=== PATIENT | male | born 1935 | race Caucasian/White ===

== ENCOUNTER 2016-07-23 11:20 | Outpatient (CLI) | payer OTHER ==
[2015-11-01 04:17] VITALS: BP 133/60
[2016-07-23] MEDS ORDERED: PROLIA SC ONE (11:27)
[2016-07-23 12:09] VITALS: BMI 32.5
== END 2016-07-23 12:11 | disposition home or self-care (01) ==
LOC: ER 11:20
PROVIDERS: ATTEND Internal Medicine
DX: Z79.899 Other long term (current) drug therapy (principal); M81.8 Other osteoporosis without current pathological fracture
CPT/HCPCS: 96372; 96375

== ENCOUNTER 2016-07-30 14:12 | Inpatient (IN) | payer OTHER ==
[2016-07-30] MEDS: ZOSYN VIAL 4.5 GM 4.5 GM in NS 100 ML IV + SPIKE MINIBAG* 100 ML IV SCH ×2 (16:33→22:47)
[2016-07-30] MEDS: LASIX IVP SCH ×2 (16:33→22:46)
[2016-07-30] MEDS: NS 1000 ML 1,000 ML IV SCH (16:36)
[2016-07-30 16:46] VITALS: BMI 33.4
[2016-07-30 16:54] LABS: ALANINE AMINOTRANSFERASE 39 Units/L (12-78); ALBUMIN 3.3 g/dL (3.4-5.0); ALKALINE PHOSPHATASE 83 Units/L (46-116); ASPARTATE AMINO TRANSFERASE 38 Units/L (15-37); BLOOD UREA NITROGEN 15 mg/dL (7-18); CHLORIDE 104 mmol/L (98-107); COR CA(FOR HYPOALB) 8.6 mg/dL (8.5-10.1); CREATININE 1.22 mg/dL (0.70-1.30); GLUCOSE 101 mg/dL (65-99); SODIUM 137 mmol/L (136-145); TOTAL PROTEIN 7.7 g/dL (6.4-8.2); eGFR BLACK RACES > 60 (>60); eGFR NON BLACK RACES > 60 (>60)
[2016-07-30 16:55] LABS: BASOPHILS # (AUTO) 0.1 X10^3/uL (0.0-0.1); BASOPHILS % (AUTO) 1.3 % (0.2-1.0); EOSINOPHILS # (AUTO) 0.4 x10^3/uL (0.0-0.2); EOSINOPHILS % (AUTO) 5.1 % (0.9-2.9); HEMATOCRIT 40.9 % (42.0-54.0); HEMOGLOBIN 13.2 g/dL (13.5-18.0); LYMPHOCYTES # (AUTO) 1.6 X10^3/uL (1.3-2.9); LYMPHOCYTES % (AUTO) 19.6 % (21.0-51.0); MEAN CORPUSCULAR HEMOGLOBIN 26.6 pg (27.0-34.0); MEAN CORPUSCULAR HGB CONC 32.2 g/dL (33.0-35.0); MEAN CORPUSCULAR VOLUME 82.6 fL (80.0-100.0); MEAN PLATELET VOLUME 7.4 fL (7.4-11.0); MONOCYTES # (AUTO) 0.7 x10^3/uL (0.3-0.8); MONOCYTES % (AUTO) 8.6 % (0.0-13.0); NEUTROPHILS # (AUTO) 5.4 x10^3/uL (2.2-4.8); NEUTROPHILS % (AUTO) 65.4 % (42.0-75.0); PLATELET COUNT 375 X10^3/uL (150.0-450.0); RED BLOOD COUNT 4.96 X10^6/uL (4.7-6.0); WHITE BLOOD COUNT 8.2 X10^3/uL (3.6-10.0)
[2016-07-30 17:43] LABS: BAND NEUTROPHILS % 2 % (0-10); PLATELET MORPHOLOGY COMMENT NORMAL (NORMAL)
[2016-07-30] MEDS: CIPRO IV 400 MG PREMIX* 400 MG/200 ML IV.SOLN. IV SCH (22:47)
[2016-07-30] MEDS ORDERED: RESTORIL CAP 15 MG PO ONE (23:35)
[2016-07-30] MEDS: RESTORIL CAP 15 MG PO PRN (23:46)
[2016-07-31] MEDS: CIPRO IV 400 MG PREMIX* 400 MG/200 ML IV.SOLN. IV SCH ×3 (02:19→21:39)
[2016-07-31 03:21] LABS: BILIRUBIN,URINE NEGATIVE (NEGATIVE); BLOOD/HEMOGLOBIN,URINE NEGATIVE (NEGATIVE); GLUCOSE, URINE NEGATIVE (NEGATIVE); KETONES,URINE NEGATIVE (NEGATIVE); LEUKOCYTE ESTERASE ,URINE NEGATIVE (NEGATIVE); NITRITES,URINE NEGATIVE (NEGATIVE); PH,URINE 6.5 (5.0 - 8.0); PROTEIN,URINE NEGATIVE (NEGATIVE); UROBILINOGEN,URINE NORMAL (NORMAL)
[2016-07-31 03:27] LABS: APPEARANCE,URINE CLEAR (CLEAR); COLOR,URINE YELLOW (YELLOW)
[2016-07-31 03:30] LABS: BACTERIA,URINE NEGATIVE /HPF (NEGATIVE); RBC,URINE NONE SEEN /HPF (NEGATIVE); SQUAMOUS EPITHELIAL CELL,UR RARE /HPF (NEGATIVE)
[2016-07-31] MEDS: ZOSYN VIAL 4.5 GM 4.5 GM in NS 100 ML IV + SPIKE MINIBAG* 100 ML IV SCH ×3 (05:27→21:39)
[2016-07-31] MEDS: NS 1000 ML 1,000 ML IV SCH ×2 (05:27→21:38)
[2016-07-31 05:28] LABS: BASOPHILS # (AUTO) 0.1 X10^3/uL (0.0-0.1); BASOPHILS % (AUTO) 1.2 % (0.2-1.0); EOSINOPHILS # (AUTO) 0.4 x10^3/uL (0.0-0.2); EOSINOPHILS % (AUTO) 5.5 % (0.9-2.9); HEMOGLOBIN 12.9 g/dL (13.5-18.0); LYMPHOCYTES # (AUTO) 1.4 X10^3/uL (1.3-2.9); MEAN CORPUSCULAR HEMOGLOBIN 26.6 pg (27.0-34.0); MEAN CORPUSCULAR HGB CONC 32.3 g/dL (33.0-35.0); MEAN CORPUSCULAR VOLUME 82.5 fL (80.0-100.0); MEAN PLATELET VOLUME 7.5 fL (7.4-11.0); MONOCYTES # (AUTO) 0.7 x10^3/uL (0.3-0.8); MONOCYTES % (AUTO) 9.3 % (0.0-13.0); NEUTROPHILS # (AUTO) 5.1 x10^3/uL (2.2-4.8); PLATELET COUNT 350 X10^3/uL (150.0-450.0); RED BLOOD COUNT 4.86 X10^6/uL (4.7-6.0); RED CELL DISTRIBUTION WIDTH 17.8 % (11.6-16.5); WHITE BLOOD COUNT 7.8 X10^3/uL (3.6-10.0)
[2016-07-31 05:31] LABS: ALANINE AMINOTRANSFERASE 35 Units/L (12-78); ALBUMIN 3.1 g/dL (3.4-5.0); ALKALINE PHOSPHATASE 78 Units/L (46-116); ASPARTATE AMINO TRANSFERASE 34 Units/L (15-37); BLOOD UREA NITROGEN 15 mg/dL (7-18); CALCIUM 7.9 mg/dL (8.5-10.1); CARBON DIOXIDE 26.3 mmol/L (21-32); CHLORIDE 105 mmol/L (98-107); COR CA(FOR HYPOALB) 8.6 mg/dL (8.5-10.1); COR NA(FOR HYPERGLY) 142 mmol/L (136-145); CREATININE 1.25 mg/dL (0.70-1.30); GLUCOSE 115 mg/dL (65-99); SODIUM 142 mmol/L (136-145); TOTAL PROTEIN 7.2 g/dL (6.4-8.2); eGFR BLACK RACES > 60 (>60); eGFR NON BLACK RACES 59 (>60)
[2016-07-31 06:22] LABS: BAND NEUTROPHILS % 10 % (0-10); PLATELET MORPHOLOGY COMMENT NORMAL (NORMAL)
[2016-07-31] MEDS ORDERED: LEVSIN/MAALOX/LIDOC VISC PO PRN (07:35)
[2016-07-31] MEDS ORDERED: PATIENT'S HOME MEDICATION RESPIRATORY (Potassium Chloride [Potassium Chloride Er] 20 MEQ) PO SCH (09:00)
--- NOTE | 2016-07-31 09:42 | RAD ---
HISTORY: Cellulitis bilateral lower extremities, shortness of breath Study: Portable chest obtained July 31, 2016 at 9:19 a.m. Comparison: June 03, 2015 Findings: The trachea is midline . There is no widening or shift of mediastinum. The cardiac silhouette appear s within normal limits. blunting of the right costophrenic angle is noted consistent with pleural th ickening or small pleural effusion. Atelectasis is noted in the right lower lung field.. Osseous str uctures are within normal limits for the patient's age . No significant interval change since the pr evious study. IMPRESSION: 1. Heart normal size atelectasis right lower lobe. Blunting of the right costophrenic angle consiste nt with pleural thickening or pleural effusion. No significant interval change since the previous st udy of June 03, 2015. Reported By:
[2016-07-31] MEDS: ALDACTONE TAB 25 MG PO SCH (09:52)
[2016-07-31] MEDS: K-DUR TAB 20 MEQ PO SCH (09:53)
[2016-07-31] MEDS: REQUIP PO SCH ×2 (09:53→21:38)
[2016-07-31] MEDS: PROTONIX TAB 40 MG PO SCH ×2 (09:53→21:38)
[2016-07-31] MEDS: SYNTHROID 75 mcg TAB PO SCH (09:53)
[2016-07-31] MEDS: ASPIRIN EC 81 MG PO SCH (09:53)
[2016-07-31] MEDS: PLAVIX PO SCH (09:53)
[2016-07-31] MEDS: GENTAMICIN TOPICAL CRM TOP SCH ×2 (11:00→21:39)
--- NOTE | 2016-07-31 15:22 | DR.UPDATE ---
H&P Update History and Physical Update: H&P UPDATE FOR ADMISSION 07/30/16 MR. FRANCOIS'S H&P WAS COMPLETED IN OUR OFFICE PRIOR TO ADMISSION. HE HAS BEEN SEEN AND EXAMINED WITH NO CHANGES NOTED.
--- NOTE | 2016-07-31 16:08 | PCM.PROG ---
Progress Note - Progress Note for Day of Date: 07/31/16 - Subjective Subjective: PATIENT RESTS IN BED. WOUND CULTURES FROM BILATERAL LOWER EXTREMITIES ARE OBTAINED AT THIS TIME AND SENT TO LAB. LOWER EXTREMITIES ARE NOTED WITH ERYTHEMA, WARMTH, AND 3+ PITTING EDEMA. PATIENT CONTINUES ON TREATMENT OF IV ZOSYN, IV CIPRO, FLUID RESTRICTION. BLOOD CULTURES PENDING. PATIENT REPORTS HE HAS BEEN PUTTING VASELINE ON LOWER EXTREMITIES FOR TREATMENT OF CELLULITIS AND WOUNDS. WE DISCUSS THIS WITH PATIENT AND DISCOURAGE USE OF VASELINE, PATIENT VOICES UNDERSTANDING. CBC WNL EXCEPT: H/H 12.9/40.0. CMP WNL EXCEPT: GLUCOSE 115, CALCIUM 7.9, ALBUMIN 3.1. WE WILL START GENTAMICIN CREAM TO LOWER EXTREMITIES BID. WE WILL CONTINUE IV ANTIBIOTICS, CONTINUE WOUND CARE, AND FOLLOW UP IN AM WITH LABS. - Past Medical Family Social History Past Med/Fam/Surg Hx: No changes since H&P Allergies: Allergies Promethazine [From Phenergan] Allergy (Intermediate, Verified 10/25/15 14:48) - Review of Systems ROS: No change since H&P - Vital Signs and I&O's Vital Signs: Temperature 98.9 F Pulse Rate [Right Brachial] 83 Respiratory Rate 20 Blood Pressure [Right Arm] 128/58 Blood Pressure [Left Arm] 119/54 Blood Pressure 133/60 O2 Sat by Pulse Oximetry 92 Intake and Output: Intake & Output 07/29/16 07/30/16 07/31/16 08/01/16 11:59 11:59 11:59 11:59 Intake Total 650 720 Output Total 2750 Balance -2100 720 - Physical Exam Oriented: Normal, Time, Person, Place Eyes: Normal. negative: Blurred Vision, Discharge, Pain, Redness, Photophobia Ear: Normal. negative: Swelling, Ecchymosis, Hemotypanum, Abrasion, Laceration Nose: Normal. negative: Injected, Discharge, Blood Throat: Normal. negative: Tonsillar Hypertrophy, Red, Exudate Respiratory: Normal Cardiovascular: Normal (Rate, rhythm), Edema (2+ pitting ble). negative: Murmur : Normal. negative: Dysuria, Hematuria, Frequency, Discharge, Testicular Pain Auscultation: Bowel Sounds: Normal. negative: Bruit Palpation: Normal. negative: Spleen Enlarged, Liver Enlarged, Mass Pulsatile Tenderness: Normal. negative: Rebound, Guarding, Rigidity Skin: Normal, Wound (BLE Cellulitis). negative: Diaphoresis Musculoskeletal: Instability Psychiatric: Normal Mood Description: Calm, Appropriate Affect: Normal Speech Pattern: Clear, Appropriate - Laboratory and Diagnostics Result Diagrams: 07/31/16 03:25 07/31/16 03:25 Labs: 07/31/16 08:38 Leg - Left Gram Stain - Final 07/31/16 08:38 Leg - Right Gram Stain - Final Laboratory WBC 7.8 X10^3/uL (3.6-10.0) 07/31/16 03:25 RBC 4.86 X10^6/uL (4.7-6.0) 07/31/16 03:25 Hgb 12.9 g/dL (13.5-18.0) L 07/31/16 03:25 Hct 40.0 % (42.0-54.0) L 07/31/16 03:25 MCV 82.5 fL (80.0-100.0) 07/31/16 03:25 MCH 26.6 pg (27.0-34.0) L 07/31/16 03:25 MCHC 32.3 g/dL (33.0-35.0) L 07/31/16 03:25 RDW 17.8 % (11.6-16.5) H 07/31/16 03:25 Plt Count 350 X10^3/uL (150.0-450.0) 07/31/16 03:25 Plt Count Comment Adequate (ADEQUATE) 07/31/16 03:25 MPV 7.5 fL (7.4-11.0) 07/31/16 03:25 Neut % 66.0 % (42.0-75.0) 07/31/16 03:25 Lymph % 18.0 % (21.0-51.0) L 07/31/16 03:25 Bowman % 9.3 % (0.0-13.0) 07/31/16 03:25 Eos % 5.5 % (0.9-2.9) H 07/31/16 03:25 Baso % 1.2 % (0.2-1.0) H 07/31/16 03:25 Neut # 5.1 x10^3/uL (2.2-4.8) H 07/31/16 03:25 Lymph # 1.4 X10^3/uL (1.3-2.9) 07/31/16 03:25 Bowman # 0.7 x10^3/uL (0.3-0.8) 07/31/16 03:25 Eos # 0.4 x10^3/uL (0.0-0.2) H 07/31/16 03:25 Baso # 0.1 X10^3/uL (0.0-0.1) 07/31/16 03:25 Absolute Nucleated RBC 0.1 /100WBC 07/31/16 03:25 Total Counted 100 07/31/16 03:25 Neutrophils % (Manual) 58 % (39-76) 07/31/16 03:25 Band Neutrophils % 10 % (0-10) 07/31/16 03:25 Lymphocytes % (Manual) 21 % (13-43) 07/31/16 03:25 Monocytes % (Manual) 9 % (4-9) 07/31/16 03:25 Eosinophils % (Manual) 2 % (0-6) 07/31/16 03:25 Plt Morphology Comment Normal (NORMAL) 07/31/16 03:25 RBC Morphology Normal (NORMAL) 07/31/16 03:25 Sodium 142 mmol/L (136-145) 07/31/16 03:25 Corrected Sodium 142 mmol/L (136-145) 07/31/16 03:25 Potassium 3.7 mmol/L (3.5-5.1) 07/31/16 03:25 Chloride 105 mmol/L (98-107) 07/31/16 03:25 Carbon Dioxide 26.3 mmol/L (21-32) 07/31/16 03:25 BUN 15 mg/dL (7-18) 07/31/16 03:25 Creatinine 1.25 mg/dL (0.70-1.30) 07/31/16 03:25 Est GFR (MDRD) Af Amer > 60 (>60) 07/31/16 03:25 Est GFR (MDRD) Non-Af 59 (>60) 07/31/16 03:25 Glucose 115 mg/dL (65-99) H 07/31/16 03:25 Calcium 7.9 mg/dL (8.5-10.1) L 07/31/16 03:25 Corrected Calcium 8.6 mg/dL (8.5-10.1) 07/31/16 03:25 Total Bilirubin 0.30 mg/dL (0.2-1.0) 07/31/16 03:25 AST 34 Units/L (15-37) 07/31/16 03:25 ALT 35 Units/L (12-78) 07/31/16 03:25 Alkaline Phosphatase 78 Units/L (46-116) 07/31/16 03:25 Total Protein 7.2 g/dL (6.4-8.2) 07/31/16 03:25 Albumin 3.1 g/dL (3.4-5.0) L 07/31/16 03:25 Globulin 4.1 g/dL (2.5-4.5) 07/31/16 03:25 Albumin/Globulin Ratio 0.8 Ratio (1.1-2.1) L 07/31/16 03:25 Specimen Type Clean catch urine 07/31/16 03:00 Urine Color Yellow (YELLOW) 07/31/16 03:00 Urine Appearance Clear (CLEAR) 07/31/16 03:00 Urine pH 6.5 (5.0 - 8.0) 07/31/16 03:00 Ur Specific [place] 1.015 (1.000-1.030) 07/31/16 03:00 Urine Protein Negative (NEGATIVE) 07/31/16 03:00 Urine Glucose (UA) Negative (NEGATIVE) 07/31/16 03:00 Urine Ketones Negative (NEGATIVE) 07/31/16 03:00 Urine Occult Blood Negative (NEGATIVE) 07/31/16 03:00 Urine Nitrite Negative (NEGATIVE) 07/31/16 03:00 Urine Bilirubin Negative (NEGATIVE) 07/31/16 03:00 Urine Urobilinogen Normal (NORMAL) 07/31/16 03:00 Ur Leukocyte Esterase Negative (NEGATIVE) 07/31/16 03:00 Urine RBC None seen /HPF (NEGATIVE) 07/31/16 03:00 Urine WBC None seen /HPF (NEGATIVE) 07/31/16 03:00 Ur Squamous Epith Cells Rare /HPF (NEGATIVE) 07/31/16 03:00 Urine Bacteria Negative /HPF (NEGATIVE) 07/31/16 03:00 Ur Culture Indicated? No/not indicated 07/31/16 03:00 - Plan (1) Cellulitis of both lower extremities Status: Acute Plan: CONTINUE IV ZOSYN, IV CIPRO, WOUND CARE, MONITOR LOWER EXTREMITIES. (2) CHF (congestive heart failure) Status: Chronic Qualifiers: Congestive heart failure type: unspecified congestive heart failure type Congestive heart failure chronicity: acute Qualified Code(s): I50.9 - Heart failure, unspecified Plan: FLUID RESTRICT, MONITOR CHEST XRAY. (3) Aortic aneurysm Status: Chronic Qualifiers: Aortic location: abdominal aorta Presence of rupture: without rupture Qualified Code(s): I71.4 - Abdominal aortic aneurysm, without rupture Plan: CONTINUE TO MONITOR. (4) BPH (benign prostatic hypertrophy) Status: Chronic Qualifiers: Prostatic enlargement morphology: unspecified morphology Lower urinary tract symptom presence: symptoms absent Qualified Code(s): N40.0 - Benign prostatic hyperplasia without lower urinary tract symptoms (5) Back pain Status: Chronic Qualifiers: Back pain location: low back pain Chronicity: acute Back pain laterality : unspecified Sciatica presence: without sciatica Sciatica laterality: S Qualified Code(s): M54.5 - Low back pain (6) COPD (chronic obstructive pulmonary disease) Status: Chronic Qualifiers: COPD type: C Chronic bronchitis type: C Emphysema type: E (7) Chronic kidney disease (CKD) Status: Chronic Qualifiers: Chronic kidney disease stage: stage 3 (moderate) Qualified Code(s): N18.3 - Chronic kidney disease, stage 3 (moderate) (8) GERD (gastroesophageal reflux disease) Status: Chronic Qualifiers: Esophagitis presence: E (9) History of AK (myocardial infarction) Status: Chronic (10) Hx of heart artery stent Status: Chronic (11) Hyperlipidemia Status: Chronic Qualifiers: Hyperlipidemia type: Mixed hyperlipidemia Qualified Code(s): E78.2 - Mixed hyperlipidemia (12) Hypertension Status: Chronic Qualifiers: Hypertension type: essential hypertension Qualified Code(s): I10 - Essential (primary) hypertension (13) Hypothyroidism Status: Chronic Qualifiers: Hypothyroidism type: H (14) Renal disease Status: Chronic (15) Skin cancer Status: Chronic
[2016-07-31] MEDS: RESTORIL CAP 15 MG PO PRN (21:38)
[2016-07-31] MEDS: FLOMAX PO SCH (21:38)
[2016-08-01] MEDS: NS 1000 ML 1,000 ML IV SCH (05:07)
[2016-08-01] MEDS: ZOSYN VIAL 4.5 GM 4.5 GM in NS 100 ML IV + SPIKE MINIBAG* 100 ML IV SCH ×3 (05:07→22:14)
[2016-08-01 05:47] LABS: ALANINE AMINOTRANSFERASE 31 Units/L (12-78); ALBUMIN 2.8 g/dL (3.4-5.0); ALKALINE PHOSPHATASE 69 Units/L (46-116); ASPARTATE AMINO TRANSFERASE 23 Units/L (15-37); BLOOD UREA NITROGEN 12 mg/dL (7-18); CALCIUM 8.3 mg/dL (8.5-10.1); CARBON DIOXIDE 24.2 mmol/L (21-32); CHLORIDE 110 mmol/L (98-107); COR CA(FOR HYPOALB) 9.3 mg/dL (8.5-10.1); COR NA(FOR HYPERGLY) 145 mmol/L (136-145); CREATININE 1.17 mg/dL (0.70-1.30); GLUCOSE 115 mg/dL (65-99); SODIUM 145 mmol/L (136-145); TOTAL PROTEIN 6.6 g/dL (6.4-8.2); eGFR BLACK RACES > 60 (>60); eGFR NON BLACK RACES > 60 (>60)
[2016-08-01 05:58] LABS: BASOPHILS # (AUTO) 0.1 X10^3/uL (0.0-0.1); BASOPHILS % (AUTO) 1.4 % (0.2-1.0); EOSINOPHILS # (AUTO) 0.5 x10^3/uL (0.0-0.2); EOSINOPHILS % (AUTO) 6.4 % (0.9-2.9); HEMATOCRIT 39.1 % (42.0-54.0); HEMOGLOBIN 12.3 g/dL (13.5-18.0); LYMPHOCYTES # (AUTO) 1.4 X10^3/uL (1.3-2.9); LYMPHOCYTES % (AUTO) 17.2 % (21.0-51.0); MEAN CORPUSCULAR HEMOGLOBIN 26.3 pg (27.0-34.0); MEAN CORPUSCULAR HGB CONC 31.5 g/dL (33.0-35.0); MEAN CORPUSCULAR VOLUME 83.5 fL (80.0-100.0); MEAN PLATELET VOLUME 7.6 fL (7.4-11.0); MONOCYTES # (AUTO) 0.8 x10^3/uL (0.3-0.8); NEUTROPHILS # (AUTO) 5.6 x10^3/uL (2.2-4.8); PLATELET COUNT 334 X10^3/uL (150.0-450.0); RED BLOOD COUNT 4.69 X10^6/uL (4.7-6.0); RED CELL DISTRIBUTION WIDTH 18.1 % (11.6-16.5); WHITE BLOOD COUNT 8.4 X10^3/uL (3.6-10.0)
[2016-08-01 07:08] LABS: BAND NEUTROPHILS % 2 % (0-10); PLATELET MORPHOLOGY COMMENT NORMAL (NORMAL)
[2016-08-01] MEDS: REQUIP PO SCH ×2 (09:56→22:14)
[2016-08-01] MEDS: CIPRO IV 400 MG PREMIX* 400 MG/200 ML IV.SOLN. IV SCH ×2 (09:56→22:14)
[2016-08-01] MEDS: K-DUR TAB 20 MEQ PO SCH (09:56)
[2016-08-01] MEDS: PROTONIX TAB 40 MG PO SCH ×2 (09:56→22:14)
[2016-08-01] MEDS: ASPIRIN EC 81 MG PO SCH (09:57)
[2016-08-01] MEDS: GENTAMICIN TOPICAL CRM TOP SCH ×2 (09:57→22:15)
[2016-08-01] MEDS: ALDACTONE TAB 25 MG PO SCH (09:57)
[2016-08-01] MEDS: PLAVIX PO SCH (09:57)
[2016-08-01] MEDS: SYNTHROID 75 mcg TAB PO SCH (09:58)
[2016-08-01] MEDS ORDERED: NS 100 ML IV 100 ML IV ONE (13:01)
--- NOTE | 2016-08-01 14:53 | CT ---
CT angiogram bilateral lower extremity runoff Indication: Your edema and swelling in the lower extremities Technique: Helical images through the bilateral lower extremities from above the iliac crest see bel ow the feet. This was performed both before and after IV contrast per protocol. Coronal sagittal ref ormats provided. MIP images provided. Findings: Abdomen and pelvis: Bilateral renal hypodensities are compatible with cysts. Fatty liver is partiall y visualized. Loops of bowel show no acute abnormality. Central prostate calcifications are noted. Review of bone windows shows multilevel spine disk degenerative change and facet arthropathy. Nonvascular lower extremity findings: There is no destructive osseous lesions seen. Knee joint degen erative changes noted, mild. This is bilateral and symmetric. Small right knee effusion noted. Mild midfoot and ankle degenerative changes noted. There is subcutaneous edema about the caps, fairly diffusely in seen bilaterally. Mild dependent tino ma in the thighs is noted. CT angiogram: Abdomen and pelvis: There is extensive plaque in the infrarenal abdominal aorta, which is minimally ectatic at 3.0 x 3.2 cm on axial image 2 of series 7. The ASAEL appears patent. Visualized SMA distal branches are patent. There is moderate plaque at the common iliac arteries with no move multifocal mid left common iliac artery noted, around 50% maximally on axial image 29 and coronal image 47. No high-grade stenosis of the right common iliac artery seen. There is plaque at both internal iliac artery origins, with a least 50-75% stenosis noted. Mild post stenotic dilatation is seen on the right see axial images 45-48. Distal branches are patent. There is scattered soft and calcified plaque in both external iliac arteries, with multifocal narrow ings less than 50%. Right lower extremity: The right common femoral artery shows scattered plaque, with occlusion or keke r occlusion at the proximal right superficial femoral artery see axial images 86-88. Profunda branch es provide collateral flow in the deep thigh soft tissues, with reconstitution of the distal SFA and popliteal artery through collateralization on axial image 187. Occasional flow seen in the small an d mostly calcified superficial femoral artery, with no flow seen for example on axial image 143 comp atible with complete occlusion. Scattered plaque is seen in the popliteal artery without high-grade stenosis. The anterior tibial artery , peroneal trunk and posterior tibial artery are patent with minimal plaq ue at the bifurcation of the popliteal artery proximally see axial image 62. Relatively normal opacification of the dorsalis pedis is noted. Peroneal trunk provides flow to the level of the ankle. Posterior tibial artery is occluded just above the ankle see axial image 131. Co llaterals provide flow to the plantar arch. Left lower extremity: There is narrowing at the proximal common femoral artery the. The profunda branches provide flow to the site, with complete occlusion of the superficial femoral artery see axial image 88 where there i s occlusion of the origin. No flow seen within the SFA, with scattered plaque noted. Occasional atte mpted reconstitution is seen, for example axial image 174, where thready flow and further more cauda l collaterals reconstitute the popliteal artery which shows multi focal narrowing in relatively smal l caliber. The anterior tibial artery is patent and provides flow to the level of the ankle. No flow seen in th e dorsalis pedis below the ankle on axial image 172 through 176. Minimal reconstitution distally via plantar arch collaterals is noted. The posterior tibial artery is occluded in the mid calf, with no flow in the distal calf axial image 134. Peroneal trunk reaches the ankle. It is uncertain what col lateral vessel is providing flow to the plantar arch and distal dorsalis pedis. Impression: Angiogram: Right le. Occlusion of the proximal right superficial femoral artery with a ventral reconstitution of the p opliteal artery via profunda collaterals. 2. 2 vessel runoff to the foot and ankle with occlusion of the posterior tibial artery above the ank le. Plantar arch is supplied via dorsalis pedis collaterals. Left le. Complete occlusion of the right superficial femoral artery throughout its length with thready rec onstitution distally supplying the patent but small popliteal artery. 2. Complete occlusion of the posterior tibial artery in the mid calf. 3. Anterior tibial artery and peroneal artery reach the ankle, with no flow seen in the proximal effie salis pedis. 4. Small/not identified collateral vessels provides flow to the plantar arch and distal dorsalis ped is. Angiography may be needed. Abdomen and pelvis: There is infrarenal abdominal aortic aneurysm, incompletely visualized. The visu alized portion measures maximally 3.0 x 3.2 cm, and is probably larger cranially, as seen on prior C T abdomen and pelvis from October 10, 2015. Non angiographic findings: Spine, ankle and knee degenerative change, fatty liver. Other findings as above. Reported By:
--- NOTE | 2016-08-01 21:56 | PCM.PROG ---
Progress Note - Progress Note for Day of Date: 08/01/16 - Subjective Subjective: PATIENT SITS ON SIDE OF BED. LOWER EXTREMITIES CONTINUE WITH ERYTHEMA, WARMTH, AND 3+ PITTING EDEMA. PATIENT CONTINUES ON TREATMENT OF IV ZOSYN, IV CIPRO, AND FLUID RESTRICTION. BLOOD AND WOUND CULTURES PENDING. GENTAMICIN CREAM HAS BEEN STARTED WITH WOUND CARE. CBC WNL EXCEPT: H/H 12.3/ 39.1. CMP WNL EXCEPT: CHL 110, GLUCOSE 115, CALCIUM 8.3, ALBUMIN 2.8. WE WILL OBTAIN CTA OF LOWER EXTREMITIES, CONTINUE IV ANTIBIOTICS, CONTINUE WOUND CARE, AND FOLLOW UP IN AM WITH LABS. - Past Medical Family Social History Past Med/Fam/Surg Hx: No changes since H&P Allergies: Allergies Promethazine [From Phenergan] Allergy (Intermediate, Verified 10/25/15 14:48) - Review of Systems ROS: No change since H&P - Vital Signs and I&O's Vital Signs: Temperature 97.3 F Pulse Rate [Right Brachial] 81 Respiratory Rate 24 Blood Pressure [Right Arm] 139/65 Blood Pressure [Left Arm] 119/54 Blood Pressure 133/60 O2 Sat by Pulse Oximetry 95 Intake and Output: Intake & Output 07/30/16 07/31/16 08/01/16 08/02/16 11:59 11:59 11:59 11:59 Intake Total 650 1185 1005 Output Total 2750 500 Balance -2100 685 1005 - Physical Exam Oriented: Normal, Time, Person, Place Eyes: Normal. negative: Blurred Vision, Discharge, Pain, Redness, Photophobia Ear: Normal. negative: Swelling, Ecchymosis, Hemotypanum, Abrasion, Laceration Nose: Normal. negative: Injected, Discharge, Blood Throat: Normal. negative: Tonsillar Hypertrophy, Red, Exudate Respiratory: Normal Cardiovascular: Normal (Rate, rhythm), Edema (2+ pitting ble). negative: Murmur : Normal. negative: Dysuria, Hematuria, Frequency, Discharge, Testicular Pain Auscultation: Bowel Sounds: Normal. negative: Bruit Palpation: Normal. negative: Spleen Enlarged, Liver Enlarged, Mass Pulsatile Tenderness: Normal. negative: Rebound, Guarding, Rigidity Skin: Normal, Wound (BLE Cellulitis). negative: Diaphoresis Musculoskeletal: Instability Psychiatric: Normal Mood Description: Calm, Appropriate Affect: Normal Speech Pattern: Clear, Appropriate - Laboratory and Diagnostics Result Diagrams: 08/01/16 03:14 08/01/16 03:14 Labs: 07/31/16 08:38 Leg - Right Gram Stain - Final 07/31/16 08:38 Leg - Right Wound Culture - Preliminary 07/30/16 16:25 Blood Blood Culture - Preliminary 07/30/16 16:10 Blood Blood Culture - Preliminary 07/31/16 08:38 Leg - Left Gram Stain - Final 07/31/16 08:38 Leg - Left Wound Culture - Preliminary Laboratory WBC 8.4 X10^3/uL (3.6-10.0) 08/01/16 03:14 RBC 4.69 X10^6/uL (4.7-6.0) L 08/01/16 03:14 Hgb 12.3 g/dL (13.5-18.0) L 08/01/16 03:14 Hct 39.1 % (42.0-54.0) L 08/01/16 03:14 MCV 83.5 fL (80.0-100.0) 08/01/16 03:14 MCH 26.3 pg (27.0-34.0) L 08/01/16 03:14 MCHC 31.5 g/dL (33.0-35.0) L 08/01/16 03:14 RDW 18.1 % (11.6-16.5) H 08/01/16 03:14 Plt Count 334 X10^3/uL (150.0-450.0) 08/01/16 03:14 Plt Count Comment Adequate (ADEQUATE) 08/01/16 03:14 MPV 7.6 fL (7.4-11.0) 08/01/16 03:14 Neut % 66.0 % (42.0-75.0) 08/01/16 03:14 Lymph % 17.2 % (21.0-51.0) L 08/01/16 03:14 [place] % 9.0 % (0.0-13.0) 08/01/16 03:14 Eos % 6.4 % (0.9-2.9) H 08/01/16 03:14 Baso % 1.4 % (0.2-1.0) H 08/01/16 03:14 Neut # 5.6 x10^3/uL (2.2-4.8) H 08/01/16 03:14 Lymph # 1.4 X10^3/uL (1.3-2.9) 08/01/16 03:14 [place] # 0.8 x10^3/uL (0.3-0.8) 08/01/16 03:14 Eos # 0.5 x10^3/uL (0.0-0.2) H 08/01/16 03:14 Baso # 0.1 X10^3/uL (0.0-0.1) 08/01/16 03:14 Absolute Nucleated RBC 0.1 /100WBC 08/01/16 03:14 Total Counted 100 08/01/16 03:14 Neutrophils % (Manual) 64 % (39-76) 08/01/16 03:14 Band Neutrophils % 2 % (0-10) 08/01/16 03:14 Lymphocytes % (Manual) 18 % (13-43) 08/01/16 03:14 Monocytes % (Manual) 10 % (4-9) H 08/01/16 03:14 Eosinophils % (Manual) 6 % (0-6) 08/01/16 03:14 Plt Morphology Comment Normal (NORMAL) 08/01/16 03:14 RBC Morphology Normal (NORMAL) 08/01/16 03:14 Sodium 145 mmol/L (136-145) 08/01/16 03:14 Corrected Sodium 145 mmol/L (136-145) 08/01/16 03:14 Potassium 4.0 mmol/L (3.5-5.1) 08/01/16 03:14 Chloride 110 mmol/L (98-107) H 08/01/16 03:14 Carbon Dioxide 24.2 mmol/L (21-32) 08/01/16 03:14 BUN 12 mg/dL (7-18) 08/01/16 03:14 Creatinine 1.17 mg/dL (0.70-1.30) 08/01/16 03:14 Est GFR (MDRD) Af Amer > 60 (>60) 08/01/16 03:14 Est GFR (MDRD) Non-Af > 60 (>60) 08/01/16 03:14 Glucose 115 mg/dL (65-99) H 08/01/16 03:14 Calcium 8.3 mg/dL (8.5-10.1) L 08/01/16 03:14 Corrected Calcium 9.3 mg/dL (8.5-10.1) 08/01/16 03:14 Total Bilirubin 0.30 mg/dL (0.2-1.0) 08/01/16 03:14 AST 23 Units/L (15-37) 08/01/16 03:14 ALT 31 Units/L (12-78) 08/01/16 03:14 Alkaline Phosphatase 69 Units/L (46-116) 08/01/16 03:14 Total Protein 6.6 g/dL (6.4-8.2) 08/01/16 03:14 Albumin 2.8 g/dL (3.4-5.0) L 08/01/16 03:14 Globulin 3.8 g/dL (2.5-4.5) 08/01/16 03:14 Albumin/Globulin Ratio 0.7 Ratio (1.1-2.1) L 08/01/16 03:14 Specimen Type Clean catch urine 07/31/16 03:00 Urine Color Yellow (YELLOW) 07/31/16 03:00 Urine Appearance Clear (CLEAR) 07/31/16 03:00 Urine pH 6.5 (5.0 - 8.0) 07/31/16 03:00 Ur Specific [place] 1.015 (1.000-1.030) 07/31/16 03:00 Urine Protein Negative (NEGATIVE) 07/31/16 03:00 Urine Glucose (UA) Negative (NEGATIVE) 07/31/16 03:00 Urine Ketones Negative (NEGATIVE) 07/31/16 03:00 Urine Occult Blood Negative (NEGATIVE) 07/31/16 03:00 Urine Nitrite Negative (NEGATIVE) 07/31/16 03:00 Urine Bilirubin Negative (NEGATIVE) 07/31/16 03:00 Urine Urobilinogen Normal (NORMAL) 07/31/16 03:00 Ur Leukocyte Esterase Negative (NEGATIVE) 07/31/16 03:00 Urine RBC None seen /HPF (NEGATIVE) 07/31/16 03:00 Urine WBC None seen /HPF (NEGATIVE) 07/31/16 03:00 Ur Squamous Epith Cells Rare /HPF (NEGATIVE) 07/31/16 03:00 Urine Bacteria Negative /HPF (NEGATIVE) 07/31/16 03:00 Ur Culture Indicated? No/not indicated 07/31/16 03:00 - Plan (1) Cellulitis of both lower extremities Status: Acute Plan: OBTAIN CTA OF LOWER EXTREMITIES, CONTINUE IV ZOSYN, IV CIPRO, WOUND CARE, MONITOR LOWER EXTREMITIES. (2) CHF (congestive heart failure) Status: Chronic Qualifiers: Congestive heart failure type: unspecified congestive heart failure type Congestive heart failure chronicity: acute Qualified Code(s): I50.9 - Heart failure, unspecified Plan: FLUID RESTRICT, MONITOR CHEST XRAY. (3) Aortic aneurysm Status: Chronic Qualifiers: Aortic location: abdominal aorta Presence of rupture: without rupture Qualified Code(s): I71.4 - Abdominal aortic aneurysm, without rupture Plan: CONTINUE TO MONITOR. (4) BPH (benign prostatic hypertrophy) Status: Chronic Qualifiers: Prostatic enlargement morphology: unspecified morphology Lower urinary tract symptom presence: symptoms absent Qualified Code(s): N40.0 - Benign prostatic hyperplasia without lower urinary tract symptoms (5) Back pain Status: Chronic Qualifiers: Back pain location: low back pain Chronicity: acute Back pain laterality : unspecified Sciatica presence: without sciatica Sciatica laterality: S Qualified Code(s): M54.5 - Low back pain (6) COPD (chronic obstructive pulmonary disease) Status: Chronic Qualifiers: COPD type: C Chronic bronchitis type: C Emphysema type: E (7) Chronic kidney disease (CKD) Status: Chronic Qualifiers: Chronic kidney disease stage: stage 3 (moderate) Qualified Code(s): N18.3 - Chronic kidney disease, stage 3 (moderate) (8) GERD (gastroesophageal reflux disease) Status: Chronic Qualifiers: Esophagitis presence: E (9) History of PR (myocardial infarction) Status: Chronic (10) Hx of heart artery stent Status: Chronic (11) Hyperlipidemia Status: Chronic Qualifiers: Hyperlipidemia type: Mixed hyperlipidemia Qualified Code(s): E78.2 - Mixed hyperlipidemia (12) Hypertension Status: Chronic Qualifiers: Hypertension type: essential hypertension Qualified Code(s): I10 - Essential (primary) hypertension (13) Hypothyroidism Status: Chronic Qualifiers: Hypothyroidism type: H (14) Renal disease Status: Chronic (15) Skin cancer Status: Chronic
[2016-08-01] MEDS: RESTORIL CAP 15 MG PO PRN (22:14)
[2016-08-01] MEDS: FLOMAX PO SCH (22:14)
[2016-08-02] MEDS: NS 1000 ML 1,000 ML IV SCH ×3 (04:53→21:23)
[2016-08-02] MEDS: ZOSYN VIAL 4.5 GM 4.5 GM in NS 100 ML IV + SPIKE MINIBAG* 100 ML IV SCH ×3 (05:12→21:22)
[2016-08-02 06:32] LABS: ALANINE AMINOTRANSFERASE 27 Units/L (12-78); ALBUMIN 2.7 g/dL (3.4-5.0); ALKALINE PHOSPHATASE 62 Units/L (46-116); ASPARTATE AMINO TRANSFERASE 25 Units/L (15-37); BLOOD UREA NITROGEN 9 mg/dL (7-18); CALCIUM 8.7 mg/dL (8.5-10.1); CARBON DIOXIDE 22.5 mmol/L (21-32); CHLORIDE 109 mmol/L (98-107); COR CA(FOR HYPOALB) 9.7 mg/dL (8.5-10.1); COR NA(FOR HYPERGLY) 143 mmol/L (136-145); CREATININE 1.18 mg/dL (0.70-1.30); GLUCOSE 126 mg/dL (65-99); SODIUM 142 mmol/L (136-145); TOTAL PROTEIN 6.5 g/dL (6.4-8.2); eGFR BLACK RACES > 60 (>60); eGFR NON BLACK RACES > 60 (>60)
[2016-08-02 06:35] LABS: BASOPHILS # (AUTO) 0.1 X10^3/uL (0.0-0.1); BASOPHILS % (AUTO) 0.8 % (0.2-1.0); EOSINOPHILS # (AUTO) 0.5 x10^3/uL (0.0-0.2); EOSINOPHILS % (AUTO) 5.9 % (0.9-2.9); HEMATOCRIT 37.3 % (42.0-54.0); HEMOGLOBIN 11.9 g/dL (13.5-18.0); LYMPHOCYTES # (AUTO) 1.1 X10^3/uL (1.3-2.9); LYMPHOCYTES % (AUTO) 12.1 % (21.0-51.0); MEAN CORPUSCULAR HEMOGLOBIN 26.7 pg (27.0-34.0); MEAN CORPUSCULAR VOLUME 83.4 fL (80.0-100.0); MEAN PLATELET VOLUME 7.4 fL (7.4-11.0); MONOCYTES # (AUTO) 0.7 x10^3/uL (0.3-0.8); MONOCYTES % (AUTO) 7.1 % (0.0-13.0); NEUTROPHILS # (AUTO) 6.8 x10^3/uL (2.2-4.8); NEUTROPHILS % (AUTO) 74.1 % (42.0-75.0); PLATELET COUNT 309 X10^3/uL (150.0-450.0); RED BLOOD COUNT 4.47 X10^6/uL (4.7-6.0); RED CELL DISTRIBUTION WIDTH 17.8 % (11.6-16.5); WHITE BLOOD COUNT 9.2 X10^3/uL (3.6-10.0)
--- NOTE | 2016-08-02 07:25 | RAD ---
HISTORY: CHF Study: Single-view chest, done portably Comparison: July 31, 2016 Findings: The trachea is midline. The heart size is the upper limits of normal with atherosclerotic calcificat ion of the aortic arch. There is pulmonary vascular congestion. Increased interstitial markings are present compared to the prior study which likely represent mild CHF. Increasing right lower lateral lung density is present which may represent focal edema or entrapped fluid. The left costophrenic angle is not included on the image. Osseous structures are intact. IMPRESSION: Findings having the appearance of developing CHF with increasing right basilar density laterally rep resenting either focal edema or entrapped fluid. Reported By:
[2016-08-02] MEDS: CIPRO IV 400 MG PREMIX* 400 MG/200 ML IV.SOLN. IV SCH ×2 (09:02→21:22)
[2016-08-02] MEDS: SYNTHROID 75 mcg TAB PO SCH (09:02)
[2016-08-02] MEDS: REQUIP PO SCH ×2 (09:02→21:22)
[2016-08-02] MEDS: ASPIRIN EC 81 MG PO SCH (09:03)
[2016-08-02] MEDS: K-DUR TAB 20 MEQ PO SCH (09:03)
[2016-08-02] MEDS: GENTAMICIN TOPICAL CRM TOP SCH ×2 (09:03→21:23)
[2016-08-02] MEDS: PROTONIX TAB 40 MG PO SCH ×2 (09:03→21:22)
[2016-08-02] MEDS: ALDACTONE TAB 25 MG PO SCH (09:03)
[2016-08-02] MEDS: PLAVIX PO SCH (09:03)
[2016-08-02] MEDS: RESTORIL CAP 15 MG PO PRN (21:22)
[2016-08-02] MEDS: FLOMAX PO SCH (21:22)
[2016-08-03 05:38] LABS: BASOPHILS # (AUTO) 0.1 X10^3/uL (0.0-0.1); BASOPHILS % (AUTO) 1.3 % (0.2-1.0); EOSINOPHILS # (AUTO) 0.6 x10^3/uL (0.0-0.2); EOSINOPHILS % (AUTO) 8.4 % (0.9-2.9); HEMATOCRIT 36.8 % (42.0-54.0); HEMOGLOBIN 11.7 g/dL (13.5-18.0); LYMPHOCYTES # (AUTO) 1.1 X10^3/uL (1.3-2.9); LYMPHOCYTES % (AUTO) 14.1 % (21.0-51.0); MEAN CORPUSCULAR HEMOGLOBIN 26.5 pg (27.0-34.0); MEAN CORPUSCULAR HGB CONC 31.9 g/dL (33.0-35.0); MEAN CORPUSCULAR VOLUME 83.2 fL (80.0-100.0); MEAN PLATELET VOLUME 7.4 fL (7.4-11.0); MONOCYTES # (AUTO) 0.5 x10^3/uL (0.3-0.8); MONOCYTES % (AUTO) 6.7 % (0.0-13.0); NEUTROPHILS # (AUTO) 5.3 x10^3/uL (2.2-4.8); NEUTROPHILS % (AUTO) 69.5 % (42.0-75.0); PLATELET COUNT 296 X10^3/uL (150.0-450.0); RED BLOOD COUNT 4.43 X10^6/uL (4.7-6.0); RED CELL DISTRIBUTION WIDTH 18.2 % (11.6-16.5); WHITE BLOOD COUNT 7.6 X10^3/uL (3.6-10.0)
[2016-08-03 05:44] LABS: ALANINE AMINOTRANSFERASE 26 Units/L (12-78); ALBUMIN 2.7 g/dL (3.4-5.0); ALKALINE PHOSPHATASE 58 Units/L (46-116); ASPARTATE AMINO TRANSFERASE 25 Units/L (15-37); BLOOD UREA NITROGEN 10 mg/dL (7-18); CALCIUM 8.4 mg/dL (8.5-10.1); CARBON DIOXIDE 24.4 mmol/L (21-32); CHLORIDE 108 mmol/L (98-107); COR CA(FOR HYPOALB) 9.4 mg/dL (8.5-10.1); COR NA(FOR HYPERGLY) 142 mmol/L (136-145); CREATININE 1.12 mg/dL (0.70-1.30); GLUCOSE 126 mg/dL (65-99); SODIUM 141 mmol/L (136-145); TOTAL PROTEIN 6.5 g/dL (6.4-8.2); eGFR BLACK RACES > 60 (>60); eGFR NON BLACK RACES > 60 (>60)
[2016-08-03] MEDS: ZOSYN VIAL 4.5 GM 4.5 GM in NS 100 ML IV + SPIKE MINIBAG* 100 ML IV SCH ×3 (06:07→21:10)
[2016-08-03] MEDS: SYNTHROID 75 mcg TAB PO SCH (09:00)
[2016-08-03] MEDS: ASPIRIN EC 81 MG PO SCH (09:00)
[2016-08-03] MEDS: PROTONIX TAB 40 MG PO SCH ×2 (09:00→21:10)
[2016-08-03] MEDS: PLAVIX PO SCH (09:00)
[2016-08-03] MEDS: K-DUR TAB 20 MEQ PO SCH (09:00)
[2016-08-03] MEDS: ALDACTONE TAB 25 MG PO SCH (09:00)
[2016-08-03] MEDS: REQUIP PO SCH ×2 (09:00→21:10)
[2016-08-03] MEDS: GENTAMICIN TOPICAL CRM TOP SCH ×2 (09:01→21:10)
[2016-08-03] MEDS: CIPRO IV 400 MG PREMIX* 400 MG/200 ML IV.SOLN. IV SCH ×2 (11:45→21:10)
[2016-08-03] MEDS: NS 1000 ML 1,000 ML IV SCH (14:23)
[2016-08-03] MEDS: RESTORIL CAP 15 MG PO PRN (21:10)
[2016-08-03] MEDS: FLOMAX PO SCH (21:10)
[2016-08-04] MEDS: NS 1000 ML 1,000 ML IV SCH (03:26)
[2016-08-04 05:09] LABS: BASOPHILS # (AUTO) 0.1 X10^3/uL (0.0-0.1); BASOPHILS % (AUTO) 1.1 % (0.2-1.0); EOSINOPHILS # (AUTO) 0.7 x10^3/uL (0.0-0.2); EOSINOPHILS % (AUTO) 9.1 % (0.9-2.9); HEMATOCRIT 36.5 % (42.0-54.0); HEMOGLOBIN 11.7 g/dL (13.5-18.0); LYMPHOCYTES # (AUTO) 1.2 X10^3/uL (1.3-2.9); LYMPHOCYTES % (AUTO) 15.8 % (21.0-51.0); MEAN CORPUSCULAR HEMOGLOBIN 26.8 pg (27.0-34.0); MEAN CORPUSCULAR HGB CONC 32.1 g/dL (33.0-35.0); MEAN CORPUSCULAR VOLUME 83.7 fL (80.0-100.0); MEAN PLATELET VOLUME 7.4 fL (7.4-11.0); MONOCYTES # (AUTO) 0.6 x10^3/uL (0.3-0.8); MONOCYTES % (AUTO) 7.3 % (0.0-13.0); NEUTROPHILS # (AUTO) 5.1 x10^3/uL (2.2-4.8); NEUTROPHILS % (AUTO) 66.7 % (42.0-75.0); PLATELET COUNT 291 X10^3/uL (150.0-450.0); RED BLOOD COUNT 4.36 X10^6/uL (4.7-6.0); RED CELL DISTRIBUTION WIDTH 18.3 % (11.6-16.5); WHITE BLOOD COUNT 7.7 X10^3/uL (3.6-10.0)
[2016-08-04 05:19] LABS: ALANINE AMINOTRANSFERASE 29 Units/L (12-78); ALBUMIN 2.7 g/dL (3.4-5.0); ALKALINE PHOSPHATASE 62 Units/L (46-116); ASPARTATE AMINO TRANSFERASE 28 Units/L (15-37); BLOOD UREA NITROGEN 11 mg/dL (7-18); CALCIUM 8.1 mg/dL (8.5-10.1); CARBON DIOXIDE 24.1 mmol/L (21-32); CHLORIDE 108 mmol/L (98-107); COR CA(FOR HYPOALB) 9.1 mg/dL (8.5-10.1); COR NA(FOR HYPERGLY) 143 mmol/L (136-145); CREATININE 1.11 mg/dL (0.70-1.30); GLUCOSE 121 mg/dL (65-99); SODIUM 142 mmol/L (136-145); TOTAL PROTEIN 6.6 g/dL (6.4-8.2); eGFR BLACK RACES > 60 (>60); eGFR NON BLACK RACES > 60 (>60)
[2016-08-04] MEDS: ZOSYN VIAL 4.5 GM 4.5 GM in NS 100 ML IV + SPIKE MINIBAG* 100 ML IV SCH (05:32)
[2016-08-04 05:47] LABS: BAND NEUTROPHILS % 2 % (0-10)
[2016-08-04 05:48] LABS: PLATELET MORPHOLOGY COMMENT NORMAL (NORMAL)
--- NOTE | 2016-08-04 08:26 | RAD ---
HISTORY: Follow up congestive heart failure Study: Chest one view Comparison: August 02, 2016 Findings: The heart is upper limits normal in size. The aorta is calcified. The samantha are normal. The previousl y noted pulmonary vascular congestion appears to have resolved. No acute alveolar infiltrates are id entified. The lungs are hyperinflated consistent with COPD. Diffuse chronic appearing interstitial l christy changes are present. There is pleural-parenchymal scarring in the right lung base. The bony thor ax is unremarkable. IMPRESSION: No definite congestive heart failure on today's examination COPD with interstitial lung disease Stable pleural-parenchymal scarring right lung base Reported By:
[2016-08-04] MEDS: K-DUR TAB 20 MEQ PO SCH (10:02)
[2016-08-04] MEDS: ALDACTONE TAB 25 MG PO SCH (10:02)
[2016-08-04] MEDS: PLAVIX PO SCH (10:03)
[2016-08-04] MEDS: GENTAMICIN TOPICAL CRM TOP SCH (10:03)
[2016-08-04] MEDS: ASPIRIN EC 81 MG PO SCH (10:03)
[2016-08-04] MEDS: REQUIP PO SCH (10:03)
[2016-08-04] MEDS: PROTONIX TAB 40 MG PO SCH (10:03)
[2016-08-04] MEDS: SYNTHROID 75 mcg TAB PO SCH (10:03)
[2016-08-04] MEDS: CIPRO IV 400 MG PREMIX* 400 MG/200 ML IV.SOLN. IV SCH (10:08)
[2016-08-04 11:11] VITALS: BP 163/65
== END 2016-08-04 10:50 | disposition home health service (06) | DRG 603 ==
LOC: MED/SURG 14:12 → OBSVTOIN 07-31 08:00
PROVIDERS: ADMIT Internal Medicine; ATTEND Internal Medicine
DX: L03.115 Cellulitis of right lower limb (principal); L03.116 Cellulitis of left lower limb; E03.8 Other specified hypothyroidism; E78.2 Mixed hyperlipidemia; I10 Essential (primary) hypertension; I50.9 Heart failure, unspecified; I65.29 Occlusion and stenosis of unspecified carotid artery; I73.89 Other specified peripheral vascular diseases; J44.9 Chronic obstructive pulmonary disease, unspecified; I71.4 Abdominal aortic aneurysm, without rupture; N40.0 Benign prostatic hyperplasia without lower urinary tract symptoms; M54.5 Low back pain; N18.3 Chronic kidney disease, stage 3 (moderate); K21.9 Gastro-esophageal reflux disease without esophagitis; R26.89 Other abnormalities of gait and mobility; I25.2 Old myocardial infarction
CPT/HCPCS: 36415; 71010; 73706; 80053; 81001; 85025; 87040; 87070; 87075; 87205; 94760; 97535; A4216; A4222; G8978; G8979; G8987; G8988; G0378; J0744; J1940; J2543

== ENCOUNTER 2016-10-04 23:23 | Emergency (ER) | payer OTHER ==
[2016-10-04 23:38] VITALS: BP 161/58; BMI 32.9
--- NOTE | 2016-10-05 00:07 | DR.RASH ---
HPI - Time Seen Time seen: 23:55 - PCP Primary Care Physician: michelle - Complaint Chief Complaint:: BILATERAL LOWER EXTREMITY EDEMA BUT JUST GOT WORSE THIS AM. Patient reports that he has lung cancer, scheduled for biopsy in one week. He has been taking plavix daily and his biopsy has been delayed for one week. Patient in for dressing change Chief Complaint Doctors Comments: Patient has been seen by home health nurse for several weeks, last visit today, going out of business. He has been getting lower extremities treated with dressing changes to help eliminate the swelling and blister formation. Onset of Chief Complaint: 10/04/16 - Source History Provided: Patient, EMS - Mode of Arrival Mode of Arrival: EMS PMH - PMH Past Medical History: Yes Past Medical History: CHF, COPD, [place] Past Medical History Comment: POOR CIRCULATION BILATERAL LOWER EXTREMITIES, OSTEOARTHRITS, OSTEOPOROSIS, LUNG CANCER Past Surgical History: Yes Surgical History: Angioplasty/Stents, Other - Family History History of Family Medical Conditions: Yes Family Medical History: Cancer, [place], Coronary Artery Disease, Sudden Cardiac , Hypertension - Social History Type of Tobacco Use: None Alcohol Use: None Do you use any recreational Drugs:: No Lives With: Family Lives Where: Home - infectious screening Have you traveled outside the country in the last 6 months?: No Isolation: Standard ROS - Review of Systems Eyes: No Symptoms Reported ENTM: No Symptoms Reported Respiratoy: No Symptoms Reported Cardiovascular: No Symptoms Reported Gastrointestinal/Abdominal: No Symptoms Reported Genitourinary: No Symptoms Reported Neurological: No Symptoms Reported Musculoskeletal: No Symptoms Reported Integumentary: No Symptoms Reported. negative: Change in Color Hematologic/Lymphatic: No Symptoms Reported Endocrine: No Symptoms Reported Psychiatric: No Symptoms Reported All Other Systems: Reviewed and Negative PE - Vital Signs Vitals: Temperature 98.0 F Pulse Rate 93 Respiratory Rate 24 Blood Pressure [Right Arm] 137/63 Blood Pressure [Left Arm] 163/65 Blood Pressure 161/58 O2 Sat by Pulse Oximetry 91 - General Limitations: No Limitations General Appearance: Alert, In No Apparent Distress - Head Head Exam: Normal Inspection, Atraumatic - Eyes Eye exam: Normal Appearance, PERRL, EOMI - ENT ENT Exam: Normal Exam External Ear Exam: Normal External Inspection TM/Canal Exam: Bilateral Normal Nose Exam: Normal Nose Exam Nasal Speculum Exam: Bilateral Normal Mouth Exam: Normal Inspection Teeth Exam: Normal Inspection Throat Exam: Normal Inspection - Neck Neck Exam: Normal Inspection - Chest Chest Inspection: Normal Inspection - Respiratory Respiratory Exam: Normal Lung Sounds Bilat Respiratory Exam: Bilateral Clear to Auscultation - Cardiovascular Cardiovascular Exam: Regular Rate - Abdominal Exam Abdominal Exam: Normal Inspection Abdominal Tenderness: negative: RUQ, RLQ, LUQ, LLQ, Epigastrium, Suprapubic, Diffuse, Mild, Moderate, Severe, Other - Extremities Extremities Exam: Tenderness (bilateral lower extremities), Edema - Back Back Exam: Normal Inspection - Neurologic Neurological Exam: Alert, Oriented X3, CN II-XII Intact - Psychiatric Psychiatric Exam: Normal Affect - Skin Skin Exam: Warm, Erythema (lower extremities bilaterally) Type of Lesion: Rash Distribution: Generalized Description: Vesicular (lower extremities), Bullous Course - Treatment Treatment: Drained and dressed lower extremities - Reevaluation 1st: Improved ROR - Labs Reviewed Result Diagrams: 10/05/16 00:25 Laboratory: WBC 20.3 X10^3/uL (3.6-10.0) H* 10/05/16 00:25 RBC 5.08 X10^6/uL (4.7-6.0) 10/05/16 00:25 Hgb 12.5 g/dL (13.5-18.0) L 10/05/16 00:25 Hct 39.4 % (42.0-54.0) L 10/05/16 00:25 MCV 77.6 fL (80.0-100.0) L 10/05/16 00:25 MCH 24.6 pg (27.0-34.0) L 10/05/16 00:25 MCHC 31.7 g/dL (33.0-35.0) L 10/05/16 00:25 RDW 18.7 % (11.6-16.5) H 10/05/16 00:25 Plt Count 448 X10^3/uL (150.0-450.0) 10/05/16 00:25 Plt Count Comment Adequate (ADEQUATE) 10/05/16 00:25 MPV 7.0 fL (7.4-11.0) L 10/05/16 00:25 Neut % 79.5 % (42.0-75.0) H 10/05/16 00:25 Lymph % 9.7 % (21.0-51.0) L 10/05/16 00:25 [place] % 5.8 % (0.0-13.0) 10/05/16 00:25 Eos % 4.8 % (0.9-2.9) H 10/05/16 00:25 Baso % 0.2 % (0.2-1.0) 10/05/16 00:25 Neut # 16.2 x10^3/uL (2.2-4.8) H 10/05/16 00:25 Lymph # 2.0 X10^3/uL (1.3-2.9) 10/05/16 00:25 [place] # 1.2 x10^3/uL (0.3-0.8) H 10/05/16 00:25 Eos # 1.0 x10^3/uL (0.0-0.2) H 10/05/16 00:25 Baso # 0.0 X10^3/uL (0.0-0.1) 10/05/16 00:25 Absolute Nucleated RBC 0.5 /100WBC 10/05/16 00:25 Total Counted 100 10/05/16 00:25 Neutrophils % (Manual) 70 % (39-76) 10/05/16 00:25 Band Neutrophils % 6 % (0-10) 10/05/16 00:25 Lymphocytes % (Manual) 12 % (13-43) L 10/05/16 00:25 Monocytes % (Manual) 7 % (4-9) 10/05/16 00:25 Eosinophils % (Manual) 5 % (0-6) 10/05/16 00:25 Plt Morphology Comment Normal (NORMAL) 10/05/16 00:25 RBC Morphology Normal (NORMAL) 10/05/16 00:25 C-Reactive Protein 12.20 mg/L (0-3.0) H 10/05/16 00:25 - Diagnosis Discharge Problem: Cellulitis of both lower extremities - Discharge Plan Condition: Stable - Follow ups/Referrals Follow ups/Referrals: Tacos Sutton [Primary Care Provider] - 3 days - Instructions
[2016-10-05 00:34] LABS: BASOPHILS % (AUTO) 0.2 % (0.2-1.0); EOSINOPHILS % (AUTO) 4.8 % (0.9-2.9); HEMATOCRIT 39.4 % (42.0-54.0); HEMOGLOBIN 12.5 g/dL (13.5-18.0); LYMPHOCYTES % (AUTO) 9.7 % (21.0-51.0); MEAN CORPUSCULAR HEMOGLOBIN 24.6 pg (27.0-34.0); MEAN CORPUSCULAR HGB CONC 31.7 g/dL (33.0-35.0); MEAN CORPUSCULAR VOLUME 77.6 fL (80.0-100.0); MONOCYTES # (AUTO) 1.2 x10^3/uL (0.3-0.8); MONOCYTES % (AUTO) 5.8 % (0.0-13.0); NEUTROPHILS # (AUTO) 16.2 x10^3/uL (2.2-4.8); NEUTROPHILS % (AUTO) 79.5 % (42.0-75.0); PLATELET COUNT 448 X10^3/uL (150.0-450.0); RED BLOOD COUNT 5.08 X10^6/uL (4.7-6.0); RED CELL DISTRIBUTION WIDTH 18.7 % (11.6-16.5)
[2016-10-05 00:37] LABS: WHITE BLOOD COUNT 20.3 X10^3/uL (3.6-10.0)
[2016-10-05 00:53] LABS: BAND NEUTROPHILS % 6 % (0-10); PLATELET MORPHOLOGY COMMENT NORMAL (NORMAL)
[2016-10-05] MEDS ORDERED: ROCEPHIN VIAL 1 GM IM ONE (01:25)
[2016-10-05] MEDS ORDERED: ROCEPHIN VIAL 1 GM ONE (01:26)
== END 2016-10-05 01:39 | disposition home or self-care (01) ==
LOC: ER 23:23
DX: L03.116 Cellulitis of left lower limb (principal)
CPT/HCPCS: 36415; 85025; 86140; 96372; 99282; 99283; J0696

== ENCOUNTER 2016-12-10 22:08 | Inpatient (IN) | payer OTHER ==
--- NOTE | 2016-12-10 22:11 | DR.GENAD ---
HPI - HPI Comment HPI Comment: PATIENT IS HAVING TIGHTNESS IN HIS CHEST WELL THE LOWER EXTREMITIES. BLISTERS PRESENT. HAVE CHRONIC STASIS DERMATITIS THAT GETS INFECTED. WEEPING. - Complaint/Symptoms Chief Complaint Doctors Comments: INCREASING SOB, INCREASING LOWER EXTREMITY EDEMA AND CHEST PAIN THAT IS WORSE TONIGHT. COUGHING, PRODUCTIVE YELLOW SPUTUM. - Nurses notes reviewed Nurses Notes Review: Yes - Source History Provided: Patient, Family Member - Mode of Arrival Mode of Arrival: Wheelchair - Timing Came on: Gradually - Duration Duration: Constant Duration: Days - Severity Severity: Moderate PMH - PMH Past Medical History: CHF, COPD, [place] Past Surgical History: Yes Surgical History: Angioplasty/Stents, Other - Family History Family Medical History: Cancer, [place], Coronary Artery Disease, Sudden Cardiac , Hypertension - Social History Do you use any recreational Drugs:: No ROS - Review of Systems Constitutional: Weakness, Fatigue, Loss of Appetite. negative: Chills, Diaphoresis, Fever Eyes: No Symptoms Reported. negative: Eye Pain, Discharge ENTM: No Symptoms Reported. negative: Ear Pain, Nose Discharge, Nose Congestion , Throat Pain Respiratoy: Productive Cough, Non-Productive Cough, Short of Breath, Wheezing. negative: Hemoptysis Cardiovascular: Chest Pain Gastrointestinal/Abdominal: Abdominal Pain Genitourinary: negative: Dysuria, Frequency, Hematuria Neurological: Headache, Weakness, Dizziness Musculoskeletal: Muscle Pain, Rib(s). negative: Chest wall Integumentary: Other ( WEEPING EDEMA LEG AND FEET WITH REDNESS AND TENDERNESS.) Hematologic/Lymphatic: No Symptoms Reported Endocrine: No Symptoms Reported All Other Systems: Reviewed and Negative PE - Vital Signs Vitals: Temperature 98.3 F Pulse Rate 99 Respiratory Rate 18 Blood Pressure [Right Arm] 137/63 Blood Pressure [Left Arm] 163/65 Blood Pressure 137/62 O2 Sat by Pulse Oximetry 92 - General Limitations: No Limitations General Appearance: Alert - Head Head Exam: Normal Inspection - Eyes Eye exam: Normal Appearance - ENT ENT Exam: Normal External Ear Exam External Ear Exam: Normal External Inspection TM/Canal Exam: Bilateral Normal Nose Exam: Normal Nose Exam Mouth Exam: Normal Inspection Throat Exam: Normal Inspection - Neck Neck Exam: Trachea Midline. negative: Tenderness, Meningismus, Lymphadenopathy - Chest Chest Inspection: Symmetric Chest Wall Rise - Respiratory Respiratory Exam: Accessory Muscle Use, Prolonged Expiratory Phase, Respiratory Distress Respiratory Exam: Bilateral Clear to Auscultation - Cardiovascular Cardiovascular Exam: Regular Rate, Normal Rhythm, Normal Heart Sounds - Abdominal Exam Abdominal Exam: Normal Bowel Sounds, Soft. negative: Tenderness - Extremities Extremities Exam: Tenderness (LEGS), Edema - Back Back Exam: Paraspinal Tenderness - Neurologic Neurological Exam: Alert, Oriented X3, Reflexes Normal. negative: Motor Sensory Deficit - Psychiatric Psychiatric Exam: Anxious - Skin Skin Exam: Rash (REDNESS LEGS WITH BLISTERS), Erythema MDM - Additional Information Additional Information Obtained From: Family - Differential Diagnosis Differential Diagnosis: COPD EXACERBATION, PNEUMONIA, BRONCHITIS, CHF, [place] Course - Treatment Treatment: SEE ORDERS. IV LASIX AND NEB TREATMENT IN ED. - Consultation Consultation Comments: PATIENT ADMITTED TO DR. BOSE SERVICE. - Education/Counseling Education/Counseling: Patient, Family, Education Educated On: Treatment, Diagnosis ROR - Labs Reviewed Laboratory Results Reviewed?: Yes Result Diagrams: 12/10/16 22:50 12/10/16 22:50 Laboratory: WBC 22.1 X10^3/uL (3.6-10.0) H* 12/10/16 22:50 RBC 5.67 X10^6/uL (4.7-6.0) 12/10/16 22:50 Hgb 13.8 g/dL (13.5-18.0) 12/10/16 22:50 Hct 42.8 % (42.0-54.0) 12/10/16 22:50 MCV 75.6 fL (80.0-100.0) L 12/10/16 22:50 MCH 24.3 pg (27.0-34.0) L 12/10/16 22:50 MCHC 32.2 g/dL (33.0-35.0) L 12/10/16 22:50 RDW 20.5 % (11.6-16.5) H 12/10/16 22:50 Plt Count 626 X10^3/uL (150.0-450.0) H 12/10/16 22:50 Plt Count Comment Increased (ADEQUATE) 12/10/16 22:50 MPV 7.3 fL (7.4-11.0) L 12/10/16 22:50 Neut % 86.7 % (42.0-75.0) H 12/10/16 22:50 Lymph % 4.7 % (21.0-51.0) L 12/10/16 22:50 [place] % 5.6 % (0.0-13.0) 12/10/16 22:50 Eos % 2.4 % (0.9-2.9) 12/10/16 22:50 Baso % 0.6 % (0.2-1.0) 12/10/16 22:50 Neut # 19.2 x10^3/uL (2.2-4.8) H 12/10/16 22:50 Lymph # 1.0 X10^3/uL (1.3-2.9) L 12/10/16 22:50 [place] # 1.2 x10^3/uL (0.3-0.8) H 12/10/16 22:50 Eos # 0.5 x10^3/uL (0.0-0.2) H 12/10/16 22:50 Baso # 0.1 X10^3/uL (0.0-0.1) 12/10/16 22:50 Absolute Nucleated RBC 0.2 /100WBC 12/10/16 22:50 Total Counted 100 12/10/16 22:50 Neutrophils % (Manual) 83 % (39-76) H 12/10/16 22:50 Band Neutrophils % 6 % (0-10) 12/10/16 22:50 Lymphocytes % (Manual) 7 % (13-43) L 12/10/16 22:50 Monocytes % (Manual) 4 % (4-9) 12/10/16 22:50 Plt Morphology Comment Normal (NORMAL) 12/10/16 22:50 RBC Morphology Abnormal (NORMAL) 12/10/16 22:50 Anisocytosis 1+ A 12/10/16 22:50 D-Dimer 829 ng/mL (0-400) H* 12/10/16 22:50 Sodium 136 mmol/L (136-145) 12/10/16 22:50 Corrected Sodium 137 mmol/L (136-145) 12/10/16 22:50 Potassium 3.7 mmol/L (3.5-5.1) 12/10/16 22:50 Chloride 99 mmol/L (98-107) 12/10/16 22:50 Carbon Dioxide 30.5 mmol/L (21-32) 12/10/16 22:50 BUN 14 mg/dL (7-18) 12/10/16 22:50 Creatinine 1.24 mg/dL (0.70-1.30) 12/10/16 22:50 Est GFR (MDRD) Af Amer > 60 (>60) 12/10/16 22:50 Est GFR (MDRD) Non-Af 60 (>60) 12/10/16 22:50 Glucose 125 mg/dL (65-99) H 12/10/16 22:50 Calcium 8.8 mg/dL (8.5-10.1) 12/10/16 22:50 Corrected Calcium 9.7 mg/dL (8.5-10.1) 12/10/16 22:50 Total Bilirubin 0.50 mg/dL (0.2-1.0) 12/10/16 22:50 AST 21 Units/L (15-37) 12/10/16 22:50 ALT 28 Units/L (12-78) 12/10/16 22:50 Alkaline Phosphatase 75 Units/L (46-116) 12/10/16 22:50 B-Natriuretic Peptide 68.3 pg/mL (0-79) 12/10/16 22:50 Total Protein 7.4 g/dL (6.4-8.2) 12/10/16 22:50 Albumin 2.9 g/dL (3.4-5.0) L 12/10/16 22:50 Globulin 4.5 g/dL (2.5-4.5) 12/10/16 22:50 Albumin/Globulin Ratio 0.6 Ratio (1.1-2.1) L 12/10/16 22:50 - XRAY XRAY Interpreted by: Radiologist XRAY Findings: REPORT DISCUSS WITH PATIENT AND HIS FAMILY. - EKG Rhythm: NSR (EKG NOTED) - Diagnosis Discharge Problem: COPD exacerbation, Respiratory distress Cellulitis of lower extremity Qualifiers: Laterality: right Qualified Code(s): L03.115 - Cellulitis of right lower limb - Discharge Plan Disposition: ADMITTED INPATIENT Condition: Stable - Follow ups/Referrals - Instructions
[2016-12-10] MEDS ORDERED: DUONEB 0.5 MG/3 MG ONE (22:45)
[2016-12-10] MEDS ORDERED: DUONEB 0.5 MG/3 MG NEB ONE (22:57)
[2016-12-10 23:07] LABS: EOSINOPHILS # (AUTO) 0.5 x10^3/uL (0.0-0.2); EOSINOPHILS % (AUTO) 2.4 % (0.9-2.9); HEMATOCRIT 42.8 % (42.0-54.0); HEMOGLOBIN 13.8 g/dL (13.5-18.0); MEAN CORPUSCULAR HGB CONC 32.2 g/dL (33.0-35.0); MONOCYTES # (AUTO) 1.2 x10^3/uL (0.3-0.8)
[2016-12-10] MEDS ORDERED: LASIX IVP ONE ×2 (23:11→23:12)
--- NOTE | 2016-12-10 23:13 | RAD ---
Chest AP portable Indication: Chest pain. Comparison: August 04, 2016. Findings: There is scarring in the right lung. There is no pneumothorax or large effusion. Pleural t hickening in the right lung base noted. Heart size upper limits normal. COPD change suggested. Impression: COPD and right lung scarring, similar to the prior. No severe edema seen. Underlying les ion in the right midlung cannot be excluded. Nonemergent chest CT followup should be considered. Reported By:
[2016-12-10 23:14] LABS: ALANINE AMINOTRANSFERASE 28 Units/L (12-78); ALBUMIN 2.9 g/dL (3.4-5.0); ALKALINE PHOSPHATASE 75 Units/L (46-116); ASPARTATE AMINO TRANSFERASE 21 Units/L (15-37); BLOOD UREA NITROGEN 14 mg/dL (7-18); CALCIUM 8.8 mg/dL (8.5-10.1); CARBON DIOXIDE 30.5 mmol/L (21-32); CHLORIDE 99 mmol/L (98-107); COR CA(FOR HYPOALB) 9.7 mg/dL (8.5-10.1); COR NA(FOR HYPERGLY) 137 mmol/L (136-145); CREATININE 1.24 mg/dL (0.70-1.30); GLUCOSE 125 mg/dL (65-99); SODIUM 136 mmol/L (136-145); TOTAL PROTEIN 7.4 g/dL (6.4-8.2); eGFR BLACK RACES > 60 (>60); eGFR NON BLACK RACES 60 (>60)
[2016-12-10 23:15] LABS: BASOPHILS # (AUTO) 0.1 X10^3/uL (0.0-0.1); BASOPHILS % (AUTO) 0.6 % (0.2-1.0); LYMPHOCYTES % (AUTO) 4.7 % (21.0-51.0); MEAN CORPUSCULAR HEMOGLOBIN 24.3 pg (27.0-34.0); MEAN CORPUSCULAR VOLUME 75.6 fL (80.0-100.0); MEAN PLATELET VOLUME 7.3 fL (7.4-11.0); MONOCYTES % (AUTO) 5.6 % (0.0-13.0); NEUTROPHILS # (AUTO) 19.2 x10^3/uL (2.2-4.8); NEUTROPHILS % (AUTO) 86.7 % (42.0-75.0); PLATELET COUNT 626 X10^3/uL (150.0-450.0); RED BLOOD COUNT 5.67 X10^6/uL (4.7-6.0); RED CELL DISTRIBUTION WIDTH 20.5 % (11.6-16.5)
[2016-12-10 23:20] LABS: WHITE BLOOD COUNT 22.1 X10^3/uL (3.6-10.0)
[2016-12-10 23:26] LABS: B-TYPE NATRIURETIC PEPTIDE 68.3 pg/mL (0-79)
[2016-12-10] MEDS ORDERED: FORTAZ or TAZICEF INJ ONE (23:41)
[2016-12-10] MEDS ORDERED: NS 50 ML IV 50 ML IV ONE ×2 (23:41→23:43)
[2016-12-10 23:44] LABS: BAND NEUTROPHILS % 6 % (0-10); D DIMER 829 ng/mL (0-400)
[2016-12-10 23:45] LABS: ANISOCYTOSIS 1+; PLATELET MORPHOLOGY COMMENT NORMAL (NORMAL)
[2016-12-10] MEDS: FORTAZ or TAZICEF INJ 1 GM in NS 50 ML IV + SPIKE MINIBAG* 50 ML IV SCH (23:52)
[2016-12-11] MEDS: RESTORIL CAP 15 MG PO PRN ×2 (01:02→20:53)
[2016-12-11] MEDS: FORTAZ or TAZICEF INJ 1 GM in NS 50 ML IV + SPIKE MINIBAG* 50 ML IV SCH ×3 (05:50→21:00)
[2016-12-11] MEDS ORDERED: NS 500 ML IV 500 ML IV ONE (05:54)
[2016-12-11] MEDS ORDERED: CLEOCIN 600 MG IV PREMIX 600 MG/50 ML BAG IV SCH (06:00)
[2016-12-11 06:19] LABS: BASOPHILS # (AUTO) 0.5 X10^3/uL (0.0-0.1); BASOPHILS % (AUTO) 2.6 % (0.2-1.0); EOSINOPHILS # (AUTO) 0.5 x10^3/uL (0.0-0.2); EOSINOPHILS % (AUTO) 2.6 % (0.9-2.9); HEMATOCRIT 38.8 % (42.0-54.0); HEMOGLOBIN 12.5 g/dL (13.5-18.0); LYMPHOCYTES % (AUTO) 5.1 % (21.0-51.0); MEAN CORPUSCULAR HEMOGLOBIN 24.3 pg (27.0-34.0); MEAN CORPUSCULAR HGB CONC 32.1 g/dL (33.0-35.0); MEAN CORPUSCULAR VOLUME 75.8 fL (80.0-100.0); MEAN PLATELET VOLUME 7.5 fL (7.4-11.0); MONOCYTES # (AUTO) 1.3 x10^3/uL (0.3-0.8); MONOCYTES % (AUTO) 6.8 % (0.0-13.0); NEUTROPHILS # (AUTO) 16.5 x10^3/uL (2.2-4.8); NEUTROPHILS % (AUTO) 82.9 % (42.0-75.0); PLATELET COUNT 582 X10^3/uL (150.0-450.0); RED BLOOD COUNT 5.12 X10^6/uL (4.7-6.0); RED CELL DISTRIBUTION WIDTH 20.2 % (11.6-16.5); WHITE BLOOD COUNT 19.9 X10^3/uL (3.6-10.0)
[2016-12-11 06:33] LABS: ALANINE AMINOTRANSFERASE 24 Units/L (12-78); ALBUMIN 2.5 g/dL (3.4-5.0); ALKALINE PHOSPHATASE 58 Units/L (46-116); ASPARTATE AMINO TRANSFERASE 21 Units/L (15-37); BLOOD UREA NITROGEN 14 mg/dL (7-18); CALCIUM 8.3 mg/dL (8.5-10.1); CARBON DIOXIDE 31.3 mmol/L (21-32); CHLORIDE 100 mmol/L (98-107); CHOLESTEROL 156 mg/dL (0-200); COR CA(FOR HYPOALB) 9.5 mg/dL (8.5-10.1); COR NA(FOR HYPERGLY) 137 mmol/L (136-145); CREATININE 1.17 mg/dL (0.70-1.30); GLUCOSE 128 mg/dL (65-99); HDL CHOLESTEROL 52 mg/dL (40-60); SODIUM 136 mmol/L (136-145); TOTAL PROTEIN 6.4 g/dL (6.4-8.2); TRIGLYCERIDES 61 mg/dL (0-150); eGFR BLACK RACES > 60 (>60); eGFR NON BLACK RACES > 60 (>60)
[2016-12-11 06:42] LABS: CKMB % 2.8 % (<4); CREATINE KINASE 36 Units/L (39-308); CREATINE KINASE MB < 1.0 ng/mL (0-4.0); TROPONIN I < 0.02 ng/mL (0-1.5)
[2016-12-11 07:14] LABS: BAND NEUTROPHILS % 10 % (0-10)
[2016-12-11 07:15] LABS: ANISOCYTOSIS 1+; PLATELET MORPHOLOGY COMMENT NORMAL (NORMAL)
--- NOTE | 2016-12-11 08:45 | RAD ---
Chest, one view Indication: Shortness of breath Comparison: December 10, 2016 Findings: Bilateral interstitial markings and moderate pleural parenchymal scarring within the right lung appear essentially unchanged over multiple prior examinations. The cardiac silhouette is vicente l in size. No significant pleural effusion or pneumothorax is identified. Regional skeleton is intac t. Impression: Stable COPD changes and right pleural parenchymal scarring. Again, an underlying right pulmonary les ion is difficult to exclude and nonemergent CT chest should be considered, as clinically indicated. Reported By:
[2016-12-11] MEDS: LEVAQUIN PREMIX IV 500 MG 500 MG/100 ML BAG IV SCH (10:39)
[2016-12-11 12:13] LABS: CKMB % 2.8 % (<4); CREATINE KINASE 36 Units/L (39-308); CREATINE KINASE MB < 1.0 ng/mL (0-4.0); TROPONIN I < 0.02 ng/mL (0-1.5)
--- NOTE | 2016-12-11 12:55 | DR.H&P ---
H&P - History & Physical for Day of: H&P Date: 12/11/16 - Allergies Allergies/Adverse Reactions: Allergies Allergy/AdvReac Type Severity Reaction Status Date / Time promethazine [From Phenergan] AdvReac Verified 12/11/16 00:54 - History of Present Illness History of Present Illness: IS A 81 YEAR OLD PATIENT OF OURS WHO PRESENTED TO THE EMERGENCY ROOM WITH COMPLAINTS OF SHORTNESS OF BREATH, COUGH, PRODUCTIVE COUGH, CHEST PAIN, AND BILATERAL LOWER EXTREMITY EDEMA. PATIENT REPORTED THAT SYMPTOMS STARTED 2 DAYS PRIOR TO COMING TO ER. ON EXAMINATION, WHEEZING NOTED BILATERALLY ON AUSCULTATION. BILATERAL LOWER EXTREMETIES WITH PITTING EDEMA, WEEPING, AND RENESS. ON ARRIVAL TO ER, VITALS WERE 98.3-99-18-92% -137/62. CBC REPORTS WBC 22.1, RBC 5.67, HGB 13.8, HCT 42.8. CMP WNL EXCEPT GLUCOSE 125, ALBUMIN 2.9. D-DIMER 829. CHEST XRAY REPORTS COPD AND RIGHT LUNG SCARRING. EKG REPORTS SINUS TACHYCARDIA. CARDIAC ENZYMES WNL. PATIENT WAS GIVEN DUONEB X 1, LASIX 40MG, AND CLEOCIN 600MG IN ER. SHORTNESS OF BREATH NOTED WITH MILD IMPROVEMENT. WE ADMITTED PATIENT FOR FURTHER TREATMENT AND EVALUATION. WE STARTED HIM ON FORTAZ 1 GM IV Q8H AND CLEOCIN 600MG IV Q8H. ON MORNING ROUNDS, PATIENT IS ALERT AND ORIENTED. WHEEZING NOTED BILATERALLY. BILATERAL LOWER EXTREMITIES NOTED WITH EDEMA, REDNESS, AND WEEPING. DRAINING BLISTERS NOTED TO BILATERAL LOWER LEGS. VITALS THIS AM ARE 98.4-100-20-95%-101/57. CBC WNL EXCEPT WBC 19.9, HGB 12.5, HCT 38.8. CMP WNL EXCEPT GLUCOSE 128, CALCIUM 8.3, ALBUMIN 2.5. WE DISCONTINUED CLEOCIN AND STARTED LEVAQUIN 500MG IV DAILY. WE WILL OBTAIN A VENOUS DOPPLER, CHECH AN ECHO, AND ORDER A WOUND CONSULT. WE WILL RECHECK LABS AND FOLLOW UP WITH PATIENT IN AM. - Past Medical History Past Medical History: Arthritis, CHF, COPD, Coronary Artery Disease, GERD, Hypothyroidism, [place] Additional Medical History: LUNG CANCER, MELANOMA - Past Surgical History Surgical History: Angioplasty/Stents, Other Additional Surgical History: BACK SURGERY - Family History Family Medical History: Cancer, [place], Coronary Artery Disease, Sudden Cardiac , Hypertension - Social History Does patient currently use any type of tobacco product: No Have you used tobacco products in the last 12 months: No Type of Tobacco Use: None Does any household member use tobacco: No Alcohol Use: None Drug Use: None - Medications Home Medications: Alprazolam [Alprazolam] 1 mg PO HS 12/11/16 [History Confirmed 12/11/16] Clopidogrel Bisulfate [Clopidogrel] 75 mg PO DAILY 12/11/16 [History Confirmed 12/11/16] Dexamethasone [Dexamethasone] 4 mg PO DAILY 12/11/16 [History Confirmed 12/11/16 ] Furosemide [Furosemide] 20 mg PO BID 12/11/16 [History Confirmed 12/11/16] Gentamicin Topical Oint [GENTAMICIN TOPICAL OINT 0.1% *] 1 applic EXT PRN PRN [History Confirmed 12/11/16] Gi Cocktail [LEVSIN/Maalox/Lidoc Visc (GI COCKTAIL) *] 5 ml PO QID PRN 12/11/16 [History Confirmed 12/11/16] Levothyroxine Sodium 75 mcg PO DAILYAC 12/11/16 [History Confirmed 12/11/16] Ropinirole HCl [REQUIP 1 MG *] 1 mg PO BID 12/11/16 [History Confirmed 12/11/16] Spironolactone [Spironolactone] 25 mg PO DAILY 12/11/16 [History Confirmed 12/11] Tramadol HCl [Tramadol HCl] 50 mg PO Q6H PRN 12/11/16 [History Confirmed ] - Review of Systems Constitutional: No Symptoms Reported. denies: See HPI, Fever, Chills, Sweats, Weakness, Malaise, Other Eyes: No Symptoms Reported. denies: See HPI, Pain, Vision Change, Conjunctivae Inflammation, Eyelid Inflammation, Redness, Other ENT: No Symptoms Reported. denies: See HPI, Ear Pain, Ear Discharge, Nose Pain , Nose Discharge, Nose Congestion, Mouth Pain, Mouth Swelling, Throat Pain, Throat Swelling, Other Respiratory: See HPI, Cough, Shortness of Breath, Wheezing. denies: No Symptoms Reported, Dry, Hemoptysis, SOB with Excertion, Pleuritic Pain, Sputum, Other Cardiovascular: Chest Pain, Edema. denies: No Symptoms Reported, See HPI, Palpitations, Orthopnea, Paroxysmal Noc. Dyspnea, Light Headedness, Other Gastrointestinal: No Symptoms Reported. denies: See HPI, Nausea, Vomiting, Abdominal Pain, Diarrhea, Constipation, Melena, Hematochezia, Other Genitourinary: No Symptoms Reported. denies: See HPI, Dysuria, Frequency, Incontinence, Hematuria, Retention, Other Musculoskeletal: No Symptoms Reported. denies: See HPI, Shoulder Pain, Arm Pain , Back Pain, Hand Pain, Leg Pain, Foot Pain, Neck Pain, Other Skin: See HPI, Wound. denies: No Symptoms Reported, Rash, Lesions, Jaundice, Bruising, Ecchymosis, Other Neurological: No Symptoms Reported. denies: See HPI, Weakness, Numbness, Incoordination, Change in Speech, Confusion, Seizures, Other - Physical Exam Vital Signs: Temperature 98.1 F Pulse Rate [Right Brachial] 76 Pulse Rate [Left Brachial] 100 Respiratory Rate 20 Blood Pressure [Right Arm] 116/58 Blood Pressure [Left Arm] 132/66 O2 Sat by Pulse Oximetry 93 Oriented: Normal. negative: Time, Person, Place, Not Oriented, Unable to test, Other Eyes: Normal. negative: Blurred Vision, Diplopia, Discharge, Pain, Redness, Photophobia, Other Ear: Normal. negative: Right, Left, Swelling, Ecchymosis, Hemotypanum, Abrasion , Laceration Nose: Normal. negative: Injected, Discharge, Blood, Other Throat: Normal. negative: Tonsillar Hypertrophy, Red, Exudate, Dry, Other Respiratory: Wheezes Throughout. negative: Clear Throughout, Diminished Throughout, Rhonchi Throughout, Rales Throughout, RUL Clear, RML Clear, RLL Clear, CAROLYN Clear, LML Clear, LLL Clear, RUL Diminished, RML Diminished, RLL Diminished, CAROLYN Diminished, LML Diminished, LLL Diminished, RUL Absent, RML Absent, RLL Absent, CAROLYN Absent, LML Absent, LLL Absent, RUL Rhonchi, RML Rhonchi , RLL Rhonchi, CAROLYN Rhonchi, LML Rhonchi, LLL Rhonchi, RUL Insp. Wheeze, RML Insp. Wheeze, RLL Insp. Wheeze, CAROLYN Insp.Wheeze, LML Insp.Wheeze, LLL Insp.Wheeze, RUL Exp. Wheeze, RML Exp. Wheeze, RLL Exp. Wheeze, CAROLYN Exp. Wheeze , LML Exp. Wheeze, LLL Exp. Wheeze, RUL Rales, RML Rales, RLL Rales, CAROLYN Rales, LML Rales, LLL Rales, RUL Rub, RML Rub, RLL Rub, CAROLYN Rub, LML Rub, LLL Rub, RUL Squeak, RML Squeak, RLL Squeak, CAROLYN Squeak, LML Squeak, LLL Squeak Cardiovascular: Tachycardia. negative: Normal, Bradycardia, Irregular, S3, S4, Systolic, Diastolic, Murmur, Edema, Other : Normal. negative: Dysuria, Hematuria, Frequency, Discharge, Testicular Pain , Bleeding, , Other Auscultation: Bowel Sounds: Normal. negative: Bruit, Absent, Increased, Decreased, High Pitched, Other Palpation: Normal. negative: Spleen Enlarged, Liver Enlarged, Mass Pulsatile, Other Tenderness: Normal. negative: Diffuse, RUQ, RLQ, LUQ, LLQ, Epigastric, Periumbilical, Suprapubic, Mild, Moderate, Severe, Rebound, Guarding, Rigidity, Other Skin: Normal, Red, Wound Musculoskeletal: Normal. negative: Right, Left, Shoulder, Clavicle, Arm, Elbow , Forearm, Wrist, Hand, Hip, Thigh, Knee, Leg, Ankle, Foot, Back:Thoracic, Back: Lumbar, Back:Midline, Back:Paraspinous, Pelvis, Swelling, Tender, Deformity, Pulse Deficit, Motor Deficit, Sensory Deficit, Instability, Crepitance Psychiatric: Normal. negative: Anxiety, Depression, Agitation, Other Mood Description: Calm. negative: Angry, Apathetic, Depressed, Fearful, Flat, Happy, Hostile, Sad, Suspicious, Withdrawn, Anxious, Appropriate, Labile Affect: Normal. negative: Angry, Anxious, Depressed, Flat, Hysterical, Quiet, Violent Speech Pattern: Clear. negative: Appropriate, Unclear, Inappropriate, Delayed, Slurred, Excessive, Aphasic, Artificially Ventilated - Assessment/Plan (1) COPD exacerbation Status: Acute Plan: DUONEBS, CONTINUE TO MONITOR CHEST XRAY AND PATIENT (2) Cellulitis of both lower extremities Status: Acute Plan: FORTAZ 1 GM Q8H IV, LEVAQUIN 500MG IV, CHECK VENOUS DOPPLER, CONTINUE TO MONITOR (3) CHF (congestive heart failure) Qualifiers: Congestive heart failure type: unspecified congestive heart failure type Congestive heart failure chronicity: acute Qualified Code(s): I50.9 - Heart failure, unspecified Status: Chronic Plan: CHECK ECHO, CONTINUE TO MONITOR
[2016-12-11] MEDS: ALDACTONE TAB 25 MG PO SCH (14:55)
[2016-12-11] MEDS: PLAVIX PO SCH (14:56)
[2016-12-11] MEDS: DECADRON TAB PO SCH (14:56)
[2016-12-11] MEDS: LASIX PO SCH ×2 (14:56→20:53)
[2016-12-11] MEDS: SYNTHROID 75 mcg TAB PO SCH (16:23)
[2016-12-11] MEDS: DUONEB 0.5 MG/3 MG NEB SCH ×2 (16:48→21:28)
[2016-12-11] MEDS: XANAX PO SCH (20:53)
[2016-12-11] MEDS: REQUIP PO SCH (20:53)
[2016-12-11] MEDS ORDERED: PATIENT'S HOME MEDICATION (Alprazolam [Alprazolam] 1 MG) PO SCH (21:00)
--- NOTE | 2016-12-11 21:20 | VAS ---
Ultrasound bilateral lower extremity veins Indication: Lower extremity edema and elevated D-dimer. Technique: Dynamic grayscale and Doppler imaging through the bilateral lower extremity veins with co mpression techniques spectral analysis. Findings: The bilateral common femoral veins, superficial femoral veins throughout their lengths and popliteal veins are patent compressible with normal respiratory phasicity. Impression: No right or left lower extremity deep vein thrombus Reported By:
[2016-12-11 21:32] VITALS: BMI 33.4
[2016-12-12 05:15] LABS: ALANINE AMINOTRANSFERASE 24 Units/L (12-78); ALBUMIN 2.6 g/dL (3.4-5.0); ALKALINE PHOSPHATASE 62 Units/L (46-116); ASPARTATE AMINO TRANSFERASE 17 Units/L (15-37); BLOOD UREA NITROGEN 14 mg/dL (7-18); CALCIUM 8.8 mg/dL (8.5-10.1); CARBON DIOXIDE 32.1 mmol/L (21-32); CHLORIDE 102 mmol/L (98-107); COR CA(FOR HYPOALB) 9.9 mg/dL (8.5-10.1); COR NA(FOR HYPERGLY) 143 mmol/L (136-145); CREATININE 1.26 mg/dL (0.70-1.30); GLUCOSE 164 mg/dL (65-99); SODIUM 141 mmol/L (136-145); TOTAL PROTEIN 7.2 g/dL (6.4-8.2); eGFR BLACK RACES > 60 (>60); eGFR NON BLACK RACES 59 (>60)
[2016-12-12] MEDS: FORTAZ or TAZICEF INJ 1 GM in NS 50 ML IV + SPIKE MINIBAG* 50 ML IV SCH ×3 (05:18→21:40)
[2016-12-12 06:01] LABS: BASOPHILS # (AUTO) 0.2 X10^3/uL (0.0-0.1); BASOPHILS % (AUTO) 1.1 % (0.2-1.0); HEMATOCRIT 40.5 % (42.0-54.0); HEMOGLOBIN 13.2 g/dL (13.5-18.0); LYMPHOCYTES # (AUTO) 0.4 X10^3/uL (1.3-2.9); LYMPHOCYTES % (AUTO) 2.3 % (21.0-51.0); MEAN CORPUSCULAR HEMOGLOBIN 24.8 pg (27.0-34.0); MEAN CORPUSCULAR HGB CONC 32.5 g/dL (33.0-35.0); MEAN CORPUSCULAR VOLUME 76.2 fL (80.0-100.0); MEAN PLATELET VOLUME 7.8 fL (7.4-11.0); MONOCYTES # (AUTO) 0.6 x10^3/uL (0.3-0.8); MONOCYTES % (AUTO) 3.4 % (0.0-13.0); NEUTROPHILS # (AUTO) 15.3 x10^3/uL (2.2-4.8); NEUTROPHILS % (AUTO) 93.2 % (42.0-75.0); PLATELET COUNT 658 X10^3/uL (150.0-450.0); RED BLOOD COUNT 5.32 X10^6/uL (4.7-6.0); RED CELL DISTRIBUTION WIDTH 21.1 % (11.6-16.5); WHITE BLOOD COUNT 16.4 X10^3/uL (3.6-10.0)
[2016-12-12 06:38] LABS: BAND NEUTROPHILS % 4 % (0-10); METAMYELOCYTES % 3
[2016-12-12 06:39] LABS: ANISOCYTOSIS 1+; PLATELET MORPHOLOGY COMMENT NORMAL (NORMAL)
--- NOTE | 2016-12-12 07:56 | RAD ---
HISTORY: Shortness of breath Study: Chest one view Comparison: December 11, 2016 Findings: The heart is within normal limits in size. No congestive heart failure is noted. The lungs are gener ally hyperinflated but free of acute alveolar infiltrates. Interstitial lung changes are present arnold aterally. Pleural-parenchymal scarring is again demonstrated on the right. Stable right apical pleur al thickening is present. There is minimal subsegmental atelectasis in the left costophrenic angle. The bony thorax is unremarkable. IMPRESSION: No significant change from the prior examination Reported By:
[2016-12-12] MEDS ORDERED: NS 500 ML IV 500 ML IV ONE (08:33)
[2016-12-12] MEDS: DUONEB 0.5 MG/3 MG NEB SCH ×4 (09:02→20:19)
[2016-12-12] MEDS: ALDACTONE TAB 25 MG PO SCH (09:13)
[2016-12-12] MEDS: REQUIP PO SCH ×2 (09:13→20:49)
[2016-12-12] MEDS: LEVAQUIN PREMIX IV 500 MG 500 MG/100 ML BAG IV SCH (09:13)
[2016-12-12] MEDS: DECADRON TAB PO SCH (09:13)
[2016-12-12] MEDS: LASIX PO SCH ×2 (09:13→20:49)
[2016-12-12] MEDS: PLAVIX PO SCH (09:14)
--- NOTE | 2016-12-12 10:13 | PCM.PROG ---
Progress Note - Progress Note for Day of Date: 12/12/16 - Subjective Subjective: IS ALERT AND ORIENTED, SITTING ON SIDE OF BED ON MORNING ROUNDS. HE IS NOTED WITH COMPLAINTS OF SHORTNESS OF BREATH AND LEGS WEEPING. ON EXAMINATION, EDEMA APPEARS TO HAVE DECREASED SINCE YESTERDAY, HOWEVER, ACTIVE WEEPING AND DRAINAGE IS NOTED FROM BILATERAL LEGS. LUNGS ARE NOTED WITH WEEZING BILATERALLY ON AUSCULTATION. VITALS THIS AM ARE 97.6-80-24-93 %-125/58. CBC REPORTS WBC 16.4, HGB 13.2, HCT 40.5. CMP WNL EXCEPT CARBON DIOXIDE 32.1, GLUCOSE 164, ALBUMIN 2.6. CHEST XRAY STABLE. VENOUS DOPPLER WAS OBTAINED AND REPORTS NEGATIVE FOR DVT. ECHO REPORTS EJECTION FRACTION OF 47%. WE WILL START ALBUMIN 25%DAILY. WE WILL PLAN TO RECHECK LABS AND TO CONTINUE FOLLOWING UP WITH PATIENT. - Past Medical Family Social History Allergies: Allergies promethazine [From Phenergan] Adverse Reaction (Verified 12/11/16 00:54) - Vital Signs and I&O's Vital Signs: Temperature 97.6 F Pulse Rate [Right Brachial] 95 Pulse Rate [Left Brachial] 100 Pulse Rate 93 Respiratory Rate 20 Blood Pressure [Right Arm] 126/59 Blood Pressure [Left Arm] 137/63 O2 Sat by Pulse Oximetry 95 Intake and Output: Intake & Output 12/09/16 12/10/16 12/11/16 12/12/16 11:59 11:59 11:59 11:59 Intake Total 650 2126 Output Total 800 3250 Balance -150 -1124 - Physical Exam Oriented: Normal. negative: Time, Person, Place, Not Oriented, Unable to test, Other Eyes: Normal. negative: Blurred Vision, Diplopia, Discharge, Pain, Redness, Photophobia, Other Ear: Normal. negative: Right, Left, Swelling, Ecchymosis, Hemotypanum, Abrasion , Laceration Nose: Normal. negative: Injected, Discharge, Blood, Other Throat: Normal. negative: Tonsillar Hypertrophy, Red, Exudate, Dry, Other Respiratory: Right, Left, Wheezes. negative: Normal, Generalized, Superior, Inferior, Diminished, Rales, Rhonchi, OTHER Cardiovascular: Tachycardia. negative: Normal, Bradycardia, Irregular, S3, S4, Systolic, Diastolic, Murmur, Edema, Other : Normal. negative: Dysuria, Hematuria, Frequency, Discharge, Testicular Pain , Bleeding, , Other Auscultation: Bowel Sounds: Normal. negative: Bruit, Absent, Increased, Decreased, High Pitched, Other Palpation: Normal Tenderness: Normal. negative: Diffuse, RUQ, RLQ, LUQ, LLQ, Epigastric, Periumbilical, Suprapubic, Mild, Moderate, Severe, Rebound, Guarding, Rigidity, Other Skin: Normal, Red, Wound. negative: Decreased Turgur, Rash, Papular, Macular, Maculopapular, Vesicular, Pustular, Petechial, Tender, Hot, Diaphoresis, Bruising, Ecchymosis, Other Musculoskeletal: Normal. negative: Right, Left, Shoulder, Clavicle, Arm, Elbow , Forearm, Wrist, Hand, Hip, Thigh, Knee, Leg, Ankle, Foot, Back:Thoracic, Back: Lumbar, Back:Midline, Back:Paraspinous, Pelvis, Swelling, Tender, Deformity, Pulse Deficit, Motor Deficit, Sensory Deficit, Instability, Crepitance Psychiatric: Normal. negative: Anxiety, Depression, Agitation, Other Mood Description: Calm. negative: Angry, Apathetic, Depressed, Fearful, Flat, Happy, Hostile, Sad, Suspicious, Withdrawn, Anxious, Appropriate, Labile Affect: Normal. negative: Angry, Anxious, Depressed, Flat, Hysterical, Quiet, Violent Speech Pattern: Clear, Appropriate - Laboratory and Diagnostics Result Diagrams: 12/12/16 03:31 12/12/16 03:31 Labs: Laboratory WBC 16.4 X10^3/uL (3.6-10.0) H 12/12/16 03:31 RBC 5.32 X10^6/uL (4.7-6.0) 12/12/16 03:31 Hgb 13.2 g/dL (13.5-18.0) L 12/12/16 03:31 Hct 40.5 % (42.0-54.0) L 12/12/16 03:31 MCV 76.2 fL (80.0-100.0) L 12/12/16 03:31 MCH 24.8 pg (27.0-34.0) L 12/12/16 03:31 MCHC 32.5 g/dL (33.0-35.0) L 12/12/16 03:31 RDW 21.1 % (11.6-16.5) H 12/12/16 03:31 Plt Count 658 X10^3/uL (150.0-450.0) H 12/12/16 03:31 Plt Count Comment Increased (ADEQUATE) 12/12/16 03:31 MPV 7.8 fL (7.4-11.0) 12/12/16 03:31 Neut % 93.2 % (42.0-75.0) H 12/12/16 03:31 Lymph % 2.3 % (21.0-51.0) L 12/12/16 03:31 Stone % 3.4 % (0.0-13.0) 12/12/16 03:31 Eos % 0.0 % (0.9-2.9) L 12/12/16 03:31 Baso % 1.1 % (0.2-1.0) H 12/12/16 03:31 Neut # 15.3 x10^3/uL (2.2-4.8) H 12/12/16 03:31 Lymph # 0.4 X10^3/uL (1.3-2.9) L 12/12/16 03:31 Stone # 0.6 x10^3/uL (0.3-0.8) 12/12/16 03:31 Eos # 0.0 x10^3/uL (0.0-0.2) 12/12/16 03:31 Baso # 0.2 X10^3/uL (0.0-0.1) H 12/12/16 03:31 Absolute Nucleated RBC 0.0 /100WBC 12/12/16 03:31 Total Counted 100 12/12/16 03:31 Neutrophils % (Manual) 83 % (39-76) H 12/12/16 03:31 Band Neutrophils % 4 % (0-10) 12/12/16 03:31 Lymphocytes % (Manual) 6 % (13-43) L 12/12/16 03:31 Monocytes % (Manual) 3 % (4-9) L 12/12/16 03:31 Eosinophils % (Manual) 1 % (0-6) 12/12/16 03:31 Metamyelocytes % 3 12/12/16 03:31 Plt Morphology Comment Normal (NORMAL) 12/12/16 03:31 RBC Morphology Abnormal (NORMAL) 12/12/16 03:31 Anisocytosis 1+ A 12/12/16 03:31 D-Dimer 829 ng/mL (0-400) H* 12/10/16 22:50 Sodium 141 mmol/L (136-145) 12/12/16 03:31 Corrected Sodium 143 mmol/L (136-145) 12/12/16 03:31 Potassium 3.9 mmol/L (3.5-5.1) 12/12/16 03:31 Chloride 102 mmol/L (98-107) 12/12/16 03:31 Carbon Dioxide 32.1 mmol/L (21-32) H 12/12/16 03:31 BUN 14 mg/dL (7-18) 12/12/16 03:31 Creatinine 1.26 mg/dL (0.70-1.30) 12/12/16 03:31 Est GFR (MDRD) Af Amer > 60 (>60) 12/12/16 03:31 Est GFR (MDRD) Non-Af 59 (>60) 12/12/16 03:31 Glucose 164 mg/dL (65-99) H 12/12/16 03:31 Calcium 8.8 mg/dL (8.5-10.1) 12/12/16 03:31 Corrected Calcium 9.9 mg/dL (8.5-10.1) 12/12/16 03:31 Total Bilirubin 0.50 mg/dL (0.2-1.0) 12/12/16 03:31 AST 17 Units/L (15-37) 12/12/16 03:31 ALT 24 Units/L (12-78) 12/12/16 03:31 Alkaline Phosphatase 62 Units/L (46-116) 12/12/16 03:31 Creatine Kinase 36 Units/L (39-308) L 12/11/16 11:15 CK-MB (CK-2) < 1.0 ng/mL (0-4.0) 12/11/16 11:15 CK/CKMB % Calc 2.8 % (<4) 12/11/16 11:15 Troponin I < 0.02 ng/mL (0-1.5) 12/11/16 11:15 B-Natriuretic Peptide 68.3 pg/mL (0-79) 12/10/16 22:50 Total Protein 7.2 g/dL (6.4-8.2) 12/12/16 03:31 Albumin 2.6 g/dL (3.4-5.0) L 12/12/16 03:31 Globulin 4.6 g/dL (2.5-4.5) H 12/12/16 03:31 Albumin/Globulin Ratio 0.6 Ratio (1.1-2.1) L 12/12/16 03:31 Triglycerides 61 mg/dL (0-150) 12/11/16 05:30 Cholesterol 156 mg/dL (0-200) 12/11/16 05:30 LDL Cholesterol, Calc 92 mg/dL (0-100) 12/11/16 05:30 HDL Cholesterol 52 mg/dL (40-60) 12/11/16 05:30 Cholesterol/HDL Ratio 3.0 (0.0-5.0) 12/11/16 05:30 - Plan (1) COPD exacerbation Status: Acute Plan: DUONEBS, CONTINUE TO MONITOR CHEST XRAY AND PATIENT (2) Cellulitis of both lower extremities Status: Acute Plan: FORTAZ 1 GM Q8H IV, LEVAQUIN 500MG IV, CHECK VENOUS DOPPLER, CONTINUE TO MONITOR (3) CHF (congestive heart failure) Status: Chronic Qualifiers: Congestive heart failure type: unspecified congestive heart failure type Congestive heart failure chronicity: acute Qualified Code(s): I50.9 - Heart failure, unspecified Plan: CHECK ECHO, CONTINUE TO MONITOR (4) Hypothyroidism Status: Chronic Qualifiers: Hypothyroidism type: acquired Qualified Code(s): E03.9 - Hypothyroidism, unspecified Plan: CONTINUE SYNTHROID 75MCG DAILY, CONTINUE TO MONITOR
[2016-12-12] MEDS: EUCERIN TOP SCH ×2 (10:47→21:45)
[2016-12-12] MEDS: ALBUMIN HUMAN 25%- 100ML 100 ML IV SCH (10:47)
[2016-12-12] MEDS: SYNTHROID 75 mcg TAB PO SCH (16:44)
[2016-12-12] MEDS: ZOFRAN INJ 4 MG VIAL IVP PRN (20:48)
[2016-12-12] MEDS: LEVSIN/MAALOX/LIDOC VISC PO PRN (20:48)
[2016-12-12] MEDS: XANAX PO SCH (20:49)
[2016-12-12] MEDS: RESTORIL CAP 15 MG PO PRN (20:49)
[2016-12-13] MEDS: LEVSIN/MAALOX/LIDOC VISC PO PRN ×4 (01:36→20:51)
[2016-12-13] MEDS: ZOFRAN INJ 4 MG VIAL IVP PRN (03:00)
[2016-12-13] MEDS: FORTAZ or TAZICEF INJ 1 GM in NS 50 ML IV + SPIKE MINIBAG* 50 ML IV SCH (05:24)
[2016-12-13 06:17] LABS: BASOPHILS # (AUTO) 0.1 X10^3/uL (0.0-0.1); BASOPHILS % (AUTO) 0.5 % (0.2-1.0); EOSINOPHILS % (AUTO) 0.1 % (0.9-2.9); HEMATOCRIT 39.1 % (42.0-54.0); HEMOGLOBIN 12.6 g/dL (13.5-18.0); LYMPHOCYTES # (AUTO) 0.4 X10^3/uL (1.3-2.9); LYMPHOCYTES % (AUTO) 2.7 % (21.0-51.0); MEAN CORPUSCULAR HEMOGLOBIN 24.6 pg (27.0-34.0); MEAN CORPUSCULAR HGB CONC 32.1 g/dL (33.0-35.0); MEAN CORPUSCULAR VOLUME 76.5 fL (80.0-100.0); MEAN PLATELET VOLUME 7.7 fL (7.4-11.0); MONOCYTES # (AUTO) 0.8 x10^3/uL (0.3-0.8); MONOCYTES % (AUTO) 5.1 % (0.0-13.0); NEUTROPHILS # (AUTO) 14.9 x10^3/uL (2.2-4.8); NEUTROPHILS % (AUTO) 91.6 % (42.0-75.0); PLATELET COUNT 647 X10^3/uL (150.0-450.0); RED BLOOD COUNT 5.11 X10^6/uL (4.7-6.0); RED CELL DISTRIBUTION WIDTH 20.7 % (11.6-16.5); WHITE BLOOD COUNT 16.3 X10^3/uL (3.6-10.0)
[2016-12-13 06:27] LABS: ALANINE AMINOTRANSFERASE 20 Units/L (12-78); ALBUMIN 2.8 g/dL (3.4-5.0); ALKALINE PHOSPHATASE 51 Units/L (46-116); ASPARTATE AMINO TRANSFERASE 16 Units/L (15-37); BLOOD UREA NITROGEN 18 mg/dL (7-18); CALCIUM 8.9 mg/dL (8.5-10.1); CARBON DIOXIDE 31.9 mmol/L (21-32); CHLORIDE 102 mmol/L (98-107); COR CA(FOR HYPOALB) 9.9 mg/dL (8.5-10.1); COR NA(FOR HYPERGLY) 143 mmol/L (136-145); CREATININE 1.09 mg/dL (0.70-1.30); GLUCOSE 133 mg/dL (65-99); SODIUM 142 mmol/L (136-145); eGFR BLACK RACES > 60 (>60); eGFR NON BLACK RACES > 60 (>60)
[2016-12-13 07:09] LABS: ANISOCYTOSIS 1+; BAND NEUTROPHILS % 1 % (0-10); PLATELET MORPHOLOGY COMMENT NORMAL (NORMAL)
[2016-12-13] MEDS: ALBUMIN HUMAN 25%- 100ML 100 ML IV SCH (08:14)
[2016-12-13] MEDS: ALDACTONE TAB 25 MG PO SCH (08:15)
[2016-12-13] MEDS: LEVAQUIN PREMIX IV 500 MG 500 MG/100 ML BAG IV SCH (08:15)
[2016-12-13] MEDS: PLAVIX PO SCH (08:15)
[2016-12-13] MEDS: EUCERIN TOP SCH ×2 (08:15→20:58)
[2016-12-13] MEDS: LASIX PO SCH ×2 (08:15→20:50)
[2016-12-13] MEDS: REQUIP PO SCH ×2 (08:15→20:50)
[2016-12-13] MEDS: DUONEB 0.5 MG/3 MG NEB SCH ×4 (08:38→20:21)
[2016-12-13] MEDS: ZANTAC PO SCH ×2 (10:15→20:50)
[2016-12-13] MEDS: VANCOMYCIN 1 GM PREMIX (ADDVANTAGE) 250 ML IV SCH ×2 (10:15→20:50)
[2016-12-13] MEDS: SYNTHROID 75 mcg TAB PO SCH (15:45)
[2016-12-13] MEDS: XANAX PO SCH (20:50)
[2016-12-14] MEDS: LEVSIN/MAALOX/LIDOC VISC PO PRN ×2 (04:45→19:34)
[2016-12-14 05:52] LABS: ALANINE AMINOTRANSFERASE 21 Units/L (12-78); ALBUMIN 3.1 g/dL (3.4-5.0); ALKALINE PHOSPHATASE 52 Units/L (46-116); ASPARTATE AMINO TRANSFERASE 20 Units/L (15-37); BLOOD UREA NITROGEN 17 mg/dL (7-18); CALCIUM 8.7 mg/dL (8.5-10.1); CARBON DIOXIDE 31.5 mmol/L (21-32); CHLORIDE 102 mmol/L (98-107); COR CA(FOR HYPOALB) 9.4 mg/dL (8.5-10.1); CREATININE 1.12 mg/dL (0.70-1.30); GLUCOSE 105 mg/dL (65-99); SODIUM 141 mmol/L (136-145); TOTAL PROTEIN 7.3 g/dL (6.4-8.2); eGFR BLACK RACES > 60 (>60); eGFR NON BLACK RACES > 60 (>60)
[2016-12-14 06:43] LABS: BASOPHILS # (AUTO) 0.1 X10^3/uL (0.0-0.1); BASOPHILS % (AUTO) 0.4 % (0.2-1.0); EOSINOPHILS # (AUTO) 0.2 x10^3/uL (0.0-0.2); HEMATOCRIT 42.7 % (42.0-54.0); HEMOGLOBIN 13.6 g/dL (13.5-18.0); LYMPHOCYTES # (AUTO) 0.6 X10^3/uL (1.3-2.9); LYMPHOCYTES % (AUTO) 3.8 % (21.0-51.0); MEAN CORPUSCULAR HEMOGLOBIN 24.3 pg (27.0-34.0); MEAN CORPUSCULAR HGB CONC 31.9 g/dL (33.0-35.0); MEAN CORPUSCULAR VOLUME 76.3 fL (80.0-100.0); MEAN PLATELET VOLUME 7.3 fL (7.4-11.0); MONOCYTES # (AUTO) 0.8 x10^3/uL (0.3-0.8); MONOCYTES % (AUTO) 4.8 % (0.0-13.0); NEUTROPHILS # (AUTO) 15.2 x10^3/uL (2.2-4.8); PLATELET COUNT 709 X10^3/uL (150.0-450.0); RED BLOOD COUNT 5.59 X10^6/uL (4.7-6.0); RED CELL DISTRIBUTION WIDTH 20.5 % (11.6-16.5); WHITE BLOOD COUNT 16.8 X10^3/uL (3.6-10.0)
[2016-12-14 07:10] LABS: ANISOCYTOSIS 1+; BAND NEUTROPHILS % 0 % (0-10); PLATELET MORPHOLOGY COMMENT NORMAL (NORMAL)
[2016-12-14 07:11] LABS: STOMATOCYTES PRESENT
[2016-12-14] MEDS: LEVAQUIN PREMIX IV 500 MG 500 MG/100 ML BAG IV SCH (08:00)
[2016-12-14] MEDS: ALBUMIN HUMAN 25%- 100ML 100 ML IV SCH (08:35)
[2016-12-14] MEDS: EUCERIN TOP SCH ×2 (08:35→21:30)
[2016-12-14] MEDS: ALDACTONE TAB 25 MG PO SCH (08:35)
[2016-12-14] MEDS: LASIX PO SCH ×2 (08:35→21:28)
[2016-12-14] MEDS: ZANTAC PO SCH ×2 (08:36→21:30)
[2016-12-14] MEDS: REQUIP PO SCH ×2 (08:36→21:28)
[2016-12-14] MEDS: PLAVIX PO SCH (08:36)
[2016-12-14] MEDS: VANCOMYCIN 1 GM PREMIX (ADDVANTAGE) 250 ML IV SCH ×2 (08:36→22:58)
[2016-12-14] MEDS: DUONEB 0.5 MG/3 MG NEB SCH ×4 (09:07→21:14)
[2016-12-14] MEDS: SYNTHROID 75 mcg TAB PO SCH (15:30)
--- NOTE | 2016-12-14 15:36 | RAD ---
HISTORY: COPD exacerbation Study: portable AP chest Comparison:12/12/2016 Findings: The heart is normal. The pulmonary vessels are less prominent. There is right hilar fullness which i s unchanged. There is moderate pleural-based irregular parenchymal opacity along the right mid lung extending inferiorly with associated pleural thickening which is less prominent . There are chronic interstitial changes on the left which are unchanged. There is linear atelectasis along the left delia g base which is decreased. IMPRESSION: Slowly resolving pleural based parenchymal infiltrate and /or atelectasis along the right lung base and a small right pleural effusion which has decreased in size. Resolving central pulmonary congestion with persistent prominence of the right hilar region. Recomme nd followup. Reported By:
[2016-12-14 16:22] LABS: BILIRUBIN,URINE NEGATIVE (NEGATIVE); BLOOD/HEMOGLOBIN,URINE NEGATIVE (NEGATIVE); GLUCOSE, URINE NEGATIVE (NEGATIVE); KETONES,URINE NEGATIVE (NEGATIVE); LEUKOCYTE ESTERASE ,URINE NEGATIVE (NEGATIVE); NITRITES,URINE NEGATIVE (NEGATIVE); PROTEIN,URINE NEGATIVE (NEGATIVE); UROBILINOGEN,URINE NORMAL (NORMAL)
[2016-12-14 16:31] LABS: APPEARANCE,URINE CLEAR (CLEAR); BACTERIA,URINE NEGATIVE /HPF (NEGATIVE); COLOR,URINE YELLOW (YELLOW); RBC,URINE NEGATIVE /HPF (NEGATIVE); SQUAMOUS EPITHELIAL CELL,UR NEGATIVE /HPF (NEGATIVE)
[2016-12-14] MEDS: XANAX PO SCH (21:28)
[2016-12-14 22:39] LABS: CREATININE 1.06 mg/dL (0.70-1.30); VANCOMYCIN,TROUGH 11.7 ug/mL (15-20)
[2016-12-15 00:27] LABS: ABG BASE EXCESS 9.1 mmol/L (-2.0-2.0)
[2016-12-15 00:29] LABS: ABG HCO3 35.5 mmol/L (22-26)
[2016-12-15 05:03] LABS: ALANINE AMINOTRANSFERASE 21 Units/L (12-78); ALBUMIN 3.1 g/dL (3.4-5.0); ALKALINE PHOSPHATASE 46 Units/L (46-116); ASPARTATE AMINO TRANSFERASE 20 Units/L (15-37); BLOOD UREA NITROGEN 15 mg/dL (7-18); CALCIUM 8.6 mg/dL (8.5-10.1); CARBON DIOXIDE 33.4 mmol/L (21-32); CHLORIDE 101 mmol/L (98-107); COR CA(FOR HYPOALB) 9.3 mg/dL (8.5-10.1); COR NA(FOR HYPERGLY) 140 mmol/L (136-145); CREATININE 0.99 mg/dL (0.70-1.30); GLUCOSE 125 mg/dL (65-99); SODIUM 139 mmol/L (136-145); TOTAL PROTEIN 7.1 g/dL (6.4-8.2); eGFR BLACK RACES > 60 (>60); eGFR NON BLACK RACES > 60 (>60)
[2016-12-15 05:43] LABS: BASOPHILS # (AUTO) 0.2 X10^3/uL (0.0-0.1); BASOPHILS % (AUTO) 1.6 % (0.2-1.0); EOSINOPHILS # (AUTO) 0.4 x10^3/uL (0.0-0.2); EOSINOPHILS % (AUTO) 2.5 % (0.9-2.9); HEMATOCRIT 39.4 % (42.0-54.0); HEMOGLOBIN 12.6 g/dL (13.5-18.0); LYMPHOCYTES # (AUTO) 0.5 X10^3/uL (1.3-2.9); LYMPHOCYTES % (AUTO) 3.3 % (21.0-51.0); MEAN CORPUSCULAR HEMOGLOBIN 24.4 pg (27.0-34.0); MEAN CORPUSCULAR VOLUME 76.4 fL (80.0-100.0); MEAN PLATELET VOLUME 7.7 fL (7.4-11.0); MONOCYTES # (AUTO) 0.7 x10^3/uL (0.3-0.8); MONOCYTES % (AUTO) 4.8 % (0.0-13.0); NEUTROPHILS # (AUTO) 13.5 x10^3/uL (2.2-4.8); NEUTROPHILS % (AUTO) 87.8 % (42.0-75.0); PLATELET COUNT 673 X10^3/uL (150.0-450.0); RED BLOOD COUNT 5.15 X10^6/uL (4.7-6.0); RED CELL DISTRIBUTION WIDTH 20.6 % (11.6-16.5); WHITE BLOOD COUNT 15.4 X10^3/uL (3.6-10.0)
[2016-12-15 05:49] LABS: ANISOCYTOSIS 1+; PLATELET MORPHOLOGY COMMENT NORMAL (NORMAL)
--- NOTE | 2016-12-15 06:26 | RAD ---
History: Cough and shortness of breath Study: Portable chest Comparison: Yesterday Findings: The heart size is normal. There is unchanged vascular congestion. There is a chronic infil trate in the right mid lung peripherally present since at least October of 2015. There is chronic blunt ing of the right lateral costophrenic angle. Impression: 1. Unchanged vascular congestion 2. Chronic fibrosis blunting the right lateral costophrenic angle and scar or fibrosis chronically i n the right lower lobe peripherally Reported By:
[2016-12-15] MEDS ORDERED: PHARMACY CONSULT - VANCOMYCIN XX SCH (07:00)
[2016-12-15] MEDS: MILK OF MAGNESIA PO SCH (08:53)
[2016-12-15] MEDS: REQUIP PO SCH ×2 (08:54→21:35)
[2016-12-15] MEDS: PLAVIX PO SCH (08:54)
[2016-12-15] MEDS: LASIX PO SCH ×2 (08:54→21:34)
[2016-12-15] MEDS: EUCERIN TOP SCH ×2 (08:54→21:35)
[2016-12-15] MEDS: ALDACTONE TAB 25 MG PO SCH (08:54)
[2016-12-15] MEDS: ZANTAC PO SCH ×2 (08:54→21:34)
[2016-12-15] MEDS: LEVAQUIN PREMIX IV 500 MG 500 MG/100 ML BAG IV SCH (08:55)
[2016-12-15] MEDS: VANCOMYCIN 1 GM PREMIX (ADDVANTAGE) 250 ML IV SCH ×2 (08:55→21:35)
[2016-12-15] MEDS: ALBUMIN HUMAN 25%- 100ML 100 ML IV SCH (08:55)
[2016-12-15] MEDS ORDERED: NS 500 ML IV 500 ML IV ONE (09:02)
[2016-12-15] MEDS: LEVSIN/MAALOX/LIDOC VISC PO PRN ×2 (09:04→17:45)
[2016-12-15] MEDS: DUONEB 0.5 MG/3 MG NEB SCH ×4 (09:42→21:07)
--- NOTE | 2016-12-15 10:24 | PCM.PROG ---
Progress Note - Progress Note for Day of Date: 12/15/16 - Subjective Subjective: IS ALERT AND ORIENTED, SITTING UP IN BED EATING BREAKFAST ON MORNING ROUNDS. HE IS NOTED WITH COMPLAINTS OF SHORTNESS OF BREATH AND ABDOMINAL PAIN. HE REPORTS NOT HAVING A BOWEL MOVEMENT X 5 DAYS. ON EXAMINATION, EDEMA APPEARS TO HAVE DECREASED SINCE THURSDAY. LUNGS ARE NOTED WITH WEEZING BILATERALLY ON AUSCULTATION. BOWEL SOUNDS HYPOACTIVE. VITALS THIS AM ARE 98.4-98-26-91%-147/70. CBC REPORTS WBC 15.4, HGB 12.6, HCT 39.4. CMP WNL EXCEPT CARBON DIOXIDE 33.4, GLUCOSE 125, ALBUMIN 3.1. BNP 317 CHEST XRAY REPORTED VASCULAR CONGESTION, CHRONIC FIBROSIS BLUNTING THE RIGHT LATERAL COSTOPHRENIC ANGLE AND SCAR OF FIBROSIS CHRONICALLY IN THE RIGHT LOWER LOBE PERIPHERALLY. WE WILL OBTAIN AN ABDOMINAL SERIES. WE WILL START MILK OF MAGNESIA AND COLACE AND PLAN TO RECHECK LABS AND FOLLOW UP WITH PATIENT. - Past Medical Family Social History Past Med/Fam/Surg Hx: No changes since H&P Allergies: Allergies promethazine [From Phenergan] Adverse Reaction (Verified 12/11/16 00:54) - Review of Systems ROS: No change since H&P - Vital Signs and I&O's Vital Signs: Temperature 98.4 F Pulse Rate [Right Brachial] 101 Pulse Rate [Left Brachial] 91 Pulse Rate 96 Respiratory Rate 26 Blood Pressure [Right Arm] 138/72 Blood Pressure [Left Arm] 163/72 O2 Sat by Pulse Oximetry 94 Intake and Output: Intake & Output 12/12/16 12/13/16 12/14/16 12/15/16 11:59 11:59 11:59 11:59 Intake Total 2126 2310 1690 1400 Output Total 3250 1974 1974 330 Balance -1124 588 -446 -5111 - Physical Exam Oriented: Normal. negative: Time, Person, Place, Not Oriented, Unable to test, Other Eyes: Normal. negative: Blurred Vision, Diplopia, Discharge, Pain, Redness, Photophobia, Other Ear: Normal. negative: Right, Left, Swelling, Ecchymosis, Hemotypanum, Abrasion , Laceration Nose: Normal. negative: Injected, Discharge, Blood, Other Throat: Normal. negative: Tonsillar Hypertrophy, Red, Exudate, Dry, Other Respiratory: Right, Left, Wheezes. negative: Normal, Generalized, Superior, Inferior, Diminished, Rales, Rhonchi, OTHER Cardiovascular: Tachycardia. negative: Normal, Bradycardia, Irregular, S3, S4, Systolic, Diastolic, Murmur, Edema, Other : Normal. negative: Dysuria, Hematuria, Frequency, Discharge, Testicular Pain , Bleeding, , Other Auscultation: Bowel Sounds: Decreased. negative: Normal, Bruit, Absent, Increased, High Pitched, Other Palpation: Normal Tenderness: Normal. negative: Diffuse, RUQ, RLQ, LUQ, LLQ, Epigastric, Periumbilical, Suprapubic, Mild, Moderate, Severe, Rebound, Guarding, Rigidity, Other Skin: Normal, Red, Wound. negative: Decreased Turgur, Rash, Papular, Macular, Maculopapular, Vesicular, Pustular, Petechial, Tender, Hot, Diaphoresis, Bruising, Ecchymosis, Other Musculoskeletal: Normal. negative: Right, Left, Shoulder, Clavicle, Arm, Elbow , Forearm, Wrist, Hand, Hip, Thigh, Knee, Leg, Ankle, Foot, Back:Thoracic, Back: Lumbar, Back:Midline, Back:Paraspinous, Pelvis, Swelling, Tender, Deformity, Pulse Deficit, Motor Deficit, Sensory Deficit, Instability, Crepitance Psychiatric: Normal. negative: Anxiety, Depression, Agitation, Other Mood Description: Calm. negative: Angry, Apathetic, Depressed, Fearful, Flat, Happy, Hostile, Sad, Suspicious, Withdrawn, Anxious, Appropriate, Labile Affect: Normal. negative: Angry, Anxious, Depressed, Flat, Hysterical, Quiet, Violent Speech Pattern: Clear, Appropriate - Laboratory and Diagnostics Result Diagrams: 12/15/16 03:20 12/15/16 03:20 Labs: 12/13/16 10:14 Leg - Left Wound Culture - Preliminary 12/14/16 08:39 Sputum - Expectorated Sputum - Final 12/13/16 10:14 Leg - Left Gram Stain - Final Laboratory WBC 15.4 X10^3/uL (3.6-10.0) H 12/15/16 03:20 RBC 5.15 X10^6/uL (4.7-6.0) 12/15/16 03:20 Hgb 12.6 g/dL (13.5-18.0) L 12/15/16 03:20 Hct 39.4 % (42.0-54.0) L 12/15/16 03:20 MCV 76.4 fL (80.0-100.0) L 12/15/16 03:20 MCH 24.4 pg (27.0-34.0) L 12/15/16 03:20 MCHC 32.0 g/dL (33.0-35.0) L 12/15/16 03:20 RDW 20.6 % (11.6-16.5) H 12/15/16 03:20 Plt Count 673 X10^3/uL (150.0-450.0) H 12/15/16 03:20 Plt Count Comment Increased (ADEQUATE) 12/15/16 03:20 MPV 7.7 fL (7.4-11.0) 12/15/16 03:20 Neut % 87.8 % (42.0-75.0) H 12/15/16 03:20 Lymph % 3.3 % (21.0-51.0) L 12/15/16 03:20 Perkins % 4.8 % (0.0-13.0) 12/15/16 03:20 Eos % 2.5 % (0.9-2.9) 12/15/16 03:20 Baso % 1.6 % (0.2-1.0) H 12/15/16 03:20 Neut # 13.5 x10^3/uL (2.2-4.8) H 12/15/16 03:20 Lymph # 0.5 X10^3/uL (1.3-2.9) L 12/15/16 03:20 Perkins # 0.7 x10^3/uL (0.3-0.8) 12/15/16 03:20 Eos # 0.4 x10^3/uL (0.0-0.2) H 12/15/16 03:20 Baso # 0.2 X10^3/uL (0.0-0.1) H 12/15/16 03:20 Absolute Nucleated RBC 0.2 /100WBC 12/15/16 03:20 Total Counted 100 12/15/16 03:20 Neutrophils % (Manual) 89 % (39-76) H 12/15/16 03:20 Band Neutrophils % 0 % (0-10) 12/14/16 06:30 Lymphocytes % (Manual) 5 % (13-43) L 12/15/16 03:20 Monocytes % (Manual) 5 % (4-9) 12/15/16 03:20 Eosinophils % (Manual) 1 % (0-6) 12/15/16 03:20 Metamyelocytes % 3 12/12/16 03:31 Plt Morphology Comment Normal (NORMAL) 12/15/16 03:20 RBC Morphology Abnormal (NORMAL) 12/15/16 03:20 Anisocytosis 1+ A 12/15/16 03:20 Stomatocytes Present 12/14/16 06:30 D-Dimer 829 ng/mL (0-400) H* 12/10/16 22:50 Sample Site Rbra 12/15/16 00:18 ABG pH 7.410 (7.35-7.45) 12/15/16 00:18 ABG pCO2 56.0 mmHg (35.0-45.0) H* 12/15/16 00:18 ABG pO2 175.0 mmHg (80.0-100.0) H 12/15/16 00:18 ABG HCO3 35.5 mmol/L (22-26) H* 12/15/16 00:18 ABG O2 Saturation 100.0 % (90-100) 12/15/16 00:18 ABG Base Excess 9.1 mmol/L (-2.0-2.0) H 12/15/16 00:18 Edgardo Test Na 12/15/16 00:18 A-a Gradient 468.0 mmHg 12/15/16 00:18 FiO2 100.000 12/15/16 00:18 Blood Gas Comments Norberto abg well-mtf 12/15/16 00:18 Sodium 139 mmol/L (136-145) 12/15/16 03:20 Corrected Sodium 140 mmol/L (136-145) 12/15/16 03:20 Potassium 4.1 mmol/L (3.5-5.1) 12/15/16 03:20 Chloride 101 mmol/L (98-107) 12/15/16 03:20 Carbon Dioxide 33.4 mmol/L (21-32) H 12/15/16 03:20 BUN 15 mg/dL (7-18) 12/15/16 03:20 Creatinine 0.99 mg/dL (0.70-1.30) 12/15/16 03:20 Est GFR (MDRD) Af Amer > 60 (>60) 12/15/16 03:20 Est GFR (MDRD) Non-Af > 60 (>60) 12/15/16 03:20 Glucose 125 mg/dL (65-99) H 12/15/16 03:20 Calcium 8.6 mg/dL (8.5-10.1) 12/15/16 03:20 Corrected Calcium 9.3 mg/dL (8.5-10.1) 12/15/16 03:20 Total Bilirubin 0.50 mg/dL (0.2-1.0) 12/15/16 03:20 AST 20 Units/L (15-37) 12/15/16 03:20 ALT 21 Units/L (12-78) 12/15/16 03:20 Alkaline Phosphatase 46 Units/L (46-116) 12/15/16 03:20 Creatine Kinase 36 Units/L (39-308) L 12/11/16 11:15 CK-MB (CK-2) < 1.0 ng/mL (0-4.0) 12/11/16 11:15 CK/CKMB % Calc 2.8 % (<4) 12/11/16 11:15 Troponin I < 0.02 ng/mL (0-1.5) 12/11/16 11:15 B-Natriuretic Peptide 317 pg/mL (0-79) H 12/15/16 03:20 Total Protein 7.1 g/dL (6.4-8.2) 12/15/16 03:20 Albumin 3.1 g/dL (3.4-5.0) L 12/15/16 03:20 Globulin 4.0 g/dL (2.5-4.5) 12/15/16 03:20 Albumin/Globulin Ratio 0.8 Ratio (1.1-2.1) L 12/15/16 03:20 Triglycerides 61 mg/dL (0-150) 12/11/16 05:30 Cholesterol 156 mg/dL (0-200) 12/11/16 05:30 LDL Cholesterol, Calc 92 mg/dL (0-100) 12/11/16 05:30 HDL Cholesterol 52 mg/dL (40-60) 12/11/16 05:30 Cholesterol/HDL Ratio 3.0 (0.0-5.0) 12/11/16 05:30 Specimen Type Catherized urine 12/14/16 16:08 Urine Color Yellow (YELLOW) 12/14/16 16:08 Urine Appearance Clear (CLEAR) 12/14/16 16:08 Urine pH 7.0 (5.0 - 8.0) 12/14/16 16:08 Ur Specific Theresa 1.010 (1.000-1.030) 12/14/16 16:08 Urine Protein Negative (NEGATIVE) 12/14/16 16:08 Urine Glucose (UA) Negative (NEGATIVE) 12/14/16 16:08 Urine Ketones Negative (NEGATIVE) 12/14/16 16:08 Urine Occult Blood Negative (NEGATIVE) 12/14/16 16:08 Urine Nitrite Negative (NEGATIVE) 12/14/16 16:08 Urine Bilirubin Negative (NEGATIVE) 12/14/16 16:08 Urine Urobilinogen Normal (NORMAL) 12/14/16 16:08 Ur Leukocyte Esterase Negative (NEGATIVE) 12/14/16 16:08 Urine RBC Negative /HPF (NEGATIVE) 12/14/16 16:08 Urine WBC Rare /HPF (NEGATIVE) 12/14/16 16:08 Ur Squamous Epith Cells Negative /HPF (NEGATIVE) 12/14/16 16:08 Urine Bacteria Negative /HPF (NEGATIVE) 12/14/16 16:08 Ur Culture Indicated? No/not indicated 12/14/16 16:08 Vancomycin Trough 11.7 ug/mL (15-20) L 12/14/16 22:05 - Plan (1) COPD exacerbation Status: Acute Plan: DUONEBS, CONTINUE TO MONITOR CHEST XRAY AND PATIENT (2) Cellulitis of both lower extremities Status: Acute Plan: FORTAZ 1 GM Q8H IV, LEVAQUIN 500MG IV, CHECK VENOUS DOPPLER, CONTINUE TO MONITOR (3) CHF (congestive heart failure) Status: Chronic Qualifiers: Congestive heart failure type: unspecified congestive heart failure type Congestive heart failure chronicity: acute Qualified Code(s): I50.9 - Heart failure, unspecified Plan: CHECK ECHO, CONTINUE TO MONITOR (4) Hypothyroidism Status: Chronic Qualifiers: Hypothyroidism type: acquired Qualified Code(s): E03.9 - Hypothyroidism, unspecified Plan: CONTINUE SYNTHROID 75MCG DAILY, CONTINUE TO MONITOR
--- NOTE | 2016-12-15 10:35 | RAD ---
HISTORY: Abdominal pain Study: Acute abdominal series Comparison: Chest radiograph December 15, 2016 Findings: The patient is rotated towards the right. Accounting for rotation, the cardiac silhouette is normal in size with unchanged vascular congestion. There are stable chronic opacities within the right mid and bilateral lower lungs with associated volume loss, suggesting pleural parenchymal scarring. No n ew infiltrate, significant effusion or pneumothorax is identified. The osseous thorax is unremarkabl e. The bowel gas pattern is nonobstructive. There is no convincing pneumatosis or free intraperitoneal air. No pathologic calcifications are seen. Prior T12 and L2 vertebroplasty changes are noted. The bony structures are otherwise grossly intact. IMPRESSION: 1. Stable vascular congestion and bilateral pleural parenchymal scarring. 2. No acute abdominal abnormality identified. Reported By:
[2016-12-15] MEDS: SYNTHROID 75 mcg TAB PO SCH (17:41)
[2016-12-15] MEDS: COLACE CAP 100 MG PO SCH (21:34)
[2016-12-15] MEDS: XANAX PO SCH (21:34)
[2016-12-15] MEDS: RESTORIL CAP 15 MG PO PRN (21:34)
[2016-12-16] MEDS: LEVSIN/MAALOX/LIDOC VISC PO PRN ×3 (00:17→18:00)
[2016-12-16 05:35] LABS: ALANINE AMINOTRANSFERASE 23 Units/L (12-78); ALBUMIN 3.2 g/dL (3.4-5.0); ALKALINE PHOSPHATASE 47 Units/L (46-116); ASPARTATE AMINO TRANSFERASE 19 Units/L (15-37); BLOOD UREA NITROGEN 13 mg/dL (7-18); CALCIUM 8.4 mg/dL (8.5-10.1); CARBON DIOXIDE 33.5 mmol/L (21-32); CHLORIDE 101 mmol/L (98-107); COR NA(FOR HYPERGLY) 139 mmol/L (136-145); CREATININE 0.96 mg/dL (0.70-1.30); GLUCOSE 112 mg/dL (65-99); SODIUM 139 mmol/L (136-145); TOTAL PROTEIN 6.9 g/dL (6.4-8.2); eGFR BLACK RACES > 60 (>60); eGFR NON BLACK RACES > 60 (>60)
[2016-12-16 06:06] LABS: BASOPHILS # (AUTO) 0.2 X10^3/uL (0.0-0.1); BASOPHILS % (AUTO) 1.5 % (0.2-1.0); EOSINOPHILS # (AUTO) 0.7 x10^3/uL (0.0-0.2); HEMATOCRIT 38.4 % (42.0-54.0); HEMOGLOBIN 12.2 g/dL (13.5-18.0); LYMPHOCYTES # (AUTO) 0.6 X10^3/uL (1.3-2.9); LYMPHOCYTES % (AUTO) 4.1 % (21.0-51.0); MEAN CORPUSCULAR HEMOGLOBIN 24.2 pg (27.0-34.0); MEAN CORPUSCULAR HGB CONC 31.7 g/dL (33.0-35.0); MEAN CORPUSCULAR VOLUME 76.5 fL (80.0-100.0); MEAN PLATELET VOLUME 7.5 fL (7.4-11.0); MONOCYTES # (AUTO) 0.5 x10^3/uL (0.3-0.8); MONOCYTES % (AUTO) 3.6 % (0.0-13.0); NEUTROPHILS # (AUTO) 11.9 x10^3/uL (2.2-4.8); NEUTROPHILS % (AUTO) 85.8 % (42.0-75.0); PLATELET COUNT 604 X10^3/uL (150.0-450.0); RED BLOOD COUNT 5.03 X10^6/uL (4.7-6.0); RED CELL DISTRIBUTION WIDTH 20.4 % (11.6-16.5); WHITE BLOOD COUNT 13.8 X10^3/uL (3.6-10.0)
[2016-12-16 06:48] LABS: BAND NEUTROPHILS % 5 % (0-10); PLATELET MORPHOLOGY COMMENT NORMAL (NORMAL)
[2016-12-16 06:49] LABS: ANISOCYTOSIS 1+
[2016-12-16] MEDS: DUONEB 0.5 MG/3 MG NEB SCH ×4 (08:55→20:09)
--- NOTE | 2016-12-16 09:05 | RAD ---
Chest, two views Indication: Shortness of breath Comparison: December 15, 2016 Findings: The cardiac silhouette is normal in size with stable vascular congestion. There are unchan ged chronic peripheral opacities within the mid and lower right lung with associated volume loss, co mpatible with fibrosis/scarring. The remainder of the lungs are otherwise clear without new focal in filtrate. No significant effusion or pneumothorax is identified. Impression: Unchanged vascular congestion. Stable chronic pleural parenchymal scarring within the right lateral and inferior lung. Reported By:
[2016-12-16] MEDS: MILK OF MAGNESIA PO SCH (10:10)
[2016-12-16] MEDS: LASIX PO SCH ×2 (10:10→21:59)
[2016-12-16] MEDS: PLAVIX PO SCH (10:11)
[2016-12-16] MEDS: ALDACTONE TAB 25 MG PO SCH (10:11)
[2016-12-16] MEDS: ZANTAC PO SCH ×2 (10:11→21:58)
[2016-12-16] MEDS: REQUIP PO SCH ×2 (10:11→21:59)
[2016-12-16] MEDS: LEVAQUIN PREMIX IV 500 MG 500 MG/100 ML BAG IV SCH (10:12)
[2016-12-16] MEDS: EUCERIN TOP SCH ×2 (10:12→22:05)
[2016-12-16] MEDS: VANCOMYCIN 1 GM PREMIX (ADDVANTAGE) 250 ML IV SCH ×2 (10:12→21:58)
[2016-12-16] MEDS: ALBUMIN HUMAN 25%- 100ML 100 ML IV SCH (10:13)
--- NOTE | 2016-12-16 10:59 | PCM.PROG ---
Progress Note - Progress Note for Day of Date: 12/16/16 - Subjective Subjective: IS ALERT AND ORIENTED, SITTING UP IN BED EATING BREAKFAST ON MORNING ROUNDS. HE IS NOTED WITH COMPLAINTS OF SHORTNESS OF BREATH AND WEAKNESS. STAFF REPORTS THAT PATIENT HAS NOT HAD A BOWEL MOVEMENT IN 6 DAYS. LOWER EXTREMITY EDEMA APPEARS TO BE BACK TO PATIENT'S BASELINE. LUNGS ARE NOTED WITH WEEZING BILATERALLY ON AUSCULTATION. BOWEL SOUNDS HYPOACTIVE. VITALS THIS AM ARE 98.2-87-24-95%-140/69. CBC REPORTS WBC 13.8, HGB 12.2, HCT 38.4. CMP WNL EXCEPT CARBON DIOXIDE 33.5, GLUCOSE 112, CALCIUM 8.4, ALBUMIN 3.2. BNP CHEST XRAY REPORTED UNCHANGED VASCULAR CONGESTION, UNCHANGED VASCULAR CONGESTION , STABLE CHRONIC PLEURAL PARENCHYMAL SCARRING WITHIN THE RIGHT LATERAL AND INFERIOR LUNG. 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 HE IS IN AGREEMENT WITH PLAN. CASE MANAGEMENT WILL ARRANGE FOR PLACEMENT. WE WILL START MIRALAX DAILY AND PLAN TO RECHECK LABS AND FOLLOW UP WITH PATIENT. - Past Medical Family Social History Past Med/Fam/Surg Hx: No changes since H&P Allergies: Allergies promethazine [From Phenergan] Adverse Reaction (Verified 12/11/16 00:54) - Review of Systems ROS: No change since H&P - Vital Signs and I&O's Vital Signs: Temperature 98.0 F Pulse Rate [Right Brachial] 91 Pulse Rate [Left Brachial] 91 Pulse Rate 101 Respiratory Rate 28 Blood Pressure [Right Arm] 131/62 Blood Pressure [Left Arm] 163/72 O2 Sat by Pulse Oximetry 98 Intake and Output: Intake & Output 12/13/16 12/14/16 12/15/16 12/16/16 11:59 11:59 11:59 11:59 Intake Total 2310 1690 1400 2021 Output Total 1974 1974 3300 1750 Balance 335 -285 -1900 272 - Physical Exam Oriented: Normal. negative: Time, Person, Place, Not Oriented, Unable to test, Other Eyes: Normal. negative: Blurred Vision, Diplopia, Discharge, Pain, Redness, Photophobia, Other Ear: Normal. negative: Right, Left, Swelling, Ecchymosis, Hemotypanum, Abrasion , Laceration Nose: Normal. negative: Injected, Discharge, Blood, Other Throat: Normal. negative: Tonsillar Hypertrophy, Red, Exudate, Dry, Other Respiratory: Right, Left, Wheezes. negative: Normal, Generalized, Superior, Inferior, Diminished, Rales, Rhonchi, OTHER Cardiovascular: Tachycardia. negative: Normal, Bradycardia, Irregular, S3, S4, Systolic, Diastolic, Murmur, Edema, Other : Normal. negative: Dysuria, Hematuria, Frequency, Discharge, Testicular Pain , Bleeding, , Other Auscultation: Bowel Sounds: Decreased. negative: Normal, Bruit, Absent, Increased, High Pitched, Other Tenderness: Normal. negative: Diffuse, RUQ, RLQ, LUQ, LLQ, Epigastric, Periumbilical, Suprapubic, Mild, Moderate, Severe, Rebound, Guarding, Rigidity, Other Skin: Normal, Red, Wound. negative: Decreased Turgur, Rash, Papular, Macular, Maculopapular, Vesicular, Pustular, Petechial, Tender, Hot, Diaphoresis, Bruising, Ecchymosis, Other Musculoskeletal: Normal. negative: Right, Left, Shoulder, Clavicle, Arm, Elbow , Forearm, Wrist, Hand, Hip, Thigh, Knee, Leg, Ankle, Foot, Back:Thoracic, Back: Lumbar, Back:Midline, Back:Paraspinous, Pelvis, Swelling, Tender, Deformity, Pulse Deficit, Motor Deficit, Sensory Deficit, Instability, Crepitance Psychiatric: Normal. negative: Anxiety, Depression, Agitation, Other Mood Description: Calm. negative: Angry, Apathetic, Depressed, Fearful, Flat, Happy, Hostile, Sad, Suspicious, Withdrawn, Anxious, Appropriate, Labile Affect: Normal. negative: Angry, Anxious, Depressed, Flat, Hysterical, Quiet, Violent Speech Pattern: Clear, Appropriate - Laboratory and Diagnostics Result Diagrams: 12/16/16 03:35 12/16/16 03:35 Labs: 12/14/16 08:39 Sputum - Expectorated Sputum Sputum Culture - Final 12/14/16 08:39 Sputum - Expectorated Sputum - Final 12/13/16 10:14 Leg - Left Wound Culture - Final 12/13/16 10:14 Leg - Left Gram Stain - Final Laboratory WBC 13.8 X10^3/uL (3.6-10.0) H 12/16/16 03:35 RBC 5.03 X10^6/uL (4.7-6.0) 12/16/16 03:35 Hgb 12.2 g/dL (13.5-18.0) L 12/16/16 03:35 Hct 38.4 % (42.0-54.0) L 12/16/16 03:35 MCV 76.5 fL (80.0-100.0) L 12/16/16 03:35 MCH 24.2 pg (27.0-34.0) L 12/16/16 03:35 MCHC 31.7 g/dL (33.0-35.0) L 12/16/16 03:35 RDW 20.4 % (11.6-16.5) H 12/16/16 03:35 Plt Count 604 X10^3/uL (150.0-450.0) H 12/16/16 03:35 Plt Count Comment Increased (ADEQUATE) 12/16/16 03:35 MPV 7.5 fL (7.4-11.0) 12/16/16 03:35 Neut % 85.8 % (42.0-75.0) H 12/16/16 03:35 Lymph % 4.1 % (21.0-51.0) L 12/16/16 03:35 [place] % 3.6 % (0.0-13.0) 12/16/16 03:35 Eos % 5.0 % (0.9-2.9) H 12/16/16 03:35 Baso % 1.5 % (0.2-1.0) H 12/16/16 03:35 Neut # 11.9 x10^3/uL (2.2-4.8) H 12/16/16 03:35 Lymph # 0.6 X10^3/uL (1.3-2.9) L 12/16/16 03:35 [place] # 0.5 x10^3/uL (0.3-0.8) 12/16/16 03:35 Eos # 0.7 x10^3/uL (0.0-0.2) H 12/16/16 03:35 Baso # 0.2 X10^3/uL (0.0-0.1) H 12/16/16 03:35 Absolute Nucleated RBC 0.1 /100WBC 12/16/16 03:35 Total Counted 100 12/16/16 03:35 Neutrophils % (Manual) 69 % (39-76) 12/16/16 03:35 Band Neutrophils % 5 % (0-10) 12/16/16 03:35 Lymphocytes % (Manual) 13 % (13-43) 12/16/16 03:35 Monocytes % (Manual) 3 % (4-9) L 12/16/16 03:35 Eosinophils % (Manual) 10 % (0-6) H 12/16/16 03:35 Metamyelocytes % 3 12/12/16 03:31 Plt Morphology Comment Normal (NORMAL) 12/16/16 03:35 RBC Morphology Abnormal (NORMAL) 12/16/16 03:35 Anisocytosis 1+ A 12/16/16 03:35 Stomatocytes Present 12/14/16 06:30 D-Dimer 829 ng/mL (0-400) H* 12/10/16 22:50 Sample Site Rbra 12/15/16 00:18 ABG pH 7.410 (7.35-7.45) 12/15/16 00:18 ABG pCO2 56.0 mmHg (35.0-45.0) H* 12/15/16 00:18 ABG pO2 175.0 mmHg (80.0-100.0) H 12/15/16 00:18 ABG HCO3 35.5 mmol/L (22-26) H* 12/15/16 00:18 ABG O2 Saturation 100.0 % (90-100) 12/15/16 00:18 ABG Base Excess 9.1 mmol/L (-2.0-2.0) H 12/15/16 00:18 Edgardo Test Na 12/15/16 00:18 A-a Gradient 468.0 mmHg 12/15/16 00:18 FiO2 100.000 12/15/16 00:18 Blood Gas Comments Norberto abg well-mtf 12/15/16 00:18 Sodium 139 mmol/L (136-145) 12/16/16 03:35 Corrected Sodium 139 mmol/L (136-145) 12/16/16 03:35 Potassium 3.6 mmol/L (3.5-5.1) 12/16/16 03:35 Chloride 101 mmol/L (98-107) 12/16/16 03:35 Carbon Dioxide 33.5 mmol/L (21-32) H 12/16/16 03:35 BUN 13 mg/dL (7-18) 12/16/16 03:35 Creatinine 0.96 mg/dL (0.70-1.30) 12/16/16 03:35 Est GFR (MDRD) Af Amer > 60 (>60) 12/16/16 03:35 Est GFR (MDRD) Non-Af > 60 (>60) 12/16/16 03:35 Glucose 112 mg/dL (65-99) H 12/16/16 03:35 Calcium 8.4 mg/dL (8.5-10.1) L 12/16/16 03:35 Corrected Calcium 9.0 mg/dL (8.5-10.1) 12/16/16 03:35 Total Bilirubin 0.50 mg/dL (0.2-1.0) 12/16/16 03:35 AST 19 Units/L (15-37) 12/16/16 03:35 ALT 23 Units/L (12-78) 12/16/16 03:35 Alkaline Phosphatase 47 Units/L (46-116) 12/16/16 03:35 Creatine Kinase 36 Units/L (39-308) L 12/11/16 11:15 CK-MB (CK-2) < 1.0 ng/mL (0-4.0) 12/11/16 11:15 CK/CKMB % Calc 2.8 % (<4) 12/11/16 11:15 Troponin I < 0.02 ng/mL (0-1.5) 12/11/16 11:15 B-Natriuretic Peptide 317 pg/mL (0-79) H 12/15/16 03:20 Total Protein 6.9 g/dL (6.4-8.2) 12/16/16 03:35 Albumin 3.2 g/dL (3.4-5.0) L 12/16/16 03:35 Globulin 3.7 g/dL (2.5-4.5) 12/16/16 03:35 Albumin/Globulin Ratio 0.9 Ratio (1.1-2.1) L 12/16/16 03:35 Triglycerides 61 mg/dL (0-150) 12/11/16 05:30 Cholesterol 156 mg/dL (0-200) 12/11/16 05:30 LDL Cholesterol, Calc 92 mg/dL (0-100) 12/11/16 05:30 HDL Cholesterol 52 mg/dL (40-60) 12/11/16 05:30 Cholesterol/HDL Ratio 3.0 (0.0-5.0) 12/11/16 05:30 Specimen Type Catherized urine 12/14/16 16:08 Urine Color Yellow (YELLOW) 12/14/16 16:08 Urine Appearance Clear (CLEAR) 12/14/16 16:08 Urine pH 7.0 (5.0 - 8.0) 12/14/16 16:08 Ur Specific [place] 1.010 (1.000-1.030) 12/14/16 16:08 Urine Protein Negative (NEGATIVE) 12/14/16 16:08 Urine Glucose (UA) Negative (NEGATIVE) 12/14/16 16:08 Urine Ketones Negative (NEGATIVE) 12/14/16 16:08 Urine Occult Blood Negative (NEGATIVE) 12/14/16 16:08 Urine Nitrite Negative (NEGATIVE) 12/14/16 16:08 Urine Bilirubin Negative (NEGATIVE) 12/14/16 16:08 Urine Urobilinogen Normal (NORMAL) 12/14/16 16:08 Ur Leukocyte Esterase Negative (NEGATIVE) 12/14/16 16:08 Urine RBC Negative /HPF (NEGATIVE) 12/14/16 16:08 Urine WBC Rare /HPF (NEGATIVE) 12/14/16 16:08 Ur Squamous Epith Cells Negative /HPF (NEGATIVE) 12/14/16 16:08 Urine Bacteria Negative /HPF (NEGATIVE) 12/14/16 16:08 Ur Culture Indicated? No/not indicated 12/14/16 16:08 Vancomycin Trough 11.7 ug/mL (15-20) L 12/14/16 22:05 - Plan (1) COPD exacerbation Status: Acute Plan: DUONEBS, CONTINUE TO MONITOR CHEST XRAY AND PATIENT (2) Cellulitis of both lower extremities Status: Acute Plan: FORTAZ 1 GM Q8H IV, LEVAQUIN 500MG IV, CHECK VENOUS DOPPLER, CONTINUE TO MONITOR (3) CHF (congestive heart failure) Status: Chronic Qualifiers: Congestive heart failure type: unspecified congestive heart failure type Congestive heart failure chronicity: acute Qualified Code(s): I50.9 - Heart failure, unspecified Plan: CHECK ECHO, CONTINUE TO MONITOR (4) Hypothyroidism Status: Chronic Qualifiers: Hypothyroidism type: acquired Qualified Code(s): E03.9 - Hypothyroidism, unspecified Plan: CONTINUE SYNTHROID 75MCG DAILY, CONTINUE TO MONITOR (5) Constipation Status: Acute Qualifiers: Constipation type: unspecified constipation type Qualified Code(s): K59.00 - Constipation, unspecified Plan: MIRALAX DAILY, CONTINUE COLACE, CONTINUE MILK OF MAGNESIA, CONTINUE TO MONITOR
--- NOTE | 2016-12-16 16:55 | CT ---
HISTORY: Altered mental status. Study: CT brain without contrast Comparison: None. Technique: Multiple axial images of the brain were obtained from the skull base to the vertex without administr ation of IV contrast. Dose reduction techniques including Automated Exposure Control (AEC) and adju stment of mA and kV were utilized. Findings: Age related cortical atrophy and chronic small vessel ischemic changes. No acute intraparenchymal he morrhage or mass can be identified. No extra-axial fluid collections are seen. No alteration in th e attenuation of the brain parenchyma can be identified to suggest acute or subacute ischemic change . The ventricular system is symmetric and nondilated. The extracranial structures are grossly unre markable. IMPRESSION: No obvious acute intracranial pathology. However, if clinically concerned for acute isch emia/infarction MRI brain is more sensitive. Reported By:
[2016-12-16] MEDS: SYNTHROID 75 mcg TAB PO SCH (17:51)
[2016-12-16 20:51] LABS: CREATININE 1.06 mg/dL (0.70-1.30); VANCOMYCIN,TROUGH 17.8 ug/mL (15-20)
[2016-12-16] MEDS: MIRALAX POWDER (1 DOSE 17GM) PO SCH (21:57)
[2016-12-16] MEDS: COLACE CAP 100 MG PO SCH (21:58)
[2016-12-16] MEDS: RESTORIL CAP 15 MG PO PRN (21:58)
[2016-12-16] MEDS: XANAX PO SCH (21:58)
[2016-12-17] MEDS: LEVSIN/MAALOX/LIDOC VISC PO PRN ×3 (02:52→23:25)
[2016-12-17 05:14] LABS: ALANINE AMINOTRANSFERASE 23 Units/L (12-78); ALBUMIN 3.1 g/dL (3.4-5.0); ALKALINE PHOSPHATASE 48 Units/L (46-116); ASPARTATE AMINO TRANSFERASE 20 Units/L (15-37); BLOOD UREA NITROGEN 13 mg/dL (7-18); CALCIUM 8.5 mg/dL (8.5-10.1); CARBON DIOXIDE 34.7 mmol/L (21-32); CHLORIDE 100 mmol/L (98-107); COR CA(FOR HYPOALB) 9.2 mg/dL (8.5-10.1); COR NA(FOR HYPERGLY) 140 mmol/L (136-145); CREATININE 1.03 mg/dL (0.70-1.30); GLUCOSE 139 mg/dL (65-99); SODIUM 139 mmol/L (136-145); TOTAL PROTEIN 6.8 g/dL (6.4-8.2); eGFR BLACK RACES > 60 (>60); eGFR NON BLACK RACES > 60 (>60)
[2016-12-17 06:15] LABS: BASOPHILS # (AUTO) 0.2 X10^3/uL (0.0-0.1); BASOPHILS % (AUTO) 1.4 % (0.2-1.0); EOSINOPHILS # (AUTO) 0.7 x10^3/uL (0.0-0.2); HEMATOCRIT 37.8 % (42.0-54.0); LYMPHOCYTES # (AUTO) 0.5 X10^3/uL (1.3-2.9); LYMPHOCYTES % (AUTO) 3.9 % (21.0-51.0); MEAN CORPUSCULAR HEMOGLOBIN 24.1 pg (27.0-34.0); MEAN CORPUSCULAR HGB CONC 31.7 g/dL (33.0-35.0); MEAN CORPUSCULAR VOLUME 75.9 fL (80.0-100.0); MEAN PLATELET VOLUME 7.5 fL (7.4-11.0); MONOCYTES # (AUTO) 0.5 x10^3/uL (0.3-0.8); MONOCYTES % (AUTO) 3.3 % (0.0-13.0); NEUTROPHILS # (AUTO) 11.8 x10^3/uL (2.2-4.8); NEUTROPHILS % (AUTO) 86.4 % (42.0-75.0); PLATELET COUNT 617 X10^3/uL (150.0-450.0); RED BLOOD COUNT 4.98 X10^6/uL (4.7-6.0); RED CELL DISTRIBUTION WIDTH 20.2 % (11.6-16.5); WHITE BLOOD COUNT 13.6 X10^3/uL (3.6-10.0)
[2016-12-17 06:52] LABS: ANISOCYTOSIS 1+; BAND NEUTROPHILS % 5 % (0-10); PLATELET MORPHOLOGY COMMENT NORMAL (NORMAL)
[2016-12-17] MEDS: LEVAQUIN PREMIX IV 500 MG 500 MG/100 ML BAG IV SCH (08:00)
[2016-12-17] MEDS: ZANTAC PO SCH ×2 (08:00→20:55)
[2016-12-17] MEDS: REQUIP PO SCH ×2 (08:00→20:55)
[2016-12-17] MEDS: VANCOMYCIN 1 GM PREMIX (ADDVANTAGE) 250 ML IV SCH ×2 (08:00→20:55)
[2016-12-17] MEDS: EUCERIN TOP SCH ×2 (08:00→20:55)
[2016-12-17] MEDS: ALDACTONE TAB 25 MG PO SCH (08:00)
[2016-12-17] MEDS: PLAVIX PO SCH (08:00)
[2016-12-17] MEDS: MILK OF MAGNESIA PO SCH (08:00)
[2016-12-17] MEDS: LASIX PO SCH ×2 (08:00→20:55)
[2016-12-17] MEDS: ALBUMIN HUMAN 25%- 100ML 100 ML IV SCH (08:00)
--- NOTE | 2016-12-17 08:47 | RAD ---
HISTORY: 81-year-old male with shortness of breath. Study: Frontal view of the chest. Comparison: Chest radiograph December 16, 2016 Findings: The trachea is midline. The cardiac silhouette is stable. No change in prominence of the interstit ium with bibasilar atelectasis/scarring and scarring of the right mid lung with suspected trace effu sions. No pneumothorax. Osseous structures and soft tissues are stable. IMPRESSION: 1. No significant interval change. Reported By:
[2016-12-17] MEDS: DUONEB 0.5 MG/3 MG NEB SCH ×4 (09:23→20:35)
[2016-12-17] MEDS: GENTAMICIN TOPICAL CRM TOP SCH ×2 (10:47→20:55)
[2016-12-17] MEDS ORDERED: NS 100 ML IV 100 ML IV ONE (12:27)
--- NOTE | 2016-12-17 12:45 | PCM.PROG ---
Progress Note - Progress Note for Day of Date: 12/17/16 - Subjective Subjective: IS ALERT AND ORIENTED, SITTING UP IN BED ON MORNING ROUNDS. HE IS NOTED WITH COMPLAINTS OF SHORTNESS OF BREATH, COUGH, AND WEAKNESS. STAFF REPORTS THAT PATIENT HAS BEEN CONFUSED THROUGHOUT YESTERDAY AND LAST NIGHT. LUNGS ARE NOTED WITH WEEZING BILATERALLY ON AUSCULTATION. BOWEL SOUNDS HYPOACTIVE. VITALS THIS AM ARE 98.4-80-26-93%-120/55. CBC REPORTS WBC 13.6, HGB 12.0, HCT 37.8. CMP WNL EXCEPT CARBON DIOXIDE 34.7, GLUCOSE 139, ALBUMIN 3.1.CHEST XRAY REPORTED UNCHANGED VASCULAR CONGESTION, UNCHANGED VASCULAR CONGESTION, STABLE CHRONIC PLEURAL PARENCHYMAL SCARRING WITHIN THE RIGHT LATERAL AND INFERIOR LUNG. [facility] [place] HAS ACCEPTED PATIENT FOR SENIOR CARE PLACEMENT. WE WILL START PATIENT ON DULCOLOX SUPPOSITORY X 1 DOSE , MUCOMYST 600MG BID IN NEB TX, GENTAMICIN CREAM TO BILATERAL LOWER EXTREMITIES BID, AND OBTAIN A CT CHEST WITH CONTRAST. WE WILL RECHECK LABS AND FOLLOW UP WITH PATIENT IN AM. - Past Medical Family Social History Past Med/Fam/Surg Hx: No changes since H&P Allergies: Allergies promethazine [From Phenergan] Adverse Reaction (Verified 12/11/16 00:54) - Review of Systems ROS: No change since H&P - Vital Signs and I&O's Vital Signs: Temperature 98.5 F Pulse Rate [Right Brachial] 90 Pulse Rate [Left Brachial] 93 Pulse Rate 93 Respiratory Rate 18 Blood Pressure [Right Arm] 120/55 Blood Pressure [Left Arm] 112/55 O2 Sat by Pulse Oximetry 93 Intake and Output: Intake & Output 12/15/16 12/16/16 12/17/16 12/18/16 11:59 11:59 11:59 11:59 Intake Total 1400 2022 1347 Output Total 3300 1750 1625 Balance -1900 272 -278 - Physical Exam Oriented: Normal. negative: Time, Person, Place, Not Oriented, Unable to test, Other Eyes: Normal. negative: Blurred Vision, Diplopia, Discharge, Pain, Redness, Photophobia, Other Ear: Normal. negative: Right, Left, Swelling, Ecchymosis, Hemotypanum, Abrasion , Laceration Nose: Normal. negative: Injected, Discharge, Blood, Other Throat: Normal. negative: Tonsillar Hypertrophy, Red, Exudate, Dry, Other Respiratory: Right, Left, Wheezes. negative: Normal, Generalized, Superior, Inferior, Diminished, Rales, Rhonchi, OTHER Cardiovascular: Tachycardia. negative: Normal, Bradycardia, Irregular, S3, S4, Systolic, Diastolic, Murmur, Edema, Other : Normal. negative: Dysuria, Hematuria, Frequency, Discharge, Testicular Pain , Bleeding, , Other Auscultation: Bowel Sounds: Decreased. negative: Normal, Bruit, Absent, Increased, High Pitched, Other Tenderness: Normal. negative: Diffuse, RUQ, RLQ, LUQ, LLQ, Epigastric, Periumbilical, Suprapubic, Mild, Moderate, Severe, Rebound, Guarding, Rigidity, Other Skin: Normal, Red, Wound. negative: Decreased Turgur, Rash, Papular, Macular, Maculopapular, Vesicular, Pustular, Petechial, Tender, Hot, Diaphoresis, Bruising, Ecchymosis, Other Musculoskeletal: Normal. negative: Right, Left, Shoulder, Clavicle, Arm, Elbow , Forearm, Wrist, Hand, Hip, Thigh, Knee, Leg, Ankle, Foot, Back:Thoracic, Back: Lumbar, Back:Midline, Back:Paraspinous, Pelvis, Swelling, Tender, Deformity, Pulse Deficit, Motor Deficit, Sensory Deficit, Instability, Crepitance Psychiatric: Normal. negative: Anxiety, Depression, Agitation, Other Mood Description: Calm. negative: Angry, Apathetic, Depressed, Fearful, Flat, Happy, Hostile, Sad, Suspicious, Withdrawn, Anxious, Appropriate, Labile Affect: Normal. negative: Angry, Anxious, Depressed, Flat, Hysterical, Quiet, Violent Speech Pattern: Clear, Appropriate - Laboratory and Diagnostics Result Diagrams: 12/17/16 03:40 12/17/16 03:40 Labs: 12/14/16 08:39 Sputum - Expectorated Sputum Sputum Culture - Final 12/14/16 08:39 Sputum - Expectorated Sputum - Final 12/13/16 10:14 Leg - Left Wound Culture - Final 12/13/16 10:14 Leg - Left Gram Stain - Final Laboratory WBC 13.6 X10^3/uL (3.6-10.0) H 12/17/16 03:40 RBC 4.98 X10^6/uL (4.7-6.0) 12/17/16 03:40 Hgb 12.0 g/dL (13.5-18.0) L 12/17/16 03:40 Hct 37.8 % (42.0-54.0) L 12/17/16 03:40 MCV 75.9 fL (80.0-100.0) L 12/17/16 03:40 MCH 24.1 pg (27.0-34.0) L 12/17/16 03:40 MCHC 31.7 g/dL (33.0-35.0) L 12/17/16 03:40 RDW 20.2 % (11.6-16.5) H 12/17/16 03:40 Plt Count 617 X10^3/uL (150.0-450.0) H 12/17/16 03:40 Plt Count Comment Increased (ADEQUATE) 12/17/16 03:40 MPV 7.5 fL (7.4-11.0) 12/17/16 03:40 Neut % 86.4 % (42.0-75.0) H 12/17/16 03:40 Lymph % 3.9 % (21.0-51.0) L 12/17/16 03:40 [place] % 3.3 % (0.0-13.0) 12/17/16 03:40 Eos % 5.0 % (0.9-2.9) H 12/17/16 03:40 Baso % 1.4 % (0.2-1.0) H 12/17/16 03:40 Neut # 11.8 x10^3/uL (2.2-4.8) H 12/17/16 03:40 Lymph # 0.5 X10^3/uL (1.3-2.9) L 12/17/16 03:40 [place] # 0.5 x10^3/uL (0.3-0.8) 12/17/16 03:40 Eos # 0.7 x10^3/uL (0.0-0.2) H 12/17/16 03:40 Baso # 0.2 X10^3/uL (0.0-0.1) H 12/17/16 03:40 Absolute Nucleated RBC 0.0 /100WBC 12/17/16 03:40 Total Counted 100 12/17/16 03:40 Neutrophils % (Manual) 70 % (39-76) 12/17/16 03:40 Band Neutrophils % 5 % (0-10) 12/17/16 03:40 Lymphocytes % (Manual) 12 % (13-43) L 12/17/16 03:40 Monocytes % (Manual) 4 % (4-9) 12/17/16 03:40 Eosinophils % (Manual) 8 % (0-6) H 12/17/16 03:40 Metamyelocytes % 3 12/12/16 03:31 Plt Morphology Comment Normal (NORMAL) 12/17/16 03:40 RBC Morphology Abnormal (NORMAL) 12/17/16 03:40 Anisocytosis 1+ A 12/17/16 03:40 Stomatocytes Present 12/14/16 06:30 D-Dimer 829 ng/mL (0-400) H* 12/10/16 22:50 Sample Site Rbra 12/15/16 00:18 ABG pH 7.410 (7.35-7.45) 12/15/16 00:18 ABG pCO2 56.0 mmHg (35.0-45.0) H* 12/15/16 00:18 ABG pO2 175.0 mmHg (80.0-100.0) H 12/15/16 00:18 ABG HCO3 35.5 mmol/L (22-26) H* 12/15/16 00:18 ABG O2 Saturation 100.0 % (90-100) 12/15/16 00:18 ABG Base Excess 9.1 mmol/L (-2.0-2.0) H 12/15/16 00:18 Edgardo Test Na 12/15/16 00:18 A-a Gradient 468.0 mmHg 12/15/16 00:18 FiO2 100.000 12/15/16 00:18 Blood Gas Comments Norberto abg well-mtf 12/15/16 00:18 Sodium 139 mmol/L (136-145) 12/17/16 03:40 Corrected Sodium 140 mmol/L (136-145) 12/17/16 03:40 Potassium 4.0 mmol/L (3.5-5.1) 12/17/16 03:40 Chloride 100 mmol/L (98-107) 12/17/16 03:40 Carbon Dioxide 34.7 mmol/L (21-32) H 12/17/16 03:40 BUN 13 mg/dL (7-18) 12/17/16 03:40 Creatinine 1.03 mg/dL (0.70-1.30) 12/17/16 03:40 Est GFR (MDRD) Af Amer > 60 (>60) 12/17/16 03:40 Est GFR (MDRD) Non-Af > 60 (>60) 12/17/16 03:40 Glucose 139 mg/dL (65-99) H 12/17/16 03:40 Calcium 8.5 mg/dL (8.5-10.1) 12/17/16 03:40 Corrected Calcium 9.2 mg/dL (8.5-10.1) 12/17/16 03:40 Total Bilirubin 0.50 mg/dL (0.2-1.0) 12/17/16 03:40 AST 20 Units/L (15-37) 12/17/16 03:40 ALT 23 Units/L (12-78) 12/17/16 03:40 Alkaline Phosphatase 48 Units/L (46-116) 12/17/16 03:40 Creatine Kinase 36 Units/L (39-308) L 12/11/16 11:15 CK-MB (CK-2) < 1.0 ng/mL (0-4.0) 12/11/16 11:15 CK/CKMB % Calc 2.8 % (<4) 12/11/16 11:15 Troponin I < 0.02 ng/mL (0-1.5) 12/11/16 11:15 B-Natriuretic Peptide 317 pg/mL (0-79) H 12/15/16 03:20 Total Protein 6.8 g/dL (6.4-8.2) 12/17/16 03:40 Albumin 3.1 g/dL (3.4-5.0) L 12/17/16 03:40 Globulin 3.7 g/dL (2.5-4.5) 12/17/16 03:40 Albumin/Globulin Ratio 0.8 Ratio (1.1-2.1) L 12/17/16 03:40 Triglycerides 61 mg/dL (0-150) 12/11/16 05:30 Cholesterol 156 mg/dL (0-200) 12/11/16 05:30 LDL Cholesterol, Calc 92 mg/dL (0-100) 12/11/16 05:30 HDL Cholesterol 52 mg/dL (40-60) 12/11/16 05:30 Cholesterol/HDL Ratio 3.0 (0.0-5.0) 12/11/16 05:30 Specimen Type Catherized urine 12/14/16 16:08 Urine Color Yellow (YELLOW) 12/14/16 16:08 Urine Appearance Clear (CLEAR) 12/14/16 16:08 Urine pH 7.0 (5.0 - 8.0) 12/14/16 16:08 Ur Specific [place] 1.010 (1.000-1.030) 12/14/16 16:08 Urine Protein Negative (NEGATIVE) 12/14/16 16:08 Urine Glucose (UA) Negative (NEGATIVE) 12/14/16 16:08 Urine Ketones Negative (NEGATIVE) 12/14/16 16:08 Urine Occult Blood Negative (NEGATIVE) 12/14/16 16:08 Urine Nitrite Negative (NEGATIVE) 12/14/16 16:08 Urine Bilirubin Negative (NEGATIVE) 12/14/16 16:08 Urine Urobilinogen Normal (NORMAL) 12/14/16 16:08 Ur Leukocyte Esterase Negative (NEGATIVE) 12/14/16 16:08 Urine RBC Negative /HPF (NEGATIVE) 12/14/16 16:08 Urine WBC Rare /HPF (NEGATIVE) 12/14/16 16:08 Ur Squamous Epith Cells Negative /HPF (NEGATIVE) 12/14/16 16:08 Urine Bacteria Negative /HPF (NEGATIVE) 12/14/16 16:08 Ur Culture Indicated? No/not indicated 12/14/16 16:08 Vancomycin Trough 17.8 ug/mL (15-20) 12/16/16 20:30 - Plan (1) COPD exacerbation Status: Acute Plan: DUONEBS, CONTINUE TO MONITOR CHEST XRAY AND PATIENT (2) Cellulitis of both lower extremities Status: Acute Plan: GENTAMICIN CREAM BID, FORTAZ 1 GM Q8H IV, LEVAQUIN 500MG IV, CONTINUE TO MONITOR (3) CHF (congestive heart failure) Status: Chronic Qualifiers: Congestive heart failure type: unspecified congestive heart failure type Congestive heart failure chronicity: acute Qualified Code(s): I50.9 - Heart failure, unspecified Plan: CHECK ECHO, CONTINUE TO MONITOR (4) Respiratory distress Status: Acute Plan: SUPPLEMENTAL OXYGEN, OBTAIN CHEST CT WITH CONTRAST, MUCOMYST 600MG BID TO NEB TX, CONTINUE TO MONITOR (5) Hypothyroidism Status: Chronic Qualifiers: Hypothyroidism type: acquired Qualified Code(s): E03.9 - Hypothyroidism, unspecified Plan: CONTINUE SYNTHROID 75MCG DAILY, CONTINUE TO MONITOR (6) Constipation Status: Acute Qualifiers: Constipation type: unspecified constipation type Qualified Code(s): K59.00 - Constipation, unspecified Plan: DULCOLOX SUPPOSITORY X 1, MIRALAX DAILY, CONTINUE COLACE, CONTINUE MILK OF MAGNESIA, CONTINUE TO MONITOR
[2016-12-17] MEDS ORDERED: DULCOLAX SUPPOSITORY 10 MG RECTAL ONE (12:46)
[2016-12-17] MEDS ORDERED: MILK OF MAGNESIA PO SCH (13:00)
--- NOTE | 2016-12-17 16:12 | CT ---
CT chest with contrast Indication: Shortness of breath, COPD Technique: Helical CT images of the Show were obtained with IV contrast. Reformatted images in the c oronal and sagittal planes were also generated for review. Comparison: Radiograph from same day Findings: There are shotty lower mediastinal and prevascular lymph nodes, none pathologically enlarg ed. The heart is mildly enlarged without pericardial effusion. Moderate three-vessel coronary athero sclerotic disease and calcification of the aorta and proximal great vessels is present. The central airways are patent. There is moderate upper lobe predominant centrilobular emphysema. There is linear parenchymal scarri ng throughout both lungs, most predominant within the bilateral lower lobes. More rounded areas of c onsolidation within the lateral right major and minor fissure with surrounding parenchymal scarring and volume loss likely represent rounded atelectasis. There is mild, partially calcified pleural thi ckening on the right. A small left pleural effusion is present with mild compressive atelectasis of the left lower lobe. No acute appearing infiltrate or pneumothorax is identified. Limited images of the abdomen demonstrate small probable bilateral renal cysts. There is extensive s oft and calcified atheromatous plaque throughout the abdominal aorta, which demonstrates mild aneury smal dilatation, measuring up to 3.3 cm AP. Prior vertebroplasty changes at T12 and L2 are noted. No aggressive osseous lesions are identified. Impression: 1. Moderately advanced emphysema with moderate lower lobe predominant pleural parenchymal scarring, as detailed above. 2. More rounded areas of consolidation within the right lateral lung with adjacent parenchymal scarr ing and associated volume loss favor rounded atelectasis. Follow up CT in 6 months is recommended to ensure stability and exclude underlying mass. 3. Partially calcified right pleural thickening is suggestive for prior asbestos exposure. Correlati on with patient history recommended. 4. Small left pleural effusion, infrarenal abdominal aortic aneurysm, bilateral renal cysts and lazaro tional incidental findings, as above. Reported By:
[2016-12-17] MEDS: SYNTHROID 75 mcg TAB PO SCH (16:39)
[2016-12-17] MEDS: MUCOMYST 20% 200 MG/ML NEB SCH (20:35)
[2016-12-17] MEDS: XANAX PO SCH (20:55)
[2016-12-17] MEDS: COLACE CAP 100 MG PO SCH (23:26)
[2016-12-17] MEDS: MIRALAX POWDER (1 DOSE 17GM) PO SCH (23:27)
[2016-12-18] MEDS: ULTRAM PO PRN ×2 (06:06→19:10)
[2016-12-18 06:19] LABS: ALANINE AMINOTRANSFERASE 23 Units/L (12-78); ALBUMIN 3.4 g/dL (3.4-5.0); ALKALINE PHOSPHATASE 47 Units/L (46-116); ASPARTATE AMINO TRANSFERASE 19 Units/L (15-37); BASOPHILS # (AUTO) 0.2 X10^3/uL (0.0-0.1); BASOPHILS % (AUTO) 1.1 % (0.2-1.0); BLOOD UREA NITROGEN 13 mg/dL (7-18); CALCIUM 8.7 mg/dL (8.5-10.1); CARBON DIOXIDE 34.2 mmol/L (21-32); CHLORIDE 100 mmol/L (98-107); CREATININE 1.15 mg/dL (0.70-1.30); EOSINOPHILS # (AUTO) 0.6 x10^3/uL (0.0-0.2); EOSINOPHILS % (AUTO) 4.2 % (0.9-2.9); GLUCOSE 102 mg/dL (65-99); HEMATOCRIT 38.6 % (42.0-54.0); HEMOGLOBIN 12.5 g/dL (13.5-18.0); LYMPHOCYTES # (AUTO) 0.6 X10^3/uL (1.3-2.9); LYMPHOCYTES % (AUTO) 4.4 % (21.0-51.0); MEAN CORPUSCULAR HEMOGLOBIN 24.6 pg (27.0-34.0); MEAN CORPUSCULAR HGB CONC 32.4 g/dL (33.0-35.0); MEAN CORPUSCULAR VOLUME 75.9 fL (80.0-100.0); MEAN PLATELET VOLUME 7.4 fL (7.4-11.0); MONOCYTES # (AUTO) 0.5 x10^3/uL (0.3-0.8); MONOCYTES % (AUTO) 3.6 % (0.0-13.0); NEUTROPHILS # (AUTO) 11.4 x10^3/uL (2.2-4.8); NEUTROPHILS % (AUTO) 86.7 % (42.0-75.0); PLATELET COUNT 628 X10^3/uL (150.0-450.0); RED BLOOD COUNT 5.08 X10^6/uL (4.7-6.0); RED CELL DISTRIBUTION WIDTH 19.9 % (11.6-16.5); SODIUM 140 mmol/L (136-145); TOTAL PROTEIN 7.2 g/dL (6.4-8.2); WHITE BLOOD COUNT 13.2 X10^3/uL (3.6-10.0); eGFR BLACK RACES > 60 (>60); eGFR NON BLACK RACES > 60 (>60)
--- NOTE | 2016-12-18 06:31 | RAD ---
HISTORY: Shortness of breath Study: Chest one view Comparison: December 17, [address], December 16, 2016 Findings: The heart is within normal limits in size. The aorta is calcified. The samantha are normal. No congestiv e heart failure is noted. The lungs are hyperinflated but free of acute alveolar infiltrates. Extens maria de jesus pleural-parenchymal scarring is present in the right lower lung field. The bony thorax is unrema rkable. IMPRESSION: No significant change from the prior examination Reported By:
[2016-12-18 06:59] LABS: BAND NEUTROPHILS % 5 % (0-10)
[2016-12-18 07:00] LABS: PLATELET MORPHOLOGY COMMENT NORMAL (NORMAL)
[2016-12-18] MEDS: LASIX PO SCH ×2 (08:46→20:55)
[2016-12-18] MEDS: REQUIP PO SCH ×2 (08:46→20:54)
[2016-12-18] MEDS: PLAVIX PO SCH (08:47)
[2016-12-18] MEDS: ALDACTONE TAB 25 MG PO SCH (08:47)
[2016-12-18] MEDS: ZANTAC PO SCH ×2 (08:47→20:54)
[2016-12-18] MEDS: ALBUMIN HUMAN 25%- 100ML 100 ML IV SCH (08:47)
[2016-12-18] MEDS: LEVAQUIN PREMIX IV 500 MG 500 MG/100 ML BAG IV SCH (08:48)
[2016-12-18] MEDS: GENTAMICIN TOPICAL CRM TOP SCH ×2 (08:49→20:54)
[2016-12-18] MEDS: EUCERIN TOP SCH ×2 (08:49→20:54)
[2016-12-18 08:58] LABS: ABG BASE EXCESS 7.3 mmol/L (-2.0-2.0)
[2016-12-18 09:01] LABS: ABG ALLEN TEST POS; ABG HCO3 33.1 mmol/L (22-26)
[2016-12-18 09:07] LABS: CREATININE 1.09 mg/dL (0.70-1.30); VANCOMYCIN,TROUGH 18.9 ug/mL (15-20)
[2016-12-18] MEDS: DUONEB 0.5 MG/3 MG NEB SCH (09:55)
[2016-12-18] MEDS: MUCOMYST 20% 200 MG/ML NEB SCH ×2 (09:55→20:26)
[2016-12-18] MEDS ORDERED: REFLEX: PROVENTIL NEB & PulmiCORT NEB~ NEB SCH (10:45)
[2016-12-18] MEDS: VANCOMYCIN 1 GM PREMIX (ADDVANTAGE) 250 ML IV SCH ×2 (10:53→20:55)
[2016-12-18] MEDS: Atrovent NEB TX 0.02% NEB SCH ×2 (13:54→20:25)
[2016-12-18] MEDS: PROVENTIL NEB TX 0.083% 2.5MG/ 3ML NEB SCH ×2 (13:56→20:25)
[2016-12-18] MEDS: SYNTHROID 75 mcg TAB PO SCH (16:55)
--- NOTE | 2016-12-18 17:46 | PCM.PROG ---
Progress Note - Progress Note for Day of Date: 12/18/16 - Subjective Subjective: IS ALERT AND ORIENTED, SITTING UP IN BED ON MORNING ROUNDS. HE CONTINUES WITH COMPLAINTS OF SHORTNESS OF BREATH, COUGH, AND WEAKNESS. BILATERAL EXTREMITIES CONTINUE WITH CELLULITIS AND WEEPING. LUNGS ARE NOTED WITH WEEZING BILATERALLY ON AUSCULTATION. STAFF REPORTS THAT PATIENT HAS HAD LARGE BOWEL MOVEMENT. VITALS THIS AM ARE 98.0-92-28-94%-132/63. HE IS NOTED WEARING HUMIDIFIED HIGH FLOW O2. CBC REPORTS WBC 13.2, HGB 12.0, HCT 37.8. CMP WNL EXCEPT CARBON DIOXIDE 34.2, GLUCOSE 102, ALBUMIN 3.4, BNP 153.CHEST CT REPORTS EMPHYSEMA WITH MODERATE LOWER LOB PREDOMINANT PLEURAL PARENCHYMAL SCARRING, ROUNDED AREAS OF CONSOLIDATION WITHIN THE RIGHT LATERAL LUNG WITH ADJACENT PARENCHYMAL SCARRING AND ATELECTASIS, PARTIALLY CALCIFIED RIGHT PLEURAL THICKENING SUGGESTIVE FOR PRIOR ASBESTOS EXPOSURE, AND SMALL LEFT PLEURAL EFFUSION, INFRARENAL ABDOMINAL AORTIC ANEURYSM, BILATERAL RENAL CYST. WE WILL START PATIENT ON PROVENTIL NEB TX TID AND ATROVENT NEB TX BID. WE SPOKE WITH [facility] FROM [facility]. SHE IS CHECKING TO SEE IF PATIENT WILL QUALIFY FOR [facility] STAY FOR SHORT TERM TREATMENT AND REHAB. WE WILL RECHECK LABS AND FOLLOW UP WITH PATIENT IN AM. - Past Medical Family Social History Past Med/Fam/Surg Hx: No changes since H&P Allergies: Allergies promethazine [From Phenergan] Adverse Reaction (Verified 12/11/16 00:54) - Review of Systems ROS: No change since H&P - Vital Signs and I&O's Vital Signs: Temperature 98.7 F Pulse Rate [Right Brachial] 97 Pulse Rate [Left Brachial] 93 Pulse Rate 70 Respiratory Rate 30 Blood Pressure [Right Arm] 135/65 Blood Pressure [Left Arm] 112/55 O2 Sat by Pulse Oximetry 95 Intake and Output: Intake & Output 12/16/16 12/17/16 12/18/16 12/19/16 11:59 11:59 11:59 11:59 Intake Total 2021 1347 1490 903 Output Total 1749 1625 2100 750 Balance 557 -157 -692 153 - Physical Exam Oriented: Normal. negative: Time, Person, Place, Not Oriented, Unable to test, Other Eyes: Normal. negative: Blurred Vision, Diplopia, Discharge, Pain, Redness, Photophobia, Other Ear: Normal. negative: Right, Left, Swelling, Ecchymosis, Hemotypanum, Abrasion , Laceration Nose: Normal. negative: Injected, Discharge, Blood, Other Throat: Normal. negative: Tonsillar Hypertrophy, Red, Exudate, Dry, Other Respiratory: Right, Left, Wheezes. negative: Normal, Generalized, Superior, Inferior, Diminished, Rales, Rhonchi, OTHER Cardiovascular: Tachycardia. negative: Normal, Bradycardia, Irregular, S3, S4, Systolic, Diastolic, Murmur, Edema, Other : Normal. negative: Dysuria, Hematuria, Frequency, Discharge, Testicular Pain , Bleeding, , Other Auscultation: Bowel Sounds: Decreased. negative: Normal, Bruit, Absent, Increased, High Pitched, Other Palpation: Normal Tenderness: Normal. negative: Diffuse, RUQ, RLQ, LUQ, LLQ, Epigastric, Periumbilical, Suprapubic, Mild, Moderate, Severe, Rebound, Guarding, Rigidity, Other Skin: Normal, Red, Wound. negative: Decreased Turgur, Rash, Papular, Macular, Maculopapular, Vesicular, Pustular, Petechial, Tender, Hot, Diaphoresis, Bruising, Ecchymosis, Other Musculoskeletal: Normal. negative: Right, Left, Shoulder, Clavicle, Arm, Elbow , Forearm, Wrist, Hand, Hip, Thigh, Knee, Leg, Ankle, Foot, Back:Thoracic, Back: Lumbar, Back:Midline, Back:Paraspinous, Pelvis, Swelling, Tender, Deformity, Pulse Deficit, Motor Deficit, Sensory Deficit, Instability, Crepitance Psychiatric: Normal. negative: Anxiety, Depression, Agitation, Other Mood Description: Calm. negative: Angry, Apathetic, Depressed, Fearful, Flat, Happy, Hostile, Sad, Suspicious, Withdrawn, Anxious, Appropriate, Labile Affect: Normal. negative: Angry, Anxious, Depressed, Flat, Hysterical, Quiet, Violent Speech Pattern: Clear, Appropriate - Laboratory and Diagnostics Result Diagrams: 12/18/16 03:45 12/18/16 08:23 Labs: 12/14/16 08:39 Sputum - Expectorated Sputum Sputum Culture - Final 12/14/16 08:39 Sputum - Expectorated Sputum - Final 12/13/16 10:14 Leg - Left Wound Culture - Final 12/13/16 10:14 Leg - Left Gram Stain - Final Laboratory WBC 13.2 X10^3/uL (3.6-10.0) H 12/18/16 03:45 RBC 5.08 X10^6/uL (4.7-6.0) 12/18/16 03:45 Hgb 12.5 g/dL (13.5-18.0) L 12/18/16 03:45 Hct 38.6 % (42.0-54.0) L 12/18/16 03:45 MCV 75.9 fL (80.0-100.0) L 12/18/16 03:45 MCH 24.6 pg (27.0-34.0) L 12/18/16 03:45 MCHC 32.4 g/dL (33.0-35.0) L 12/18/16 03:45 RDW 19.9 % (11.6-16.5) H 12/18/16 03:45 Plt Count 628 X10^3/uL (150.0-450.0) H 12/18/16 03:45 Plt Count Comment Increased (ADEQUATE) 12/18/16 03:45 MPV 7.4 fL (7.4-11.0) 12/18/16 03:45 Neut % 86.7 % (42.0-75.0) H 12/18/16 03:45 Lymph % 4.4 % (21.0-51.0) L 12/18/16 03:45 [place] % 3.6 % (0.0-13.0) 12/18/16 03:45 Eos % 4.2 % (0.9-2.9) H 12/18/16 03:45 Baso % 1.1 % (0.2-1.0) H 12/18/16 03:45 Neut # 11.4 x10^3/uL (2.2-4.8) H 12/18/16 03:45 Lymph # 0.6 X10^3/uL (1.3-2.9) L 12/18/16 03:45 [place] # 0.5 x10^3/uL (0.3-0.8) 12/18/16 03:45 Eos # 0.6 x10^3/uL (0.0-0.2) H 12/18/16 03:45 Baso # 0.2 X10^3/uL (0.0-0.1) H 12/18/16 03:45 Absolute Nucleated RBC 0.1 /100WBC 12/18/16 03:45 Total Counted 100 12/18/16 03:45 Neutrophils % (Manual) 74 % (39-76) 12/18/16 03:45 Band Neutrophils % 5 % (0-10) 12/18/16 03:45 Lymphocytes % (Manual) 12 % (13-43) L 12/18/16 03:45 Monocytes % (Manual) 4 % (4-9) 12/18/16 03:45 Eosinophils % (Manual) 5 % (0-6) 12/18/16 03:45 Metamyelocytes % 3 12/12/16 03:31 Plt Morphology Comment Normal (NORMAL) 12/18/16 03:45 RBC Morphology Normal (NORMAL) 12/18/16 03:45 Anisocytosis 1+ A 12/17/16 03:40 Stomatocytes Present 12/14/16 06:30 D-Dimer 829 ng/mL (0-400) H* 12/10/16 22:50 Sample Site R rad 12/18/16 08:45 ABG pH 7.420 (7.35-7.45) 12/18/16 08:45 ABG pCO2 51.0 mmHg (35.0-45.0) H* 12/18/16 08:45 ABG pO2 76.0 mmHg (80.0-100.0) L 12/18/16 08:45 ABG HCO3 33.1 mmol/L (22-26) H* 12/18/16 08:45 ABG O2 Saturation 95.0 % (90-100) 12/18/16 08:45 ABG Base Excess 7.3 mmol/L (-2.0-2.0) H 12/18/16 08:45 Edgardo Test Pos 12/18/16 08:45 A-a Gradient 110.0 mmHg 12/18/16 08:45 FiO2 35.000 12/18/16 08:45 Blood Gas Comments Norberto well, afh 12/18/16 08:45 Sodium 140 mmol/L (136-145) 12/18/16 03:45 Corrected Sodium TNP 12/18/16 03:45 Potassium 3.9 mmol/L (3.5-5.1) 12/18/16 03:45 Chloride 100 mmol/L (98-107) 12/18/16 03:45 Carbon Dioxide 34.2 mmol/L (21-32) H 12/18/16 03:45 BUN 13 mg/dL (7-18) 12/18/16 03:45 Creatinine 1.09 mg/dL (0.70-1.30) 12/18/16 08:23 Est GFR (MDRD) Af Amer > 60 (>60) 12/18/16 03:45 Est GFR (MDRD) Non-Af > 60 (>60) 12/18/16 03:45 Glucose 102 mg/dL (65-99) H 12/18/16 03:45 Calcium 8.7 mg/dL (8.5-10.1) 12/18/16 03:45 Corrected Calcium TNP 12/18/16 03:45 Total Bilirubin 0.70 mg/dL (0.2-1.0) 12/18/16 03:45 AST 19 Units/L (15-37) 12/18/16 03:45 ALT 23 Units/L (12-78) 12/18/16 03:45 Alkaline Phosphatase 47 Units/L (46-116) 12/18/16 03:45 Creatine Kinase 36 Units/L (39-308) L 12/11/16 11:15 CK-MB (CK-2) < 1.0 ng/mL (0-4.0) 12/11/16 11:15 CK/CKMB % Calc 2.8 % (<4) 12/11/16 11:15 Troponin I < 0.02 ng/mL (0-1.5) 12/11/16 11:15 B-Natriuretic Peptide 153 pg/mL (0-79) H 12/18/16 08:23 Total Protein 7.2 g/dL (6.4-8.2) 12/18/16 03:45 Albumin 3.4 g/dL (3.4-5.0) 12/18/16 03:45 Globulin 3.8 g/dL (2.5-4.5) 12/18/16 03:45 Albumin/Globulin Ratio 0.9 Ratio (1.1-2.1) L 12/18/16 03:45 Triglycerides 61 mg/dL (0-150) 12/11/16 05:30 Cholesterol 156 mg/dL (0-200) 12/11/16 05:30 LDL Cholesterol, Calc 92 mg/dL (0-100) 12/11/16 05:30 HDL Cholesterol 52 mg/dL (40-60) 12/11/16 05:30 Cholesterol/HDL Ratio 3.0 (0.0-5.0) 12/11/16 05:30 Specimen Type Catherized urine 12/14/16 16:08 Urine Color Yellow (YELLOW) 12/14/16 16:08 Urine Appearance Clear (CLEAR) 12/14/16 16:08 Urine pH 7.0 (5.0 - 8.0) 12/14/16 16:08 Ur Specific [place] 1.010 (1.000-1.030) 12/14/16 16:08 Urine Protein Negative (NEGATIVE) 12/14/16 16:08 Urine Glucose (UA) Negative (NEGATIVE) 12/14/16 16:08 Urine Ketones Negative (NEGATIVE) 12/14/16 16:08 Urine Occult Blood Negative (NEGATIVE) 12/14/16 16:08 Urine Nitrite Negative (NEGATIVE) 12/14/16 16:08 Urine Bilirubin Negative (NEGATIVE) 12/14/16 16:08 Urine Urobilinogen Normal (NORMAL) 12/14/16 16:08 Ur Leukocyte Esterase Negative (NEGATIVE) 12/14/16 16:08 Urine RBC Negative /HPF (NEGATIVE) 12/14/16 16:08 Urine WBC Rare /HPF (NEGATIVE) 12/14/16 16:08 Ur Squamous Epith Cells Negative /HPF (NEGATIVE) 12/14/16 16:08 Urine Bacteria Negative /HPF (NEGATIVE) 12/14/16 16:08 Ur Culture Indicated? No/not indicated 12/14/16 16:08 Vancomycin Trough 18.9 ug/mL (15-20) 12/18/16 08:23 - Plan (1) COPD exacerbation Status: Acute Plan: DUONEBS, CONTINUE TO MONITOR CHEST XRAY AND PATIENT (2) Cellulitis of both lower extremities Status: Acute Plan: GENTAMICIN CREAM BID, FORTAZ 1 GM Q8H IV, LEVAQUIN 500MG IV, CONTINUE TO MONITOR (3) CHF (congestive heart failure) Status: Chronic Qualifiers: Congestive heart failure type: unspecified congestive heart failure type Congestive heart failure chronicity: acute Qualified Code(s): I50.9 - Heart failure, unspecified Plan: LASIX 20MG PO BID, CHECK CHEST XRAY, CONTINUE TO MONITOR (4) Respiratory distress Status: Acute Plan: SUPPLEMENTAL OXYGEN, OBTAIN CHEST CT WITH CONTRAST, MUCOMYST 600MG BID TO NEB TX, CONTINUE TO MONITOR (5) Emphysema of lung Status: Acute Qualifiers: Emphysema type: unspecified Qualified Code(s): J43.9 - Emphysema, unspecified Plan: ATROVENT AND PROVENTIL NEB TX, SUPPLEMENTAL OXYGEN, CONTINUE TO MONITOR (6) Hypothyroidism Status: Chronic Qualifiers: Hypothyroidism type: acquired Qualified Code(s): E03.9 - Hypothyroidism, unspecified Plan: CONTINUE SYNTHROID 75MCG DAILY, CONTINUE TO MONITOR (7) Constipation Status: Acute Qualifiers: Constipation type: unspecified constipation type Qualified Code(s): K59.00 - Constipation, unspecified Plan: MIRALAX DAILY, CONTINUE COLACE, CONTINUE MILK OF MAGNESIA, CONTINUE TO MONITOR
[2016-12-18] MEDS: COLACE CAP 100 MG PO SCH (20:54)
[2016-12-18] MEDS: XANAX PO SCH (20:55)
[2016-12-18] MEDS: LEVSIN/MAALOX/LIDOC VISC PO PRN (20:55)
[2016-12-18] MEDS: MIRALAX POWDER (1 DOSE 17GM) PO SCH (20:56)
[2016-12-18] MEDS ORDERED: PROVENTIL NEB TX 0.083% 2.5MG/ 3ML NEB SCH (21:00)
[2016-12-19 06:01] LABS: ALANINE AMINOTRANSFERASE 23 Units/L (12-78); ALBUMIN 3.4 g/dL (3.4-5.0); ALKALINE PHOSPHATASE 46 Units/L (46-116); ASPARTATE AMINO TRANSFERASE 20 Units/L (15-37); BLOOD UREA NITROGEN 14 mg/dL (7-18); CALCIUM 8.5 mg/dL (8.5-10.1); CARBON DIOXIDE 33.8 mmol/L (21-32); CHLORIDE 99 mmol/L (98-107); CREATININE 1.06 mg/dL (0.70-1.30); SODIUM 138 mmol/L (136-145); TOTAL PROTEIN 7.3 g/dL (6.4-8.2); eGFR BLACK RACES > 60 (>60); eGFR NON BLACK RACES > 60 (>60)
--- NOTE | 2016-12-19 06:09 | RAD ---
HISTORY: Shortness of breath Study: Chest one view Comparison: December 18, 2016 Findings: The heart is within normal limits in size. The aorta is calcified. The samantha are normal. The lungs ar e generally hyperinflated but free of acute alveolar infiltrates. Fairly extensive pleural-parenchym al scarring is identified in the right lower lung field. This is stable. The bony thorax is unremark able. IMPRESSION: Extensive pleural-parenchymal scarring right lower javier thorax, stable Hyperinflation Reported By:
[2016-12-19 06:11] LABS: COR NA(FOR HYPERGLY) 138 mmol/L (136-145); GLUCOSE 111 mg/dL (65-99)
[2016-12-19 06:13] LABS: BASOPHILS # (AUTO) 0.2 X10^3/uL (0.0-0.1); BASOPHILS % (AUTO) 1.4 % (0.2-1.0); EOSINOPHILS # (AUTO) 0.9 x10^3/uL (0.0-0.2); HEMATOCRIT 37.9 % (42.0-54.0); HEMOGLOBIN 12.2 g/dL (13.5-18.0); LYMPHOCYTES # (AUTO) 0.7 X10^3/uL (1.3-2.9); LYMPHOCYTES % (AUTO) 5.1 % (21.0-51.0); MEAN CORPUSCULAR HEMOGLOBIN 24.4 pg (27.0-34.0); MEAN CORPUSCULAR HGB CONC 32.3 g/dL (33.0-35.0); MEAN CORPUSCULAR VOLUME 75.6 fL (80.0-100.0); MEAN PLATELET VOLUME 7.5 fL (7.4-11.0); MONOCYTES # (AUTO) 0.6 x10^3/uL (0.3-0.8); MONOCYTES % (AUTO) 4.6 % (0.0-13.0); NEUTROPHILS % (AUTO) 81.9 % (42.0-75.0); PLATELET COUNT 595 X10^3/uL (150.0-450.0); RED BLOOD COUNT 5.01 X10^6/uL (4.7-6.0); RED CELL DISTRIBUTION WIDTH 19.9 % (11.6-16.5); WHITE BLOOD COUNT 13.4 X10^3/uL (3.6-10.0)
[2016-12-19] MEDS ORDERED: POTASSIUM CHLORIDE LIQ 20 MEQ UDC PO PRN (06:30)
[2016-12-19] MEDS ORDERED: K-LYTE EFFERVESCENT PO PRN (06:30)
[2016-12-19] MEDS ORDERED: K-RIDER 10 MEQ/NS 100 ML 10 MEQ/100 ML BAG IV PRN (06:30)
[2016-12-19] MEDS: PROVENTIL NEB TX 0.083% 2.5MG/ 3ML NEB SCH ×3 (06:32→20:18)
[2016-12-19 06:55] LABS: BAND NEUTROPHILS % 9 % (0-10)
[2016-12-19 06:56] LABS: METAMYELOCYTES % 2; PLATELET MORPHOLOGY COMMENT NORMAL (NORMAL)
[2016-12-19] MEDS: VANCOMYCIN 1 GM PREMIX (ADDVANTAGE) 250 ML IV SCH ×2 (08:07→22:30)
[2016-12-19] MEDS: ALBUMIN HUMAN 25%- 100ML 100 ML IV SCH (08:08)
[2016-12-19] MEDS: REQUIP PO SCH ×2 (08:09→20:42)
[2016-12-19] MEDS: LASIX PO SCH ×2 (08:09→20:41)
[2016-12-19] MEDS: ALDACTONE TAB 25 MG PO SCH (08:09)
[2016-12-19] MEDS: ZANTAC PO SCH ×2 (08:09→20:41)
[2016-12-19] MEDS: PLAVIX PO SCH (08:11)
[2016-12-19] MEDS: K-DUR TAB 20 MEQ PO PRN (08:11)
[2016-12-19] MEDS: LEVAQUIN PREMIX IV 500 MG 500 MG/100 ML BAG IV SCH (08:11)
[2016-12-19] MEDS: MUCOMYST 20% 200 MG/ML NEB SCH ×2 (09:08→20:19)
[2016-12-19] MEDS: Atrovent NEB TX 0.02% NEB SCH ×2 (09:08→20:18)
[2016-12-19] MEDS: GENTAMICIN TOPICAL CRM TOP SCH ×2 (09:51→20:42)
[2016-12-19] MEDS: EUCERIN TOP SCH ×2 (09:52→20:42)
--- NOTE | 2016-12-19 15:00 | PCM.PROG ---
Progress Note - Progress Note for Day of Date: 12/19/16 - Subjective Subjective: IS ALERT AND ORIENTED, SITTING UP IN BED ON MORNING ROUNDS. HE CONTINUES WITH COMPLAINTS OF SHORTNESS OF BREATH, COUGH, AND WEAKNESS. BILATERAL EXTREMITIES CONTINUE WITH CELLULITIS AND WEEPING. LUNGS ARE NOTED WITH WEEZING BILATERALLY ON AUSCULTATION. VITALS THIS AM ARE 97.8-92-28-95 %-169/74. HE IS NOTED WEARING HUMIDIFIED HIGH FLOW O2. CBC REPORTS WBC 13.4, HGB 12.2, HCT 37.9. CMP WNL EXCEPT CARBON DIOXIDE 33.8, POTASSIUM 3.4, AND GLUCOSE 111. CHEST XRAY REPORTS EXTENSIVE PLEURAL-PARENCHYMAL SCARRING RIGHT LOWER [place] THORAX, STABLE, AND HYPERINFLATION. PATIENT [facility] BE[facility], HOWEVER, WE ARE WAITING FOR A BED TO BECOME AVAILABLE. WE WILL RECHECK LABS AND FOLLOW UP WITH PATIENT IN AM WITH INTENTIONS OF DISCHARGING TO [facility] WHEN BED IS AVAILABLE. - Past Medical Family Social History Past Med/Fam/Surg Hx: No changes since H&P Allergies: Allergies promethazine [From Phenergan] Adverse Reaction (Verified 12/11/16 00:54) - Review of Systems ROS: No change since H&P - Vital Signs and I&O's Vital Signs: Temperature 98.6 F Pulse Rate [Right Brachial] 86 Pulse Rate [Left Brachial] 93 Pulse Rate 85 Respiratory Rate 24 Blood Pressure [Right Arm] 132/60 Blood Pressure [Left Arm] 112/55 O2 Sat by Pulse Oximetry 98 Intake and Output: Intake & Output 12/17/16 12/18/16 12/19/16 12/20/16 11:59 11:59 11:59 11:59 Intake Total 1347 1490 1403 Output Total 1625 2100 1475 Balance -278 -610 -72 - Physical Exam Oriented: Normal. negative: Time, Person, Place, Not Oriented, Unable to test, Other Eyes: Normal. negative: Blurred Vision, Diplopia, Discharge, Pain, Redness, Photophobia, Other Ear: Normal. negative: Right, Left, Swelling, Ecchymosis, Hemotypanum, Abrasion , Laceration Nose: Normal. negative: Injected, Discharge, Blood, Other Throat: Normal. negative: Tonsillar Hypertrophy, Red, Exudate, Dry, Other Respiratory: Right, Left, Wheezes. negative: Normal, Generalized, Superior, Inferior, Diminished, Rales, Rhonchi, OTHER Cardiovascular: Tachycardia. negative: Normal, Bradycardia, Irregular, S3, S4, Systolic, Diastolic, Murmur, Edema, Other : Normal. negative: Dysuria, Hematuria, Frequency, Discharge, Testicular Pain , Bleeding, , Other Auscultation: Bowel Sounds: Decreased. negative: Normal, Bruit, Absent, Increased, High Pitched, Other Palpation: Normal Tenderness: Normal. negative: Diffuse, RUQ, RLQ, LUQ, LLQ, Epigastric, Periumbilical, Suprapubic, Mild, Moderate, Severe, Rebound, Guarding, Rigidity, Other Skin: Normal, Red, Wound. negative: Decreased Turgur, Rash, Papular, Macular, Maculopapular, Vesicular, Pustular, Petechial, Tender, Hot, Diaphoresis, Bruising, Ecchymosis, Other Musculoskeletal: Normal. negative: Right, Left, Shoulder, Clavicle, Arm, Elbow , Forearm, Wrist, Hand, Hip, Thigh, Knee, Leg, Ankle, Foot, Back:Thoracic, Back: Lumbar, Back:Midline, Back:Paraspinous, Pelvis, Swelling, Tender, Deformity, Pulse Deficit, Motor Deficit, Sensory Deficit, Instability, Crepitance Psychiatric: Normal. negative: Anxiety, Depression, Agitation, Other Mood Description: Calm. negative: Angry, Apathetic, Depressed, Fearful, Flat, Happy, Hostile, Sad, Suspicious, Withdrawn, Anxious, Appropriate, Labile Affect: Normal. negative: Angry, Anxious, Depressed, Flat, Hysterical, Quiet, Violent Speech Pattern: Clear, Appropriate - Laboratory and Diagnostics Result Diagrams: 12/19/16 03:45 12/19/16 03:45 Labs: 12/14/16 08:39 Sputum - Expectorated Sputum Sputum Culture - Final 12/14/16 08:39 Sputum - Expectorated Sputum - Final 12/13/16 10:14 Leg - Left Wound Culture - Final 12/13/16 10:14 Leg - Left Gram Stain - Final Laboratory WBC 13.4 X10^3/uL (3.6-10.0) H 12/19/16 03:45 RBC 5.01 X10^6/uL (4.7-6.0) 12/19/16 03:45 Hgb 12.2 g/dL (13.5-18.0) L 12/19/16 03:45 Hct 37.9 % (42.0-54.0) L 12/19/16 03:45 MCV 75.6 fL (80.0-100.0) L 12/19/16 03:45 MCH 24.4 pg (27.0-34.0) L 12/19/16 03:45 MCHC 32.3 g/dL (33.0-35.0) L 12/19/16 03:45 RDW 19.9 % (11.6-16.5) H 12/19/16 03:45 Plt Count 595 X10^3/uL (150.0-450.0) H 12/19/16 03:45 Plt Count Comment Increased (ADEQUATE) 12/19/16 03:45 MPV 7.5 fL (7.4-11.0) 12/19/16 03:45 Neut % 81.9 % (42.0-75.0) H 12/19/16 03:45 Lymph % 5.1 % (21.0-51.0) L 12/19/16 03:45 [place] % 4.6 % (0.0-13.0) 12/19/16 03:45 Eos % 7.0 % (0.9-2.9) H 12/19/16 03:45 Baso % 1.4 % (0.2-1.0) H 12/19/16 03:45 Neut # 11.0 x10^3/uL (2.2-4.8) H 12/19/16 03:45 Lymph # 0.7 X10^3/uL (1.3-2.9) L 12/19/16 03:45 [place] # 0.6 x10^3/uL (0.3-0.8) 12/19/16 03:45 Eos # 0.9 x10^3/uL (0.0-0.2) H 12/19/16 03:45 Baso # 0.2 X10^3/uL (0.0-0.1) H 12/19/16 03:45 Absolute Nucleated RBC 0.0 /100WBC 12/19/16 03:45 Total Counted 100 12/19/16 03:45 Neutrophils % (Manual) 63 % (39-76) 12/19/16 03:45 Band Neutrophils % 9 % (0-10) 12/19/16 03:45 Lymphocytes % (Manual) 15 % (13-43) 12/19/16 03:45 Monocytes % (Manual) 5 % (4-9) 12/19/16 03:45 Eosinophils % (Manual) 6 % (0-6) 12/19/16 03:45 Metamyelocytes % 2 12/19/16 03:45 Plt Morphology Comment Normal (NORMAL) 12/19/16 03:45 RBC Morphology Normal (NORMAL) 12/19/16 03:45 Anisocytosis 1+ A 12/17/16 03:40 Stomatocytes Present 12/14/16 06:30 D-Dimer 829 ng/mL (0-400) H* 12/10/16 22:50 Sample Site R rad 12/18/16 08:45 ABG pH 7.420 (7.35-7.45) 12/18/16 08:45 ABG pCO2 51.0 mmHg (35.0-45.0) H* 12/18/16 08:45 ABG pO2 76.0 mmHg (80.0-100.0) L 12/18/16 08:45 ABG HCO3 33.1 mmol/L (22-26) H* 12/18/16 08:45 ABG O2 Saturation 95.0 % (90-100) 12/18/16 08:45 ABG Base Excess 7.3 mmol/L (-2.0-2.0) H 12/18/16 08:45 Edgardo Test Pos 12/18/16 08:45 A-a Gradient 110.0 mmHg 12/18/16 08:45 FiO2 35.000 12/18/16 08:45 Blood Gas Comments Norberto well, afh 12/18/16 08:45 Sodium 138 mmol/L (136-145) 12/19/16 03:45 Corrected Sodium 138 mmol/L (136-145) 12/19/16 03:45 Potassium 3.4 mmol/L (3.5-5.1) L 12/19/16 03:45 Chloride 99 mmol/L (98-107) 12/19/16 03:45 Carbon Dioxide 33.8 mmol/L (21-32) H 12/19/16 03:45 BUN 14 mg/dL (7-18) 12/19/16 03:45 Creatinine 1.06 mg/dL (0.70-1.30) 12/19/16 03:45 Est GFR (MDRD) Af Amer > 60 (>60) 12/19/16 03:45 Est GFR (MDRD) Non-Af > 60 (>60) 12/19/16 03:45 Glucose 111 mg/dL (65-99) H 12/19/16 03:45 Calcium 8.5 mg/dL (8.5-10.1) 12/19/16 03:45 Corrected Calcium TNP 12/19/16 03:45 Total Bilirubin 0.70 mg/dL (0.2-1.0) 12/19/16 03:45 AST 20 Units/L (15-37) 12/19/16 03:45 ALT 23 Units/L (12-78) 12/19/16 03:45 Alkaline Phosphatase 46 Units/L (46-116) 12/19/16 03:45 Creatine Kinase 36 Units/L (39-308) L 12/11/16 11:15 CK-MB (CK-2) < 1.0 ng/mL (0-4.0) 12/11/16 11:15 CK/CKMB % Calc 2.8 % (<4) 12/11/16 11:15 Troponin I < 0.02 ng/mL (0-1.5) 12/11/16 11:15 B-Natriuretic Peptide 153 pg/mL (0-79) H 12/18/16 08:23 Total Protein 7.3 g/dL (6.4-8.2) 12/19/16 03:45 Albumin 3.4 g/dL (3.4-5.0) 12/19/16 03:45 Globulin 3.9 g/dL (2.5-4.5) 12/19/16 03:45 Albumin/Globulin Ratio 0.9 Ratio (1.1-2.1) L 12/19/16 03:45 Triglycerides 61 mg/dL (0-150) 12/11/16 05:30 Cholesterol 156 mg/dL (0-200) 12/11/16 05:30 LDL Cholesterol, Calc 92 mg/dL (0-100) 12/11/16 05:30 HDL Cholesterol 52 mg/dL (40-60) 12/11/16 05:30 Cholesterol/HDL Ratio 3.0 (0.0-5.0) 12/11/16 05:30 Specimen Type Catherized urine 12/14/16 16:08 Urine Color Yellow (YELLOW) 12/14/16 16:08 Urine Appearance Clear (CLEAR) 12/14/16 16:08 Urine pH 7.0 (5.0 - 8.0) 12/14/16 16:08 Ur Specific [place] 1.010 (1.000-1.030) 12/14/16 16:08 Urine Protein Negative (NEGATIVE) 12/14/16 16:08 Urine Glucose (UA) Negative (NEGATIVE) 12/14/16 16:08 Urine Ketones Negative (NEGATIVE) 12/14/16 16:08 Urine Occult Blood Negative (NEGATIVE) 12/14/16 16:08 Urine Nitrite Negative (NEGATIVE) 12/14/16 16:08 Urine Bilirubin Negative (NEGATIVE) 12/14/16 16:08 Urine Urobilinogen Normal (NORMAL) 12/14/16 16:08 Ur Leukocyte Esterase Negative (NEGATIVE) 12/14/16 16:08 Urine RBC Negative /HPF (NEGATIVE) 12/14/16 16:08 Urine WBC Rare /HPF (NEGATIVE) 12/14/16 16:08 Ur Squamous Epith Cells Negative /HPF (NEGATIVE) 12/14/16 16:08 Urine Bacteria Negative /HPF (NEGATIVE) 12/14/16 16:08 Ur Culture Indicated? No/not indicated 12/14/16 16:08 Vancomycin Trough 18.9 ug/mL (15-20) 12/18/16 08:23 - Plan (1) COPD exacerbation Status: Acute Plan: DUONEBS, CONTINUE TO MONITOR CHEST XRAY AND PATIENT (2) Cellulitis of both lower extremities Status: Acute Plan: GENTAMICIN CREAM BID, FORTAZ 1 GM Q8H IV, LEVAQUIN 500MG IV, CONTINUE TO MONITOR (3) CHF (congestive heart failure) Status: Chronic Qualifiers: Congestive heart failure type: unspecified congestive heart failure type Congestive heart failure chronicity: acute Qualified Code(s): I50.9 - Heart failure, unspecified Plan: LASIX 20MG PO BID, CHECK CHEST XRAY, CONTINUE TO MONITOR (4) Respiratory distress Status: Acute Plan: SUPPLEMENTAL OXYGEN, OBTAIN CHEST CT WITH CONTRAST, MUCOMYST 600MG BID TO NEB TX, CONTINUE TO MONITOR (5) Emphysema of lung Status: Acute Qualifiers: Emphysema type: unspecified Qualified Code(s): J43.9 - Emphysema, unspecified Plan: ATROVENT AND PROVENTIL NEB TX, SUPPLEMENTAL OXYGEN, CONTINUE TO MONITOR (6) Hypothyroidism Status: Chronic Qualifiers: Hypothyroidism type: acquired Qualified Code(s): E03.9 - Hypothyroidism, unspecified Plan: CONTINUE SYNTHROID 75MCG DAILY, CONTINUE TO MONITOR (7) Constipation Status: Acute Qualifiers: Constipation type: unspecified constipation type Qualified Code(s): K59.00 - Constipation, unspecified Plan: MIRALAX DAILY, CONTINUE COLACE, CONTINUE MILK OF MAGNESIA, CONTINUE TO MONITOR
[2016-12-19] MEDS: SYNTHROID 75 mcg TAB PO SCH (16:59)
[2016-12-19] MEDS: ULTRAM PO PRN (20:40)
[2016-12-19] MEDS: COLACE CAP 100 MG PO SCH (20:41)
[2016-12-19] MEDS: XANAX PO SCH (20:41)
[2016-12-19] MEDS: MIRALAX POWDER (1 DOSE 17GM) PO SCH (20:43)
[2016-12-19 22:41] LABS: CREATININE 1.07 mg/dL (0.70-1.30); VANCOMYCIN,TROUGH 18.7 ug/mL (15-20)
[2016-12-19] MEDS: DIFLUCAN 100 MG IV (MIX by PHARMACY)* 100 MG/50 ML BAG IV SCH (23:57)
[2016-12-20] MEDS ORDERED: NS 500 ML IV 500 ML IV ONE (00:23)
[2016-12-20] MEDS ORDERED: DIFLUCAN 200 MG IV PREMIX* 200 MG/100 ML BAG IV ONE (00:54)
[2016-12-20] MEDS: PROVENTIL NEB TX 0.083% 2.5MG/ 3ML NEB SCH ×4 (04:48→21:02)
[2016-12-20 06:28] LABS: BASOPHILS # (AUTO) 0.1 X10^3/uL (0.0-0.1); BASOPHILS % (AUTO) 0.4 % (0.2-1.0); EOSINOPHILS % (AUTO) 6.7 % (0.9-2.9); HEMATOCRIT 37.5 % (42.0-54.0); HEMOGLOBIN 12.1 g/dL (13.5-18.0); LYMPHOCYTES # (AUTO) 0.7 X10^3/uL (1.3-2.9); LYMPHOCYTES % (AUTO) 4.7 % (21.0-51.0); MEAN CORPUSCULAR HEMOGLOBIN 24.5 pg (27.0-34.0); MEAN CORPUSCULAR HGB CONC 32.4 g/dL (33.0-35.0); MEAN CORPUSCULAR VOLUME 75.7 fL (80.0-100.0); MEAN PLATELET VOLUME 7.5 fL (7.4-11.0); MONOCYTES # (AUTO) 0.6 x10^3/uL (0.3-0.8); MONOCYTES % (AUTO) 4.1 % (0.0-13.0); NEUTROPHILS # (AUTO) 12.5 x10^3/uL (2.2-4.8); NEUTROPHILS % (AUTO) 84.1 % (42.0-75.0); PLATELET COUNT 539 X10^3/uL (150.0-450.0); RED BLOOD COUNT 4.95 X10^6/uL (4.7-6.0); RED CELL DISTRIBUTION WIDTH 19.5 % (11.6-16.5); WHITE BLOOD COUNT 14.9 X10^3/uL (3.6-10.0)
[2016-12-20 06:48] LABS: ALANINE AMINOTRANSFERASE 22 Units/L (12-78); ALBUMIN 3.4 g/dL (3.4-5.0); ALKALINE PHOSPHATASE 44 Units/L (46-116); ASPARTATE AMINO TRANSFERASE 22 Units/L (15-37); BLOOD UREA NITROGEN 14 mg/dL (7-18); CALCIUM 8.6 mg/dL (8.5-10.1); CARBON DIOXIDE 30.5 mmol/L (21-32); CHLORIDE 99 mmol/L (98-107); CREATININE 0.91 mg/dL (0.70-1.30); GLUCOSE 95 mg/dL (65-99); SODIUM 138 mmol/L (136-145); TOTAL PROTEIN 7.3 g/dL (6.4-8.2); eGFR BLACK RACES > 60 (>60); eGFR NON BLACK RACES > 60 (>60)
--- NOTE | 2016-12-20 07:15 | RAD ---
HISTORY: Shortness of breath. Study: Portable chest. Comparison: Chest x-ray dated December 19, 2016. Findings: The cardiac silhouette is unchanged. No significant change in lung aeration. Persistent and extensi ve pleural parenchymal scarring of the right lower lobe. No obvious pneumothorax or pleural effusion . The bony thorax is unremarkable. IMPRESSION: No significant change. Reported By:
[2016-12-20 07:18] LABS: BAND NEUTROPHILS % 1 % (0-10); METAMYELOCYTES % 3
[2016-12-20 07:19] LABS: PLATELET MORPHOLOGY COMMENT NORMAL (NORMAL)
[2016-12-20] MEDS: ALDACTONE TAB 25 MG PO SCH (09:01)
[2016-12-20] MEDS: VANCOMYCIN 1 GM PREMIX (ADDVANTAGE) 250 ML IV SCH ×2 (09:03→21:30)
[2016-12-20] MEDS: LASIX PO SCH ×2 (09:04→21:29)
[2016-12-20] MEDS: K-DUR TAB 20 MEQ PO PRN (09:04)
[2016-12-20] MEDS: ZANTAC PO SCH ×2 (09:04→21:29)
[2016-12-20] MEDS: LEVAQUIN PREMIX IV 500 MG 500 MG/100 ML BAG IV SCH (09:04)
[2016-12-20] MEDS: PLAVIX PO SCH (09:05)
[2016-12-20] MEDS: ALBUMIN HUMAN 25%- 100ML 100 ML IV SCH (09:06)
[2016-12-20] MEDS: REQUIP PO SCH ×2 (09:07→21:29)
[2016-12-20] MEDS: EUCERIN TOP SCH ×2 (09:07→21:30)
[2016-12-20] MEDS: GENTAMICIN TOPICAL CRM TOP SCH ×2 (09:07→21:30)
[2016-12-20] MEDS: DIFLUCAN 100 MG IV (MIX by PHARMACY)* 100 MG/50 ML BAG IV SCH (09:07)
[2016-12-20] MEDS: Atrovent NEB TX 0.02% NEB SCH ×2 (09:33→21:02)
[2016-12-20] MEDS: MUCOMYST 20% 200 MG/ML NEB SCH (09:34)
[2016-12-20] MEDS: K-DUR TAB 20 MEQ PO SCH (09:56)
[2016-12-20] MEDS: LEVSIN/MAALOX/LIDOC VISC PO PRN (14:24)
[2016-12-20] MEDS: SYNTHROID 75 mcg TAB PO SCH (16:41)
[2016-12-20] MEDS: COLACE CAP 100 MG PO SCH (21:29)
[2016-12-20] MEDS: XANAX PO SCH (21:29)
[2016-12-20] MEDS: MIRALAX POWDER (1 DOSE 17GM) PO SCH (21:30)
[2016-12-20] MEDS: RESTORIL CAP 15 MG PO PRN (23:00)
[2016-12-21] MEDS: RESTORIL CAP 15 MG PO PRN ×2 (01:19→21:47)
[2016-12-21] MEDS: PROVENTIL NEB TX 0.083% 2.5MG/ 3ML NEB SCH ×3 (05:02→20:51)
--- NOTE | 2016-12-21 05:33 | RAD ---
Chest, one view Indication: COPD, shortness of breath. Comparison: 12/20/2016 Findings: Cardiac silhouette size is unchanged. There are chronic parenchymal changes of the right m id to lower lung, similar to prior. No focal left lung infiltrates. There is no overt edema. No larg e effusion or pneumothorax identified. Impression: No significant change from prior. Reported By:
[2016-12-21 06:23] LABS: BASOPHILS # (AUTO) 0.4 X10^3/uL (0.0-0.1); BASOPHILS % (AUTO) 2.3 % (0.2-1.0); EOSINOPHILS # (AUTO) 0.9 x10^3/uL (0.0-0.2); EOSINOPHILS % (AUTO) 5.8 % (0.9-2.9); HEMOGLOBIN 12.3 g/dL (13.5-18.0); LYMPHOCYTES # (AUTO) 0.6 X10^3/uL (1.3-2.9); LYMPHOCYTES % (AUTO) 3.8 % (21.0-51.0); MEAN CORPUSCULAR HEMOGLOBIN 24.4 pg (27.0-34.0); MEAN CORPUSCULAR HGB CONC 32.4 g/dL (33.0-35.0); MEAN CORPUSCULAR VOLUME 75.3 fL (80.0-100.0); MEAN PLATELET VOLUME 7.4 fL (7.4-11.0); MONOCYTES # (AUTO) 0.6 x10^3/uL (0.3-0.8); NEUTROPHILS # (AUTO) 13.2 x10^3/uL (2.2-4.8); NEUTROPHILS % (AUTO) 84.1 % (42.0-75.0); PLATELET COUNT 577 X10^3/uL (150.0-450.0); RED BLOOD COUNT 5.05 X10^6/uL (4.7-6.0); RED CELL DISTRIBUTION WIDTH 19.9 % (11.6-16.5); WHITE BLOOD COUNT 15.7 X10^3/uL (3.6-10.0)
[2016-12-21 06:28] LABS: ALANINE AMINOTRANSFERASE 27 Units/L (12-78); ALBUMIN 3.7 g/dL (3.4-5.0); ALKALINE PHOSPHATASE 44 Units/L (46-116); ASPARTATE AMINO TRANSFERASE 29 Units/L (15-37); BLOOD UREA NITROGEN 13 mg/dL (7-18); CARBON DIOXIDE 30.4 mmol/L (21-32); CHLORIDE 99 mmol/L (98-107); CREATININE 1.01 mg/dL (0.70-1.30); GLUCOSE 97 mg/dL (65-99); SODIUM 137 mmol/L (136-145); TOTAL PROTEIN 7.7 g/dL (6.4-8.2); eGFR BLACK RACES > 60 (>60); eGFR NON BLACK RACES > 60 (>60)
[2016-12-21 07:07] LABS: BAND NEUTROPHILS % 1 % (0-10); METAMYELOCYTES % 10; PLATELET MORPHOLOGY COMMENT NORMAL (NORMAL)
[2016-12-21] MEDS: ALBUMIN HUMAN 25%- 100ML 100 ML IV SCH (09:00)
[2016-12-21] MEDS: K-DUR TAB 20 MEQ PO SCH (09:06)
[2016-12-21] MEDS: REQUIP PO SCH ×2 (09:07→21:46)
[2016-12-21] MEDS: LASIX PO SCH ×2 (09:07→21:46)
[2016-12-21] MEDS: ZANTAC PO SCH ×2 (09:07→21:46)
[2016-12-21] MEDS: ALDACTONE TAB 25 MG PO SCH (09:07)
[2016-12-21] MEDS: PLAVIX PO SCH (09:09)
[2016-12-21] MEDS: Atrovent NEB TX 0.02% NEB SCH ×2 (09:37→20:51)
[2016-12-21] MEDS: DIFLUCAN 100 MG IV (MIX by PHARMACY)* 100 MG/50 ML BAG IV SCH (10:25)
[2016-12-21] MEDS: VANCOMYCIN 1 GM PREMIX (ADDVANTAGE) 250 ML IV SCH (10:30)
[2016-12-21] MEDS: EUCERIN TOP SCH ×2 (13:26→21:47)
[2016-12-21] MEDS: GENTAMICIN TOPICAL CRM TOP SCH ×2 (13:26→21:47)
[2016-12-21] MEDS: LEVSIN/MAALOX/LIDOC VISC PO PRN (16:48)
[2016-12-21] MEDS: SYNTHROID 75 mcg TAB PO SCH (16:48)
[2016-12-21] MEDS: ULTRAM PO PRN (18:38)
[2016-12-21] MEDS: MIRALAX POWDER (1 DOSE 17GM) PO SCH (21:46)
[2016-12-21] MEDS: XANAX PO SCH (21:46)
[2016-12-21] MEDS: COLACE CAP 100 MG PO SCH (21:46)
[2016-12-21 21:53] LABS: CREATININE 1.17 mg/dL (0.70-1.30)
[2016-12-21] MEDS ORDERED: HEPARIN SODIUM INJ 5000 UNITS ONE (22:20)
[2016-12-22 05:16] LABS: BASOPHILS # (AUTO) 0.5 X10^3/uL (0.0-0.1); BASOPHILS % (AUTO) 3.3 % (0.2-1.0); EOSINOPHILS # (AUTO) 0.9 x10^3/uL (0.0-0.2); EOSINOPHILS % (AUTO) 5.8 % (0.9-2.9); HEMATOCRIT 38.9 % (42.0-54.0); HEMOGLOBIN 12.5 g/dL (13.5-18.0); LYMPHOCYTES # (AUTO) 0.8 X10^3/uL (1.3-2.9); LYMPHOCYTES % (AUTO) 4.8 % (21.0-51.0); MEAN CORPUSCULAR HEMOGLOBIN 24.3 pg (27.0-34.0); MEAN CORPUSCULAR HGB CONC 32.1 g/dL (33.0-35.0); MEAN CORPUSCULAR VOLUME 75.7 fL (80.0-100.0); MEAN PLATELET VOLUME 7.4 fL (7.4-11.0); MONOCYTES # (AUTO) 0.8 x10^3/uL (0.3-0.8); MONOCYTES % (AUTO) 4.8 % (0.0-13.0); NEUTROPHILS # (AUTO) 13.1 x10^3/uL (2.2-4.8); NEUTROPHILS % (AUTO) 81.3 % (42.0-75.0); PLATELET COUNT 614 X10^3/uL (150.0-450.0); RED BLOOD COUNT 5.14 X10^6/uL (4.7-6.0); WHITE BLOOD COUNT 16.1 X10^3/uL (3.6-10.0)
[2016-12-22 05:17] LABS: ALANINE AMINOTRANSFERASE 31 Units/L (12-78); ALBUMIN 3.8 g/dL (3.4-5.0); ALKALINE PHOSPHATASE 49 Units/L (46-116); ASPARTATE AMINO TRANSFERASE 30 Units/L (15-37); BLOOD UREA NITROGEN 12 mg/dL (7-18); CALCIUM 9.4 mg/dL (8.5-10.1); CARBON DIOXIDE 32.2 mmol/L (21-32); CHLORIDE 99 mmol/L (98-107); CREATININE 1.09 mg/dL (0.70-1.30); GLUCOSE 101 mg/dL (65-99); SODIUM 138 mmol/L (136-145); TOTAL PROTEIN 7.9 g/dL (6.4-8.2); eGFR BLACK RACES > 60 (>60); eGFR NON BLACK RACES > 60 (>60)
[2016-12-22] MEDS: PROVENTIL NEB TX 0.083% 2.5MG/ 3ML NEB SCH ×2 (05:31→14:29)
[2016-12-22 06:08] LABS: BAND NEUTROPHILS % 2 % (0-10)
[2016-12-22 06:09] LABS: PLATELET MORPHOLOGY COMMENT NORMAL (NORMAL)
--- NOTE | 2016-12-22 06:44 | RAD ---
HISTORY: Shortness of breath Study: Chest one view Comparison: December 21, 2016, December 20, 2016 Findings: The patient is rotated the right. The heart is within normal limits in size. The aorta is calcified. The lungs are mildly hyperinflated. Interstitial lung changes are present bilaterally. Pleural-pare nchymal scarring is present in the right lung base, stable. No definite acute alveolar infiltrates o r pleural effusions are identified. The bony thorax is unremarkable. IMPRESSION: Mild cardiomegaly without congestive heart failure Lungs hyperinflated but free of acute infiltrates Pleural-parenchymal scarring right lower javier thorax, stable Reported By:
[2016-12-22] MEDS: Atrovent NEB TX 0.02% NEB SCH (09:47)
[2016-12-22] MEDS: ALBUMIN HUMAN 25%- 100ML 100 ML IV SCH (09:54)
[2016-12-22] MEDS: LASIX PO SCH (09:56)
[2016-12-22] MEDS: ZANTAC PO SCH (09:56)
[2016-12-22] MEDS: ALDACTONE TAB 25 MG PO SCH (09:56)
[2016-12-22] MEDS: PLAVIX PO SCH (09:57)
[2016-12-22] MEDS: GENTAMICIN TOPICAL CRM TOP SCH (09:58)
[2016-12-22] MEDS: K-DUR TAB 20 MEQ PO SCH (09:58)
[2016-12-22] MEDS: EUCERIN TOP SCH (09:59)
[2016-12-22] MEDS ORDERED: MYCOLOG-II CREAM TOP SCH (10:00)
[2016-12-22] MEDS: REQUIP PO SCH (10:03)
[2016-12-22] MEDS ORDERED: VANCOMYCIN 1 GM PREMIX (ADDVANTAGE) 250 ML IV SCH (12:00)
[2016-12-22] MEDS ORDERED: LEVAQUIN PREMIX IV 500 MG 500 MG/100 ML BAG IV SCH (12:00)
[2016-12-22] MEDS: DIFLUCAN 100 MG IV (MIX by PHARMACY)* 100 MG/50 ML BAG IV SCH (12:05)
[2016-12-22] MEDS: LEVSIN/MAALOX/LIDOC VISC PO PRN (14:50)
[2016-12-22 18:52] VITALS: BP 122/57
== END 2016-12-22 14:45 | DRG 191 ==
LOC: ER 22:15 → MED/SURG 12-11 00:08
PROVIDERS: ADMIT Internal Medicine; ATTEND Internal Medicine
DX: J44.1 Chronic obstructive pulmonary disease with (acute) exacerbation (principal); L03.115 Cellulitis of right lower limb; L03.116 Cellulitis of left lower limb; R06.02 Shortness of breath; R60.0 Localized edema; I87.2 Venous insufficiency (chronic) (peripheral); I25.10 Atherosclerotic heart disease of native coronary artery without angina pectoris; K21.9 Gastro-esophageal reflux disease without esophagitis; E03.8 Other specified hypothyroidism; I50.9 Heart failure, unspecified; R10.13 Epigastric pain; R53.1 Weakness; K59.09 Other constipation; R06.00 Dyspnea, unspecified; J43.8 Other emphysema; R26.89 Other abnormalities of gait and mobility; Z85.118 Personal history of other malignant neoplasm of bronchus and lung; Z85.820 Personal history of malignant melanoma of skin
CPT/HCPCS: 36415; 36600; 70450; 71010; 71260; 74022; 80053; 80061; 80202; 81001; 82550; 82553; 82565; 82803; 83880; 84132; 84484; 85025; 85378; 87040; 87070; 87075; 87205; 93005; 93306; 93970; 94640; 94760; 96365; 96374; 96375; 99284; A4216; A4222; P9047; J0077; J0713; J1450; J1644; J1940; J1956; J2405; J3370; J7608; J7613; J7620; J7644; J8540

== ENCOUNTER 2017-03-21 08:53 | Emergency (ER) | payer OTHER ==
[2017-03-21 09:07] VITALS: BP 138/63; BMI 29.0
--- NOTE | 2017-03-21 09:42 | DR.GENAD ---
HPI - PCP Primary Care Physician: michelle - Complaint/Symptoms Chief Complaint Doctors Comments: Patient states he had a sick spell today about two hours ago he was watching tv and begin to feel like he could not help himself because he was weak and he called his sister and told them to come and check on him. Family states that they had just talked to him and he was talking strong and was having a good day and they were surprised when he called. States he was just in the hospital with leukemia and was transfused two units of blood while he was in the hospital and he has been doing better. States he has COPD and is on two liters oxygen at home at all times and he has cellulitis of his legs that Dr. Sutton has been treating. States he has nocturia, decreased appetite and denies chest pain but always has SOB. 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 States he was just given an iron treatment in [place] the other day and he seem to have been doing better. Family states that his platelets were over a million recently and he had cancer in his right lungs and just took radiation recently for that. He has not signs of active bleeding. Chief Complaint:: "Had a dose of IRon yesterday, pt called sister and said he felt weak this morning pt has leukemia" - Nurses notes reviewed Nurses Notes Review: Yes - Source History Provided: Patient, Family Member - Mode of Arrival Mode of Arrival: EMS - Timing Onset of Chief Complaint: 03/21/17 Came on: Suddenly - Duration Duration: Intermittent How lon Duration: Hours - Location Location: generalized weakness - Severity Severity: Moderate - Modifying Factors Worsens:: movement Improves:: nothing PMH - PMH Past Medical History: Yes Past Medical History: Arthritis, CHF, COPD, Coronary Artery Disease, GERD, Hypothyroidism, [place] Past Medical History Comment: leukemia Past Surgical History: Yes Surgical History: Angioplasty/Stents, Other - Family History History of Family Medical Conditions: Yes Family Medical History: Cancer, [place], Coronary Artery Disease, Sudden Cardiac , Hypertension - Social History Does patient currently use any type of tobacco product: No Have you used tobacco products in the last 12 months: No Type of Tobacco Use: None Does any household member use tobacco: No Alcohol Use: None Do you use any recreational Drugs:: No Lives With: Family Lives Where: Home - infectious screening In the last 2 months have you had wt loss of >10#?: NO Have you had fever, night sweats or hemotysis?: No Have you traveled outside the country in the last 6 months?: No Isolation: Standard ROS - Review of Systems Constitutional: No Symptoms Reported, Malaise, Weakness, Loss of Appetite. negative: See HPI, Chills, Diaphoresis, Fever, Irritable, Fatigue, Other Eyes: No Symptoms Reported ENTM: No Symptoms Reported. negative: See HPI, Ear Pain, Ear Discharge, Pulling on Ears, Hearing Loss, Nose Pain, Nose Discharge, Epistaxis, Nose Congestion, Mouth Pain, Mouth Swelling, Loose Teeth, Drooling, Throat Pain, Throat Swelling, Ear Foreign Body Respiratoy: No Symptoms Reported, Short of Breath Cardiovascular: No Symptoms Reported. negative: See HPI, Chest Pain, Edema, Palpitations, Syncope, Cyanosis, Skin Mottling, Other Gastrointestinal/Abdominal: No Symptoms Reported. negative: See HPI, Abdominal Pain, Constipation, Diarrhea, Nausea, Vomiting, Food Intolerance, Other Genitourinary: No Symptoms Reported, Frequency Neurological: No Symptoms Reported, Weakness. negative: See HPI, Anxiety, Depressed, Emotional Problems, Headache, Numbness, Paresthesia, Pre-existing Deficit, Seizure, Tingling, Tremors, Dizziness, Problems Walking, Speech Problem , Other Musculoskeletal: No Symptoms Reported Integumentary: No Symptoms Reported, Dryness, Rash (lower legs with dry skin) Hematologic/Lymphatic: No Symptoms Reported, Anemia. negative: See HPI, Blood Clots, Easy Bleeding, Easy Bruising, Swollen Glands, Lymphadenopathy, Other Endocrine: No Symptoms Reported, Decreased Appetite Psychiatric: No Symptoms Reported PE - Vital Signs Vitals: Temperature 97.8 F Pulse Rate 76 Respiratory Rate 18 Blood Pressure [Right Arm] 106/51 Blood Pressure [Left Arm] 122/57 Blood Pressure 138/63 O2 Sat by Pulse Oximetry 98 - General Limitations: No Limitations General Appearance: Alert, In No Apparent Distress - Head Head Exam: Normal Inspection, Atraumatic, Normocephalic - Eyes Eye exam: Normal Appearance, PERRL, EOMI. negative: Scleral Icterus, Conjunctival Injection, Nystagmus, Miosis, Mydrasis, Periorbital Swelling, Periorbital Tenderness, Other - ENT ENT Exam: Normal Exam, Normal Oropharynx, Normal External Ear Exam, Mucous Membranes Moist, TM's Normal Bilaterally External Ear Exam: Normal External Inspection TM/Canal Exam: Bilateral Normal Nose Exam: Normal Nose Exam Mouth Exam: Normal Inspection. negative: Drooling, Trismus, Lip Swelling, Tongue Elevation, Tongue Swelling, Laceration, Other Throat Exam: Normal Inspection. negative: Tonsillar Erythema, Tonsillomegaly, Tonsillar Exudate, R Peritonsillar Mass, L Peritonsillar Mass, Muffled Voice, Other - Neck Neck Exam: Normal Inspection, Full ROM, Trachea Midline. negative: Tenderness, Meningismus, Lymphadenopathy, Thyromegaly, Other - Chest Chest Inspection: Normal Inspection, Symmetric Chest Wall Rise, Tenderness ( right lateral ribs tender on palpation; no swelling or ecchymosis) - Respiratory Respiratory Exam: Normal Lung Sounds Bilat Respiratory Exam: Bilateral Clear to Auscultation - Cardiovascular Cardiovascular Exam: Regular Rate, Normal Rhythm, Normal Heart Sounds - Abdominal Exam Abdominal Exam: Normal Inspection, Normal Bowel Sounds, Soft Abdominal Tenderness: negative: RUQ, RLQ, LUQ, LLQ, Epigastrium, Suprapubic, Diffuse, Mild, Moderate, Severe, Other - Extremities Extremities Exam: Normal Inspection, Full ROM, Normal Capillary Refill. negative: Tenderness, Edema, Joint Swelling, Calf Tenderness, Other - Back Back Exam: Normal Inspection, Full ROM. negative: Tenderness, (R) CVA Tenderness, (L) CVA Tenderness, Muscle Spasm, Paraspinal Tenderness, Vertebral Tenderness, Rashes, (R) Sciatic Notch Tenderness, (L) Sciatic Notch Tendern, (R ) Straight Leg Raise, (L) Straight Leg Raise, Other - Neurologic Neurological Exam: Alert, Oriented X3, CN II-XII Intact, Normal Gait, Reflexes Normal. negative: Motor Sensory Deficit, Other - Psychiatric Psychiatric Exam: Normal Affect, Normal Mood - Skin Skin Exam: Warm, Dry, Intact, Normal Color, Rash (dry scaly skin) ROR - Labs Reviewed Laboratory Results Reviewed?: Yes (all labs and x-ray results reviewed and discussed with patient and family) Result Diagrams: 03/21/17 10:06 03/21/17 09:51 Laboratory: WBC 3.4 X10^3/uL (3.6-10.0) L 03/21/17 10:06 RBC 3.31 X10^6/uL (4.7-6.0) L 03/21/17 10:06 Hgb 8.5 g/dL (13.5-18.0) L 03/21/17 10:06 Hct 25.8 % (42.0-54.0) L 03/21/17 10:06 MCV 77.9 fL (80.0-100.0) L 03/21/17 10:06 MCH 25.7 pg (27.0-34.0) L 03/21/17 10:06 MCHC 33.0 g/dL (33.0-35.0) 03/21/17 10:06 RDW 21.2 % (11.6-16.5) H 03/21/17 10:06 Plt Count 1255 X10^3/uL (150.0-450.0) H* 03/21/17 10:06 Plt Count Comment Increased (ADEQUATE) 03/21/17 10:06 MPV 6.5 fL (7.4-11.0) L 03/21/17 10:06 Neut % 66.0 % (42.0-75.0) 03/21/17 10:06 Lymph % 16.0 % (21.0-51.0) L 03/21/17 10:06 [place] % 6.8 % (0.0-13.0) 03/21/17 10:06 Eos % 4.6 % (0.9-2.9) H 03/21/17 10:06 Baso % 6.6 % (0.2-1.0) H 03/21/17 10:06 Neut # 2.3 x10^3/uL (2.2-4.8) 03/21/17 10:06 Lymph # 0.6 X10^3/uL (1.3-2.9) L 03/21/17 10:06 [place] # 0.2 x10^3/uL (0.3-0.8) L 03/21/17 10:06 Eos # 0.2 x10^3/uL (0.0-0.2) 03/21/17 10:06 Baso # 0.2 X10^3/uL (0.0-0.1) H 03/21/17 10:06 Absolute Nucleated RBC 0.1 /100WBC 03/21/17 10:06 Total Counted 100 03/21/17 10:06 Neutrophils % (Manual) 57 % (39-76) 03/21/17 10:06 Band Neutrophils % 2 % (0-10) 03/21/17 10:06 Lymphocytes % (Manual) 20 % (13-43) 03/21/17 10:06 Monocytes % (Manual) 12 % (4-9) H 03/21/17 10:06 Eosinophils % (Manual) 5 % (0-6) 03/21/17 10:06 Basophils % (Manual) 3 % (0-1) H 03/21/17 10:06 Atypical Lymphocytes 1 03/21/17 10:06 Plt Morphology Comment Abnormal (NORMAL) 03/21/17 10:06 RBC Morphology Abnormal (NORMAL) 03/21/17 10:06 Hypochromasia Slight A 03/21/17 10:06 Poikilocytosis Slight A 03/21/17 10:06 Anisocytosis 2+ A 03/21/17 10:06 Microcytosis Slight A 03/21/17 10:06 INR Target Range - 03/21/17 09:51 INR 1.11 (0.8-1.3) 03/21/17 09:51 PTT 27.7 SECONDS (22.9-36.5) 03/21/17 09:51 PTT Comment - 03/21/17 09:51 Sodium 137 mmol/L (136-145) 03/21/17 09:51 Corrected Sodium 138 mmol/L (136-145) 03/21/17 09:51 Potassium 3.6 mmol/L (3.5-5.1) 03/21/17 09:51 Chloride 100 mmol/L (98-107) 03/21/17 09:51 Carbon Dioxide 25.8 mmol/L (21-32) 03/21/17 09:51 BUN 14 mg/dL (7-18) 03/21/17 09:51 Creatinine 1.03 mg/dL (0.70-1.30) 03/21/17 09:51 Est GFR (MDRD) Af Amer > 60 (>60) 03/21/17 09:51 Est GFR (MDRD) Non-Af > 60 (>60) 03/21/17 09:51 Glucose 127 mg/dL (65-99) H 03/21/17 09:51 Calcium 8.8 mg/dL (8.5-10.1) 03/21/17 09:51 Corrected Calcium 9.6 mg/dL (8.5-10.1) 03/21/17 09:51 Magnesium 1.9 mg/dL (1.7-2.9) 03/21/17 09:51 Total Bilirubin 0.40 mg/dL (0.2-1.0) 03/21/17 09:51 AST 32 Units/L (15-37) 03/21/17 09:51 ALT 28 Units/L (12-78) 03/21/17 09:51 Alkaline Phosphatase 89 Units/L (46-116) 03/21/17 09:51 Creatine Kinase 39 Units/L (39-308) 03/21/17 09:51 CK-MB (CK-2) < 1.0 ng/mL (0-4.0) 03/21/17 09:51 CK/CKMB % Calc 2.6 % (<4) 03/21/17 09:51 Troponin I < 0.02 ng/mL (0-1.5) 03/21/17 09:51 Total Protein 6.9 g/dL (6.4-8.2) 03/21/17 09:51 Albumin 3.0 g/dL (3.4-5.0) L 03/21/17 09:51 Globulin 3.9 g/dL (2.5-4.5) 03/21/17 09:51 Albumin/Globulin Ratio 0.8 Ratio (1.1-2.1) L 03/21/17 09:51 - XRAY XRAY Interpreted by: Radiologist (CXR: little change from previous 3 months ago. Pleural-parenchymal findings inflammatory disease) - EKG Rate: 107 [place]: Normal Rhythm: NSR, Paced - Diagnosis Discharge Problem: Leukemia, acute, History of myeloid leukemia, Thrombocytosis, cellulitis of leg , chronic, Microcytic anemia, History of lung cancer - Discharge Plan Disposition: 01 HOME, SELF-CARE Condition: Stable - Follow ups/Referrals Follow ups/Referrals: Tacos Sutton [Primary Care Provider] - 3 days - Instructions Instructions: Anemia, Nonspecific, Chronic Myelogenous Leukemia, Hyperglycemia , Cellulitis, Adult, [id number]
[2017-03-21 10:15] LABS: BLOOD UREA NITROGEN 14 mg/dL (7-18); TROPONIN I < 0.02 ng/mL (0-1.5); eGFR BLACK RACES > 60 (>60); eGFR NON BLACK RACES > 60 (>60)
[2017-03-21 10:19] LABS: ALANINE AMINOTRANSFERASE 28 Units/L (12-78); ALKALINE PHOSPHATASE 89 Units/L (46-116); ASPARTATE AMINO TRANSFERASE 32 Units/L (15-37); CKMB % 2.6 % (<4); CREATINE KINASE 39 Units/L (39-308); CREATINE KINASE MB < 1.0 ng/mL (0-4.0); MAGNESIUM 1.9 mg/dL (1.7-2.9); TOTAL PROTEIN 6.9 g/dL (6.4-8.2)
--- NOTE | 2017-03-21 10:34 | RAD ---
Examination: Portable AP chest History: Weakness, leukemia Comparison reference: 12/22/2016 Findings: Continued normal heart size. Patchy areas of airspace disease primarily in the right lung. Mild interstitial thickening in the left base. Possible small right pleural effusion. Impression: Little interval change, or slight progression, demonstrated since 3 months ago. Pleural-p arenchymal findings in the right chest compatible with inflammatory disease. Reported By:
[2017-03-21 10:41] LABS: CALCIUM 8.8 mg/dL (8.5-10.1); CARBON DIOXIDE 25.8 mmol/L (21-32); CHLORIDE 100 mmol/L (98-107); COR CA(FOR HYPOALB) 9.6 mg/dL (8.5-10.1); COR NA(FOR HYPERGLY) 138 mmol/L (136-145); CREATININE 1.03 mg/dL (0.70-1.30); SODIUM 137 mmol/L (136-145)
[2017-03-21 10:42] LABS: BASOPHILS # (AUTO) 0.2 X10^3/uL (0.0-0.1); BASOPHILS % (AUTO) 6.6 % (0.2-1.0); EOSINOPHILS # (AUTO) 0.2 x10^3/uL (0.0-0.2); EOSINOPHILS % (AUTO) 4.6 % (0.9-2.9); HEMATOCRIT 25.8 % (42.0-54.0); HEMOGLOBIN 8.5 g/dL (13.5-18.0); LYMPHOCYTES # (AUTO) 0.6 X10^3/uL (1.3-2.9); MEAN CORPUSCULAR HEMOGLOBIN 25.7 pg (27.0-34.0); MEAN CORPUSCULAR VOLUME 77.9 fL (80.0-100.0); MEAN PLATELET VOLUME 6.5 fL (7.4-11.0); MONOCYTES # (AUTO) 0.2 x10^3/uL (0.3-0.8); MONOCYTES % (AUTO) 6.8 % (0.0-13.0); NEUTROPHILS # (AUTO) 2.3 x10^3/uL (2.2-4.8); RED BLOOD COUNT 3.31 X10^6/uL (4.7-6.0); RED CELL DISTRIBUTION WIDTH 21.2 % (11.6-16.5); WHITE BLOOD COUNT 3.4 X10^3/uL (3.6-10.0)
[2017-03-21 11:04] LABS: BAND NEUTROPHILS % 2 % (0-10)
[2017-03-21 11:08] LABS: BASOPHILS % (MANUAL) 3 % (0-1)
[2017-03-21 11:10] LABS: PLATELET MORPHOLOGY COMMENT ABNORMAL (NORMAL)
[2017-03-21 11:11] LABS: ANISOCYTOSIS 2+; HYPOCHROMASIA SLIGHT; MICROCYTOSIS SLIGHT; POIKILOCYTOSIS SLIGHT
[2017-03-21 12:00] LABS: PLATELET COUNT 1255 X10^3/uL (150.0-450.0)
== END 2017-03-21 11:40 | disposition home or self-care (01) ==
LOC: ER 09:09
DX: C95.90 Leukemia, unspecified not having achieved remission (principal); D47.3 Essential (hemorrhagic) thrombocythemia; L03.119 Cellulitis of unspecified part of limb; D50.9 Iron deficiency anemia, unspecified; Z85.118 Personal history of other malignant neoplasm of bronchus and lung; Z79.01 Long term (current) use of anticoagulants
CPT/HCPCS: 36415; 71010; 80053; 82550; 82553; 83735; 84484; 85025; 85610; 85730; 93005; 99283

== ENCOUNTER 2017-03-26 19:26 | Emergency (ER) | payer OTHER ==
[2017-03-26 19:37] VITALS: BMI 29.3
[2017-03-26] MEDS ORDERED: ZOFRAN SYRUP 4 MG UDC PO ONE (21:38)
[2017-03-26] MEDS ORDERED: ULTRAM PO ONE (21:39)
--- NOTE | 2017-03-26 21:41 | DR.GENAD ---
HPI - PCP Primary Care Physician: ALEIDA - Complaint/Symptoms Chief Complaint Doctors Comments: Abdominal pain for past 1 week. Thiss is diffuse in nature and it is getting worse. He can't characterize the pain but rated it a 9/10 on scale of 0 to 10. He states that when he gets this way it is dx. as geastroenteritis. Chief Complaint:: ABD PAIN - Nurses notes reviewed Nurses Notes Review: Yes - Source History Provided: Patient, Family Member - Mode of Arrival Mode of Arrival: Wheelchair - Timing Onset of Chief Complaint: 03/27/17 Came on: Suddenly - Modifying Factors Worsens:: nothing Improves:: nothing PMH - PMH Past Medical History: Yes Past Medical History: Arthritis, CHF, COPD, Coronary Artery Disease, GERD, Hypothyroidism, [place] Past Medical History Comment: Leukemia, Lung cancer Past Surgical History: Yes Surgical History: Angioplasty/Stents, Ortho Surgery, Other Past Surgical History Comment: back surgery, - Family History History of Family Medical Conditions: Yes Family Medical History: Cancer, [place], Coronary Artery Disease, Sudden Cardiac , Hypertension - Social History Does patient currently use any type of tobacco product: No Have you used tobacco products in the last 12 months: No Type of Tobacco Use: None Does any household member use tobacco: No Alcohol Use: None Do you use any recreational Drugs:: No Lives With: Family Lives Where: Home - infectious screening In the last 2 months have you had wt loss of >10#?: NO Have you had fever, night sweats or hemotysis?: No Have you traveled outside the country in the last 6 months?: No Isolation: Standard ROS - Review of Systems Constitutional: No Symptoms Reported Eyes: No Symptoms Reported ENTM: No Symptoms Reported Respiratoy: No Symptoms Reported Cardiovascular: No Symptoms Reported Gastrointestinal/Abdominal: See HPI, Abdominal Pain, Nausea, Vomiting Genitourinary: No Symptoms Reported Neurological: No Symptoms Reported Musculoskeletal: No Symptoms Reported Integumentary: No Symptoms Reported Hematologic/Lymphatic: No Symptoms Reported Endocrine: No Symptoms Reported Psychiatric: No Symptoms Reported All Other Systems: Reviewed and Negative PE - Vital Signs Vitals: Temperature 97.6 F Pulse Rate 69 Respiratory Rate 16 Blood Pressure [Right Arm] 106/51 Blood Pressure [Left Arm] 122/57 Blood Pressure 185/77 O2 Sat by Pulse Oximetry 97 - General Limitations: No Limitations General Appearance: Alert, In No Apparent Distress - Head Head Exam: Normal Inspection - Eyes Eye exam: Normal Appearance, PERRL, EOMI - ENT ENT Exam: Normal Exam, Normal Oropharynx - Neck Neck Exam: Normal Inspection, Full ROM - Chest Chest Inspection: Normal Inspection, Symmetric Chest Wall Rise - Respiratory Respiratory Exam: Normal Lung Sounds Bilat - Cardiovascular Cardiovascular Exam: Regular Rate, Normal Rhythm - Abdominal Exam Abdominal Exam: Normal Inspection, Normal Bowel Sounds, Soft, Distention, Other (visible abdominal veins) - Extremities Extremities Exam: Normal Inspection - Back Back Exam: Normal Inspection - Skin Skin Exam: Warm, Dry, Intact, Normal Color ROR - Labs Reviewed Result Diagrams: 03/26/17 21:49 03/26/17 21:49 Laboratory: WBC 2.0 X10^3/uL (3.6-10.0) L 03/26/17 21:49 RBC 3.66 X10^6/uL (4.7-6.0) L 03/26/17 21:49 Hgb 9.8 g/dL (13.5-18.0) L 03/26/17 21:49 Hct 29.9 % (42.0-54.0) L 03/26/17 21:49 MCV 81.8 fL (80.0-100.0) 03/26/17 21:49 MCH 26.9 pg (27.0-34.0) L 03/26/17 21:49 MCHC 32.9 g/dL (33.0-35.0) L 03/26/17 21:49 RDW 20.9 % (11.6-16.5) H 03/26/17 21:49 Plt Count 412 X10^3/uL (150.0-450.0) 03/26/17 21:49 Plt Count Comment Adequate (ADEQUATE) 03/26/17 21:49 MPV 5.9 fL (7.4-11.0) L 03/26/17 21:49 Neut % 53.4 % (42.0-75.0) 03/26/17 21:49 Lymph % 24.7 % (21.0-51.0) 03/26/17 21:49 [place] % 13.9 % (0.0-13.0) H 03/26/17 21:49 Eos % 1.8 % (0.9-2.9) 03/26/17 21:49 Baso % 6.2 % (0.2-1.0) H 03/26/17 21:49 Neut # 1.0 x10^3/uL (2.2-4.8) L 03/26/17 21:49 Lymph # 0.5 X10^3/uL (1.3-2.9) L 03/26/17 21:49 [place] # 0.3 x10^3/uL (0.3-0.8) 03/26/17 21:49 Eos # 0.0 x10^3/uL (0.0-0.2) 03/26/17 21:49 Baso # 0.1 X10^3/uL (0.0-0.1) 03/26/17 21:49 Absolute Nucleated RBC 0.4 /100WBC 03/26/17 21:49 Total Counted 50 03/26/17 21:49 Neutrophils % (Manual) 50 % (39-76) 03/26/17 21:49 Lymphocytes % (Manual) 30 % (13-43) 03/26/17 21:49 Monocytes % (Manual) 12 % (4-9) H 03/26/17 21:49 Eosinophils % (Manual) 4 % (0-6) 03/26/17 21:49 Basophils % (Manual) 4 % (0-1) H 03/26/17 21:49 Plt Morphology Comment Normal (NORMAL) 03/26/17 21:49 RBC Morphology Abnormal (NORMAL) 03/26/17 21:49 Anisocytosis 1+ A 03/26/17 21:49 Sodium 135 mmol/L (136-145) L 03/26/17 21:49 Corrected Sodium 136 mmol/L (136-145) 03/26/17 21:49 Potassium 3.5 mmol/L (3.5-5.1) 03/26/17 21:49 Chloride 94 mmol/L (98-107) L 03/26/17 21:49 Carbon Dioxide 31.0 mmol/L (21-32) 03/26/17 21:49 BUN 14 mg/dL (7-18) 03/26/17 21:49 Creatinine 1.08 mg/dL (0.70-1.30) 03/26/17 21:49 Est GFR (MDRD) Af Amer > 60 (>60) 03/26/17 21:49 Est GFR (MDRD) Non-Af > 60 (>60) 03/26/17 21:49 Glucose 147 mg/dL (65-99) H 03/26/17 21:49 Calcium 9.4 mg/dL (8.5-10.1) 03/26/17 21:49 Corrected Calcium 10.1 mg/dL (8.5-10.1) 03/26/17 21:49 Total Bilirubin 0.40 mg/dL (0.2-1.0) 03/26/17 21:49 AST 20 Units/L (15-37) 03/26/17 21:49 ALT 18 Units/L (12-78) 03/26/17 21:49 Alkaline Phosphatase 108 Units/L (46-116) 03/26/17 21:49 Total Protein 7.3 g/dL (6.4-8.2) 03/26/17 21:49 Albumin 3.1 g/dL (3.4-5.0) L 03/26/17 21:49 Globulin 4.2 g/dL (2.5-4.5) 03/26/17 21:49 Albumin/Globulin Ratio 0.7 Ratio (1.1-2.1) L 03/26/17 21:49 - XRAY XRAY Interpreted by: Radiologist (AAS: . nid delia consolidation is unchanged from previous study. There is no acute abdominal pathology.) - Diagnosis Discharge Problem: Nausea, Abdominal pain - Discharge Plan Disposition: 01 HOME, SELF-CARE Condition: Stable - Follow ups/Referrals Follow ups/Referrals: [facility],None [Primary Care Provider] - 3 days - Instructions
[2017-03-26] MEDS ORDERED: ZOFRAN INJ 4 MG VIAL ONE (21:44)
[2017-03-26] MEDS ORDERED: ZOFRAN INJ 4 MG VIAL IVP ONE (21:46)
[2017-03-26] MEDS ORDERED: DILAUDID INJ IVP ONE (21:57)
[2017-03-26] MEDS ORDERED: DILAUDID INJ ONE (21:59)
[2017-03-26 22:09] LABS: ALANINE AMINOTRANSFERASE 18 Units/L (12-78); ALBUMIN 3.1 g/dL (3.4-5.0); ALKALINE PHOSPHATASE 108 Units/L (46-116); ASPARTATE AMINO TRANSFERASE 20 Units/L (15-37); BLOOD UREA NITROGEN 14 mg/dL (7-18); CALCIUM 9.4 mg/dL (8.5-10.1); CHLORIDE 94 mmol/L (98-107); COR CA(FOR HYPOALB) 10.1 mg/dL (8.5-10.1); COR NA(FOR HYPERGLY) 136 mmol/L (136-145); CREATININE 1.08 mg/dL (0.70-1.30); SODIUM 135 mmol/L (136-145); TOTAL PROTEIN 7.3 g/dL (6.4-8.2); eGFR BLACK RACES > 60 (>60); eGFR NON BLACK RACES > 60 (>60)
[2017-03-26 22:10] LABS: BASOPHILS # (AUTO) 0.1 X10^3/uL (0.0-0.1); BASOPHILS % (AUTO) 6.2 % (0.2-1.0); EOSINOPHILS % (AUTO) 1.8 % (0.9-2.9); HEMATOCRIT 29.9 % (42.0-54.0); HEMOGLOBIN 9.8 g/dL (13.5-18.0); LYMPHOCYTES # (AUTO) 0.5 X10^3/uL (1.3-2.9); LYMPHOCYTES % (AUTO) 24.7 % (21.0-51.0); MEAN CORPUSCULAR HEMOGLOBIN 26.9 pg (27.0-34.0); MEAN CORPUSCULAR HGB CONC 32.9 g/dL (33.0-35.0); MEAN CORPUSCULAR VOLUME 81.8 fL (80.0-100.0); MEAN PLATELET VOLUME 5.9 fL (7.4-11.0); MONOCYTES # (AUTO) 0.3 x10^3/uL (0.3-0.8); MONOCYTES % (AUTO) 13.9 % (0.0-13.0); NEUTROPHILS % (AUTO) 53.4 % (42.0-75.0); PLATELET COUNT 412 X10^3/uL (150.0-450.0); RED BLOOD COUNT 3.66 X10^6/uL (4.7-6.0); RED CELL DISTRIBUTION WIDTH 20.9 % (11.6-16.5)
--- NOTE | 2017-03-26 22:26 | RAD ---
Acute abdominal series Indication:Abdominal pain history of lung cancer Comparison: 12/15/2016 Findings: The trachea is midline. Right suprahilar rounded opacity appears similar prior examination suspicious for right sided central bronchogenic mass with associated right volume loss. Chronic interstitial miko ng changes appear similar to prior examination however there is questionable increased opacity within the periphery of the right upper lobe which may represent a developing infiltrate for which clinical correlation is needed. There is chronic appearing small right-sided pleural effusion/scarring. Flat and upright evaluation of the abdomen demonstrates a normal bowel gas pattern. No pathological soft tissue mass or calcification can be observed. The bony structures are grossly intact. IMPRESSION: 1. Consolidation within the peripheral right mid lung has not changed from prior examination. Stable pleural parenchymal scarring and small right-sided pleural effusion. 2. Increased prominence of the right hilum and consolidation is likely in the setting of central obst ructing mass. 3. No evidence for acute abdominal pathology identified. Reported By:
[2017-03-26 22:27] LABS: BASOPHILS % (MANUAL) 4 % (0-1)
[2017-03-26 22:28] LABS: ANISOCYTOSIS 1+; PLATELET MORPHOLOGY COMMENT NORMAL (NORMAL)
[2017-03-27] VITALS: BP 156/70
== END 2017-03-26 23:55 | disposition home or self-care (01) ==
LOC: ER 19:41
DX: R10.84 Generalized abdominal pain (principal); R11.0 Nausea
CPT/HCPCS: 36415; 74022; 80053; 85025; 96365; 96374; 96375; 99283; A4222; J2405

== ENCOUNTER → 2017-03-30 | Outpatient (CLI) | payer OTHER ==
[2017-03-27] VITALS: BP 156/70
[2017-03-30 12:41] LABS: BASOPHILS # (AUTO) 0.2 X10^3/uL (0.0-0.1); BASOPHILS % (AUTO) 11.4 % (0.2-1.0); EOSINOPHILS % (AUTO) 0.7 % (0.9-2.9); HEMATOCRIT 35.3 % (42.0-54.0); HEMOGLOBIN 11.5 g/dL (13.5-18.0); LYMPHOCYTES # (AUTO) 0.6 X10^3/uL (1.3-2.9); LYMPHOCYTES % (AUTO) 30.8 % (21.0-51.0); MEAN CORPUSCULAR HEMOGLOBIN 27.9 pg (27.0-34.0); MEAN CORPUSCULAR HGB CONC 32.6 g/dL (33.0-35.0); MEAN CORPUSCULAR VOLUME 85.7 fL (80.0-100.0); MEAN PLATELET VOLUME 6.5 fL (7.4-11.0); MONOCYTES # (AUTO) 0.2 x10^3/uL (0.3-0.8); NEUTROPHILS # (AUTO) 0.9 x10^3/uL (2.2-4.8); NEUTROPHILS % (AUTO) 48.1 % (42.0-75.0); PLATELET COUNT 273 X10^3/uL (150.0-450.0); RED BLOOD COUNT 4.12 X10^6/uL (4.7-6.0); RED CELL DISTRIBUTION WIDTH 21.2 % (11.6-16.5)
[2017-03-30 12:49] LABS: ALANINE AMINOTRANSFERASE 16 Units/L (12-78); ALBUMIN 3.1 g/dL (3.4-5.0); ALKALINE PHOSPHATASE 119 Units/L (46-116); ASPARTATE AMINO TRANSFERASE 21 Units/L (15-37); BLOOD UREA NITROGEN 10 mg/dL (7-18); CALCIUM 9.4 mg/dL (8.5-10.1); CARBON DIOXIDE 34.9 mmol/L (21-32); CHLORIDE 95 mmol/L (98-107); COR CA(FOR HYPOALB) 10.1 mg/dL (8.5-10.1); COR NA(FOR HYPERGLY) 138 mmol/L (136-145); CREATININE 1.24 mg/dL (0.70-1.30); SODIUM 137 mmol/L (136-145); TOTAL PROTEIN 7.3 g/dL (6.4-8.2); eGFR BLACK RACES > 60 (>60); eGFR NON BLACK RACES 60 (>60)
[2017-03-30 13:18] LABS: ANISOCYTOSIS 2+; HYPOCHROMASIA SLIGHT; PLATELET MORPHOLOGY COMMENT NORMAL (NORMAL)
== END ==
LOC: LAB 12:18
PROVIDERS: ATTEND Internal Medicine Medical Oncology
DX: C92.10 Chronic myeloid leukemia, BCR/ABL-positive, not having achieved remission (principal)
CPT/HCPCS: 36415; 80053; 85025

== ENCOUNTER 2017-04-03 12:06 | Emergency (ER) | payer OTHER ==
[2017-04-03 12:11] VITALS: BP 131/59; BMI 28.2
[2017-04-03] MEDS ORDERED: NS 1000 ML 1,000 ML IV ONE (12:34)
[2017-04-03] MEDS ORDERED: ZOFRAN INJ 4 MG VIAL IVP ONE (12:35)
--- NOTE | 2017-04-03 12:36 | DR.GENAD ---
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 WORSE TODAY. NO FEVER. - Complaint/Symptoms Chief Complaint Doctors Comments: GENERALIZE WEAKNESS, POOR APPETITE AND ABDOMINAL PAIN TIMES 3 DAYS. 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 It seems like I can't eat anything or drink anything. I feel very weak and dehydrated. We wanted to go to the docotor's office but they are all closed." - Nurses notes reviewed Nurses Notes Review: Yes - Source History Provided: Patient - Mode of Arrival Mode of Arrival: Wheelchair - Timing Onset of Chief Complaint: 03/27/17 Came on: Suddenly - Duration Duration: Constant Duration: Days - Severity Severity: Moderate PMH - PMH Past Medical History: Yes Past Medical History: Arthritis, CHF, COPD, Coronary Artery Disease, GERD, Hypothyroidism, ND Past Surgical History: Yes Surgical History: Angioplasty/Stents, Ortho Surgery, Other - Family History History of Family Medical Conditions: Yes Family Medical History: Cancer, ND, Coronary Artery Disease, Sudden Cardiac , Hypertension - Social History Does patient currently use any type of tobacco product: No Have you used tobacco products in the last 12 months: No Type of Tobacco Use: None Does any household member use tobacco: No Do you use any recreational Drugs:: No Lives With: Family Lives Where: Home - infectious screening In the last 2 months have you had wt loss of >10#?: YES Have you had fever, night sweats or hemotysis?: No Have you traveled outside the country in the last 6 months?: No Isolation: Standard ROS - Review of Systems Constitutional: No Symptoms Reported Eyes: No Symptoms Reported ENTM: No Symptoms Reported Respiratoy: No Symptoms Reported Cardiovascular: No Symptoms Reported Gastrointestinal/Abdominal: Abdominal Pain, Nausea Genitourinary: No Symptoms Reported Neurological: No Symptoms Reported Musculoskeletal: No Symptoms Reported Integumentary: No Symptoms Reported Hematologic/Lymphatic: No Symptoms Reported Endocrine: No Symptoms Reported All Other Systems: Reviewed and Negative PE - Vital Signs Vitals: Temperature 98.2 F Pulse Rate 78 Respiratory Rate 18 Blood Pressure [Right Arm] 156/70 Blood Pressure [Left Arm] 122/57 Blood Pressure 131/59 O2 Sat by Pulse Oximetry 97 - General Limitations: No Limitations General Appearance: Alert - Head Head Exam: Normal Inspection - Eyes Eye exam: Normal Appearance - ENT ENT Exam: Normal External Ear Exam External Ear Exam: Normal External Inspection TM/Canal Exam: Bilateral Normal Nose Exam: Normal Nose Exam Mouth Exam: Normal Inspection Throat Exam: Normal Inspection - Neck Neck Exam: Normal Inspection - Chest Chest Inspection: Symmetric Chest Wall Rise - Respiratory Respiratory Exam: Normal Lung Sounds Bilat Respiratory Exam: Bilateral Clear to Auscultation - Cardiovascular Cardiovascular Exam: Regular Rate, Normal Rhythm, Normal Heart Sounds - Abdominal Exam Abdominal Exam: Normal Bowel Sounds, Soft, Tenderness Abdominal Tenderness: Diffuse, Moderate - Extremities Extremities Exam: Normal Inspection - Back Back Exam: Normal Inspection - Neurologic Neurological Exam: Alert, Oriented X3 - Psychiatric Psychiatric Exam: Normal Affect, Normal Mood - Skin Skin Exam: Normal Color MDM - Differential Diagnosis Differential Diagnosis: ABDOMINAL PAIN, UTI, BOWEL OBSTRUCTION, DEHYDRATION Course - Treatment Treatment: SEE ORDERS. - Education/Counseling Education/Counseling: Patient, Education Educated On: Treatment, Diagnosis, Needs for Follow Up ROR - Labs Reviewed Laboratory Results Reviewed?: Yes Result Diagrams: 04/03/17 12:45 04/03/17 12:45 Laboratory: 04/03/17 14:03 Urine,Clean Catch Urine Culture - Final WBC 4.4 X10^3/uL (3.6-10.0) 04/03/17 12:45 RBC 4.20 X10^6/uL (4.7-6.0) L 04/03/17 12:45 Hgb 12.4 g/dL (13.5-18.0) L 04/03/17 12:45 Hct 37.1 % (42.0-54.0) L 04/03/17 12:45 MCV 88.3 fL (80.0-100.0) 04/03/17 12:45 MCH 29.5 pg (27.0-34.0) 04/03/17 12:45 MCHC 33.4 g/dL (33.0-35.0) 04/03/17 12:45 RDW 28.4 % (11.6-16.5) H 04/03/17 12:45 Plt Count 687 X10^3/uL (150.0-450.0) H 04/03/17 12:45 Plt Count Comment Increased (ADEQUATE) 04/03/17 12:45 MPV 6.1 fL (7.4-11.0) L 04/03/17 12:45 Neut % 73.0 % (42.0-75.0) 04/03/17 12:45 Lymph % 15.1 % (21.0-51.0) L 04/03/17 12:45 [place] % 10.2 % (0.0-13.0) 04/03/17 12:45 Eos % 1.0 % (0.9-2.9) 04/03/17 12:45 Baso % 0.7 % (0.2-1.0) 04/03/17 12:45 Neut # 3.3 x10^3/uL (2.2-4.8) 04/03/17 12:45 Lymph # 0.7 X10^3/uL (1.3-2.9) L 04/03/17 12:45 [place] # 0.5 x10^3/uL (0.3-0.8) 04/03/17 12:45 Eos # 0.0 x10^3/uL (0.0-0.2) 04/03/17 12:45 Baso # 0.0 X10^3/uL (0.0-0.1) 04/03/17 12:45 Absolute Nucleated RBC 0.3 /100WBC 04/03/17 12:45 Total Counted Cancelled 04/03/17 12:45 Neutrophils % (Manual) Cancelled 04/03/17 12:45 Band Neutrophils % Cancelled 04/03/17 12:45 Lymphocytes % (Manual) Cancelled 04/03/17 12:45 Monocytes % (Manual) Cancelled 04/03/17 12:45 Eosinophils % (Manual) Cancelled 04/03/17 12:45 Basophils % (Manual) Cancelled 04/03/17 12:45 Metamyelocytes % Cancelled 04/03/17 12:45 Myelocytes % Cancelled 04/03/17 12:45 Promyelocytes % Cancelled 04/03/17 12:45 Nucleated RBCs Cancelled 04/03/17 12:45 Atypical Lymphocytes Cancelled 04/03/17 12:45 Blast Cells Cancelled 04/03/17 12:45 Smudge Cells Cancelled 04/03/17 12:45 Toxic Granulation Cancelled 04/03/17 12:45 Dohle Bodies Cancelled 04/03/17 12:45 Nichelle Rods Cancelled 04/03/17 12:45 Plt Clumps, EDTA Cancelled 04/03/17 12:45 Giant Platelets Cancelled 04/03/17 12:45 Plt Morphology Comment Normal (NORMAL) 04/03/17 12:45 RBC Morphology Abnormal (NORMAL) 04/03/17 12:45 Dimorphic RBCs Cancelled 04/03/17 12:45 Polychromasia Cancelled 04/03/17 12:45 Hypochromasia Cancelled 04/03/17 12:45 Poikilocytosis Cancelled 04/03/17 12:45 Basophilic Stippling Cancelled 04/03/17 12:45 Anisocytosis 3+ A 04/03/17 12:45 Microcytosis Cancelled 04/03/17 12:45 Macrocytosis Cancelled 04/03/17 12:45 Spherocytes Cancelled 04/03/17 12:45 Pappenheimer Bodies Cancelled 04/03/17 12:45 Sickle Cells Cancelled 04/03/17 12:45 Target Cells Cancelled 04/03/17 12:45 Tear Drop Cells Cancelled 04/03/17 12:45 Ovalocytes Cancelled 04/03/17 12:45 Stomatocytes Cancelled 04/03/17 12:45 Helmet Cells Cancelled 04/03/17 12:45 [place] Bodies Cancelled 04/03/17 12:45 [place] Rings Cancelled 04/03/17 12:45 Junior Cells Cancelled 04/03/17 12:45 Crenated Cell Cancelled 04/03/17 12:45 Acanthocytes (Spur) Cancelled 04/03/17 12:45 Rouleaux Cancelled 04/03/17 12:45 Schistocytes Cancelled 04/03/17 12:45 Sodium 136 mmol/L (136-145) 04/03/17 12:45 Corrected Sodium 137 mmol/L (136-145) 04/03/17 12:45 Potassium 3.8 mmol/L (3.5-5.1) 04/03/17 12:45 Chloride 97 mmol/L (98-107) L 04/03/17 12:45 Carbon Dioxide 30.4 mmol/L (21-32) 04/03/17 12:45 BUN 13 mg/dL (7-18) 04/03/17 12:45 Creatinine 1.50 mg/dL (0.70-1.30) H 04/03/17 12:45 Est GFR (MDRD) Af Amer 58 (>60) L 04/03/17 12:45 Est GFR (MDRD) Non-Af 48 (>60) L 04/03/17 12:45 Glucose 121 mg/dL (65-99) H 04/03/17 12:45 Calcium 9.0 mg/dL (8.5-10.1) 04/03/17 12:45 Corrected Calcium 9.6 mg/dL (8.5-10.1) 04/03/17 12:45 Total Bilirubin 0.40 mg/dL (0.2-1.0) 04/03/17 12:45 AST 32 Units/L (15-37) 04/03/17 12:45 ALT 24 Units/L (12-78) 04/03/17 12:45 Alkaline Phosphatase 110 Units/L (46-116) 04/03/17 12:45 Creatine Kinase 17 Units/L (39-308) L 04/03/17 12:45 CK-MB (CK-2) < 1.0 ng/mL (0-4.0) 04/03/17 12:45 CK/CKMB % Calc 5.9 % (<4) 04/03/17 12:45 Troponin I < 0.02 ng/mL (0-1.5) 04/03/17 12:45 B-Natriuretic Peptide 118 pg/mL (0-79) H 04/03/17 12:45 Total Protein 7.1 g/dL (6.4-8.2) 04/03/17 12:45 Albumin 3.2 g/dL (3.4-5.0) L 04/03/17 12:45 Globulin 3.9 g/dL (2.5-4.5) 04/03/17 12:45 Albumin/Globulin Ratio 0.8 Ratio (1.1-2.1) L 04/03/17 12:45 Specimen Type Random urine 04/03/17 13:23 Urine Color Yellow (YELLOW) 04/03/17 13:23 Urine Appearance Clear (CLEAR) 04/03/17 13:23 Urine pH 7.0 (5.0 - 8.0) 04/03/17 13:23 Ur Specific [place] 1.010 (1.000-1.030) 04/03/17 13:23 Urine Protein Negative (NEGATIVE) 04/03/17 13:23 Urine Glucose (UA) Negative (NEGATIVE) 04/03/17 13:23 Urine Ketones Negative (NEGATIVE) 04/03/17 13:23 Urine Occult Blood 5+ (NEGATIVE) 04/03/17 13:23 Urine Nitrite Negative (NEGATIVE) 04/03/17 13:23 Urine Bilirubin Negative (NEGATIVE) 04/03/17 13:23 Urine Urobilinogen Normal (NORMAL) 04/03/17 13:23 Ur Leukocyte Esterase 1+ (NEGATIVE) 04/03/17 13:23 Urine RBC 15-20 /HPF (NEGATIVE) 04/03/17 13:23 Urine WBC 10-15 /HPF (NEGATIVE) 04/03/17 13:23 Ur Squamous Epith Cells Rare /HPF (NEGATIVE) 04/03/17 13:23 Urine Bacteria Trace /HPF (NEGATIVE) 04/03/17 13:23 Ur Culture Indicated? No/not indicated 04/03/17 13:23 - XRAY XRAY Interpreted by: Radiologist XRAY Findings: REPORT DISCUSSWITH PATIENT. - EKG Rhythm: NSR (EKG NOTED.) - Diagnosis Discharge Problem: Dehydration, Abdominal pain UTI (urinary tract infection) Qualifiers: Urinary tract infection type: urethritis Qualified Code(s): N34.2 - Other urethritis - Discharge Plan Disposition: 01 HOME, SELF-CARE Condition: Stable Prescriptions: Cefdinir [Omnicef Cap 300 mg] 300 mg PO BID #20 cap Ondansetron [Zofran ODT 8 mg] 8 mg PO Q8H PRN #12 tab PRN Reason: Nausea/Vomiting - Follow ups/Referrals Follow ups/Referrals: Tacos Sutton [Primary Care Provider] - 3 days - Instructions Instructions: Urinary Tract Infection, Adult, [id number], Dehydration, Elderly Additional Instructions: RETURN TO ED IF WORSE.
[2017-04-03] MEDS ORDERED: NS 1000 ML 1,000 ML ONE (12:44)
[2017-04-03] MEDS ORDERED: ZOFRAN INJ 4 MG VIAL ONE (12:44)
[2017-04-03 12:50] LABS: BASOPHILS % (AUTO) 0.7 % (0.2-1.0); HEMATOCRIT 37.1 % (42.0-54.0); HEMOGLOBIN 12.4 g/dL (13.5-18.0); LYMPHOCYTES # (AUTO) 0.7 X10^3/uL (1.3-2.9); LYMPHOCYTES % (AUTO) 15.1 % (21.0-51.0); MEAN CORPUSCULAR HEMOGLOBIN 29.5 pg (27.0-34.0); MEAN CORPUSCULAR HGB CONC 33.4 g/dL (33.0-35.0); MEAN CORPUSCULAR VOLUME 88.3 fL (80.0-100.0); MEAN PLATELET VOLUME 6.1 fL (7.4-11.0); MONOCYTES # (AUTO) 0.5 x10^3/uL (0.3-0.8); MONOCYTES % (AUTO) 10.2 % (0.0-13.0); NEUTROPHILS # (AUTO) 3.3 x10^3/uL (2.2-4.8); PLATELET COUNT 687 X10^3/uL (150.0-450.0); RED CELL DISTRIBUTION WIDTH 28.4 % (11.6-16.5); WHITE BLOOD COUNT 4.4 X10^3/uL (3.6-10.0)
[2017-04-03 13:05] LABS: ALBUMIN 3.2 g/dL (3.4-5.0); CARBON DIOXIDE 30.4 mmol/L (21-32); COR CA(FOR HYPOALB) 9.6 mg/dL (8.5-10.1); CREATININE 1.5 mg/dL (0.70-1.30); TOTAL PROTEIN 7.1 g/dL (6.4-8.2)
[2017-04-03 13:15] LABS: ANISOCYTOSIS 3+; PLATELET MORPHOLOGY COMMENT NORMAL (NORMAL)
[2017-04-03 13:24] LABS: CKMB % 5.9 % (<4); CREATINE KINASE 17 Units/L (39-308); CREATINE KINASE MB < 1.0 ng/mL (0-4.0); TROPONIN I < 0.02 ng/mL (0-1.5)
--- NOTE | 2017-04-03 13:25 | RAD ---
Examination: Chest with abdomen series History: Abdominal pain and dehydration Comparison reference 03/26/2017 Findings: PA chest again demonstrates diminished volume of the right lung with chronic pleural thicke bobby. The right hilum remains prominent and indistinct. There is no change. No evidence for large ple ural effusion or pneumoperitoneum. In the abdomen, gas pattern is nonobstructive. There is no evidenc e for mass formation, free air or urinary calcification. The urinary bladder is mildly dilated. There is evidence for previous vertebroplasty procedures. Impression: 1. No acute abdominal process identified. Mild nonspecific distention of the urinary bladder. Postsur gical findings in the spine. 2. Stable appearance of chest as described, no change since 03/26/2017. The findings may represent st able pleural-parenchymal fibrosis and scarring. A chest CT of 12/17/2016 did not demonstrate central neoplasm. Continued follow-up suggested to confirm longer term stability of these findings. Reported By:
[2017-04-03 13:30] LABS: BILIRUBIN,URINE NEGATIVE (NEGATIVE); BLOOD/HEMOGLOBIN,URINE 5+ (NEGATIVE); GLUCOSE, URINE NEGATIVE (NEGATIVE); KETONES,URINE NEGATIVE (NEGATIVE); LEUKOCYTE ESTERASE ,URINE 1+ (NEGATIVE); NITRITES,URINE NEGATIVE (NEGATIVE); PROTEIN,URINE NEGATIVE (NEGATIVE); UROBILINOGEN,URINE NORMAL (NORMAL)
[2017-04-03 13:40] LABS: APPEARANCE,URINE CLEAR (CLEAR); BACTERIA,URINE TRACE /HPF (NEGATIVE); COLOR,URINE YELLOW (YELLOW); RBC,URINE 15-20 /HPF (NEGATIVE); SQUAMOUS EPITHELIAL CELL,UR RARE /HPF (NEGATIVE)
[2017-04-03] MEDS ORDERED: ROCEPHIN VIAL 1 GM 1 GM in NS 50 ML IV + SPIKE MINIBAG* 50 ML IV ONE (14:59)
[2017-04-03] MEDS ORDERED: ROCEPHIN 1 GM IV PREMIX 1 GM/50 ML IV.SOLN. IV ONE (15:24)
== END 2017-04-03 15:48 | disposition home or self-care (01) ==
LOC: ER 12:13
DX: N34.2 Other urethritis (principal); E86.0 Dehydration; R10.84 Generalized abdominal pain
CPT/HCPCS: 36415; 74022; 80053; 81001; 82550; 82553; 83880; 84484; 85025; 87086; 93005; 93010; 96365; 96374; 96375; 99283; A4222; J0696; J2405

== ENCOUNTER → 2017-05-29 | Outpatient (CLI) | payer OTHER ==
[2017-05-29 14:55] LABS: TOTAL IRON BINDING CAPACITY 263 ug/dL (250-450)
== END ==
LOC: LAB 14:05
PROVIDERS: ATTEND Internal Medicine Medical Oncology
DX: C92.10 Chronic myeloid leukemia, BCR/ABL-positive, not having achieved remission (principal)
CPT/HCPCS: 36415; 82728; 83540; 83550

== ENCOUNTER → 2017-07-13 | Outpatient (CLI) | payer OTHER ==
[2017-07-13 16:21] LABS: BASOPHILS # (AUTO) 0.1 X10^3/uL (0.0-0.1); BASOPHILS % (AUTO) 0.8 % (0.2-1.0); EOSINOPHILS # (AUTO) 0.3 x10^3/uL (0.0-0.2); EOSINOPHILS % (AUTO) 4.7 % (0.9-2.9); HEMATOCRIT 32.4 % (42.0-54.0); HEMOGLOBIN 11.2 g/dL (13.5-18.0); LYMPHOCYTES # (AUTO) 1.2 X10^3/uL (1.3-2.9); LYMPHOCYTES % (AUTO) 18.9 % (21.0-51.0); MEAN CORPUSCULAR HEMOGLOBIN 32.9 pg (27.0-34.0); MEAN CORPUSCULAR HGB CONC 34.5 g/dL (33.0-35.0); MEAN CORPUSCULAR VOLUME 95.2 fL (80.0-100.0); MEAN PLATELET VOLUME 6.4 fL (7.4-11.0); MONOCYTES # (AUTO) 0.4 x10^3/uL (0.3-0.8); MONOCYTES % (AUTO) 6.4 % (0.0-13.0); NEUTROPHILS # (AUTO) 4.5 x10^3/uL (2.2-4.8); NEUTROPHILS % (AUTO) 69.2 % (42.0-75.0); PLATELET COUNT 329 X10^3/uL (150.0-450.0); RED BLOOD COUNT 3.41 X10^6/uL (4.7-6.0); RED CELL DISTRIBUTION WIDTH 18.7 % (11.6-16.5); WHITE BLOOD COUNT 6.5 X10^3/uL (3.6-10.0)
[2017-07-13 16:33] LABS: ALANINE AMINOTRANSFERASE 29 Units/L (12-78); ALBUMIN 3.7 g/dL (3.4-5.0); ALKALINE PHOSPHATASE 93 Units/L (46-116); ASPARTATE AMINO TRANSFERASE 25 Units/L (15-37); BLOOD UREA NITROGEN 18 mg/dL (7-18); CALCIUM 8.9 mg/dL (8.5-10.1); CARBON DIOXIDE 30.6 mmol/L (21-32); CHLORIDE 97 mmol/L (98-107); COR NA(FOR HYPERGLY) 136 mmol/L (136-145); CREATININE 1.41 mg/dL (0.70-1.30); SODIUM 136 mmol/L (136-145); TOTAL PROTEIN 7.8 g/dL (6.4-8.2); eGFR BLACK RACES > 60 (>60); eGFR NON BLACK RACES 51 (>60)
[2017-07-13 16:38] LABS: PLATELET MORPHOLOGY COMMENT NORMAL (NORMAL)
[2017-07-13 16:39] LABS: ANISOCYTOSIS 1+; HYPOCHROMASIA SLIGHT
== END ==
LOC: LAB 16:00
PROVIDERS: ATTEND Nurse Practitioner Family
DX: C92.10 Chronic myeloid leukemia, BCR/ABL-positive, not having achieved remission (principal)
CPT/HCPCS: 36415; 80053; 85025

== ENCOUNTER 2017-10-26 15:16 | Inpatient (IN) ==
[2017-10-26 16:26] VITALS: BMI 29.8
[2017-10-26 17:00] LABS: BASOPHILS % (AUTO) 0.6 % (0.2-1.0); EOSINOPHILS # (AUTO) 0.3 x10^3/uL (0.0-0.2); EOSINOPHILS % (AUTO) 5.8 % (0.9-2.9); HEMATOCRIT 26.7 % (42.0-54.0); LYMPHOCYTES # (AUTO) 0.9 X10^3/uL (1.3-2.9); LYMPHOCYTES % (AUTO) 17.3 % (21.0-51.0); MEAN CORPUSCULAR HEMOGLOBIN 32.2 pg (27.0-34.0); MEAN CORPUSCULAR HGB CONC 33.6 g/dL (33.0-35.0); MEAN CORPUSCULAR VOLUME 96.1 fL (80.0-100.0); MEAN PLATELET VOLUME 6.3 fL (7.4-11.0); MONOCYTES # (AUTO) 0.5 x10^3/uL (0.3-0.8); NEUTROPHILS # (AUTO) 3.4 x10^3/uL (2.2-4.8); NEUTROPHILS % (AUTO) 66.3 % (42.0-75.0); PLATELET COUNT 324 X10^3/uL (150.0-450.0); RED BLOOD COUNT 2.78 X10^6/uL (4.7-6.0); RED CELL DISTRIBUTION WIDTH 18.8 % (11.6-16.5); WHITE BLOOD COUNT 5.2 X10^3/uL (3.6-10.0)
[2017-10-26 17:10] LABS: ALANINE AMINOTRANSFERASE 26 Units/L (12-78); ALBUMIN 3.6 g/dL (3.4-5.0); ALKALINE PHOSPHATASE 71 Units/L (46-116); ASPARTATE AMINO TRANSFERASE 26 Units/L (15-37); BLOOD UREA NITROGEN 20 mg/dL (7-18); CALCIUM 9.4 mg/dL (8.5-10.1); CARBON DIOXIDE 25.7 mmol/L (21-32); CHLORIDE 96 mmol/L (98-107); CREATININE 1.61 mg/dL (0.70-1.30); SODIUM 132 mmol/L (136-145); TOTAL PROTEIN 7.4 g/dL (6.4-8.2); eGFR NON BLACK RACES 44 (>60)
--- NOTE | 2017-10-26 17:13 | RAD ---
HISTORY: Chest pain Study: Single-view chest Comparison: April 03, 2017 and December 17, 2016 Findings: Aortic atherosclerosis is noted. The trachea is midline. The cardiac silhouette is mildly enlarged. There is chronic loss of volume with right-sided pleural thickening and fibrosis. No new consolidat ion is identified. There is no pneumothorax. The left lung remains clear. The bony thorax is grossly unremarkable. IMPRESSION: Chronic changes as above without definite acute cardiopulmonary disease. Reported By:
[2017-10-26] MEDS ORDERED: ZOFRAN INJ 4 MG VIAL IVP PRN (19:16)
[2017-10-26] MEDS: MORPHINE SULFATE INJ 2 MG INJ IVP PRN ×2 (19:25→23:40)
[2017-10-27] MEDS: MORPHINE SULFATE INJ 2 MG INJ IVP PRN (05:15)
[2017-10-27 05:49] LABS: ALBUMIN 2.8 g/dL (3.4-5.0); CALCIUM 8.8 mg/dL (8.5-10.1); CARBON DIOXIDE 26.9 mmol/L (21-32); COR CA(FOR HYPOALB) 9.8 mg/dL (8.5-10.1); CREATININE 1.48 mg/dL (0.70-1.30); TOTAL PROTEIN 6.1 g/dL (6.4-8.2)
[2017-10-27 06:15] LABS: BASOPHILS % (AUTO) 0.6 % (0.2-1.0); EOSINOPHILS # (AUTO) 0.3 x10^3/uL (0.0-0.2); EOSINOPHILS % (AUTO) 6.3 % (0.9-2.9); HEMATOCRIT 24.5 % (42.0-54.0); HEMOGLOBIN 8.4 g/dL (13.5-18.0); LYMPHOCYTES # (AUTO) 0.8 X10^3/uL (1.3-2.9); MEAN CORPUSCULAR HEMOGLOBIN 32.8 pg (27.0-34.0); MEAN CORPUSCULAR HGB CONC 34.2 g/dL (33.0-35.0); MEAN CORPUSCULAR VOLUME 95.9 fL (80.0-100.0); MEAN PLATELET VOLUME 6.4 fL (7.4-11.0); MONOCYTES # (AUTO) 0.5 x10^3/uL (0.3-0.8); MONOCYTES % (AUTO) 8.9 % (0.0-13.0); NEUTROPHILS # (AUTO) 3.5 x10^3/uL (2.2-4.8); NEUTROPHILS % (AUTO) 69.2 % (42.0-75.0); PLATELET COUNT 292 X10^3/uL (150.0-450.0); RED BLOOD COUNT 2.55 X10^6/uL (4.7-6.0); RED CELL DISTRIBUTION WIDTH 18.8 % (11.6-16.5); WHITE BLOOD COUNT 5.1 X10^3/uL (3.6-10.0)
[2017-10-27] MEDS ORDERED: LEVSIN SYRUP PO PRN (10:19)
[2017-10-27] MEDS ORDERED: IMATINIB 400 MG PO SCH (10:30)
[2017-10-27] MEDS: ZOSYN VIAL 3.375 GRAMS 3.375 G in NS 100 ML IV + SPIKE MINIBAG* 100 ML IV SCH ×3 (10:59→21:05)
[2017-10-27] MEDS: NS 500 ML IV 500 ML IV SCH (11:00)
[2017-10-27] MEDS: LASIX PO SCH ×2 (11:00→20:47)
[2017-10-27] MEDS: ALDACTONE TAB 25 MG PO SCH (11:00)
[2017-10-27] MEDS: REQUIP PO SCH ×2 (11:00→20:46)
[2017-10-27] MEDS: DECADRON TAB PO SCH (11:00)
[2017-10-27] MEDS: PLAVIX PO SCH (11:01)
[2017-10-27] MEDS: GENTAMICIN TOPICAL OINT EXT SCH (11:01)
--- NOTE | 2017-10-27 11:21 | DR.UPDATE ---
H&P Update History and Physical Update: WAS SEEN IN THE OFFICE TODAY. A H&P WAS COMPLETED PRIOR TO ADMISSION. PATIENT HAS BEEN SEEN AND EXAMINED WITH NO CHANGES NOTED TO H&P. Changes noted: NO Yes with the following:
--- NOTE | 2017-10-27 11:34 | PCM.PROG ---
Progress Note - Progress Note for Day of Date: 10/27/17 - Subjective Subjective: WAS ADMITTED FOR BILATERAL LOWER EXTREMITY CELLULITIS AND EDEMA. TODAY, HE IS ALERT AND ORIENTED, LYING IN BED ON MORNING ROUNDS. HE CONTINUES WITH PAIN TO BILATERAL LOWER EXTREMITIES. ON EXAMINATION, HEART IS REGULAR IN RATE AND RHYTHM. BILATERAL LUNGS ARE NOTED WITH DIMINISHED LUNG SOUNDS THROUGHOUT. ABDOMEN IS ROUND, SOFT, AND NON-TENDER WITH NORMAL BOWEL SOUNDS NOTED IN ALL QUADRANTS. BILATERAL LOWER EXTREMITIES CONTINUE WITH ERYTHEMA, EDEMA, AND SCATTERED BLISTERS TO LOWER LEGS. SLIGHT DRAINAGE NOTED. HIS VITALS THIS MORNING ARE 97.5-75-22-94%-122/56. LABS WERE OBTAINED. ABNORMAL LAB VALUES INCLUDE THE FOLLOWING: RBC 2.55, HGB 8.4, HCT 24.5, SODIUM 135, CREATININE 1.48, GLUCOSE 135, TOTAL PROTEIN 6.1, ALBUMIN 2.8. WOUND CULTURES ARE PENDING. TODAY, WE WILL CULTURE THE DRAINAGE, OBTAIN VENOUS DOPPLERS OF BILATERAL LOWER EXTREMITIES, OBTAIN AN ECHO, AND START ZOSYN 3.375GM IV TID. OTHERWISE, WE WILL FOLLOW UP WITH AM LABS AND CONTINUE TO MONITOR PATIENT. - Past Medical Family Social History Past Med/Fam/Surg Hx: No changes since H&P Allergies: Allergies promethazine [From Phenergan] Adverse Reaction (Verified 12/11/16 00:54) - Review of Systems ROS: No change since H&P - Vital Signs and I&O's Vital Signs: Temperature 97.6 F Pulse Rate [Left Brachial] 76 Respiratory Rate 18 Blood Pressure [Right Arm] 156/70 Blood Pressure [Left Arm] 131/56 Blood Pressure 138/69 O2 Sat by Pulse Oximetry 94 Intake and Output: Intake & Output 10/24/17 10/25/17 10/26/17 10/27/17 11:59 11:59 11:59 11:59 Intake Total 640 / 640 Output Total 250 / 250 Balance 390 / 390 - Physical Exam Oriented: Normal Eyes: Normal Ear: Normal Nose: Normal Throat: Normal Respiratory: Generalized, Diminished Cardiovascular: Edema (LOWER EXTREMITIES ) : Normal Auscultation: Bowel Sounds: Normal Palpation: Normal Tenderness: Normal Skin: Vesicular, Red, Tender, Hot, Wound Musculoskeletal: Right, Left, Leg, Swelling, Tender Psychiatric: Normal Mood Description: Calm Affect: Normal Speech Pattern: Clear, Appropriate - Laboratory and Diagnostics Result Diagrams: 10/27/17 05:05 10/27/17 05:05 Labs: 10/26/17 16:21 Leg - Right Gram Stain - Final 10/26/17 16:21 Leg - Left Gram Stain - Final Laboratory WBC 5.1 X10^3/uL (3.6-10.0) 10/27/17 05:05 RBC 2.55 X10^6/uL (4.7-6.0) L 10/27/17 05:05 Hgb 8.4 g/dL (13.5-18.0) L 10/27/17 05:05 Hct 24.5 % (42.0-54.0) L 10/27/17 05:05 MCV 95.9 fL (80.0-100.0) 10/27/17 05:05 MCH 32.8 pg (27.0-34.0) 10/27/17 05:05 MCHC 34.2 g/dL (33.0-35.0) 10/27/17 05:05 RDW 18.8 % (11.6-16.5) H 10/27/17 05:05 Plt Count 292 X10^3/uL (150.0-450.0) 10/27/17 05:05 MPV 6.4 fL (7.4-11.0) L 10/27/17 05:05 Neut % (Auto) 69.2 % (42.0-75.0) 10/27/17 05:05 Lymph % (Auto) 15.0 % (21.0-51.0) L 10/27/17 05:05 [place] % (Auto) 8.9 % (0.0-13.0) 10/27/17 05:05 Eos % (Auto) 6.3 % (0.9-2.9) H 10/27/17 05:05 Baso % (Auto) 0.6 % (0.2-1.0) 10/27/17 05:05 Neut # (Auto) 3.5 x10^3/uL (2.2-4.8) 10/27/17 05:05 Lymph # (Auto) 0.8 X10^3/uL (1.3-2.9) L 10/27/17 05:05 [place] # (Auto) 0.5 x10^3/uL (0.3-0.8) 10/27/17 05:05 Eos # (Auto) 0.3 x10^3/uL (0.0-0.2) H 10/27/17 05:05 Baso # (Auto) 0.0 X10^3/uL (0.0-0.1) 10/27/17 05:05 Absolute Nucleated RBC 0.0 /100WBC 10/27/17 05:05 Sodium 135 mmol/L (136-145) L 10/27/17 05:05 Corrected Sodium 136 mmol/L (136-145) 10/27/17 05:05 Potassium 3.9 mmol/L (3.5-5.1) 10/27/17 05:05 Chloride 100 mmol/L (98-107) 10/27/17 05:05 Carbon Dioxide 26.9 mmol/L (21-32) 10/27/17 05:05 BUN 18 mg/dL (7-18) 10/27/17 05:05 Creatinine 1.48 mg/dL (0.70-1.30) H 10/27/17 05:05 Est GFR (MDRD) Af Amer 59 (>60) 10/27/17 05:05 Est GFR (MDRD) Non-Af 49 (>60) L 10/27/17 05:05 Glucose 135 mg/dL (65-99) H 10/27/17 05:05 Calcium 8.8 mg/dL (8.5-10.1) 10/27/17 05:05 Corrected Calcium 9.8 mg/dL (8.5-10.1) 10/27/17 05:05 Total Bilirubin 0.30 mg/dL (0.2-1.0) 10/27/17 05:05 AST 19 Units/L (15-37) 10/27/17 05:05 ALT 22 Units/L (12-78) 10/27/17 05:05 Alkaline Phosphatase 60 Units/L (46-116) 10/27/17 05:05 Total Protein 6.1 g/dL (6.4-8.2) L 10/27/17 05:05 Albumin 2.8 g/dL (3.4-5.0) L 10/27/17 05:05 Globulin 3.3 g/dL (2.5-4.5) 10/27/17 05:05 Albumin/Globulin Ratio 0.8 Ratio (1.1-2.1) L 10/27/17 05:05 - Plan (1) Bilateral lower extremity edema Status: Acute Plan: CONTINUE HOME MEDICATIONS, OBTAIN ECHO, CONTINUE TO MONITOR (2) Cellulitis of both lower extremities Status: Acute Plan: ZOSYN 3.375GM IV TID, WOUND CARE, WOUND CULTURES, CONTINUE TO MONITOR
[2017-10-27] MEDS: ULTRAM PO PRN ×2 (12:44→20:46)
[2017-10-27] MEDS: IMATINIB 400 MG PO SCH (15:30)
[2017-10-27] MEDS: SYNTHROID 75 mcg TAB PO SCH (15:31)
[2017-10-27 15:44] LABS: BILIRUBIN,URINE NEGATIVE (NEGATIVE); BLOOD/HEMOGLOBIN,URINE NEGATIVE (NEGATIVE); GLUCOSE, URINE NEGATIVE (NEGATIVE); KETONES,URINE NEGATIVE (NEGATIVE); LEUKOCYTE ESTERASE ,URINE NEGATIVE (NEGATIVE); NITRITES,URINE NEGATIVE (NEGATIVE); PH,URINE 6.5 (5.0 - 8.0); PROTEIN,URINE NEGATIVE (NEGATIVE); UROBILINOGEN,URINE NORMAL (NORMAL)
[2017-10-27 15:46] LABS: APPEARANCE,URINE CLEAR (CLEAR); COLOR,URINE YELLOW (YELLOW)
--- NOTE | 2017-10-27 16:54 | VAS ---
HISTORY: Extremity pain, swelling, and edema Study: Bilateral lower extremity Doppler venous ultrasound. TECHNIQUE: Multiple colon scale and color flow Doppler images of the deep venous system were obtained of the right and left lower extremity. FINDINGS: The deep venous system of the right and left lower extremities were evaluated from the lev el of the common femoral veins through the popliteal veins, bilaterally. Normal color flow and augme ntation can be observed. In addition, normal compression is seen throughout the deep venous system. No Easton's cyst is seen. IMPRESSION: 1. Negative examination for DVT. Reported By:
[2017-10-27] MEDS ORDERED: PATIENT'S HOME MEDICATION (Alprazolam [Alprazolam] 1 MG) PO SCH (21:00)
[2017-10-28 05:46] LABS: BASOPHILS % (AUTO) 0.2 % (0.2-1.0); HEMATOCRIT 25.9 % (42.0-54.0); HEMOGLOBIN 8.8 g/dL (13.5-18.0); LYMPHOCYTES # (AUTO) 0.5 X10^3/uL (1.3-2.9); MEAN CORPUSCULAR HEMOGLOBIN 32.4 pg (27.0-34.0); MEAN CORPUSCULAR HGB CONC 33.9 g/dL (33.0-35.0); MEAN CORPUSCULAR VOLUME 95.6 fL (80.0-100.0); MEAN PLATELET VOLUME 6.5 fL (7.4-11.0); MONOCYTES # (AUTO) 0.2 x10^3/uL (0.3-0.8); MONOCYTES % (AUTO) 3.7 % (0.0-13.0); NEUTROPHILS # (AUTO) 5.9 x10^3/uL (2.2-4.8); NEUTROPHILS % (AUTO) 89.1 % (42.0-75.0); PLATELET COUNT 334 X10^3/uL (150.0-450.0); RED BLOOD COUNT 2.71 X10^6/uL (4.7-6.0); RED CELL DISTRIBUTION WIDTH 19.1 % (11.6-16.5); WHITE BLOOD COUNT 6.7 X10^3/uL (3.6-10.0)
[2017-10-28 05:51] LABS: ALANINE AMINOTRANSFERASE 23 Units/L (12-78); ALBUMIN 2.8 g/dL (3.4-5.0); ALKALINE PHOSPHATASE 60 Units/L (46-116); ASPARTATE AMINO TRANSFERASE 18 Units/L (15-37); BLOOD UREA NITROGEN 19 mg/dL (7-18); CALCIUM 8.7 mg/dL (8.5-10.1); CARBON DIOXIDE 27.2 mmol/L (21-32); CHLORIDE 99 mmol/L (98-107); COR CA(FOR HYPOALB) 9.7 mg/dL (8.5-10.1); COR NA(FOR HYPERGLY) 136 mmol/L (136-145); CREATININE 1.41 mg/dL (0.70-1.30); SODIUM 135 mmol/L (136-145); TOTAL PROTEIN 6.8 g/dL (6.4-8.2); eGFR NON BLACK RACES 51 (>60)
[2017-10-28] MEDS: ZOSYN VIAL 3.375 GRAMS 3.375 G in NS 100 ML IV + SPIKE MINIBAG* 100 ML IV SCH ×3 (05:57→22:35)
[2017-10-28] MEDS: LASIX PO SCH ×2 (09:07→20:53)
[2017-10-28] MEDS: ALDACTONE TAB 25 MG PO SCH (09:07)
[2017-10-28] MEDS: REQUIP PO SCH ×2 (09:07→20:52)
[2017-10-28] MEDS: DECADRON TAB PO SCH (09:07)
[2017-10-28] MEDS: PLAVIX PO SCH (09:08)
[2017-10-28] MEDS: GENTAMICIN TOPICAL CRM TOP SCH ×2 (10:28→22:34)
[2017-10-28] MEDS: VANCOMYCIN HCL 1 GM VIAL 1 G in D5W 250 ML IV 250 ML IV SCH ×2 (10:38→20:53)
[2017-10-28] MEDS ORDERED: PHARMACY CONSULT - VANCOMYCIN XX SCH (11:00)
[2017-10-28] MEDS: NS 500 ML IV 500 ML IV SCH (12:13)
[2017-10-28] MEDS: ULTRAM PO PRN (12:23)
[2017-10-28] MEDS: IMATINIB 400 MG PO SCH (16:44)
[2017-10-28] MEDS: SYNTHROID 75 mcg TAB PO SCH (16:44)
--- NOTE | 2017-10-28 18:11 | PCM.PROG ---
Progress Note - Progress Note for Day of Date: 10/28/17 - Subjective Subjective: WAS ADMITTED FOR BILATERAL LOWER EXTREMITY CELLULITIS AND EDEMA. TODAY, HE IS ALERT AND ORIENTED, LYING IN BED ON MORNING ROUNDS. HE CONTINUES WITH PAIN TO BILATERAL LOWER EXTREMITIES. ON EXAMINATION, HEART IS REGULAR IN RATE AND RHYTHM. BILATERAL LUNGS ARE NOTED WITH DIMINISHED LUNG SOUNDS THROUGHOUT. ABDOMEN IS ROUND, SOFT, AND NON-TENDER WITH NORMAL BOWEL SOUNDS NOTED IN ALL QUADRANTS. BILATERAL LOWER EXTREMITIES CONTINUE WITH ERYTHEMA, EDEMA, AND SCATTERED BLISTERS TO LOWER LEGS. HIS VITALS THIS MORNING ARE 97.8-73-18-95%-128/63. LABS WERE OBTAINED. ABNORMAL LAB VALUES INCLUDE THE FOLLOWING: RBC 2.71, HGB 8.8, HCT 25.9, SODIUM 135, BUN 19, CREATININE 1.41, GLUCOSE 139, ALBUMIN 2.8. WOUND CULTURES ARE PENDING. PRELIMINARY CULTURES REPORT GROWTH OF GRAM POSITIVE COCCI AND COAGULASE NEGATIVE STAPH WITH GRAM NEGATIVE RODS AND BACILLUS SPECIES. TODAY, WE WILL ORDER FOR WET TO DRY DRESSINGS TO BE APPLIED TWICE A DAY, GENTAMYCIN OINTMENT TWICE A DAY, AND VANCOMYCIN 1GM IV Q12H. OTHERWISE, WE WILL FOLLOW UP WITH AM LABS AND CONTINUE TO MONITOR PATIENT. - Past Medical Family Social History Past Med/Fam/Surg Hx: No changes since H&P Allergies: Allergies promethazine [From Phenergan] Adverse Reaction (Verified 12/11/16 00:54) - Review of Systems ROS: No change since H&P - Vital Signs and I&O's Vital Signs: Temperature 97.6 F Pulse Rate [Left Brachial] 78 Respiratory Rate 20 Blood Pressure [Right Arm] 156/70 Blood Pressure [Left Arm] 119/53 Blood Pressure 138/69 O2 Sat by Pulse Oximetry 94 Intake and Output: Intake & Output 10/26/17 10/27/17 10/28/17 10/29/17 11:59 11:59 11:59 11:59 Intake Total 640 / 640 2150 / 2150 1225 / 1225 Output Total 250 / 250 3800 / 3800 1000 / 1000 Balance 390 / 390 -1650 / -1650 225 / 225 - Physical Exam Oriented: Normal Eyes: Normal Ear: Normal Nose: Normal Throat: Normal Respiratory: Generalized, Diminished Cardiovascular: Edema (LOWER EXTREMITIES ) : Normal Auscultation: Bowel Sounds: Normal Palpation: Normal Tenderness: Normal Skin: Vesicular, Red, Tender, Hot, Wound Musculoskeletal: Right, Left, Leg, Swelling, Tender Psychiatric: Normal Mood Description: Calm, Happy Affect: Normal Speech Pattern: Clear, Appropriate - Laboratory and Diagnostics Result Diagrams: 10/28/17 05:02 10/28/17 05:02 Labs: 10/26/17 16:35 Blood Blood Culture - Preliminary 10/26/17 16:21 Blood Blood Culture - Preliminary 10/27/17 11:57 Leg - Right Wound Culture - Preliminary 10/27/17 11:57 Leg - Left Wound Culture - Preliminary 10/26/17 16:21 Leg - Left Gram Stain - Final 10/26/17 16:21 Leg - Left Wound Culture - Preliminary 10/26/17 16:21 Leg - Right Gram Stain - Final 10/26/17 16:21 Leg - Right Wound Culture - Preliminary Laboratory WBC 6.7 X10^3/uL (3.6-10.0) 10/28/17 05:02 RBC 2.71 X10^6/uL (4.7-6.0) L 10/28/17 05:02 Hgb 8.8 g/dL (13.5-18.0) L 10/28/17 05:02 Hct 25.9 % (42.0-54.0) L 10/28/17 05:02 MCV 95.6 fL (80.0-100.0) 10/28/17 05:02 MCH 32.4 pg (27.0-34.0) 10/28/17 05:02 MCHC 33.9 g/dL (33.0-35.0) 10/28/17 05:02 RDW 19.1 % (11.6-16.5) H 10/28/17 05:02 Plt Count 334 X10^3/uL (150.0-450.0) 10/28/17 05:02 MPV 6.5 fL (7.4-11.0) L 10/28/17 05:02 Neut % (Auto) 89.1 % (42.0-75.0) H 10/28/17 05:02 Lymph % (Auto) 7.0 % (21.0-51.0) L 10/28/17 05:02 [place] % (Auto) 3.7 % (0.0-13.0) 10/28/17 05:02 Eos % (Auto) 0.0 % (0.9-2.9) L 10/28/17 05:02 Baso % (Auto) 0.2 % (0.2-1.0) 10/28/17 05:02 Neut # (Auto) 5.9 x10^3/uL (2.2-4.8) H 10/28/17 05:02 Lymph # (Auto) 0.5 X10^3/uL (1.3-2.9) L 10/28/17 05:02 [place] # (Auto) 0.2 x10^3/uL (0.3-0.8) L 10/28/17 05:02 Eos # (Auto) 0.0 x10^3/uL (0.0-0.2) 10/28/17 05:02 Baso # (Auto) 0.0 X10^3/uL (0.0-0.1) 10/28/17 05:02 Absolute Nucleated RBC 0.0 /100WBC 10/28/17 05:02 Sodium 135 mmol/L (136-145) L 10/28/17 05:02 Corrected Sodium 136 mmol/L (136-145) 10/28/17 05:02 Potassium 4.3 mmol/L (3.5-5.1) 10/28/17 05:02 Chloride 99 mmol/L (98-107) 10/28/17 05:02 Carbon Dioxide 27.2 mmol/L (21-32) 10/28/17 05:02 BUN 19 mg/dL (7-18) H 10/28/17 05:02 Creatinine 1.41 mg/dL (0.70-1.30) H 10/28/17 05:02 Est GFR (MDRD) Af Amer > 60 (>60) 10/28/17 05:02 Est GFR (MDRD) Non-Af 51 (>60) L 10/28/17 05:02 Glucose 139 mg/dL (65-99) H 10/28/17 05:02 POC Glucose (mg/dL) 147 mg/dL (65-99) H 10/28/17 05:38 Calcium 8.7 mg/dL (8.5-10.1) 10/28/17 05:02 Corrected Calcium 9.7 mg/dL (8.5-10.1) 10/28/17 05:02 Total Bilirubin 0.30 mg/dL (0.2-1.0) 10/28/17 05:02 AST 18 Units/L (15-37) 10/28/17 05:02 ALT 23 Units/L (12-78) 10/28/17 05:02 Alkaline Phosphatase 60 Units/L (46-116) 10/28/17 05:02 Total Protein 6.8 g/dL (6.4-8.2) 10/28/17 05:02 Albumin 2.8 g/dL (3.4-5.0) L 10/28/17 05:02 Globulin 4.0 g/dL (2.5-4.5) 10/28/17 05:02 Albumin/Globulin Ratio 0.7 Ratio (1.1-2.1) L 10/28/17 05:02 Specimen Type Catherized urine 10/27/17 15:27 Urine Color Yellow (YELLOW) 10/27/17 15:27 Urine Appearance Clear (CLEAR) 10/27/17 15:27 Urine pH 6.5 (5.0 - 8.0) 10/27/17 15:27 Ur Specific [place] 1.010 (1.000-1.030) 10/27/17 15:27 Urine Protein Negative (NEGATIVE) 10/27/17 15:27 Urine Glucose (UA) Negative (NEGATIVE) 10/27/17 15:27 Urine Ketones Negative (NEGATIVE) 10/27/17 15:27 Urine Occult Blood Negative (NEGATIVE) 10/27/17 15:27 Urine Nitrite Negative (NEGATIVE) 10/27/17 15:27 Urine Bilirubin Negative (NEGATIVE) 10/27/17 15:27 Urine Urobilinogen Normal (NORMAL) 10/27/17 15:27 Ur Leukocyte Esterase Negative (NEGATIVE) 10/27/17 15:27 - Plan (1) Bilateral lower extremity edema Status: Acute Plan: CONTINUE HOME MEDICATIONS, OBTAIN ECHO, CONTINUE TO MONITOR (2) Cellulitis of both lower extremities Status: Acute Plan: ZOSYN 3.375GM IV TID, VANCOMYCIN 1GM IV Q12H, WET TO DRY DRESSINGS WITH GENTAMYCIN BID, CONTINUE TO MONITOR (3) CHF (congestive heart failure) Status: Chronic Qualifiers: Qualified Code(s): I50.9 - Heart failure, unspecified Plan: CONTINUE LASIX, CONTINUE ALDACTONE, CONTINUE TO MONITOR (4) Hypothyroidism Status: Chronic Qualifiers: Hypothyroidism type: acquired Qualified Code(s): E03.9 - Hypothyroidism, unspecified Plan: CONTINUE SYNTHROID, CONTINUE TO MONITOR (5) History of MD (myocardial infarction) Status: Chronic Plan: CONTINUE PLAVIX, CONTINUE TO MONTIOR (6) COPD (chronic obstructive pulmonary disease) Status: Chronic Qualifiers: COPD type: emphysema Emphysema type: unspecified Qualified Code(s): J43.9 - Emphysema, unspecified Plan: CONTINUE HOME MEDICATIONS, CONTINUE TO MONITOR
[2017-10-28] MEDS: GENTAMICIN TOPICAL OINT EXT SCH (20:54)
[2017-10-29] MEDS: ULTRAM PO PRN ×2 (01:24→18:57)
[2017-10-29] MEDS: XANAX PO PRN ×2 (01:24→23:35)
[2017-10-29] MEDS: ZOSYN VIAL 3.375 GRAMS 3.375 G in NS 100 ML IV + SPIKE MINIBAG* 100 ML IV SCH ×3 (05:30→22:29)
[2017-10-29 06:18] LABS: BASOPHILS % (AUTO) 0.1 % (0.2-1.0); HEMATOCRIT 23.8 % (42.0-54.0); HEMOGLOBIN 8.1 g/dL (13.5-18.0); LYMPHOCYTES # (AUTO) 0.5 X10^3/uL (1.3-2.9); LYMPHOCYTES % (AUTO) 8.3 % (21.0-51.0); MEAN CORPUSCULAR HEMOGLOBIN 32.2 pg (27.0-34.0); MEAN CORPUSCULAR VOLUME 94.7 fL (80.0-100.0); MEAN PLATELET VOLUME 6.5 fL (7.4-11.0); MONOCYTES # (AUTO) 0.4 x10^3/uL (0.3-0.8); MONOCYTES % (AUTO) 6.2 % (0.0-13.0); NEUTROPHILS # (AUTO) 5.6 x10^3/uL (2.2-4.8); NEUTROPHILS % (AUTO) 85.4 % (42.0-75.0); PLATELET COUNT 322 X10^3/uL (150.0-450.0); RED BLOOD COUNT 2.51 X10^6/uL (4.7-6.0); RED CELL DISTRIBUTION WIDTH 18.4 % (11.6-16.5); WHITE BLOOD COUNT 6.5 X10^3/uL (3.6-10.0)
[2017-10-29 06:33] LABS: ALANINE AMINOTRANSFERASE 27 Units/L (12-78); ALBUMIN 2.6 g/dL (3.4-5.0); ALKALINE PHOSPHATASE 58 Units/L (46-116); ASPARTATE AMINO TRANSFERASE 22 Units/L (15-37); BLOOD UREA NITROGEN 23 mg/dL (7-18); CALCIUM 8.6 mg/dL (8.5-10.1); CARBON DIOXIDE 24.9 mmol/L (21-32); CHLORIDE 99 mmol/L (98-107); COR CA(FOR HYPOALB) 9.7 mg/dL (8.5-10.1); COR NA(FOR HYPERGLY) 134 mmol/L (136-145); SODIUM 133 mmol/L (136-145); eGFR NON BLACK RACES > 60 (>60)
[2017-10-29] MEDS: REQUIP PO SCH ×2 (09:18→20:56)
[2017-10-29] MEDS: DECADRON TAB PO SCH (09:18)
[2017-10-29] MEDS: LASIX PO SCH ×2 (09:18→20:56)
[2017-10-29] MEDS: ALDACTONE TAB 25 MG PO SCH (09:18)
[2017-10-29] MEDS: GENTAMICIN TOPICAL OINT EXT SCH (09:19)
[2017-10-29] MEDS: GENTAMICIN TOPICAL CRM TOP SCH ×2 (09:19→20:56)
[2017-10-29] MEDS: VANCOMYCIN HCL 1 GM VIAL 1 G in D5W 250 ML IV 250 ML IV SCH ×2 (09:20→21:06)
[2017-10-29] MEDS: PLAVIX PO SCH (09:21)
[2017-10-29] MEDS: SYNTHROID 75 mcg TAB PO SCH (15:34)
[2017-10-29] MEDS: IMATINIB 400 MG PO SCH (15:34)
--- NOTE | 2017-10-29 19:49 | PCM.PROG ---
Progress Note - Progress Note for Day of Date: 10/29/17 - Subjective Subjective: WAS ADMITTED FOR BILATERAL LOWER EXTREMITY CELLULITIS AND EDEMA. TODAY, HE IS ALERT AND ORIENTED, LYING IN BED ON MORNING ROUNDS. HE CONTINUES WITH PAIN TO BILATERAL LOWER EXTREMITIES. ON EXAMINATION, HEART IS REGULAR IN RATE AND RHYTHM. BILATERAL LUNGS ARE NOTED WITH DIMINISHED LUNG SOUNDS THROUGHOUT. ABDOMEN IS ROUND, SOFT, AND NON-TENDER WITH NORMAL BOWEL SOUNDS NOTED IN ALL QUADRANTS. BILATERAL LOWER EXTREMITIES CONTINUE WITH ERYTHEMA, EDEMA, AND SCATTERED BLISTERS TO LOWER LEGS. HIS VITALS THIS MORNING ARE 97.8-73-18-95%-128/63. LABS WERE OBTAINED. ABNORMAL LAB VALUES INCLUDE THE FOLLOWING: RBC 2.71, HGB 8.8, HCT 25.9, SODIUM 135, BUN 19, CREATININE 1.41, GLUCOSE 139, ALBUMIN 2.8. WOUND CULTURES ARE PENDING. PRELIMINARY CULTURES REPORT GROWTH OF GRAM POSITIVE COCCI AND COAGULASE NEGATIVE STAPH WITH GRAM NEGATIVE RODS AND BACILLUS SPECIES. TODAY, WE WILL ORDER FOR WET TO DRY DRESSINGS TO BE APPLIED TWICE A DAY, GENTAMYCIN OINTMENT TWICE A DAY, AND VANCOMYCIN 1GM IV Q12H. OTHERWISE, WE WILL FOLLOW UP WITH AM LABS AND CONTINUE TO MONITOR PATIENT. - Past Medical Family Social History Past Med/Fam/Surg Hx: No changes since H&P Allergies: Allergies promethazine [From Phenergan] Adverse Reaction (Verified 12/11/16 00:54) - Review of Systems ROS: No change since H&P - Vital Signs and I&O's Vital Signs: Temperature 97.3 F Pulse Rate [Left Brachial] 73 Respiratory Rate 20 Blood Pressure [Right Arm] 156/70 Blood Pressure [Left Arm] 120/58 Blood Pressure 138/69 O2 Sat by Pulse Oximetry 96 Intake and Output: Intake & Output 10/27/17 10/28/17 10/29/17 10/30/17 11:59 11:59 11:59 11:59 Intake Total 640 / 640 2150 / 2150 2745 / 2745 1311 / 1311 Output Total 250 / 250 3800 / 3800 2750 / 2750 1300 / 1300 Balance 390 / 390 -1650 / -1650 -5 / -5 - Physical Exam Oriented: Normal Eyes: Normal Ear: Normal Nose: Normal Throat: Normal Respiratory: Generalized, Diminished Cardiovascular: Edema (LOWER EXTREMITIES ) : Normal Auscultation: Bowel Sounds: Normal Tenderness: Normal Skin: Vesicular, Red, Tender, Hot, Wound Musculoskeletal: Right, Left, Leg, Swelling, Tender Psychiatric: Normal Mood Description: Calm, Happy Affect: Normal Speech Pattern: Clear, Appropriate - Laboratory and Diagnostics Result Diagrams: 10/29/17 05:19 10/29/17 05:19 Labs: 10/26/17 16:35 Blood Blood Culture - Preliminary 10/26/17 16:21 Blood Blood Culture - Preliminary 10/27/17 11:57 Leg - Right Wound Culture - Preliminary 10/27/17 11:57 Leg - Left Wound Culture - Preliminary 10/26/17 16:21 Leg - Left Gram Stain - Final 10/26/17 16:21 Leg - Left Wound Culture - Preliminary 10/26/17 16:21 Leg - Right Gram Stain - Final 10/26/17 16:21 Leg - Right Wound Culture - Preliminary Laboratory WBC 6.5 X10^3/uL (3.6-10.0) 10/29/17 05:19 RBC 2.51 X10^6/uL (4.7-6.0) L 10/29/17 05:19 Hgb 8.1 g/dL (13.5-18.0) L 10/29/17 05:19 Hct 23.8 % (42.0-54.0) L 10/29/17 05:19 MCV 94.7 fL (80.0-100.0) 10/29/17 05:19 MCH 32.2 pg (27.0-34.0) 10/29/17 05:19 MCHC 34.0 g/dL (33.0-35.0) 10/29/17 05:19 RDW 18.4 % (11.6-16.5) H 10/29/17 05:19 Plt Count 322 X10^3/uL (150.0-450.0) 10/29/17 05:19 Plt Count Comment Cancelled 10/29/17 05:19 MPV 6.5 fL (7.4-11.0) L 10/29/17 05:19 Neut % (Auto) 85.4 % (42.0-75.0) H 10/29/17 05:19 Lymph % (Auto) 8.3 % (21.0-51.0) L 10/29/17 05:19 [place] % (Auto) 6.2 % (0.0-13.0) 10/29/17 05:19 Eos % (Auto) 0.0 % (0.9-2.9) L 10/29/17 05:19 Baso % (Auto) 0.1 % (0.2-1.0) L 10/29/17 05:19 Neut # (Auto) 5.6 x10^3/uL (2.2-4.8) H 10/29/17 05:19 Lymph # (Auto) 0.5 X10^3/uL (1.3-2.9) L 10/29/17 05:19 [place] # (Auto) 0.4 x10^3/uL (0.3-0.8) 10/29/17 05:19 Eos # (Auto) 0.0 x10^3/uL (0.0-0.2) 10/29/17 05:19 Baso # (Auto) 0.0 X10^3/uL (0.0-0.1) 10/29/17 05:19 Absolute Nucleated RBC 0.0 /100WBC 10/29/17 05:19 Nucleated RBCs Cancelled 10/29/17 05:19 Atypical Lymphocytes Cancelled 10/29/17 05:19 Blast Cells Cancelled 10/29/17 05:19 Smudge Cells Cancelled 10/29/17 05:19 Toxic Granulation Cancelled 10/29/17 05:19 Dohle Bodies Cancelled 10/29/17 05:19 Nichelle Rods Cancelled 10/29/17 05:19 Plt Clumps, EDTA Cancelled 10/29/17 05:19 Giant Platelets Cancelled 10/29/17 05:19 Plt Morphology Comment Cancelled 10/29/17 05:19 RBC Morphology Cancelled 10/29/17 05:19 Dimorphic RBCs Cancelled 10/29/17 05:19 Polychromasia Cancelled 10/29/17 05:19 Hypochromasia Cancelled 10/29/17 05:19 Poikilocytosis Cancelled 10/29/17 05:19 Basophilic Stippling Cancelled 10/29/17 05:19 Anisocytosis Cancelled 10/29/17 05:19 Microcytosis Cancelled 10/29/17 05:19 Macrocytosis Cancelled 10/29/17 05:19 Spherocytes Cancelled 10/29/17 05:19 Pappenheimer Bodies Cancelled 10/29/17 05:19 Sickle Cells Cancelled 10/29/17 05:19 Target Cells Cancelled 10/29/17 05:19 Tear Drop Cells Cancelled 10/29/17 05:19 Ovalocytes Cancelled 10/29/17 05:19 Stomatocytes Cancelled 10/29/17 05:19 Helmet Cells Cancelled 10/29/17 05:19 [place] Bodies Cancelled 10/29/17 05:19 [place] Rings Cancelled 10/29/17 05:19 [place] Cells Cancelled 10/29/17 05:19 Crenated Cell Cancelled 10/29/17 05:19 Acanthocytes (Spur) Cancelled 10/29/17 05:19 Rouleaux Cancelled 10/29/17 05:19 Schistocytes Cancelled 10/29/17 05:19 Sodium 133 mmol/L (136-145) L 10/29/17 05:19 Corrected Sodium 134 mmol/L (136-145) L 10/29/17 05:19 Potassium 3.9 mmol/L (3.5-5.1) 10/29/17 05:19 Chloride 99 mmol/L (98-107) 10/29/17 05:19 Carbon Dioxide 24.9 mmol/L (21-32) 10/29/17 05:19 BUN 23 mg/dL (7-18) H 10/29/17 05:19 Creatinine 1.20 mg/dL (0.70-1.30) 10/29/17 05:19 Est GFR (MDRD) Af Amer > 60 (>60) 10/29/17 05:19 Est GFR (MDRD) Non-Af > 60 (>60) 10/29/17 05:19 Glucose 135 mg/dL (65-99) H 10/29/17 05:19 POC Glucose (mg/dL) 147 mg/dL (65-99) H 10/28/17 05:38 Calcium 8.6 mg/dL (8.5-10.1) 10/29/17 05:19 Corrected Calcium 9.7 mg/dL (8.5-10.1) 10/29/17 05:19 Total Bilirubin 0.20 mg/dL (0.2-1.0) 10/29/17 05:19 AST 22 Units/L (15-37) 10/29/17 05:19 ALT 27 Units/L (12-78) 10/29/17 05:19 Alkaline Phosphatase 58 Units/L (46-116) 10/29/17 05:19 Total Protein 6.0 g/dL (6.4-8.2) L 10/29/17 05:19 Albumin 2.6 g/dL (3.4-5.0) L 10/29/17 05:19 Globulin 3.4 g/dL (2.5-4.5) 10/29/17 05:19 Albumin/Globulin Ratio 0.8 Ratio (1.1-2.1) L 10/29/17 05:19 Specimen Type Catherized urine 10/27/17 15:27 Urine Color Yellow (YELLOW) 10/27/17 15:27 Urine Appearance Clear (CLEAR) 10/27/17 15:27 Urine pH 6.5 (5.0 - 8.0) 10/27/17 15:27 Ur Specific [place] 1.010 (1.000-1.030) 10/27/17 15:27 Urine Protein Negative (NEGATIVE) 10/27/17 15:27 Urine Glucose (UA) Negative (NEGATIVE) 10/27/17 15:27 Urine Ketones Negative (NEGATIVE) 10/27/17 15:27 Urine Occult Blood Negative (NEGATIVE) 10/27/17 15:27 Urine Nitrite Negative (NEGATIVE) 10/27/17 15:27 Urine Bilirubin Negative (NEGATIVE) 10/27/17 15:27 Urine Urobilinogen Normal (NORMAL) 10/27/17 15:27 Ur Leukocyte Esterase Negative (NEGATIVE) 10/27/17 15:27 - Plan (1) Bilateral lower extremity edema Status: Acute Plan: CONTINUE HOME MEDICATIONS, OBTAIN ECHO, CONTINUE TO MONITOR (2) Cellulitis of both lower extremities Status: Acute Plan: ZOSYN 3.375GM IV TID, VANCOMYCIN 1GM IV Q12H, WET TO DRY DRESSINGS WITH GENTAMYCIN BID, CONTINUE TO MONITOR (3) CHF (congestive heart failure) Status: Chronic Qualifiers: Qualified Code(s): I50.9 - Heart failure, unspecified Plan: CONTINUE LASIX, CONTINUE ALDACTONE, CONTINUE TO MONITOR (4) Hypothyroidism Status: Chronic Qualifiers: Hypothyroidism type: acquired Qualified Code(s): E03.9 - Hypothyroidism, unspecified Plan: CONTINUE SYNTHROID, CONTINUE TO MONITOR (5) History of CO (myocardial infarction) Status: Chronic Plan: CONTINUE PLAVIX, CONTINUE TO MONTIOR (6) COPD (chronic obstructive pulmonary disease) Status: Chronic Qualifiers: COPD type: emphysema Emphysema type: unspecified Qualified Code(s): J43.9 - Emphysema, unspecified Plan: CONTINUE HOME MEDICATIONS, CONTINUE TO MONITOR
[2017-10-29 20:28] LABS: CREATININE 1.37 mg/dL (0.70-1.30); VANCOMYCIN,TROUGH 15.8 ug/mL (15-20)
[2017-10-29] MEDS ORDERED: PHARMACY COMMENT IV NR (20:30)
[2017-10-29] MEDS: MORPHINE SULFATE INJ 2 MG INJ IVP PRN (23:35)
[2017-10-30] MEDS: NS 500 ML IV 500 ML IV SCH ×2 (05:23→16:09)
[2017-10-30] MEDS: ZOSYN VIAL 3.375 GRAMS 3.375 G in NS 100 ML IV + SPIKE MINIBAG* 100 ML IV SCH ×3 (05:24→21:09)
[2017-10-30 05:26] LABS: BASOPHILS % (AUTO) 0.1 % (0.2-1.0); HEMOGLOBIN 8.4 g/dL (13.5-18.0); LYMPHOCYTES # (AUTO) 0.5 X10^3/uL (1.3-2.9); LYMPHOCYTES % (AUTO) 7.2 % (21.0-51.0); MEAN CORPUSCULAR HEMOGLOBIN 32.1 pg (27.0-34.0); MEAN CORPUSCULAR HGB CONC 33.7 g/dL (33.0-35.0); MEAN CORPUSCULAR VOLUME 95.4 fL (80.0-100.0); MEAN PLATELET VOLUME 6.6 fL (7.4-11.0); MONOCYTES # (AUTO) 0.5 x10^3/uL (0.3-0.8); MONOCYTES % (AUTO) 7.2 % (0.0-13.0); NEUTROPHILS # (AUTO) 5.8 x10^3/uL (2.2-4.8); NEUTROPHILS % (AUTO) 85.5 % (42.0-75.0); PLATELET COUNT 351 X10^3/uL (150.0-450.0); RED BLOOD COUNT 2.62 X10^6/uL (4.7-6.0); RED CELL DISTRIBUTION WIDTH 18.8 % (11.6-16.5); WHITE BLOOD COUNT 6.8 X10^3/uL (3.6-10.0)
[2017-10-30 06:02] LABS: ALANINE AMINOTRANSFERASE 37 Units/L (12-78); ALBUMIN 2.6 g/dL (3.4-5.0); ALKALINE PHOSPHATASE 65 Units/L (46-116); ASPARTATE AMINO TRANSFERASE 25 Units/L (15-37); BLOOD UREA NITROGEN 28 mg/dL (7-18); CALCIUM 8.5 mg/dL (8.5-10.1); CARBON DIOXIDE 25.2 mmol/L (21-32); CHLORIDE 101 mmol/L (98-107); COR CA(FOR HYPOALB) 9.6 mg/dL (8.5-10.1); COR NA(FOR HYPERGLY) 136 mmol/L (136-145); CREATININE 1.19 mg/dL (0.70-1.30); SODIUM 135 mmol/L (136-145); eGFR NON BLACK RACES > 60 (>60)
[2017-10-30] MEDS: VANCOMYCIN HCL 1 GM VIAL 1 G in D5W 250 ML IV 250 ML IV SCH ×2 (09:49→21:06)
[2017-10-30] MEDS: DECADRON TAB PO SCH (09:50)
[2017-10-30] MEDS: REQUIP PO SCH ×2 (09:50→21:06)
[2017-10-30] MEDS: ALDACTONE TAB 25 MG PO SCH (09:50)
[2017-10-30] MEDS: PLAVIX PO SCH (09:51)
[2017-10-30] MEDS: LASIX PO SCH ×2 (09:52→21:07)
[2017-10-30] MEDS: GENTAMICIN TOPICAL CRM TOP SCH ×2 (09:52→21:07)
[2017-10-30] MEDS: MORPHINE SULFATE INJ 2 MG INJ IVP PRN ×2 (15:40→23:01)
[2017-10-30] MEDS ORDERED: NS IRRIGATION 500 ML IR ONE (15:44)
[2017-10-30] MEDS: SYNTHROID 75 mcg TAB PO SCH (16:09)
[2017-10-30] MEDS: IMATINIB 400 MG PO SCH (16:32)
[2017-10-30] MEDS: ULTRAM PO PRN (19:22)
[2017-10-30] MEDS: COLACE CAP 100 MG PO SCH (21:06)
[2017-10-30] MEDS: NORCO 10/325 TAB PO PRN (21:08)
[2017-10-30] MEDS: MILK OF MAGNESIA PO SCH (21:08)
[2017-10-30] MEDS: XANAX PO PRN (23:01)
[2017-10-30] MEDS ORDERED: STERILE WATER IRRIGATION IR ONE (23:17)
[2017-10-31] MEDS: NORCO 10/325 TAB PO PRN ×3 (02:10→19:17)
[2017-10-31] MEDS: ZOSYN VIAL 3.375 GRAMS 3.375 G in NS 100 ML IV + SPIKE MINIBAG* 100 ML IV SCH (05:18)
[2017-10-31] MEDS: MORPHINE SULFATE INJ 2 MG INJ IVP PRN ×2 (05:20→22:10)
[2017-10-31 06:57] LABS: BASOPHILS % (AUTO) 0.3 % (0.2-1.0); EOSINOPHILS % (AUTO) 0.1 % (0.9-2.9); HEMATOCRIT 28.6 % (42.0-54.0); HEMOGLOBIN 9.6 g/dL (13.5-18.0); LYMPHOCYTES # (AUTO) 0.7 X10^3/uL (1.3-2.9); LYMPHOCYTES % (AUTO) 10.5 % (21.0-51.0); MEAN CORPUSCULAR HEMOGLOBIN 32.1 pg (27.0-34.0); MEAN CORPUSCULAR HGB CONC 33.8 g/dL (33.0-35.0); MEAN CORPUSCULAR VOLUME 94.9 fL (80.0-100.0); MEAN PLATELET VOLUME 6.6 fL (7.4-11.0); MONOCYTES # (AUTO) 0.6 x10^3/uL (0.3-0.8); MONOCYTES % (AUTO) 8.3 % (0.0-13.0); NEUTROPHILS # (AUTO) 5.4 x10^3/uL (2.2-4.8); NEUTROPHILS % (AUTO) 80.8 % (42.0-75.0); PLATELET COUNT 418 X10^3/uL (150.0-450.0); RED BLOOD COUNT 3.01 X10^6/uL (4.7-6.0); RED CELL DISTRIBUTION WIDTH 18.8 % (11.6-16.5); WHITE BLOOD COUNT 6.7 X10^3/uL (3.6-10.0)
[2017-10-31 07:18] LABS: ALANINE AMINOTRANSFERASE 50 Units/L (12-78); ALBUMIN 2.8 g/dL (3.4-5.0); ALKALINE PHOSPHATASE 66 Units/L (46-116); ASPARTATE AMINO TRANSFERASE 29 Units/L (15-37); BLOOD UREA NITROGEN 27 mg/dL (7-18); CARBON DIOXIDE 30.1 mmol/L (21-32); CHLORIDE 101 mmol/L (98-107); COR NA(FOR HYPERGLY) 136 mmol/L (136-145); CREATININE 1.13 mg/dL (0.70-1.30); SODIUM 135 mmol/L (136-145); TOTAL PROTEIN 6.5 g/dL (6.4-8.2); eGFR NON BLACK RACES > 60 (>60)
--- NOTE | 2017-10-31 07:28 | RAD ---
Examination: AP chest History: SOB Comparison reference 10/26/2017 Findings: Continued normal heart size. No acute consolidation, pulmonary edema or pleural fluid. Admissions Coordinator maria g pleural-parenchymal scarring right chest, as before. Impression: No change; no acute findings. Reported By:
[2017-10-31 07:34] LABS: B-TYPE NATRIURETIC PEPTIDE 490 pg/mL (0-79)
[2017-10-31] MEDS ORDERED: PHARMACY CONSULT - DOSE _____ XX SCH (08:00)
[2017-10-31] MEDS ORDERED: MERREM VIAL ONE (09:43)
[2017-10-31] MEDS: LASIX PO SCH ×2 (09:50→22:09)
[2017-10-31] MEDS: DECADRON TAB PO SCH (09:50)
[2017-10-31] MEDS: ALDACTONE TAB 25 MG PO SCH (09:50)
[2017-10-31] MEDS: PLAVIX PO SCH (09:51)
[2017-10-31] MEDS: REQUIP PO SCH ×2 (09:51→22:10)
[2017-10-31] MEDS: MILK OF MAGNESIA PO SCH ×2 (09:52→22:09)
[2017-10-31] MEDS: BACTRIM DS TAB PO SCH ×2 (09:52→22:09)
[2017-10-31] MEDS: GENTAMICIN TOPICAL CRM TOP SCH ×2 (09:52→22:09)
[2017-10-31] MEDS: MERREM VIAL 1 G in NS 100 ML IV + SPIKE MINIBAG* 100 ML IV SCH ×2 (10:53→22:10)
--- NOTE | 2017-10-31 14:50 | PCM.PROG ---
Progress Note - Progress Note for Day of Date: 10/30/17 - Subjective Subjective: WAS ADMITTED FOR BILATERAL LOWER EXTREMITY CELLULITIS AND EDEMA. TODAY, HE IS ALERT AND ORIENTED, LYING IN BED ON MORNING ROUNDS. HE CONTINUES WITH PAIN TO BILATERAL LOWER EXTREMITIES. HE ALSO REPORTS SHORTNESS OF BREATH. ON EXAMINATION, HEART IS REGULAR IN RATE AND RHYTHM. BILATERAL LUNGS ARE NOTED WITH DIMINISHED LUNG SOUNDS THROUGHOUT. ABDOMEN IS ROUND, SOFT, AND NON-TENDER WITH NORMAL BOWEL SOUNDS NOTED IN ALL QUADRANTS. BILATERAL LOWER EXTREMITIES CONTINUE WITH ERYTHEMA, EDEMA. DRESSINGS TO WOUNDS ARE NOTED TO BE DRY AND INTACT. HIS VITALS THIS MORNING ARE 96.9-80-20-98%-118/56. LABS WERE OBTAINED. ABNORMAL LAB VALUES INCLUDE THE FOLLOWING: RBC 2.62, HGB 8.4, HCT 25.0 , SODIUM 135, BUN 28, GLUCOSE 143, TOTAL PROTEIN 6.0, ALBUMIN 2.6. WOUND CULTURES ARE PENDING. PRELIMINARY CULTURES REPORT GROWTH OF GRAM POSITIVE COCCI AND COAGULASE NEGATIVE STAPH WITH GRAM NEGATIVE RODS AND BACILLUS SPECIES. TODAY , WE WILL CONTINUE WITH CURRENT PLAN OF CARE. OTHERWISE, WE WILL FOLLOW UP WITH AM LABS AND CHEST XRAY AND CONTINUE TO MONITOR PATIENT. - Past Medical Family Social History Past Med/Fam/Surg Hx: No changes since H&P Allergies: Allergies promethazine [From Phenergan] Adverse Reaction (Verified 12/11/16 00:54) - Review of Systems ROS: No change since H&P - Vital Signs and I&O's Vital Signs: Temperature 97.6 F Pulse Rate [Right Brachial] 69 Pulse Rate [Left Brachial] 75 Respiratory Rate 20 Blood Pressure [Right Arm] 128/59 Blood Pressure [Left Arm] 123/57 Blood Pressure 138/69 O2 Sat by Pulse Oximetry 92 Intake and Output: Intake & Output 10/29/17 10/30/17 10/31/17 11/01/17 11:59 11:59 11:59 11:59 Intake Total 2745 / 2745 2671 / 2671 1979 / 1979 Output Total 2750 / 2750 3300 / 3300 4500 / 4500 Balance -5 / -5 -629 / -629 -2520 / -2520 - Physical Exam Oriented: Normal Eyes: Normal Ear: Normal Nose: Normal Throat: Normal Respiratory: Generalized, Diminished Cardiovascular: Edema (LOWER EXTREMITIES ) : Normal Auscultation: Bowel Sounds: Normal Palpation: Normal Tenderness: Normal Skin: Vesicular, Red, Tender, Hot, Wound Musculoskeletal: Right, Left, Leg, Swelling, Tender Psychiatric: Normal Mood Description: Calm Affect: Normal Speech Pattern: Clear, Appropriate - Laboratory and Diagnostics Result Diagrams: 10/31/17 05:30 10/31/17 05:30 Labs: 10/27/17 11:57 Leg - Right Wound Culture - Final Empedobacter(F) Brevis 10/27/17 11:57 Leg - Left Wound Culture - Final Acinetobacter Lwoffii 10/26/17 16:21 Leg - Left Gram Stain - Final 10/26/17 16:21 Leg - Left Wound Culture - Final Pseudomonas Fluorescens/[place] 10/26/17 16:21 Leg - Right Gram Stain - Final 10/26/17 16:21 Leg - Right Wound Culture - Final Acinetobacter Lwoffii 10/26/17 16:35 Blood Blood Culture - Preliminary 10/26/17 16:21 Blood Blood Culture - Preliminary Laboratory WBC 6.7 X10^3/uL (3.6-10.0) 10/31/17 05:30 RBC 3.01 X10^6/uL (4.7-6.0) L 10/31/17 05:30 Hgb 9.6 g/dL (13.5-18.0) L 10/31/17 05:30 Hct 28.6 % (42.0-54.0) L 10/31/17 05:30 MCV 94.9 fL (80.0-100.0) 10/31/17 05:30 MCH 32.1 pg (27.0-34.0) 10/31/17 05:30 MCHC 33.8 g/dL (33.0-35.0) 10/31/17 05:30 RDW 18.8 % (11.6-16.5) H 10/31/17 05:30 Plt Count 418 X10^3/uL (150.0-450.0) 10/31/17 05:30 Plt Count Comment Cancelled 10/29/17 05:19 MPV 6.6 fL (7.4-11.0) L 10/31/17 05:30 Neut % (Auto) 80.8 % (42.0-75.0) H 10/31/17 05:30 Lymph % (Auto) 10.5 % (21.0-51.0) L 10/31/17 05:30 [place] % (Auto) 8.3 % (0.0-13.0) 10/31/17 05:30 Eos % (Auto) 0.1 % (0.9-2.9) L 10/31/17 05:30 Baso % (Auto) 0.3 % (0.2-1.0) 10/31/17 05:30 Neut # (Auto) 5.4 x10^3/uL (2.2-4.8) H 10/31/17 05:30 Lymph # (Auto) 0.7 X10^3/uL (1.3-2.9) L 10/31/17 05:30 [place] # (Auto) 0.6 x10^3/uL (0.3-0.8) 10/31/17 05:30 Eos # (Auto) 0.0 x10^3/uL (0.0-0.2) 10/31/17 05:30 Baso # (Auto) 0.0 X10^3/uL (0.0-0.1) 10/31/17 05:30 Absolute Nucleated RBC 0.2 /100WBC 10/31/17 05:30 Nucleated RBCs Cancelled 10/29/17 05:19 Atypical Lymphocytes Cancelled 10/29/17 05:19 Blast Cells Cancelled 10/29/17 05:19 Smudge Cells Cancelled 10/29/17 05:19 Toxic Granulation Cancelled 10/29/17 05:19 Dohle Bodies Cancelled 10/29/17 05:19 Nichelle Rods Cancelled 10/29/17 05:19 Plt Clumps, EDTA Cancelled 10/29/17 05:19 Giant Platelets Cancelled 10/29/17 05:19 Plt Morphology Comment Cancelled 10/29/17 05:19 RBC Morphology Cancelled 10/29/17 05:19 Dimorphic RBCs Cancelled 10/29/17 05:19 Polychromasia Cancelled 10/29/17 05:19 Hypochromasia Cancelled 10/29/17 05:19 Poikilocytosis Cancelled 10/29/17 05:19 Basophilic Stippling Cancelled 10/29/17 05:19 Anisocytosis Cancelled 10/29/17 05:19 Microcytosis Cancelled 10/29/17 05:19 Macrocytosis Cancelled 10/29/17 05:19 Spherocytes Cancelled 10/29/17 05:19 Pappenheimer Bodies Cancelled 10/29/17 05:19 Sickle Cells Cancelled 10/29/17 05:19 Target Cells Cancelled 10/29/17 05:19 Tear Drop Cells Cancelled 10/29/17 05:19 Ovalocytes Cancelled 10/29/17 05:19 Stomatocytes Cancelled 10/29/17 05:19 Helmet Cells Cancelled 10/29/17 05:19 [place] Bodies Cancelled 10/29/17 05:19 [place] Rings Cancelled 10/29/17 05:19 [place] Cells Cancelled 10/29/17 05:19 Crenated Cell Cancelled 10/29/17 05:19 Acanthocytes (Spur) Cancelled 10/29/17 05:19 Rouleaux Cancelled 10/29/17 05:19 Schistocytes Cancelled 10/29/17 05:19 Sodium 135 mmol/L (136-145) L 10/31/17 05:30 Corrected Sodium 136 mmol/L (136-145) 10/31/17 05:30 Potassium 4.6 mmol/L (3.5-5.1) 10/31/17 05:30 Chloride 101 mmol/L (98-107) 10/31/17 05:30 Carbon Dioxide 30.1 mmol/L (21-32) 10/31/17 05:30 BUN 27 mg/dL (7-18) H 10/31/17 05:30 Creatinine 1.13 mg/dL (0.70-1.30) 10/31/17 05:30 Est GFR (MDRD) Af Amer > 60 (>60) 10/31/17 05:30 Est GFR (MDRD) Non-Af > 60 (>60) 10/31/17 05:30 Glucose 148 mg/dL (65-99) H 10/31/17 05:30 POC Glucose (mg/dL) 147 mg/dL (65-99) H 10/28/17 05:38 Calcium 9.0 mg/dL (8.5-10.1) 10/31/17 05:30 Corrected Calcium 10.0 mg/dL (8.5-10.1) 10/31/17 05:30 Total Bilirubin 0.20 mg/dL (0.2-1.0) 10/31/17 05:30 AST 29 Units/L (15-37) 10/31/17 05:30 ALT 50 Units/L (12-78) 10/31/17 05:30 Alkaline Phosphatase 66 Units/L (46-116) 10/31/17 05:30 B-Natriuretic Peptide 490 pg/mL (0-79) H 10/31/17 05:30 Total Protein 6.5 g/dL (6.4-8.2) 10/31/17 05:30 Albumin 2.8 g/dL (3.4-5.0) L 10/31/17 05:30 Globulin 3.7 g/dL (2.5-4.5) 10/31/17 05:30 Albumin/Globulin Ratio 0.8 Ratio (1.1-2.1) L 10/31/17 05:30 Specimen Type Catherized urine 10/27/17 15:27 Urine Color Yellow (YELLOW) 10/27/17 15:27 Urine Appearance Clear (CLEAR) 10/27/17 15:27 Urine pH 6.5 (5.0 - 8.0) 10/27/17 15:27 Ur Specific [place] 1.010 (1.000-1.030) 10/27/17 15:27 Urine Protein Negative (NEGATIVE) 10/27/17 15:27 Urine Glucose (UA) Negative (NEGATIVE) 10/27/17 15:27 Urine Ketones Negative (NEGATIVE) 10/27/17 15:27 Urine Occult Blood Negative (NEGATIVE) 10/27/17 15:27 Urine Nitrite Negative (NEGATIVE) 10/27/17 15:27 Urine Bilirubin Negative (NEGATIVE) 10/27/17 15:27 Urine Urobilinogen Normal (NORMAL) 10/27/17 15:27 Ur Leukocyte Esterase Negative (NEGATIVE) 10/27/17 15:27 Vancomycin Trough 15.8 ug/mL (15-20) 10/29/17 19:59 - Plan (1) Bilateral lower extremity edema Status: Acute Plan: CONTINUE HOME MEDICATIONS, OBTAIN ECHO, CONTINUE TO MONITOR (2) Cellulitis of both lower extremities Status: Acute Plan: ZOSYN 3.375GM IV TID, VANCOMYCIN 1GM IV Q12H, WET TO DRY DRESSINGS WITH GENTAMYCIN BID, CONTINUE TO MONITOR (3) CHF (congestive heart failure) Status: Chronic Qualifiers: Qualified Code(s): I50.9 - Heart failure, unspecified Plan: CONTINUE LASIX, CONTINUE ALDACTONE, CONTINUE TO MONITOR (4) Hypothyroidism Status: Chronic Qualifiers: Hypothyroidism type: acquired Qualified Code(s): E03.9 - Hypothyroidism, unspecified Plan: CONTINUE SYNTHROID, CONTINUE TO MONITOR (5) History of [place] (myocardial infarction) Status: Chronic Plan: CONTINUE PLAVIX, CONTINUE TO MONTIOR (6) COPD (chronic obstructive pulmonary disease) Status: Chronic Qualifiers: COPD type: emphysema Emphysema type: unspecified Qualified Code(s): J43.9 - Emphysema, unspecified Plan: CONTINUE HOME MEDICATIONS, CONTINUE TO MONITOR
[2017-10-31] MEDS: SYNTHROID 75 mcg TAB PO SCH (16:22)
[2017-10-31] MEDS: IMATINIB 400 MG PO SCH (16:22)
[2017-10-31] MEDS: COLACE CAP 100 MG PO SCH (22:09)
[2017-11-01] MEDS: MORPHINE SULFATE INJ 2 MG INJ IVP PRN ×3 (03:12→20:40)
[2017-11-01 06:12] LABS: BASOPHILS % (AUTO) 0.3 % (0.2-1.0); HEMATOCRIT 30.1 % (42.0-54.0); LYMPHOCYTES # (AUTO) 0.8 X10^3/uL (1.3-2.9); LYMPHOCYTES % (AUTO) 12.4 % (21.0-51.0); MEAN CORPUSCULAR HEMOGLOBIN 31.8 pg (27.0-34.0); MEAN CORPUSCULAR HGB CONC 33.2 g/dL (33.0-35.0); MEAN PLATELET VOLUME 6.5 fL (7.4-11.0); MONOCYTES # (AUTO) 0.5 x10^3/uL (0.3-0.8); MONOCYTES % (AUTO) 7.5 % (0.0-13.0); NEUTROPHILS % (AUTO) 79.8 % (42.0-75.0); PLATELET COUNT 401 X10^3/uL (150.0-450.0); RED BLOOD COUNT 3.13 X10^6/uL (4.7-6.0); RED CELL DISTRIBUTION WIDTH 18.7 % (11.6-16.5); WHITE BLOOD COUNT 6.3 X10^3/uL (3.6-10.0)
[2017-11-01 06:29] LABS: ALANINE AMINOTRANSFERASE 50 Units/L (12-78); ALBUMIN 2.8 g/dL (3.4-5.0); ALKALINE PHOSPHATASE 62 Units/L (46-116); BLOOD UREA NITROGEN 28 mg/dL (7-18); CALCIUM 8.6 mg/dL (8.5-10.1); CARBON DIOXIDE 30.4 mmol/L (21-32); CHLORIDE 99 mmol/L (98-107); COR CA(FOR HYPOALB) 9.6 mg/dL (8.5-10.1); COR NA(FOR HYPERGLY) 137 mmol/L (136-145); CREATININE 1.34 mg/dL (0.70-1.30); SODIUM 136 mmol/L (136-145); TOTAL PROTEIN 6.5 g/dL (6.4-8.2); eGFR NON BLACK RACES 55 (>60)
[2017-11-01 06:38] LABS: ASPARTATE AMINO TRANSFERASE 33 Units/L (15-37)
[2017-11-01] MEDS: LASIX PO SCH ×2 (09:40→20:41)
[2017-11-01] MEDS: REQUIP PO SCH ×2 (09:40→20:41)
[2017-11-01] MEDS: BACTRIM DS TAB PO SCH ×2 (09:41→20:41)
[2017-11-01] MEDS: PLAVIX PO SCH (09:41)
[2017-11-01] MEDS: ALDACTONE TAB 25 MG PO SCH (09:42)
[2017-11-01] MEDS: MILK OF MAGNESIA PO SCH ×2 (09:42→20:42)
[2017-11-01] MEDS: GENTAMICIN TOPICAL CRM TOP SCH ×2 (09:42→20:42)
[2017-11-01] MEDS: MERREM VIAL 1 G in NS 100 ML IV + SPIKE MINIBAG* 100 ML IV SCH ×2 (09:43→20:46)
[2017-11-01] MEDS: DECADRON TAB PO SCH (09:49)
[2017-11-01] MEDS: SYNTHROID 75 mcg TAB PO SCH (15:32)
[2017-11-01] MEDS: IMATINIB 400 MG PO SCH (15:33)
[2017-11-01] MEDS: NORCO 10/325 TAB PO PRN ×2 (15:33→23:56)
--- NOTE | 2017-11-01 16:36 | PCM.PROG ---
Progress Note - Progress Note for Day of Date: 10/31/17 - Subjective Subjective: WAS ADMITTED FOR BILATERAL LOWER EXTREMITY CELLULITIS AND EDEMA. TODAY, HIS ALERT AND ORIENTED, LYING IN BED ON MORNING ROUNDS. HE CONTINUES WITH PAIN TO BILATERAL LOWER EXTREMITIES, BUT REPORTS SLIGHT IMPROVEMENT SINCE YESTERDAY. HE STATES THAT SHORTNESS OF BREATH HAS ALSO IMPROVED SINCE YESTERDAY. ON EXAMINATION, HEART IS REGULAR IN RATE AND RHYTHM. BILATERAL LUNGS ARE NOTED WITH DIMINISHED LUNG SOUNDS THROUGHOUT. ABDOMEN IS ROUND, SOFT, AND NON-TENDER WITH NORMAL BOWEL SOUNDS NOTED IN ALL QUADRANTS. BILATERAL LOWER EXTREMITIES CONTINUE WITH ERYTHEMA, EDEMA. BILATERAL LEGS ARE OPEN TO AIR AT THIS TIME. HIS VITALS THIS MORNING ARE 97.9-69-2-97%-136/60. LABS WERE OBTAINED. ABNORMAL LAB VALUES INCLUDE THE FOLLOWING: RBC 3.01, HGB 9.6 , HCT 28.6, SODIUM 135, BUN 27, GLUCOSE 148, BNP 490, ALBUMIN 2.8.WOUND CULTURES REPORT GROWTH OF EMPEDOBACTER BREVIS, ACINETOBACTER LWOFFII, AND PSEUDOMONAS FLUORESCENS/PUTIDA. ALL ARE SENSITIVE TO MEROPENEM AND BACTRIM. WE WILL START THESE TODAY AND DISCONTINUE THE ZOSYN AND VANCOMYCIN. WE WILL ALSO DISCONTINUE WET TO DRY DRESSINGS TODAY. OTHERWISE, WE WILL FOLLOW UP WITH AM LABS AND CHEST XRAY AND CONTINUE TO MONITOR PATIENT. - Past Medical Family Social History Past Med/Fam/Surg Hx: No changes since H&P Allergies: Allergies promethazine [From Phenergan] Adverse Reaction (Verified 12/11/16 00:54) - Review of Systems ROS: No change since H&P - Vital Signs and I&O's Vital Signs: Temperature 97.5 F Pulse Rate [Right Brachial] 86 Pulse Rate [Left Brachial] 70 Respiratory Rate 20 Blood Pressure [Right Arm] 121/56 Blood Pressure [Left Arm] 138/66 Blood Pressure 138/69 O2 Sat by Pulse Oximetry 91 Intake and Output: Intake & Output 10/30/17 10/31/17 11/01/17 11/02/17 11:59 11:59 11:59 11:59 Intake Total 2671 / 2671 1979 / 1979 1760 / 1760 1829 / 1829 Output Total 3300 / 3300 4500 / 4500 3225 / 3225 1300 / 1300 Balance -629 / -629 -2520 / -2520 -1465 / -1465 529 / 529 - Physical Exam Oriented: Normal Eyes: Normal Ear: Normal Nose: Normal Throat: Normal Respiratory: Generalized, Diminished Cardiovascular: Edema (LOWER EXTREMITIES ) : Normal Auscultation: Bowel Sounds: Normal Palpation: Normal Tenderness: Normal Skin: Vesicular, Red, Tender, Hot, Wound Musculoskeletal: Right, Left, Leg, Swelling, Tender Psychiatric: Normal Mood Description: Calm Affect: Normal Speech Pattern: Clear, Appropriate - Laboratory and Diagnostics Result Diagrams: 11/01/17 05:27 11/01/17 05:27 Labs: 10/26/17 16:35 Blood Blood Culture - Final 10/26/17 16:21 Blood Blood Culture - Final 10/27/17 11:57 Leg - Right Wound Culture - Final Empedobacter(F) Brevis 10/27/17 11:57 Leg - Left Wound Culture - Final Acinetobacter Lwoffii 10/26/17 16:21 Leg - Left Gram Stain - Final 10/26/17 16:21 Leg - Left Wound Culture - Final Pseudomonas Fluorescens/[place] 10/26/17 16:21 Leg - Right Gram Stain - Final 10/26/17 16:21 Leg - Right Wound Culture - Final Acinetobacter Lwoffii Laboratory WBC 6.3 X10^3/uL (3.6-10.0) 11/01/17 05:27 RBC 3.13 X10^6/uL (4.7-6.0) L 11/01/17 05:27 Hgb 10.0 g/dL (13.5-18.0) L 11/01/17 05:27 Hct 30.1 % (42.0-54.0) L 11/01/17 05:27 MCV 96.0 fL (80.0-100.0) 11/01/17 05:27 MCH 31.8 pg (27.0-34.0) 11/01/17 05:27 MCHC 33.2 g/dL (33.0-35.0) 11/01/17 05:27 RDW 18.7 % (11.6-16.5) H 11/01/17 05:27 Plt Count 401 X10^3/uL (150.0-450.0) 11/01/17 05:27 Plt Count Comment Cancelled 10/29/17 05:19 MPV 6.5 fL (7.4-11.0) L 11/01/17 05:27 Neut % (Auto) 79.8 % (42.0-75.0) H 11/01/17 05:27 Lymph % (Auto) 12.4 % (21.0-51.0) L 11/01/17 05:27 [place] % (Auto) 7.5 % (0.0-13.0) 11/01/17 05:27 Eos % (Auto) 0.0 % (0.9-2.9) L 11/01/17 05:27 Baso % (Auto) 0.3 % (0.2-1.0) 11/01/17 05:27 Neut # (Auto) 5.0 x10^3/uL (2.2-4.8) H 11/01/17 05:27 Lymph # (Auto) 0.8 X10^3/uL (1.3-2.9) L 11/01/17 05:27 [place] # (Auto) 0.5 x10^3/uL (0.3-0.8) 11/01/17 05:27 Eos # (Auto) 0.0 x10^3/uL (0.0-0.2) 11/01/17 05:27 Baso # (Auto) 0.0 X10^3/uL (0.0-0.1) 11/01/17 05:27 Absolute Nucleated RBC 0.5 /100WBC 11/01/17 05:27 Nucleated RBCs Cancelled 10/29/17 05:19 Atypical Lymphocytes Cancelled 10/29/17 05:19 Blast Cells Cancelled 10/29/17 05:19 Smudge Cells Cancelled 10/29/17 05:19 Toxic Granulation Cancelled 10/29/17 05:19 Dohle Bodies Cancelled 10/29/17 05:19 Nichelle Rods Cancelled 10/29/17 05:19 Plt Clumps, EDTA Cancelled 10/29/17 05:19 Giant Platelets Cancelled 10/29/17 05:19 Plt Morphology Comment Cancelled 10/29/17 05:19 RBC Morphology Cancelled 10/29/17 05:19 Dimorphic RBCs Cancelled 10/29/17 05:19 Polychromasia Cancelled 10/29/17 05:19 Hypochromasia Cancelled 10/29/17 05:19 Poikilocytosis Cancelled 10/29/17 05:19 Basophilic Stippling Cancelled 10/29/17 05:19 Anisocytosis Cancelled 10/29/17 05:19 Microcytosis Cancelled 10/29/17 05:19 Macrocytosis Cancelled 10/29/17 05:19 Spherocytes Cancelled 10/29/17 05:19 Pappenheimer Bodies Cancelled 10/29/17 05:19 Sickle Cells Cancelled 10/29/17 05:19 Target Cells Cancelled 10/29/17 05:19 Tear Drop Cells Cancelled 10/29/17 05:19 Ovalocytes Cancelled 10/29/17 05:19 Stomatocytes Cancelled 10/29/17 05:19 Helmet Cells Cancelled 10/29/17 05:19 [place] Bodies Cancelled 10/29/17 05:19 [place] Rings Cancelled 10/29/17 05:19 Junior Cells Cancelled 10/29/17 05:19 Crenated Cell Cancelled 10/29/17 05:19 Acanthocytes (Spur) Cancelled 10/29/17 05:19 Rouleaux Cancelled 10/29/17 05:19 Schistocytes Cancelled 10/29/17 05:19 Sodium 136 mmol/L (136-145) 11/01/17 05:27 Corrected Sodium 137 mmol/L (136-145) 11/01/17 05:27 Potassium 4.7 mmol/L (3.5-5.1) 11/01/17 05:27 Chloride 99 mmol/L (98-107) 11/01/17 05:27 Carbon Dioxide 30.4 mmol/L (21-32) 11/01/17 05:27 BUN 28 mg/dL (7-18) H 11/01/17 05:27 Creatinine 1.34 mg/dL (0.70-1.30) H 11/01/17 05:27 Est GFR (MDRD) Af Amer > 60 (>60) 11/01/17 05:27 Est GFR (MDRD) Non-Af 55 (>60) L 11/01/17 05:27 Glucose 159 mg/dL (65-99) H 11/01/17 05:27 POC Glucose (mg/dL) 147 mg/dL (65-99) H 10/28/17 05:38 Calcium 8.6 mg/dL (8.5-10.1) 11/01/17 05:27 Corrected Calcium 9.6 mg/dL (8.5-10.1) 11/01/17 05:27 Total Bilirubin 0.20 mg/dL (0.2-1.0) 11/01/17 05:27 AST 33 Units/L (15-37) 11/01/17 05:27 ALT 50 Units/L (12-78) 11/01/17 05:27 Alkaline Phosphatase 62 Units/L (46-116) 11/01/17 05:27 B-Natriuretic Peptide 490 pg/mL (0-79) H 10/31/17 05:30 Total Protein 6.5 g/dL (6.4-8.2) 11/01/17 05:27 Albumin 2.8 g/dL (3.4-5.0) L 11/01/17 05:27 Globulin 3.7 g/dL (2.5-4.5) 11/01/17 05:27 Albumin/Globulin Ratio 0.8 Ratio (1.1-2.1) L 11/01/17 05:27 Specimen Type Catherized urine 10/27/17 15:27 Urine Color Yellow (YELLOW) 10/27/17 15:27 Urine Appearance Clear (CLEAR) 10/27/17 15:27 Urine pH 6.5 (5.0 - 8.0) 10/27/17 15:27 Ur Specific [place] 1.010 (1.000-1.030) 10/27/17 15:27 Urine Protein Negative (NEGATIVE) 10/27/17 15:27 Urine Glucose (UA) Negative (NEGATIVE) 10/27/17 15:27 Urine Ketones Negative (NEGATIVE) 10/27/17 15:27 Urine Occult Blood Negative (NEGATIVE) 10/27/17 15:27 Urine Nitrite Negative (NEGATIVE) 10/27/17 15:27 Urine Bilirubin Negative (NEGATIVE) 10/27/17 15:27 Urine Urobilinogen Normal (NORMAL) 10/27/17 15:27 Ur Leukocyte Esterase Negative (NEGATIVE) 10/27/17 15:27 Vancomycin Trough 15.8 ug/mL (15-20) 10/29/17 19:59 - Plan (1) Bilateral lower extremity edema Status: Acute Plan: CONTINUE HOME MEDICATIONS, OBTAIN ECHO, CONTINUE TO MONITOR (2) Cellulitis of both lower extremities Status: Acute Plan: MEROPENEM BID, BACTRIM BID, DRESSINGS WITH GENTAMYCIN BID, CONTINUE TO MONITOR (3) CHF (congestive heart failure) Status: Chronic Qualifiers: Qualified Code(s): I50.9 - Heart failure, unspecified Plan: CONTINUE LASIX, CONTINUE ALDACTONE, CONTINUE TO MONITOR (4) Hypothyroidism Status: Chronic Qualifiers: Hypothyroidism type: acquired Qualified Code(s): E03.9 - Hypothyroidism, unspecified Plan: CONTINUE SYNTHROID, CONTINUE TO MONITOR (5) History of HI (myocardial infarction) Status: Chronic Plan: CONTINUE PLAVIX, CONTINUE TO MONTIOR (6) COPD (chronic obstructive pulmonary disease) Status: Chronic Qualifiers: COPD type: emphysema Emphysema type: unspecified Qualified Code(s): J43.9 - Emphysema, unspecified Plan: CONTINUE HOME MEDICATIONS, CONTINUE TO MONITOR
[2017-11-01] MEDS: COLACE CAP 100 MG PO SCH (20:41)
[2017-11-02] MEDS: MORPHINE SULFATE INJ 2 MG INJ IVP PRN ×2 (00:39→06:04)
[2017-11-02] MEDS: NORCO 10/325 TAB PO PRN (04:05)
[2017-11-02 05:34] LABS: BASOPHILS # (AUTO) 0.1 X10^3/uL (0.0-0.1); BASOPHILS % (AUTO) 0.6 % (0.2-1.0); EOSINOPHILS % (AUTO) 0.3 % (0.9-2.9); HEMATOCRIT 28.5 % (42.0-54.0); HEMOGLOBIN 9.7 g/dL (13.5-18.0); LYMPHOCYTES # (AUTO) 0.9 X10^3/uL (1.3-2.9); LYMPHOCYTES % (AUTO) 9.5 % (21.0-51.0); MEAN CORPUSCULAR HGB CONC 34.1 g/dL (33.0-35.0); MEAN CORPUSCULAR VOLUME 93.9 fL (80.0-100.0); MEAN PLATELET VOLUME 6.4 fL (7.4-11.0); MONOCYTES # (AUTO) 0.5 x10^3/uL (0.3-0.8); MONOCYTES % (AUTO) 5.4 % (0.0-13.0); NEUTROPHILS % (AUTO) 84.2 % (42.0-75.0); PLATELET COUNT 394 X10^3/uL (150.0-450.0); RED BLOOD COUNT 3.03 X10^6/uL (4.7-6.0); RED CELL DISTRIBUTION WIDTH 18.9 % (11.6-16.5)
[2017-11-02 05:36] LABS: ALANINE AMINOTRANSFERASE 40 Units/L (12-78); ALBUMIN 2.6 g/dL (3.4-5.0); ALKALINE PHOSPHATASE 57 Units/L (46-116); ASPARTATE AMINO TRANSFERASE 24 Units/L (15-37); BLOOD UREA NITROGEN 32 mg/dL (7-18); CALCIUM 8.3 mg/dL (8.5-10.1); CARBON DIOXIDE 30.1 mmol/L (21-32); CHLORIDE 98 mmol/L (98-107); COR CA(FOR HYPOALB) 9.4 mg/dL (8.5-10.1); COR NA(FOR HYPERGLY) 134 mmol/L (136-145); CREATININE 1.15 mg/dL (0.70-1.30); SODIUM 133 mmol/L (136-145); TOTAL PROTEIN 6.1 g/dL (6.4-8.2); eGFR NON BLACK RACES > 60 (>60)
[2017-11-02 05:49] LABS: WHITE BLOOD COUNT 10.4 X10^3/uL (3.6-10.0)
[2017-11-02 05:50] LABS: PLATELET MORPHOLOGY COMMENT NORMAL (NORMAL)
[2017-11-02] MEDS: LASIX PO SCH (08:44)
[2017-11-02] MEDS: DECADRON TAB PO SCH (08:48)
[2017-11-02] MEDS: BACTRIM DS TAB PO SCH (08:48)
[2017-11-02] MEDS: REQUIP PO SCH (08:48)
[2017-11-02] MEDS: MILK OF MAGNESIA PO SCH (08:48)
[2017-11-02] MEDS: PLAVIX PO SCH (08:48)
[2017-11-02] MEDS: ALDACTONE TAB 25 MG PO SCH (08:48)
[2017-11-02] MEDS: MERREM VIAL 1 G in NS 100 ML IV + SPIKE MINIBAG* 100 ML IV SCH (08:55)
[2017-11-02] MEDS: GENTAMICIN TOPICAL OINT EXT SCH (08:57)
[2017-11-02] MEDS: GENTAMICIN TOPICAL CRM TOP SCH (09:46)
[2017-11-02] MEDS: NS 500 ML IV 500 ML IV SCH (09:47)
[2017-11-02 12:16] VITALS: BP 114/57
--- NOTE | 2017-11-02 17:55 | PCM.PROG ---
Progress Note - Progress Note for Day of Date: 11/01/17 - Subjective Subjective: WAS ADMITTED FOR BILATERAL LOWER EXTREMITY CELLULITIS AND EDEMA. TODAY, HIS ALERT AND ORIENTED, LYING IN BED ON MORNING ROUNDS. HE DENIES COMPLAINTS THIS MORNING. ON EXAMINATION, HEART IS REGULAR IN RATE AND RHYTHM. BILATERAL LUNGS ARE NOTED WITH DIMINISHED LUNG SOUNDS THROUGHOUT. ABDOMEN IS ROUND, SOFT, AND NON-TENDER WITH NORMAL BOWEL SOUNDS NOTED IN ALL QUADRANTS. BILATERAL LOWER EXTREMITIES CONTINUE WITH ERYTHEMA, EDEMA, AND AREAS WHERE BLISTERS HAVE OPENED. BILATERAL LEGS ARE OPEN TO AIR AT THIS TIME. HIS VITALS THIS MORNING ARE 97.6-68-20-98%-134/60. LABS WERE OBTAINED. ABNORMAL LAB VALUES INCLUDE THE FOLLOWING: RBC 3.13, HGB 10.0, HCT 30.1, BUN 28, CREATININE 1.34, GLUCOSE 159, ALBUMIN 2.8. WHE CONTINUES ON ANTIBIOTICS FOR GROWTH OF EMPEDOBACTER BREVIS, ACINETOBACTER LWOFFII, AND PSEUDOMONAS FLUORESCENS/PUTIDA IN WOUNDS. WE WILL CONTINUE WITH WOUND CARE, IV ANTIBIOTICS, AND CURRENT PLAN OF CARE TODAY. CASE MANAGEMENT WILL ARRANGE FOR HOME HEALTH AND DISCHARGE TOMORROW. OTHERWISE, WE WILL FOLLOW UP WITH AM LABS AND CHEST XRAY AND CONTINUE TO MONITOR PATIENT. - Past Medical Family Social History Past Med/Fam/Surg Hx: No changes since H&P Allergies: Allergies promethazine [From Phenergan] Adverse Reaction (Verified 12/11/16 00:54) - Review of Systems ROS: No change since H&P - Vital Signs and I&O's Vital Signs: Temperature 97.6 F Pulse Rate [Right Brachial] 68 Pulse Rate [Left Brachial] 71 Respiratory Rate 20 Blood Pressure [Right Arm] 148/64 Blood Pressure [Left Arm] 114/57 Blood Pressure 138/69 O2 Sat by Pulse Oximetry 97 Intake and Output: Intake & Output 10/31/17 11/01/17 11/02/17 11/03/17 11:59 11:59 11:59 11:59 Intake Total 1979 / 1979 1760 / 1760 3169 / 3169 1240 / 1240 Output Total 4500 / 4500 3225 / 3225 3400 / 3400 675 / 675 Balance -2520 / -2520 -1465 / -1465 -231 / -231 565 / 565 - Physical Exam Oriented: Normal Eyes: Normal Ear: Normal Nose: Normal Throat: Normal Respiratory: Generalized, Diminished Cardiovascular: Edema (LOWER EXTREMITIES ) : Normal Auscultation: Bowel Sounds: Normal Tenderness: Normal Skin: Vesicular, Red, Tender, Hot, Wound Musculoskeletal: Right, Left, Leg, Swelling, Tender Psychiatric: Normal Mood Description: Calm Affect: Normal Speech Pattern: Clear, Appropriate - Laboratory and Diagnostics Result Diagrams: 11/02/17 05:00 11/02/17 05:00 Labs: 10/26/17 16:35 Blood Blood Culture - Final 10/26/17 16:21 Blood Blood Culture - Final 10/27/17 11:57 Leg - Right Wound Culture - Final Empedobacter(F) Brevis 10/27/17 11:57 Leg - Left Wound Culture - Final Acinetobacter Lwoffii 10/26/17 16:21 Leg - Left Gram Stain - Final 10/26/17 16:21 Leg - Left Wound Culture - Final Pseudomonas Fluorescens/[place] 10/26/17 16:21 Leg - Right Gram Stain - Final 10/26/17 16:21 Leg - Right Wound Culture - Final Acinetobacter Lwoffii Laboratory WBC 10.4 X10^3/uL (3.6-10.0) H 11/02/17 05:00 RBC 3.03 X10^6/uL (4.7-6.0) L 11/02/17 05:00 Hgb 9.7 g/dL (13.5-18.0) L 11/02/17 05:00 Hct 28.5 % (42.0-54.0) L 11/02/17 05:00 MCV 93.9 fL (80.0-100.0) 11/02/17 05:00 MCH 32.0 pg (27.0-34.0) 11/02/17 05:00 MCHC 34.1 g/dL (33.0-35.0) 11/02/17 05:00 RDW 18.9 % (11.6-16.5) H 11/02/17 05:00 Plt Count 394 X10^3/uL (150.0-450.0) 11/02/17 05:00 Plt Count Comment Adequate (ADEQUATE) 11/02/17 05:00 MPV 6.4 fL (7.4-11.0) L 11/02/17 05:00 Neut % (Auto) 84.2 % (42.0-75.0) H 11/02/17 05:00 Lymph % (Auto) 9.5 % (21.0-51.0) L 11/02/17 05:00 [place] % (Auto) 5.4 % (0.0-13.0) 11/02/17 05:00 Eos % (Auto) 0.3 % (0.9-2.9) L 11/02/17 05:00 Baso % (Auto) 0.6 % (0.2-1.0) 11/02/17 05:00 Neut # (Auto) 8.0 x10^3/uL (2.2-4.8) H 11/02/17 05:00 Lymph # (Auto) 0.9 X10^3/uL (1.3-2.9) L 11/02/17 05:00 [place] # (Auto) 0.5 x10^3/uL (0.3-0.8) 11/02/17 05:00 Eos # (Auto) 0.0 x10^3/uL (0.0-0.2) 11/02/17 05:00 Baso # (Auto) 0.1 X10^3/uL (0.0-0.1) 11/02/17 05:00 Absolute Nucleated RBC 0.3 /100WBC 11/02/17 05:00 Nucleated RBCs Cancelled 10/29/17 05:19 Atypical Lymphocytes Cancelled 10/29/17 05:19 Blast Cells Cancelled 10/29/17 05:19 Smudge Cells Cancelled 10/29/17 05:19 Toxic Granulation Cancelled 10/29/17 05:19 Dohle Bodies Cancelled 10/29/17 05:19 Nichelle Rods Cancelled 10/29/17 05:19 Plt Clumps, EDTA Cancelled 10/29/17 05:19 Giant Platelets Cancelled 10/29/17 05:19 Plt Morphology Comment Normal (NORMAL) 11/02/17 05:00 RBC Morphology Normal (NORMAL) 11/02/17 05:00 Dimorphic RBCs Cancelled 10/29/17 05:19 Polychromasia Cancelled 10/29/17 05:19 Hypochromasia Cancelled 10/29/17 05:19 Poikilocytosis Cancelled 10/29/17 05:19 Basophilic Stippling Cancelled 10/29/17 05:19 Anisocytosis Cancelled 10/29/17 05:19 Microcytosis Cancelled 10/29/17 05:19 Macrocytosis Cancelled 10/29/17 05:19 Spherocytes Cancelled 10/29/17 05:19 Pappenheimer Bodies Cancelled 10/29/17 05:19 Sickle Cells Cancelled 10/29/17 05:19 Target Cells Cancelled 10/29/17 05:19 Tear Drop Cells Cancelled 10/29/17 05:19 Ovalocytes Cancelled 10/29/17 05:19 Stomatocytes Cancelled 10/29/17 05:19 Helmet Cells Cancelled 10/29/17 05:19 [place] Bodies Cancelled 10/29/17 05:19 [place] Rings Cancelled 10/29/17 05:19 Junior Cells Cancelled 10/29/17 05:19 Crenated Cell Cancelled 10/29/17 05:19 Acanthocytes (Spur) Cancelled 10/29/17 05:19 Rouleaux Cancelled 10/29/17 05:19 Schistocytes Cancelled 10/29/17 05:19 Sodium 133 mmol/L (136-145) L 11/02/17 05:00 Corrected Sodium 134 mmol/L (136-145) L 11/02/17 05:00 Potassium 5.6 mmol/L (3.5-5.1) H 11/02/17 05:00 Chloride 98 mmol/L (98-107) 11/02/17 05:00 Carbon Dioxide 30.1 mmol/L (21-32) 11/02/17 05:00 BUN 32 mg/dL (7-18) H 11/02/17 05:00 Creatinine 1.15 mg/dL (0.70-1.30) 11/02/17 05:00 Est GFR (MDRD) Af Amer > 60 (>60) 11/02/17 05:00 Est GFR (MDRD) Non-Af > 60 (>60) 11/02/17 05:00 Glucose 149 mg/dL (65-99) H 11/02/17 05:00 POC Glucose (mg/dL) 147 mg/dL (65-99) H 10/28/17 05:38 Calcium 8.3 mg/dL (8.5-10.1) L 11/02/17 05:00 Corrected Calcium 9.4 mg/dL (8.5-10.1) 11/02/17 05:00 Total Bilirubin 0.20 mg/dL (0.2-1.0) 11/02/17 05:00 AST 24 Units/L (15-37) 11/02/17 05:00 ALT 40 Units/L (12-78) 11/02/17 05:00 Alkaline Phosphatase 57 Units/L (46-116) 11/02/17 05:00 B-Natriuretic Peptide 490 pg/mL (0-79) H 10/31/17 05:30 Total Protein 6.1 g/dL (6.4-8.2) L 11/02/17 05:00 Albumin 2.6 g/dL (3.4-5.0) L 11/02/17 05:00 Globulin 3.5 g/dL (2.5-4.5) 11/02/17 05:00 Albumin/Globulin Ratio 0.7 Ratio (1.1-2.1) L 11/02/17 05:00 Specimen Type Catherized urine 10/27/17 15:27 Urine Color Yellow (YELLOW) 10/27/17 15:27 Urine Appearance Clear (CLEAR) 10/27/17 15:27 Urine pH 6.5 (5.0 - 8.0) 10/27/17 15:27 Ur Specific [place] 1.010 (1.000-1.030) 10/27/17 15:27 Urine Protein Negative (NEGATIVE) 10/27/17 15:27 Urine Glucose (UA) Negative (NEGATIVE) 10/27/17 15:27 Urine Ketones Negative (NEGATIVE) 10/27/17 15:27 Urine Occult Blood Negative (NEGATIVE) 10/27/17 15:27 Urine Nitrite Negative (NEGATIVE) 10/27/17 15:27 Urine Bilirubin Negative (NEGATIVE) 10/27/17 15:27 Urine Urobilinogen Normal (NORMAL) 10/27/17 15:27 Ur Leukocyte Esterase Negative (NEGATIVE) 10/27/17 15:27 Vancomycin Trough 15.8 ug/mL (15-20) 10/29/17 19:59 - Plan (1) Bilateral lower extremity edema Status: Acute Plan: CONTINUE HOME MEDICATIONS, OBTAIN ECHO, CONTINUE TO MONITOR (2) Cellulitis of both lower extremities Status: Acute Plan: MEROPENEM BID, BACTRIM BID, DRESSINGS WITH GENTAMYCIN BID, CONTINUE TO MONITOR (3) CHF (congestive heart failure) Status: Chronic Qualifiers: Qualified Code(s): I50.9 - Heart failure, unspecified Plan: CONTINUE LASIX, CONTINUE ALDACTONE, CONTINUE TO MONITOR (4) Hypothyroidism Status: Chronic Qualifiers: Hypothyroidism type: acquired Qualified Code(s): E03.9 - Hypothyroidism, unspecified Plan: CONTINUE SYNTHROID, CONTINUE TO MONITOR (5) History of MS (myocardial infarction) Status: Chronic Plan: CONTINUE PLAVIX, CONTINUE TO MONTIOR (6) COPD (chronic obstructive pulmonary disease) Status: Chronic Qualifiers: COPD type: emphysema Emphysema type: unspecified Qualified Code(s): J43.9 - Emphysema, unspecified Plan: CONTINUE HOME MEDICATIONS, CONTINUE TO MONITOR
--- NOTE | 2017-11-25 01:21 | DR.CARTERD ---
- Discharge Summary for: Discharge Summary for Date of:: 11/02/17 - Admission Date Date of Admission: 10/26/17 - Admission Diagnoses Admission Diagnosis: (1) Cellulitis of both lower extremities (2) Bilateral lower extremity edema - Discharge Date Discharge Date: 11/02/17 - Discharge Diagnoses Discharge Diagnosis: (1) Cellulitis of both lower extremities (2) Bilateral lower extremity edema (3) CHF (congestive heart failure) (4) Hypothyroidism (5) History of MD (myocardial infarction) (6) COPD (chronic obstructive pulmonary disease) - Hospital Course Hospital Course: DAY ONE, MR. FRANCOIS PRESENTED TO THE HOSPITAL A DIRECT ADMISSION AFTER BEING SEEN IN OUR OFFICE WITH REPORTS OF BILATERAL LOWER EXTREMITY EDEMA. PATIENT NOTED WITH RED, CLEAR FLUID FILLED BLISTERS BILATERALLY. PATIENT REPORTED SYMPTOMS STARTED THREE DAYS PRIOR. PATIENT REPORTED HOME HEALTH NURSES HAD BEEN PUTTING EDISON BOOTS ON BUT HE REPORTED THEY WERE TOO PAINFUL TO LEAVE ON. PATIENT STATED HE HAD BEEN TAKING LASIX AT HOME WITHOUT IMPROVEMENT IN EDEMA. BILATERAL LOWER EXTREMITIES NOTED WITH TENDERNESS ON PALPATION. EDEMA NOTED TO BE 2-3+, PITTING. PATIENT ADMITTED TO THE HOSPITAL FOR FURTHER TREATMENT. RIGHT AND LEFT LEG WOUND CULTURES COLLECTED, WELL BLOOD CULTURES. DAY TWO, WAS ADMITTED FOR BILATERAL LOWER EXTREMITY CELLULITIS AND EDEMA. HE WAS ALERT AND ORIENTED, LYING IN BED ON MORNING ROUNDS. HE CONTINUED WITH PAIN TO BILATERAL LOWER EXTREMITIES. ON EXAMINATION, HEART WAS REGULAR IN RATE AND RHYTHM. BILATERAL LUNGS WERE NOTED WITH DIMINISHED LUNG SOUNDS THROUGHOUT. ABDOMEN WAS ROUND, SOFT, AND NON-TENDER WITH NORMAL BOWEL SOUNDS NOTED IN ALL QUADRANTS. BILATERAL LOWER EXTREMITIES CONTINUED WITH ERYTHEMA, EDEMA, AND SCATTERED BLISTERS TO LOWER LEGS. SLIGHT DRAINAGE NOTED. HIS VITALS WERE 97.5-75-22-94%-122/56. LABS WERE OBTAINED. ABNORMAL LAB VALUES INCLUDED THE FOLLOWING: RBC 2.55, HGB 8.4, HCT 24.5, SODIUM 135, CREATININE 1.48, GLUCOSE 135, TOTAL PROTEIN 6.1, ALBUMIN 2.8. WE STARTED ZOSYN 3.375GM IV TID. DAY THREE, HE CONTINUED WITH PAIN TO BILATERAL LOWER EXTREMITIES. ON EXAMINATION , HEART WAS REGULAR IN RATE AND RHYTHM. BILATERAL LUNGS WERE NOTED WITH DIMINISHED LUNG SOUNDS THROUGHOUT. ABDOMEN WAS ROUND, SOFT, AND NON-TENDER WITH NORMAL BOWEL SOUNDS NOTED IN ALL QUADRANTS. BILATERAL LOWER EXTREMITIES CONTINUED WITH ERYTHEMA, EDEMA, AND SCATTERED BLISTERS TO LOWER LEGS. HIS VITALS WERE 97.8-73-18-95%-128/63. LABS WERE OBTAINED. ABNORMAL LAB VALUES INCLUDED THE FOLLOWING: RBC 2.71, HGB 8.8, HCT 25.9, SODIUM 135, BUN 19, CREATININE 1.41, GLUCOSE 139, ALBUMIN 2.8. PRELIMINARY CULTURES OF WOUNDS REPORTED GROWTH OF GRAM POSITIVE COCCI AND COAGULASE NEGATIVE STAPH WITH GRAM NEGATIVE RODS AND BACILLUS SPECIES. WE STARTED WET TO DRY DRESSINGS TO BE APPLIED TWICE A DAY, GENTAMYCIN OINTMENT TWICE A DAY, AND VANCOMYCIN 1GM IV Q12H. DAY FOUR, HE CONTINUED WITH PAIN TO BILATERAL LOWER EXTREMITIES. ON EXAMINATION , HEART WAS REGULAR IN RATE AND RHYTHM. BILATERAL LUNGS WERE NOTED WITH DIMINISHED LUNG SOUNDS THROUGHOUT. ABDOMEN WAS ROUND, SOFT, AND NON-TENDER WITH NORMAL BOWEL SOUNDS NOTED IN ALL QUADRANTS. BILATERAL LOWER EXTREMITIES CONTINUED WITH ERYTHEMA, EDEMA, AND SCATTERED BLISTERS TO LOWER LEGS. HIS VITALS WERE 97.8-73-18-95%-128/63. LABS WERE OBTAINED. ABNORMAL LAB VALUES INCLUDED THE FOLLOWING: RBC 2.71, HGB 8.8, HCT 25.9, SODIUM 135, BUN 19, CREATININE 1.41, GLUCOSE 139, ALBUMIN 2.8. WE CONTINUED TO MONITOR PATIENT. DAY FIVE, CONTINUED TREATMENT FOR BILATERAL LOWER EXTREMITY CELLULITIS AND EDEMA. HE WAS ALERT AND ORIENTED, LYING IN BED ON MORNING ROUNDS. HE CONTINUED WITH PAIN TO BILATERAL LOWER EXTREMITIES. HE ALSO REPORTED SHORTNESS OF BREATH. ON EXAMINATION, HEART WAS REGULAR IN RATE AND RHYTHM. BILATERAL LUNGS WERE NOTED WITH DIMINISHED LUNG SOUNDS THROUGHOUT. ABDOMEN WAS ROUND, SOFT, AND NON-TENDER WITH NORMAL BOWEL SOUNDS NOTED IN ALL QUADRANTS. BILATERAL LOWER EXTREMITIES CONTINUED WITH ERYTHEMA, EDEMA. DRESSINGS TO WOUNDS WERE NOTED TO BE DRY AND INTACT. HIS VITALS WERE 96.9-80-20-98%-118/56. LABS WERE OBTAINED. ABNORMAL LAB VALUES INCLUDED THE FOLLOWING: RBC 2.62, HGB 8.4, HCT 25.0, SODIUM 135, BUN 28, GLUCOSE 143, TOTAL PROTEIN 6.0, ALBUMIN 2.6. WE CONTINUED TREATMENT AND MONITORED. DAY SIX, HE CONTINUED WITH PAIN TO BILATERAL LOWER EXTREMITIES, BUT REPORTED SLIGHT IMPROVEMENT SINCE THE DAY PRIOR. HE STATED THAT SHORTNESS OF BREATH HAD ALSO IMPROVED SINCE THE DAY BEFORE. ON EXAMINATION, HEART WAS REGULAR IN RATE AND RHYTHM. BILATERAL LUNGS WERE NOTED WITH DIMINISHED LUNG SOUNDS THROUGHOUT. ABDOMEN WAS ROUND, SOFT, AND NON-TENDER WITH NORMAL BOWEL SOUNDS NOTED IN ALL QUADRANTS. BILATERAL LOWER EXTREMITIES CONTINUED WITH ERYTHEMA, EDEMA. BILATERAL LEG WOUNDS WERE OPEN TO AIR. HIS VITALS WERE 97.9-69-2-97%-136/60. LABS WERE OBTAINED. ABNORMAL LAB VALUES INCLUDED THE FOLLOWING: RBC 3.01, HGB 9.6, HCT 28.6, SODIUM 135, BUN 27, GLUCOSE 148, BNP 490, ALBUMIN 2.8. WOUND CULTURES REPORTED GROWTH OF EMPEDOBACTER BREVIS, ACINETOBACTER LWOFFII, AND PSEUDOMONAS FLUORESCENS/PUTIDA. ALL WERE SENSITIVE TO MEROPENEM AND BACTRIM. WE STARTED THESE AND DISCONTINUED THE ZOSYN AND VANCOMYCIN. WE ALSO DISCONTINUED WET TO DRY DRESSINGS. DAY SEVEN, HE DENIED COMPLAINTS. ON EXAMINATION, HEART WAS REGULAR IN RATE AND RHYTHM. BILATERAL LUNGS WERE NOTED WITH DIMINISHED LUNG SOUNDS THROUGHOUT. ABDOMEN WAS ROUND, SOFT, AND NON-TENDER WITH NORMAL BOWEL SOUNDS NOTED IN ALL QUADRANTS. BILATERAL LOWER EXTREMITIES CONTINUED WITH ERYTHEMA, EDEMA, AND BLISTERS HAD OPENED. BILATERAL LEGS WERE OPEN TO AIR. HIS VITALS WERE 97.6-68-20 -98%-134/60. LABS WERE OBTAINED. ABNORMAL LAB VALUES INCLUDED THE FOLLOWING: RBC 3.13, HGB 10.0, HCT 30.1, BUN 28, CREATININE 1.34, GLUCOSE 159, ALBUMIN 2.8. WE CONTINUED ANTIBIOTICS FOR GROWTH OF EMPEDOBACTER BREVIS, ACINETOBACTER LWOFFII, AND PSEUDOMONAS FLUORESCENS/PUTIDA IN WOUNDS. WE CONTINUED WITH WOUND CARE AND IV ANTIBIOTICS. DAY EIGHT, PATIENT WAS DOING WELL. HE DENIED SHORTNESS OF BREATH OR OTHER COMPLAINTS. PATIENT NOTED WITH IMPROVEMENT IN CELLULITIS TO BILATERAL LOWER EXTREMITIES. HE REPORTED HE FELT MUCH BETTER. VITAL SIGNS STABLE. LABS WNL. WE PLANNED FOR DISCHARGE WITH HOME HEALTH AND ORAL ANTIBIOTICS. INSTRUCTIONS FOR MEDICATIONS AND FOLLOW UP WERE DISCUSSED WITH PATIENT AND FAMILY, BOTH VOICED UNDERSTANDING. PATIENT DISCHARGED HOME IN STABLE CONDITION WITH FAMILY. - Discharge Medications Discharge Medications: Home Medication List imatinib 400 mg PO DAILY 10/26/17 [History] gentamicin 1 applic EXT PRN PRN #1 g 11/02/17 [Rx] hydrocodone-acetaminophen [[place]] 1 tab PO Q6H PRN #120 tab 11/02/17 [Rx] sulfamethoxazole-trimethoprim [Bactrim DS] 1 tab PO BID #60 tab 11/02/17 [Rx] Prescriptions: gentamicin [place] hydrocodone-acetaminophen [[place]] [place] sulfamethoxazole-trimethoprim [Bactrim DS] [place] Home medications alprazolam 1 mg PO HS 12/11/16 clopidogrel 75 mg PO DAILY 12/11/16 dexamethasone 4 mg PO DAILY 12/11/16 hyoscyamine sulfate 5 ml PO QID PRN 12/11/16 levothyroxine 75 mcg PO DAILYAC 12/11/16 ropinirole 1 mg PO BID 12/11/16 spironolactone 25 mg PO DAILY 12/11/16 tramadol 50 mg PO Q6H PRN 12/11/16 ondansetron HCl 4 mg PO Q8H PRN #15 tab 03/26/17 ondansetron [Zofran ODT] 8 mg PO Q8H PRN #12 tab 04/03/17 furosemide 20 mg PO DAILY #30 tab 11/04/17 - Discharge Disposition Discharge Disposition: Patient is to follow up in our office in one week.
== END 2017-11-02 14:10 | disposition home health service (06) | DRG 603 ==
LOC: MED/SURG
PROVIDERS: ADMIT Internal Medicine; ATTEND Internal Medicine
DX: I73.89 Other specified peripheral vascular diseases; E78.2 Mixed hyperlipidemia; B96.5 Pseudomonas (aeruginosa) (mallei) (pseudomallei) as the cause of diseases classified elsewhere; I50.9 Heart failure, unspecified; R60.0 Localized edema; J43.9 Emphysema, unspecified; E03.8 Other specified hypothyroidism; L03.115 Cellulitis of right lower limb; I25.2 Old myocardial infarction; L03.116 Cellulitis of left lower limb; B96.89 Other specified bacterial agents as the cause of diseases classified elsewhere; R26.89 Other abnormalities of gait and mobility; C34.90 Malignant neoplasm of unspecified part of unspecified bronchus or lung
CPT/HCPCS: 36415; 71010; 71045; 80048; 80053; 80202; 81003; 82565; 83880; 85025; 87040; 87070; 87075; 87077; 87186; 87205; 93005; 93306; 93970; 96365; 96367; 97110; 97163; 97166; 97530; 97535; 99284; A4216; A4217; A4222; G0378; J2185; J2270; J2543; J3370; J7040; J7050; J7060; J8540

== ENCOUNTER 2017-11-02 20:48 | Observation (INO) ==
[2017-11-02 20:57] VITALS: BMI 29.8
--- NOTE | 2017-11-02 22:47 | DR.GENAD ---
HPI - PCP Primary Care Physician: CAROLINA SHIN - Complaint/Symptoms Chief Complaint Doctors Comments: Patient states that he has had diarrhea since being home and urinating on himself. His sister came over to clean him but he can not have them to continue to do this. He states that he want to try to get into a [place] [facility] facility. Patient was discharged from the hospital earlier today. Chief Complaint:: EMS RESPONDED TO CALL FOR DIFFICULTY BREATHING. PATIENT STATES, "I AM A LITTLE SHORT OF BREATH, BUT NOTHING OUT OF THE ORIDINARY. I WAS JUST DISCHARGED FROM HOSPITAL TODAY. I CAN'T STAY AT HOME, I CRAPPED ALL OVER MYSELF AND MY FAMILY HAD TO CLEAN ME UP. I JUST CAN'T LIVE THAT WAY. I HAVE BEEN HURTING ALL DAY AND POOPING ALL DAY SINCE I GOT HOME. I NEED TO BE IN THE HOSPITAL." - Source History Provided: Patient, EMS - Mode of Arrival Mode of Arrival: EMS - Timing Onset of Chief Complaint: 11/02/17 PMH - PMH Past Medical History: Yes Past Medical History: Arthritis, CHF, COPD, Coronary Artery Disease, GERD, Hypothyroidism, [place] Past Surgical History: Yes Surgical History: Ortho Surgery - Family History History of Family Medical Conditions: Yes Family Medical History: Cancer, [place], Coronary Artery Disease - Social History Alcohol Use: None Do you use any recreational Drugs:: No Lives With: Family Lives Where: Home - infectious screening Have you traveled outside the country in the last 6 months?: No Isolation: Standard ROS - Review of Systems Eyes: No Symptoms Reported ENTM: No Symptoms Reported Respiratoy: No Symptoms Reported Cardiovascular: No Symptoms Reported PE - General General Appearance: Alert, In No Apparent Distress - Head Head Exam: Normal Inspection, Atraumatic - Eyes Eye exam: Normal Appearance, PERRL, EOMI - ENT ENT Exam: Normal Exam, Normal Oropharynx External Ear Exam: Normal External Inspection TM/Canal Exam: Bilateral Normal Nose Exam: Normal Nose Exam Mouth Exam: Normal Inspection Throat Exam: Normal Inspection - Neck Neck Exam: Normal Inspection, Full ROM - Chest Chest Inspection: Normal Inspection, Symmetric Chest Wall Rise - Respiratory Respiratory Exam: Normal Lung Sounds Bilat Respiratory Exam: Bilateral Clear to Auscultation - Cardiovascular Cardiovascular Exam: Regular Rate, Normal Rhythm - Abdominal Exam Abdominal Exam: Normal Inspection, Hyperactive Bowel Sounds Abdominal Tenderness: Mild - Extremities Extremities Exam: Normal Inspection, Full ROM - Back Back Exam: Normal Inspection - Neurologic Neurological Exam: Alert, Oriented X3, CN II-XII Intact - Psychiatric Psychiatric Exam: Normal Affect, Normal Mood - Skin Skin Exam: Warm, Dry, Intact - Vital Signs Vitals: Temperature 99.6 F Pulse Rate [Right] 70 Pulse Rate 94 Respiratory Rate 17 Blood Pressure [Right Arm] 138/61 Blood Pressure [Left Arm] 115/48 Blood Pressure 184/96 O2 Sat by Pulse Oximetry 98 Course - Treatment Treatment: Sisters states that patient can not take care of himself and thery can not continue to go and clean him up. [place] [facility] [place]. Dr Shin was contacted abbi AM 0700 and agreed to admit patient. - Reevaluation 1st: Unchanged - Consultation Called: 22:55 (Dr Burden declined admission, Dr Shin would not have d/c if criteria not met) Call Returned: 23:51 (No answer) ROR - Labs Reviewed Result Diagrams: 11/02/17 23:14 11/02/17 23:14 - Labs Reviewed Laboratory: WBC 8.3 X10^3/uL (3.6-10.0) 11/02/17 23:14 RBC 3.50 X10^6/uL (4.7-6.0) L 11/02/17 23:14 Hgb 10.8 g/dL (13.5-18.0) L 11/02/17 23:14 Hct 32.8 % (42.0-54.0) L 11/02/17 23:14 MCV 93.8 fL (80.0-100.0) 11/02/17 23:14 MCH 30.8 pg (27.0-34.0) 11/02/17 23:14 MCHC 32.8 g/dL (33.0-35.0) L 11/02/17 23:14 RDW 18.4 % (11.6-16.5) H 11/02/17 23:14 Plt Count 470 X10^3/uL (150.0-450.0) H 11/02/17 23:14 MPV 6.1 fL (7.4-11.0) L 11/02/17 23:14 Neut % (Auto) 86.6 % (42.0-75.0) H 11/02/17 23:14 Lymph % (Auto) 6.6 % (21.0-51.0) L 11/02/17 23:14 [place] % (Auto) 6.4 % (0.0-13.0) 11/02/17 23:14 Eos % (Auto) 0.0 % (0.9-2.9) L 11/02/17 23:14 Baso % (Auto) 0.4 % (0.2-1.0) 11/02/17 23:14 Neut # (Auto) 7.2 x10^3/uL (2.2-4.8) H 11/02/17 23:14 Lymph # (Auto) 0.5 X10^3/uL (1.3-2.9) L 11/02/17 23:14 [place] # (Auto) 0.5 x10^3/uL (0.3-0.8) 11/02/17 23:14 Eos # (Auto) 0.0 x10^3/uL (0.0-0.2) 11/02/17 23:14 Baso # (Auto) 0.0 X10^3/uL (0.0-0.1) 11/02/17 23:14 Absolute Nucleated RBC 0.4 /100WBC 11/02/17 23:14 Sodium 130 mmol/L (136-145) L 11/02/17 23:14 Corrected Sodium 131 mmol/L (136-145) L 11/02/17 23:14 Potassium 5.0 mmol/L (3.5-5.1) 11/02/17 23:14 Chloride 94 mmol/L (98-107) L 11/02/17 23:14 Carbon Dioxide 28.4 mmol/L (21-32) 11/02/17 23:14 BUN 41 mg/dL (7-18) H 11/02/17 23:14 Creatinine 1.63 mg/dL (0.70-1.30) H 11/02/17 23:14 Est GFR (MDRD) Af Amer 53 (>60) L 11/02/17 23:14 Est GFR (MDRD) Non-Af 43 (>60) L 11/02/17 23:14 Glucose 157 mg/dL (65-99) H 11/02/17 23:14 Calcium 8.8 mg/dL (8.5-10.1) 11/02/17 23:14 - Diagnosis Discharge Problem: Urinary and fecal incontinence, Hyponatremia - Discharge Plan Condition: Stable - Follow ups/Referrals Follow ups/Referrals: Tacos Shin [Primary Care Provider] - 3 days - Instructions
[2017-11-02 23:30] LABS: BASOPHILS % (AUTO) 0.4 % (0.2-1.0); HEMATOCRIT 32.8 % (42.0-54.0); HEMOGLOBIN 10.8 g/dL (13.5-18.0); LYMPHOCYTES # (AUTO) 0.5 X10^3/uL (1.3-2.9); LYMPHOCYTES % (AUTO) 6.6 % (21.0-51.0); MEAN CORPUSCULAR HEMOGLOBIN 30.8 pg (27.0-34.0); MEAN CORPUSCULAR HGB CONC 32.8 g/dL (33.0-35.0); MEAN CORPUSCULAR VOLUME 93.8 fL (80.0-100.0); MEAN PLATELET VOLUME 6.1 fL (7.4-11.0); MONOCYTES # (AUTO) 0.5 x10^3/uL (0.3-0.8); MONOCYTES % (AUTO) 6.4 % (0.0-13.0); NEUTROPHILS # (AUTO) 7.2 x10^3/uL (2.2-4.8); NEUTROPHILS % (AUTO) 86.6 % (42.0-75.0); PLATELET COUNT 470 X10^3/uL (150.0-450.0); RED CELL DISTRIBUTION WIDTH 18.4 % (11.6-16.5); WHITE BLOOD COUNT 8.3 X10^3/uL (3.6-10.0)
[2017-11-02 23:33] LABS: CALCIUM 8.8 mg/dL (8.5-10.1); CARBON DIOXIDE 28.4 mmol/L (21-32); CREATININE 1.63 mg/dL (0.70-1.30)
[2017-11-03] MEDS ORDERED: NS 1000 ML 1,000 ML ONE (00:21)
[2017-11-03] MEDS: NS 1000 ML 1,000 ML IV SCH ×3 (00:30→21:41)
[2017-11-03] MEDS ORDERED: NORCO 10/325 TAB PO ONE (04:48)
[2017-11-03] MEDS ORDERED: NORCO 10/325 TAB ONE (04:49)
[2017-11-03 08:45] LABS: BASOPHILS % (AUTO) 0.4 % (0.2-1.0); EOSINOPHILS % (AUTO) 0.1 % (0.9-2.9); HEMATOCRIT 29.7 % (42.0-54.0); LYMPHOCYTES # (AUTO) 0.7 X10^3/uL (1.3-2.9); MEAN CORPUSCULAR HEMOGLOBIN 31.7 pg (27.0-34.0); MEAN CORPUSCULAR HGB CONC 33.7 g/dL (33.0-35.0); MEAN CORPUSCULAR VOLUME 94.2 fL (80.0-100.0); MEAN PLATELET VOLUME 6.1 fL (7.4-11.0); MONOCYTES # (AUTO) 0.6 x10^3/uL (0.3-0.8); MONOCYTES % (AUTO) 8.3 % (0.0-13.0); NEUTROPHILS % (AUTO) 82.2 % (42.0-75.0); PLATELET COUNT 426 X10^3/uL (150.0-450.0); RED BLOOD COUNT 3.15 X10^6/uL (4.7-6.0); RED CELL DISTRIBUTION WIDTH 18.5 % (11.6-16.5); WHITE BLOOD COUNT 7.3 X10^3/uL (3.6-10.0)
[2017-11-03 09:03] LABS: CALCIUM 8.5 mg/dL (8.5-10.1); CARBON DIOXIDE 28.1 mmol/L (21-32); COR CA(FOR HYPOALB) 9.3 mg/dL (8.5-10.1); CREATININE 1.47 mg/dL (0.70-1.30); TOTAL PROTEIN 6.4 g/dL (6.4-8.2)
[2017-11-03] MEDS ORDERED: ONDANSETRON 8 MG PO PRN (09:34)
[2017-11-03] MEDS ORDERED: ULTRAM PO PRN (09:34)
[2017-11-03] MEDS ORDERED: ZOFRAN TAB 4 MG PO PRN (09:46)
[2017-11-03] MEDS ORDERED: LEVSIN SYRUP PO PRN (09:53)
[2017-11-03] MEDS: REQUIP PO SCH ×2 (10:24→21:49)
[2017-11-03] MEDS: BACTRIM DS TAB PO SCH ×2 (10:24→21:49)
[2017-11-03] MEDS: GENTAMICIN TOPICAL OINT EXT SCH ×2 (10:25→21:42)
[2017-11-03] MEDS: PLAVIX PO SCH (10:25)
[2017-11-03] MEDS: IMATINIB 400 MG PO SCH (10:25)
[2017-11-03] MEDS: DECADRON TAB PO SCH (10:25)
--- NOTE | 2017-11-03 10:49 | DR.H&P ---
H&P - History & Physical for Day of: H&P Date: 11/03/17 - Chief Complaint Chief Complaint: FECAL AND URINARY INCONTINENCE, GENERALIZED WEAKNESS - History of Present Illness History of Present Illness: IS A 82 YEAR OLD PATIENT OF OURS WHO PRESENTED TO THE EMERGENCY ROOM WITH COMPLAINTS OF DIARRHEA AND URINATING ON HIMSELF. PATIENT WAS DISCHARGED FROM THE HOSPITAL EARLIER TODAY. HE WAS BEING TREATED FOR BILATERAL LOWER EXTREMITY CELLULITIS AND WEAKNESS. PRIOR TO DISCHARGE FROM THE HOSPITAL, PATIENT WAS ENCOURAGED TO CONSIDER PLACEMENT AT THE [facility] F[facility]ILITY FOR PHYSICAL THERAPY AND REHAB. PATIENT REFUSED AND INSISTED ON RETURNING HOME. PATIENT NOW STATES, I CANT LIVE AT HOME ALONE AND I WANT TO TRY THE PRISON. ON ARRIVAL, VITALS WERE 99.6-94-24-95%-184/ 96. LABS WERE OBTAINED. ABNORMAL LAB VALUES INCLUDE THE FOLLOWING: RBC 3.50, HGB 10.8, HCT 32.8, PLT COUNT 470, SODIUM 130, CHLORIDE 94, BUN 41, CREATININE 1.63, GLUCOSE 157. PRIOR TO DISCHARGE EARLIER IN THE DAY, SODIUM WAS NOTED TO BE 133, BUN 32, CREATININE 1.15. PATIENT WAS ADMITTED FOR FURTHER EVALUATION AND TREATMENT OF DEHYDRATION, FECAL AND URINARY INCONTINENCE, AND GENERALIZED WEAKNESS. HE WAS STARTED ON NORMAL SALINE AT 100ML/HR. WE PLAN TO FOLLOW UP WITH AM LABS AND CONTINUE TO MONITOR PATIENT. - Past Medical History Past Medical History: Arthritis, CHF, COPD, Coronary Artery Disease, GERD, Hypothyroidism, [place] Additional Medical History: LUNG CANCER, MELANOMA - Past Surgical History Surgical History: Ortho Surgery Additional Surgical History: BACK SURGERY - Family History Family Medical History: Cancer, [place], Coronary Artery Disease - Social History Does patient currently use any type of tobacco product: No Have you used tobacco products in the last 12 months: No Type of Tobacco Use: None Does any household member use tobacco: No Alcohol Use: None Drug Use: None - Medications Home Medications: promethazine [From Phenergan] Adverse Reaction (Verified 11/02/17 20:57) - Review of Systems Constitutional: Weakness Eyes: No Symptoms Reported ENT: No Symptoms Reported Respiratory: Shortness of Breath, SOB with Excertion Cardiovascular: No Symptoms Reported Gastrointestinal: Diarrhea. denies: Nausea, Vomiting, Abdominal Pain, Constipation, Melena, Hematochezia Genitourinary: Incontinence Musculoskeletal: Leg Pain Skin: No Symptoms Reported Neurological: Weakness - Physical Exam Vital Signs: Temperature 97.8 F Pulse Rate [Left Brachial] 82 Pulse Rate [Right] 70 Pulse Rate 94 Respiratory Rate 18 Blood Pressure [Right Arm] 138/61 Blood Pressure [Left Arm] 133/63 Blood Pressure 184/96 O2 Sat by Pulse Oximetry 99 Oriented: Normal Eyes: Normal Ear: Normal Nose: Normal Throat: Normal Respiratory: Clear Throughout Cardiovascular: Normal. negative: S3, S4, Murmur, Edema : Normal Auscultation: Bowel Sounds: Increased Palpation: Normal Tenderness: Normal Skin: Red, Tender, Wound (BILATERAL LOWER EXTREMITY SCATTERED WOUNDS ) Musculoskeletal: Instability Psychiatric: Normal Mood Description: Calm Affect: Normal Speech Pattern: Clear - Assessment/Plan (1) Hyponatremia Status: Acute Plan: NORMAL SALINE AT 100ML/HR, CONTINUE TO MONITOR (2) Generalized weakness Status: Acute (3) Urinary and fecal incontinence Status: Acute - Allergies Allergies/Adverse Reactions: Allergies Allergy/AdvReac Type Severity Reaction Status Date / Time promethazine [From Phenergan] AdvReac Verified 11/02/17 20:57
[2017-11-03] MEDS: BUTT CREAM (COMPOUND) TOP PRN (12:00)
[2017-11-03] MEDS ORDERED: SYNTHROID 75 mcg TAB PO SCH (16:30)
[2017-11-03] MEDS: NORCO 10/325 TAB PO PRN (18:31)
[2017-11-03] MEDS ORDERED: PATIENT'S HOME MEDICATION (Alprazolam [Alprazolam] 1 MG) PO SCH (21:00)
[2017-11-03] MEDS ORDERED: XANAX PO SCH (21:00)
[2017-11-03] MEDS ORDERED: BACTRIM DS TAB PO ONE (21:45)
[2017-11-04] MEDS: NS 1000 ML 1,000 ML IV SCH ×2 (05:01→14:18)
[2017-11-04 06:23] LABS: BASOPHILS % (AUTO) 0.1 % (0.2-1.0); HEMATOCRIT 29.4 % (42.0-54.0); HEMOGLOBIN 9.6 g/dL (13.5-18.0); LYMPHOCYTES # (AUTO) 0.5 X10^3/uL (1.3-2.9); LYMPHOCYTES % (AUTO) 8.3 % (21.0-51.0); MEAN CORPUSCULAR HEMOGLOBIN 31.3 pg (27.0-34.0); MEAN CORPUSCULAR HGB CONC 32.8 g/dL (33.0-35.0); MEAN CORPUSCULAR VOLUME 95.2 fL (80.0-100.0); MEAN PLATELET VOLUME 6.2 fL (7.4-11.0); MONOCYTES # (AUTO) 0.6 x10^3/uL (0.3-0.8); MONOCYTES % (AUTO) 9.5 % (0.0-13.0); NEUTROPHILS # (AUTO) 5.1 x10^3/uL (2.2-4.8); NEUTROPHILS % (AUTO) 82.1 % (42.0-75.0); PLATELET COUNT 378 X10^3/uL (150.0-450.0); RED BLOOD COUNT 3.08 X10^6/uL (4.7-6.0); WHITE BLOOD COUNT 6.2 X10^3/uL (3.6-10.0)
[2017-11-04 06:32] LABS: ALANINE AMINOTRANSFERASE 31 Units/L (12-78); ALBUMIN 2.7 g/dL (3.4-5.0); ALKALINE PHOSPHATASE 48 Units/L (46-116); ASPARTATE AMINO TRANSFERASE 19 Units/L (15-37); BLOOD UREA NITROGEN 32 mg/dL (7-18); CALCIUM 8.4 mg/dL (8.5-10.1); CARBON DIOXIDE 25.9 mmol/L (21-32); CHLORIDE 102 mmol/L (98-107); COR CA(FOR HYPOALB) 9.4 mg/dL (8.5-10.1); CREATININE 0.99 mg/dL (0.70-1.30); SODIUM 132 mmol/L (136-145); TOTAL PROTEIN 5.9 g/dL (6.4-8.2); eGFR NON BLACK RACES > 60 (>60)
[2017-11-04] MEDS: BACTRIM DS TAB PO SCH (08:22)
[2017-11-04] MEDS: BUTT CREAM (COMPOUND) TOP PRN (08:22)
[2017-11-04] MEDS: DECADRON TAB PO SCH (08:22)
[2017-11-04] MEDS: REQUIP PO SCH (08:22)
[2017-11-04] MEDS: GENTAMICIN TOPICAL OINT EXT SCH (08:23)
[2017-11-04 13:04] VITALS: BP 149/64
[2017-11-04] MEDS: IMATINIB 400 MG PO SCH (14:17)
[2017-11-04] MEDS: PLAVIX PO SCH (14:18)
[2017-11-04] MEDS: NORCO 10/325 TAB PO PRN (14:35)
--- NOTE | 2017-11-30 11:43 | DR.CARTERD ---
- Discharge Summary for: Discharge Summary for Date of:: 11/04/17 - Admission Date Date of Admission: 11/03/17 - Admission Diagnoses Admission Diagnosis: (1) Hyponatremia (2) Generalized weakness (3) Urinary and fecal incontinence - Discharge Date Discharge Date: 11/04/17 - Discharge Diagnoses Discharge Diagnosis: (1) Hyponatremia (2) Generalized weakness (3) Urinary and fecal incontinence - Hospital Course Hospital Course: MR. FRANCOIS IS A 82 YEAR OLD PATIENT OF OURS WHO PRESENTED TO THE EMERGENCY ROOM WITH COMPLAINTS OF DIARRHEA AND URINARY INCONTINENCE. PATIENT WAS DISCHARGED FROM THE HOSPITAL EARLIER THIS DAY. HE WAS TREATED FOR BILATERAL LOWER EXTREMITY CELLULITIS AND WEAKNESS. PRIOR TO DISCHARGE FROM THE HOSPITAL, PATIENT WAS ENCOURAGED TO CONSIDER PLACEMENT AT THE [facility]ER[facility] AND REHAB. PATIENT REFUSED AND INSISTED ON RETURNING HOME. PATIENT STATED UPON RETURNING TO HOSPITAL, I CANT LIVE AT HOME ALONE AND I WANT TO TRY THE SENIOR LIVING". ON ARRIVAL, VITALS WERE 99.6-94-24-95%-184/96. LABS WERE OBTAINED. ABNORMAL LAB VALUES INCLUDED THE FOLLOWING: RBC 3.50, HGB 10.8, HCT 32.8, PLT COUNT 470, SODIUM 130, CHLORIDE 94, BUN 41, CREATININE 1.63 , GLUCOSE 157. PRIOR TO DISCHARGE EARLIER IN THE DAY, SODIUM WAS NOTED TO BE 133 , BUN 32, CREATININE 1.15. PATIENT WAS ADMITTED FOR FURTHER EVALUATION AND TREATMENT OF DEHYDRATION, FECAL AND URINARY INCONTINENCE, AND GENERALIZED WEAKNESS. HE WAS STARTED ON NORMAL SALINE AT 100ML/HR. DAY TWO, PATIENT REPORTED HE FELT BETTER. VITAL SIGNS STABLE. LABS WNL. CASE MANAGEMENT SOUGHT PLACEMENT FOR SENIOR LIVING. WE PLANNED FOR DISCHARGE. INSTRUCTIONS FOR MEDICATIONS AND FOLLOW UP WERE DISCUSSED WITH PATIENT AND FAMILY, BOTH VOICED UNDERSTANDING. PATIENT DISCHARGED TO [facility] IN STABLE CONDITION WITH EMS. - Discharge Medications Discharge Medications: Home Medication List furosemide 20 mg PO DAILY #30 tab 11/04/17 [Rx] Prescriptions: Home medications alprazolam 1 mg PO HS 12/11/16 clopidogrel 75 mg PO DAILY 12/11/16 dexamethasone 4 mg PO DAILY 12/11/16 hyoscyamine sulfate 5 ml PO QID PRN 12/11/16 levothyroxine 75 mcg PO DAILYAC 12/11/16 ropinirole 1 mg PO BID 12/11/16 spironolactone 25 mg PO DAILY 12/11/16 tramadol 50 mg PO Q6H PRN 12/11/16 ondansetron HCl 4 mg PO Q8H PRN #15 tab 03/26/17 ondansetron [Zofran ODT] 8 mg PO Q8H PRN #12 tab 04/03/17 imatinib 400 mg PO DAILY 10/26/17 gentamicin 1 applic EXT PRN PRN #1 g 11/02/17 hydrocodone-acetaminophen [[place]] 1 tab PO Q6H PRN #120 tab 11/02/17 sulfamethoxazole-trimethoprim [Bactrim DS] 1 tab PO BID #60 tab 11/02/17 - Discharge Disposition Discharge Disposition: PATIENT IS TO FOLLOW UP WITH PHYSICIAN OF CHOICE AT [facility].
== END 2017-11-04 16:15 ==
LOC: ER 20:48 → OBS 20:48
PROVIDERS: ADMIT Internal Medicine; ATTEND Internal Medicine
DX: R53.1 Weakness; I25.10 Atherosclerotic heart disease of native coronary artery without angina pectoris; N39.498 Other specified urinary incontinence; J44.9 Chronic obstructive pulmonary disease, unspecified; R15.9 Full incontinence of feces; E87.1 Hypo-osmolality and hyponatremia; E03.9 Hypothyroidism, unspecified; K21.9 Gastro-esophageal reflux disease without esophagitis; R19.7 Diarrhea, unspecified
CPT/HCPCS: 36415; 80048; 80053; 85025; 96365; 96367; 99284; A4222; G0378; J7030; J8540

== ENCOUNTER 2017-12-17 07:36 | Inpatient (IN) ==
[2017-12-17 08:26] LABS: BASOPHILS % (AUTO) 0.4 % (0.2-1.0); EOSINOPHILS % (AUTO) 0.3 % (0.9-2.9); HEMATOCRIT 24.5 % (42.0-54.0); HEMOGLOBIN 8.4 g/dL (13.5-18.0); LYMPHOCYTES # (AUTO) 0.9 X10^3/uL (1.3-2.9); LYMPHOCYTES % (AUTO) 16.9 % (21.0-51.0); MEAN CORPUSCULAR HEMOGLOBIN 32.6 pg (27.0-34.0); MEAN CORPUSCULAR HGB CONC 34.2 g/dL (33.0-35.0); MEAN CORPUSCULAR VOLUME 95.5 fL (80.0-100.0); MEAN PLATELET VOLUME 6.7 fL (7.4-11.0); MONOCYTES # (AUTO) 0.2 x10^3/uL (0.3-0.8); MONOCYTES % (AUTO) 4.4 % (0.0-13.0); NEUTROPHILS # (AUTO) 4.2 x10^3/uL (2.2-4.8); PLATELET COUNT 270 X10^3/uL (150.0-450.0); RED BLOOD COUNT 2.56 X10^6/uL (4.7-6.0); RED CELL DISTRIBUTION WIDTH 21.2 % (11.6-16.5); WHITE BLOOD COUNT 5.4 X10^3/uL (3.6-10.0)
[2017-12-17 08:30] LABS: ANISOCYTOSIS 1+; BAND NEUTROPHILS % 7 % (0-10); HYPOCHROMASIA SLIGHT; PLATELET MORPHOLOGY COMMENT NORMAL (NORMAL)
--- NOTE | 2017-12-17 08:31 | RAD ---
HISTORY: Shortness of breath Study: Upright portable AP chest Comparison: October 31, 2017 Findings: The trachea is midline. The cardiac silhouette is unremarkable. There is unchanged right lateral pl eural thickening and parenchymal scarring. There is mild apical pleural scarring as well bilaterally. There is apical pleural calcification. Although the patient is rotated to the right there is pronoun juni fullness lateral above the right hilum which may be artifactual from positioning. There is no acute infiltrate or effusion.. The bony thorax is unremarkable. IMPRESSION: 1. Right perihilar fullness that may be secondary to projection and patient positioning 2. Unchanged pleural thickening and scarring Reported By:
[2017-12-17 08:33] LABS: ALANINE AMINOTRANSFERASE 61 Units/L (12-78); ALBUMIN 2.2 g/dL (3.4-5.0); ALKALINE PHOSPHATASE 46 Units/L (46-116); ASPARTATE AMINO TRANSFERASE 32 Units/L (15-37); BLOOD UREA NITROGEN 25 mg/dL (7-18); CALCIUM 9.3 mg/dL (8.5-10.1); CARBON DIOXIDE 36.8 mmol/L (21-32); CHLORIDE 99 mmol/L (98-107); COR CA(FOR HYPOALB) 10.7 mg/dL (8.5-10.1); CREATININE 1.01 mg/dL (0.70-1.30); SODIUM 137 mmol/L (136-145); TOTAL PROTEIN 5.7 g/dL (6.4-8.2); eGFR NON BLACK RACES > 60 (>60)
[2017-12-17 08:36] LABS: B-TYPE NATRIURETIC PEPTIDE 318 pg/mL (0-79)
[2017-12-17 08:55] LABS: ABG BASE EXCESS 13.5 mmol/L (-2.0-2.0)
[2017-12-17 09:01] LABS: ABG HCO3 38.9 mmol/L (22-26)
[2017-12-17 09:06] LABS: LACTIC ACID 2.1 mmol/L (0.4-2.0)
[2017-12-17] MEDS ORDERED: DOPAMINE IV PREMIX 400 MG/250 ML 400 MG/250 ML BAG IV PRN (09:42)
[2017-12-17] MEDS ORDERED: ROCEPHIN VIAL 1 GRAM 1 G in NS 100 ML IV + SPIKE MINIBAG* 100 ML IV SCH (09:45)
[2017-12-17] MEDS ORDERED: NS 100 ML IV + SPIKE MINIBAG* 100 ML IV ONE (09:49)
[2017-12-17] MEDS ORDERED: ROCEPHIN VIAL 1 GRAM ONE (09:49)
[2017-12-17] MEDS: NS 1000 ML 1,000 ML IV SCH (10:09)
[2017-12-17] MEDS: LEVAQUIN PREMIX IV 500 MG 500 MG/100 ML BAG IV SCH (10:09)
--- NOTE | 2017-12-17 10:20 | DR.SOBA ---
HPI Time Seen Time seen: 08:30 Primary Care Physician Primary Care Physician: ALEIDA Complaints Chief Complaint:: CHARGE NURSE ALISHA AT [facility] CALLED AND STATED THAT PATIENT IS SHORT OF BREATH AND HURTING ALL OVER. SHE STATED THAT 89-90 ON 3L NC. SHE STATE THAT PT HAS HX OF LUNG CA. SHE STATED THAT [employer]ING [employer]SEMBLER TOLD HER THAT HE HAS BEEN STRUGGLING ALL NIGHT WITH HIS BREATHING. PT WAS GIVEN ALL HIS AM MEDS AND WAS GIVEN A NORCO AND ATIVAN. FAMILY WANTED PT SENT TO THE ER FOR EVALUATION. Source History Provided: Alf Mode of Arrival Mode of Arrival: Stretcher Timing Onset of Chief Complaint: 12/17/17 PMH PMH Past Medical History: Yes Past Medical History: Arthritis, CHF, COPD, Coronary Artery Disease, GERD, Hypothyroidism and [place] Past Surgical History: Yes Surgical History: Ortho Surgery Family History History of Family Medical Conditions: Yes Family Medical History: Cancer, [place] and Coronary Artery Disease Social History Does patient currently use any type of tobacco product: No Have you used tobacco products in the last 12 months: No Type of Tobacco Use: None Does any household member use tobacco: No Alcohol Use: None Do you use any recreational Drugs:: No Lives With: Other Lives Where: Alf infectious screening In the last 2 months have you had wt loss of >10#?: NO Have you had fever, night sweats or hemotysis?: No Have you traveled outside the country in the last 6 months?: No Isolation: Standard ROS Review of Systems Constitutional: No Symptoms Reported Eyes: No Symptoms Reported ENTM: No Symptoms Reported Respiratoy: Short of Breath Cardiovascular: No Symptoms Reported Gastrointestinal/Abdominal: No Symptoms Reported Genitourinary: No Symptoms Reported Neurological: No Symptoms Reported Musculoskeletal: No Symptoms Reported Integumentary: No Symptoms Reported Hematologic/Lymphatic: No Symptoms Reported Endocrine: No Symptoms Reported Psychiatric: No Symptoms Reported All Other Systems: Reviewed and Negative PE Vital Signs Vitals: Temperature 97.6 F Pulse Rate [Apical] 68 Pulse Rate 80 Respiratory Rate 36 Blood Pressure [Right Arm] 149/64 Blood Pressure [Left Arm] 96/48 Blood Pressure 102/58 O2 Sat by Pulse Oximetry 94 General Limitations: Physical Limitation and Other (Debilitation) General Appearance: In No Apparent Distress and Lethargic Head Head Exam: Normal Inspection Eyes Eye exam: Normal Appearance ENT ENT Exam: Normal Exam Neck Neck Exam: Normal Inspection Chest Chest Inspection: Normal Inspection and Symmetric Chest Wall Rise Respiratory Respiratory Exam: Bilateral: Rhonchi Cardiovascular Cardiovascular Exam: Regular Rate, Normal Rhythm, +S1 and +S2 Abdominal Exam Abdominal Exam: Normal Inspection, Normal Bowel Sounds and Soft Extremities Extremities Exam: Other (petechiae/cyanosis to legs + feet.); negative Full ROM , Tenderness, Normal Capillary Refill, Edema, Joint Swelling and Calf Tenderness Back Back Exam: Normal Inspection COURSE Education/Counseling Education/Counseling: Family and Counseling Educated On: Treatment, Diagnosis, Prognosis and Needs for Follow Up ROR Labs Reviewed Result Diagrams: 12/17/17 08:00 12/17/17 08:00 Laboratory: WBC 5.4 X10^3/uL (3.6-10.0) 12/17/17 08:00 RBC 2.56 X10^6/uL (4.7-6.0) L 12/17/17 08:00 Hgb 8.4 g/dL (13.5-18.0) L 12/17/17 08:00 Hct 24.5 % (42.0-54.0) L 12/17/17 08:00 MCV 95.5 fL (80.0-100.0) 12/17/17 08:00 MCH 32.6 pg (27.0-34.0) 12/17/17 08:00 MCHC 34.2 g/dL (33.0-35.0) 12/17/17 08:00 RDW 21.2 % (11.6-16.5) H 12/17/17 08:00 Plt Count 270 X10^3/uL (150.0-450.0) 12/17/17 08:00 Plt Count Comment Adequate (ADEQUATE) 12/17/17 08:00 MPV 6.7 fL (7.4-11.0) L 12/17/17 08:00 Neut % (Auto) 78.0 % (42.0-75.0) H 12/17/17 08:00 Lymph % (Auto) 16.9 % (21.0-51.0) L 12/17/17 08:00 [place] % (Auto) 4.4 % (0.0-13.0) 12/17/17 08:00 Eos % (Auto) 0.3 % (0.9-2.9) L 12/17/17 08:00 Baso % (Auto) 0.4 % (0.2-1.0) 12/17/17 08:00 Neut # (Auto) 4.2 x10^3/uL (2.2-4.8) 12/17/17 08:00 Lymph # (Auto) 0.9 X10^3/uL (1.3-2.9) L 12/17/17 08:00 [place] # (Auto) 0.2 x10^3/uL (0.3-0.8) L 12/17/17 08:00 Eos # (Auto) 0.0 x10^3/uL (0.0-0.2) 12/17/17 08:00 Baso # (Auto) 0.0 X10^3/uL (0.0-0.1) 12/17/17 08:00 Absolute Nucleated RBC 2.0 /100WBC 12/17/17 08:00 Total Counted 100 12/17/17 08:00 Neutrophils % (Manual) 80 % (39-76) H 12/17/17 08:00 Band Neutrophils % 7 % (0-10) 12/17/17 08:00 Lymphocytes % (Manual) 8 % (13-43) L 12/17/17 08:00 Monocytes % (Manual) 4 % (4-9) 12/17/17 08:00 Eosinophils % (Manual) 1 % (0-6) 12/17/17 08:00 Plt Morphology Comment Normal (NORMAL) 12/17/17 08:00 RBC Morphology Abnormal (NORMAL) 12/17/17 08:00 Hypochromasia Slight A 12/17/17 08:00 Anisocytosis 1+ A 12/17/17 08:00 Sample Site Lb 12/17/17 08:50 ABG pH 7.490 (7.35-7.45) H 12/17/17 08:50 ABG pCO2 51.0 mmHg (35.0-45.0) H* 12/17/17 08:50 ABG pO2 50.0 mmHg (80.0-100.0) L 12/17/17 08:50 ABG HCO3 38.9 mmol/L (22-26) H* 12/17/17 08:50 ABG O2 Saturation 88.0 % (90-100) L 12/17/17 08:50 ABG Base Excess 13.5 mmol/L (-2.0-2.0) H 12/17/17 08:50 Edgardo Test N/a 12/17/17 08:50 A-a Gradient 86.0 mmHg 12/17/17 08:50 FiO2 28.000 12/17/17 08:50 Blood Gas Comments Pt sharyn well. cdn 12/17/17 08:50 Sodium 137 mmol/L (136-145) 12/17/17 08:00 Corrected Sodium TNP 12/17/17 08:00 Potassium 3.8 mmol/L (3.5-5.1) 12/17/17 08:00 Chloride 99 mmol/L (98-107) 12/17/17 08:00 Carbon Dioxide 36.8 mmol/L (21-32) H 12/17/17 08:00 BUN 25 mg/dL (7-18) H 12/17/17 08:00 Creatinine 1.01 mg/dL (0.70-1.30) 12/17/17 08:00 Est GFR (MDRD) Af Amer > 60 (>60) 12/17/17 08:00 Est GFR (MDRD) Non-Af > 60 (>60) 12/17/17 08:00 Glucose 110 mg/dL (65-99) H 12/17/17 08:00 Lactic Acid 2.1 mmol/L (0.4-2.0) H 12/17/17 08:00 Calcium 9.3 mg/dL (8.5-10.1) 12/17/17 08:00 Corrected Calcium 10.7 mg/dL (8.5-10.1) H 12/17/17 08:00 Total Bilirubin 0.30 mg/dL (0.2-1.0) 12/17/17 08:00 AST 32 Units/L (15-37) 12/17/17 08:00 ALT 61 Units/L (12-78) 12/17/17 08:00 Alkaline Phosphatase 46 Units/L (46-116) 12/17/17 08:00 B-Natriuretic Peptide 318 pg/mL (0-79) H 12/17/17 08:00 Total Protein 5.7 g/dL (6.4-8.2) L 12/17/17 08:00 Albumin 2.2 g/dL (3.4-5.0) L 12/17/17 08:00 Globulin 3.5 g/dL (2.5-4.5) 12/17/17 08:00 Albumin/Globulin Ratio 0.6 Ratio (1.1-2.1) L 12/17/17 08:00 XRAY XRAY Interpreted by: Radiologist XRAY Findings: Rt. perihilar fullness that may be secondary to projection and pt. position EKG Rate: 81 Rhythm: NSR Block: IVCD Hypertrophy: None
[2017-12-17] MEDS ORDERED: PHARMACY CONSULT - VANCOMYCIN XX SCH (11:00)
[2017-12-17] MEDS ORDERED: VANCOMYCIN HCL 1 GM VIAL 1 G in D5W 250 ML IV 250 ML IV SCH (11:00)
[2017-12-17] MEDS ORDERED: FORTAZ or TAZICEF VIAL INJ 1 G in NS 100 ML IV + SPIKE MINIBAG* 100 ML IV SCH (11:00)
[2017-12-17 11:32] LABS: BILIRUBIN,URINE NEGATIVE (NEGATIVE); BLOOD/HEMOGLOBIN,URINE 4+ (NEGATIVE); GLUCOSE, URINE NEGATIVE (NEGATIVE); KETONES,URINE NEGATIVE (NEGATIVE); LEUKOCYTE ESTERASE ,URINE 1+ (NEGATIVE); NITRITES,URINE NEGATIVE (NEGATIVE); PROTEIN,URINE 1+ (NEGATIVE); UROBILINOGEN,URINE NORMAL (NORMAL)
[2017-12-17 11:38] LABS: APPEARANCE,URINE HAZY (CLEAR); COLOR,URINE YELLOW (YELLOW)
[2017-12-17 11:49] LABS: BACTERIA,URINE TRACE /HPF (NEGATIVE); HYALINE CASTS, URINE FEW /LPF (NEGATIVE); SQUAMOUS EPITHELIAL CELL,UR RARE /HPF (NEGATIVE)
[2017-12-17] MEDS ORDERED: XYLOCAINE 1 % (PLAIN) ONE (12:31)
[2017-12-17] MEDS: FORTAZ or TAZICEF VIAL INJ 1 G in NS 100 ML IV + SPIKE MINIBAG* 100 ML IV SCH ×3 (13:27→21:27)
[2017-12-17 13:38] VITALS: BMI 26.3
[2017-12-17] MEDS: VANCOMYCIN HCL 1 GM VIAL 1 G in D5W 250 ML IV 250 ML IV SCH ×2 (14:52→21:26)
[2017-12-17] MEDS: MORPHINE SULFATE INJ 2 MG INJ IVP PRN ×2 (15:12→17:06)
--- NOTE | 2017-12-17 15:35 | RAD ---
History: Status post a 10 for left central line placement Study: Portable supine AP chest Comparison: Today at 8:26 a.m. Findings: There is no interval change. There is no left pneumothorax or pleural effusion. There is un changed right pleural thickening and scarring and some parenchymal scarring in the right lower lung. The heart size is normal. Impression : No pneumothorax or pleural effusion status post attempt at left central line placement. Reported By:
[2017-12-17] MEDS ORDERED: XARELTO PO SCH (21:00)
[2017-12-17] MEDS: COLACE CAP 100 MG PO SCH (21:26)
[2017-12-17] MEDS: REQUIP PO SCH (21:26)
[2017-12-18 05:31] LABS: ABG BASE EXCESS 12.1 mmol/L (-2.0-2.0)
[2017-12-18 05:33] LABS: ABG ALLEN TEST POS; ABG HCO3 36.7 mmol/L (22-26)
[2017-12-18] MEDS: FORTAZ or TAZICEF VIAL INJ 1 G in NS 100 ML IV + SPIKE MINIBAG* 100 ML IV SCH (05:38)
--- NOTE | 2017-12-18 06:15 | RAD ---
examination: Portable AP chest History: SOB, leukemia Comparison reference 12/17/2017 Findings: Stable heart size with clear left lung. Persistent pleural-parenchymal density right lower chest which may represent chronic scarring, as before. No developing pleural effusion or complicatin g pneumothorax. Impression: No change since 12/17/2017. Reported By:
[2017-12-18 06:22] LABS: BASOPHILS % (AUTO) 0.8 % (0.2-1.0); EOSINOPHILS % (AUTO) 0.4 % (0.9-2.9); HEMATOCRIT 26.5 % (42.0-54.0); LYMPHOCYTES # (AUTO) 0.8 X10^3/uL (1.3-2.9); MEAN CORPUSCULAR HEMOGLOBIN 32.2 pg (27.0-34.0); MEAN CORPUSCULAR HGB CONC 33.8 g/dL (33.0-35.0); MEAN CORPUSCULAR VOLUME 95.1 fL (80.0-100.0); MEAN PLATELET VOLUME 6.7 fL (7.4-11.0); MONOCYTES # (AUTO) 0.3 x10^3/uL (0.3-0.8); MONOCYTES % (AUTO) 4.1 % (0.0-13.0); NEUTROPHILS # (AUTO) 5.3 x10^3/uL (2.2-4.8); NEUTROPHILS % (AUTO) 82.7 % (42.0-75.0); PLATELET COUNT 290 X10^3/uL (150.0-450.0); RED BLOOD COUNT 2.78 X10^6/uL (4.7-6.0); RED CELL DISTRIBUTION WIDTH 21.6 % (11.6-16.5); WHITE BLOOD COUNT 6.4 X10^3/uL (3.6-10.0)
[2017-12-18 06:38] LABS: ALANINE AMINOTRANSFERASE 71 Units/L (12-78); ALBUMIN 2.3 g/dL (3.4-5.0); ALKALINE PHOSPHATASE 46 Units/L (46-116); ASPARTATE AMINO TRANSFERASE 41 Units/L (15-37); BLOOD UREA NITROGEN 19 mg/dL (7-18); CARBON DIOXIDE 36.2 mmol/L (21-32); CHLORIDE 101 mmol/L (98-107); COR CA(FOR HYPOALB) 10.4 mg/dL (8.5-10.1); CREATININE 0.95 mg/dL (0.70-1.30); SODIUM 139 mmol/L (136-145); TOTAL PROTEIN 6.2 g/dL (6.4-8.2); eGFR NON BLACK RACES > 60 (>60)
[2017-12-18 06:59] LABS: BAND NEUTROPHILS % 6 % (0-10)
[2017-12-18 07:00] LABS: ANISOCYTOSIS 1+; HYPOCHROMASIA SLIGHT; PLATELET MORPHOLOGY COMMENT NORMAL (NORMAL)
[2017-12-18] MEDS ORDERED: SYNTHROID 50 mcg TAB PO SCH (07:00)
[2017-12-18] MEDS ORDERED: PLAVIX PO SCH (09:00)
[2017-12-18] MEDS ORDERED: HEMOCYTE-PLUS PO SCH (09:00)
[2017-12-18] MEDS ORDERED: SYNTHROID 75 mcg TAB PO SCH (09:00)
[2017-12-18] MEDS: COLACE CAP 100 MG PO SCH (09:18)
[2017-12-18] MEDS: REQUIP PO SCH (09:18)
[2017-12-18] MEDS: VANCOMYCIN HCL 1 GM VIAL 1 G in D5W 250 ML IV 250 ML IV SCH (09:20)
[2017-12-18] MEDS: MORPHINE SULFATE INJ 2 MG INJ IVP PRN ×3 (09:21→13:24)
[2017-12-18] MEDS: LEVAQUIN PREMIX IV 500 MG 500 MG/100 ML BAG IV SCH (09:21)
[2017-12-18] MEDS ORDERED: MORPHINE SULFATE PCA 30 MG IVP PRN (10:01)
[2017-12-18] MEDS ORDERED: VERSED 100 MG in NS 100 ML IV 80 ML IV PRN (10:01)
[2017-12-18] MEDS: NS 1000 ML 1,000 ML IV SCH (11:52)
[2017-12-18] MEDS ORDERED: MORPHINE SULFATE INJ 2 MG INJ ONE (12:34)
[2017-12-18] MEDS ORDERED: PHARMACY COMMENT IV NR (20:30)
--- NOTE | 2017-12-18 22:08 | DR.H&P ---
H&P - History & Physical for Day of: H&P Date: 12/17/17 - Chief Complaint Chief Complaint: SHORTNESS OF BREATH, ACHING ALL OVER - History of Present Illness History of Present Illness: IS A 82 YEAR OLD PATIENT OF OURS. HE IS A RESIDENT OF [facility]. [facility] STAFF REPORTED THAT PATIENT COMPLAINED OF SHORTNESS OF BREATH AND HURTING ALL OVER. SHE REPORTED THAT HE HAD DECREASED OXYGEN SATURATIONS OF 89-90% ON 3L/MIN NASAL CANNULA. THEY REPORT THAT PATIENT HAS BEEN VERY ANXIOUS ALL EVENING. PATIENT HAS A HISTORY OF LUNG CANCER, COPD, AND CONGESTIVE HEART FAILURE. ON ARRIVAL, VITALS WERE 97.6-80-22- 94%NC-102/58. LABS WERE OBTAINED. ABNORMAL LAB VALUES INCLUDE THE FOLLOWING: RBC 2.56, HGB 8.4, HCT 24.5, CARBON DIOXIDE 36.8, BUN 25, GLUCOSE 110, LACTIC ACID 2.1, BNP 318, TOTAL PROTEIN 5.7, ALBUMIN 2.2. AN ABG REVEALED PH 7.490, PC02 51.0, P02 50.0, HC03 38.9, 02 SATURATION 88.0, BASE EXCESS 13.5. A URINALYSIS WAS OBTAINED AND REVEALED WBC 0-2, RBC 10-20, BACTERIA TRACE, LEUKOCYTES 1+. SPUTUM AND BLOOD CULTURES ARE PENDING. A CHEST XRAY WAS OBTAINED AND REVEALED: Right perihilar fullness that may be secondary to projection and patient positioning. Unchanged pleural thickening and scarring. HE WAS PLACED ON THE BIPAP. HIS BLOOD PRESSURE WAS NOTED TO DECREASE TO 82/44. HE WAS STARTED ON A DOPAMINE DRIP AND GIVEN LEVAQUIN 500MG IV X 1 DOSE AND FORTAZ 1GM IV X 1 DOSE IN THE ER. HE WAS ADMITTED TO THE INTENSIVE CARE UNIT FOR FURTHER EVALUATION AND TREATMENT OF RESPIRATORY DISTRESS, HYPOTENSION, AND SEPSIS. WE STARTED NORMAL SALINE AT 20ML/HR, VANCOMYCIN 1GM IV BID, MORPHINE 2MG IV Q4H, AND RESUMED HOME MEDS. WE PLAN TO FOLLOW UP WITH AM LABS AND CHEST XRAY AND CONTINUE TO MONITOR. - Past Medical History Past Medical History: [place], Coronary Artery Disease, Hypothyroidism, COPD, GERD, Arthritis, CHF Additional Medical History: LUNG CANCER, MELANOMA - Past Surgical History Surgical History: Ortho Surgery Additional Surgical History: BACK SURGERY - Family History Family Medical History: Cancer, [place], Coronary Artery Disease - Social History Does patient currently use any type of tobacco product: No Have you used tobacco products in the last 12 months: No Type of Tobacco Use: None Does any household member use tobacco: No Alcohol Use: None Drug Use: None - Medications Home Medications: promethazine [From Phenergan] Adverse Reaction (Verified 11/02/17 20:57) CONTINUE taking the following medications docusate sodium [Colace] 1 tab PO BID 12/17/17 [History] iron-folic acid-mv, min cmb#15 [Hemocyte-Plus] 1 tab PO DAILY 12/17/17 [History] lisinopril 1 tab PO DAILY 12/17/17 [History] metoprolol tartrate 1 tab PO DAILY 12/17/17 [History] potassium chloride 7.5 ml PO DAILY 12/17/17 [History] prednisone 1 tab PO DAILY 12/17/17 [History] rivaroxaban [Xarelto] 1 tab PO HS 12/17/17 [History] - Review of Systems Constitutional: Weakness Eyes: No Symptoms Reported ENT: No Symptoms Reported Respiratory: Cough, Shortness of Breath, SOB with Excertion Cardiovascular: Edema (BILATERAL LOWER EXTREMITIES ) Gastrointestinal: No Symptoms Reported Genitourinary: No Symptoms Reported Musculoskeletal: No Symptoms Reported Skin: No Symptoms Reported Neurological: Weakness - Physical Exam Vital Signs: Temperature 99.3 F Pulse Rate [Apical] 106 Pulse Rate 80 Respiratory Rate 20 Blood Pressure [Right Arm] 149/64 Blood Pressure [Left Arm] 96/49 Blood Pressure 102/58 O2 Sat by Pulse Oximetry 99 Oriented: Normal Eyes: Normal Ear: Normal Nose: Normal Throat: Normal Respiratory: Rhonchi Throughout Cardiovascular: Edema. negative: S3, S4, Murmur : Normal Auscultation: Bowel Sounds: Normal Palpation: Normal Tenderness: Normal Skin: Normal Musculoskeletal: Normal Psychiatric: Normal Mood Description: Calm Affect: Normal Speech Pattern: Clear - Assessment/Plan (1) Respiratory distress Status: Acute Plan: ADMIT, BIPAP, RESPIRATORY TREATMENTS, SUPPLEMENTAL OXYGEN, CONTINUE TO MONITOR (2) Hypotension Qualifiers: Hypotension type: unspecified hypotension type Qualified Code(s): I95.9 - Hypotension, unspecified Status: Acute Plan: NORMAL SALINE, DOPAMINE DRIP, CONTINUE TO MONITOR (3) Sepsis Qualifiers: Sepsis type: sepsis due to unspecified organism Qualified Code(s): A41.9 - Sepsis, unspecified organism Status: Acute Plan: BLOOD AND SPUTUM CULTURES, IV ANTIBIOTICS, CONTINUE TO MONTIOR - Allergies Allergies/Adverse Reactions: Allergies Allergy/AdvReac Type Severity Reaction Status Date / Time promethazine [From Phenergan] AdvReac Verified 11/02/17 20:57
--- NOTE | 2017-12-18 23:07 | PCM.PROG ---
Progress Note - Progress Note for Day of Date of Exam: 12/18/17 - Subjective Subjective: WAS ADMITTED FOR RESPIRATORY DISTRESS, HYPOTENSION, AND SEPSIS. TODAY, HE IS LYING IN BED WITH EYES CLOSED ON MORNING ROUNDS. HE IS UTILIZING THE BIPAP UPON ROUNDS. HE OPENS EYES TO VERBAL STIMULI, BUT IS NOTED WITH LABORED RESPIRATIONS IN THE 40S. ON EXAMINATION, HEART IS REGULAR IN RATE AND RHYTHM. BILATERAL LUNGS ARE NOTED WITH SCATTERED RHONCHI THROUGHOUT, DIMINISHED. ABDOMEN IS ROUND, SOFT, AND NON-TENDER. BILATERAL LOWER EXTREMITIES ARE NOTED WITH 1+ PITTING EDEMA. HIS VITALS THIS MORNING ARE 97.2-95-24-100%-112 /56. HE CONTINUES ON A DOPAMINE DRIP AT THIS TIME. BLOOD PRESSURE REMAINS LOW DESPITE DOPAMINE DRIP. LABS WERE OBTAINED. ABNORMAL LAB VALUES INCLUDE THE FOLLOWING: RBC 2.78, HGB 9.0, HCT 26.5, CARBON DIOXIDE 36.2, BUN 19, GLUCOSE 105 , AST 41, TOTAL PROTEIN 6.2, ALBUMIN 2.3. SPUTUM AND BLOOD CULTURES ARE PENDING. ABG OBTAINED AND REVEALED: PH 7.510, PC02 46.0, HC03 36.7, BASE EXCESS 12.1. A CHEST XRAY WAS OBTAINED THIS MORNING AND REVEALED NO CHANGE SINCE YESTERDAY. WE DISCUSSED WITH FAMILY PATIENTS CONDITION AT THIS TIME. FAMILY WISHES THAT PATIENT BE KEPT COMFORTABLE AND NOT IN DISTRESS. WE ARE IN AGREEMENT. WE WILL INITIATE PALLATIVE CARE TREATMENT TODAY. OTHERWISE, WE WILL FOLLOW UP AND CONTINUE TO MONITOR PATIENT. - Past Medical Family Social History Past Med/Fam/Surg Hx: No changes since H&P Allergies: Allergies promethazine [From Phenergan] Adverse Reaction (Verified 11/02/17 20:57) - Review of Systems ROS: No change since H&P - Vital Signs and I&O's Vital Signs: Temperature 99.3 F Pulse Rate [Apical] 106 Pulse Rate 80 Respiratory Rate 20 Blood Pressure [Right Arm] 149/64 Blood Pressure [Left Arm] 96/49 Blood Pressure 102/58 O2 Sat by Pulse Oximetry 99 Intake and Output: Intake & Output 12/16/17 12/17/17 12/18/17 12/19/17 11:59 11:59 11:59 11:59 Intake Total 2776 / 2776 1300 / 1300 Output Total 3000 / 3000 650 / 650 Balance -224 / -224 650 / 650 - Physical Exam Oriented: Not Oriented Eyes: Normal Ear: Normal Nose: Normal Throat: Normal Respiratory: Generalized, Diminished, Rhonchi Cardiovascular: Edema. negative: S3, S4, Murmur : Normal Auscultation: Bowel Sounds: Normal Palpation: Normal Tenderness: Normal Skin: Normal Musculoskeletal: Normal Psychiatric: Normal Mood Description: Calm Affect: Normal Speech Pattern: Clear - Laboratory and Diagnostics Result Diagrams: 12/18/17 05:30 12/18/17 05:30 Labs: 12/17/17 08:46 Sputum - Expectorated Sputum Sputum Culture - Preliminary 12/17/17 08:46 Sputum - Expectorated Sputum - Final Laboratory WBC 6.4 X10^3/uL (3.6-10.0) 12/18/17 05:30 RBC 2.78 X10^6/uL (4.7-6.0) L 12/18/17 05:30 Hgb 9.0 g/dL (13.5-18.0) L 12/18/17 05:30 Hct 26.5 % (42.0-54.0) L 12/18/17 05:30 MCV 95.1 fL (80.0-100.0) 12/18/17 05:30 MCH 32.2 pg (27.0-34.0) 12/18/17 05:30 MCHC 33.8 g/dL (33.0-35.0) 12/18/17 05:30 RDW 21.6 % (11.6-16.5) H 12/18/17 05:30 Plt Count 290 X10^3/uL (150.0-450.0) 12/18/17 05:30 Plt Count Comment Adequate (ADEQUATE) 12/18/17 05:30 MPV 6.7 fL (7.4-11.0) L 12/18/17 05:30 Neut % (Auto) 82.7 % (42.0-75.0) H 12/18/17 05:30 Lymph % (Auto) 12.0 % (21.0-51.0) L 12/18/17 05:30 [place] % (Auto) 4.1 % (0.0-13.0) 12/18/17 05:30 Eos % (Auto) 0.4 % (0.9-2.9) L 12/18/17 05:30 Baso % (Auto) 0.8 % (0.2-1.0) 12/18/17 05:30 Neut # (Auto) 5.3 x10^3/uL (2.2-4.8) H 12/18/17 05:30 Lymph # (Auto) 0.8 X10^3/uL (1.3-2.9) L 12/18/17 05:30 [place] # (Auto) 0.3 x10^3/uL (0.3-0.8) 12/18/17 05:30 Eos # (Auto) 0.0 x10^3/uL (0.0-0.2) 12/18/17 05:30 Baso # (Auto) 0.0 X10^3/uL (0.0-0.1) 12/18/17 05:30 Absolute Nucleated RBC 1.2 /100WBC 12/18/17 05:30 Total Counted 10 12/18/17 05:30 Neutrophils % (Manual) 82 % (39-76) H 12/18/17 05:30 Band Neutrophils % 6 % (0-10) 12/18/17 05:30 Lymphocytes % (Manual) 12 % (13-43) L 12/18/17 05:30 Monocytes % (Manual) 4 % (4-9) 12/17/17 08:00 Eosinophils % (Manual) 1 % (0-6) 12/17/17 08:00 Nucleated RBCs 3 12/18/17 05:30 Plt Morphology Comment Normal (NORMAL) 12/18/17 05:30 RBC Morphology Abnormal (NORMAL) 12/18/17 05:30 Hypochromasia Slight A 12/18/17 05:30 Anisocytosis 1+ A 12/18/17 05:30 Sample Site Rrad 12/18/17 05:19 ABG pH 7.510 (7.35-7.45) H 12/18/17 05:19 ABG pCO2 46.0 mmHg (35.0-45.0) H 12/18/17 05:19 ABG pO2 90.0 mmHg (80.0-100.0) 12/18/17 05:19 ABG HCO3 36.7 mmol/L (22-26) H* 12/18/17 05:19 ABG O2 Saturation 98.0 % (90-100) 12/18/17 05:19 ABG Base Excess 12.1 mmol/L (-2.0-2.0) H 12/18/17 05:19 Edgardo Test Pos 12/18/17 05:19 A-a Gradient 138.0 mmHg 12/18/17 05:19 FiO2 40.000 12/18/17 05:19 Blood Gas Comments Norberto abg well-mtf 12/18/17 05:19 Sodium 139 mmol/L (136-145) 12/18/17 05:30 Corrected Sodium TNP 12/18/17 05:30 Potassium 3.8 mmol/L (3.5-5.1) 12/18/17 05:30 Chloride 101 mmol/L (98-107) 12/18/17 05:30 Carbon Dioxide 36.2 mmol/L (21-32) H 12/18/17 05:30 BUN 19 mg/dL (7-18) H 12/18/17 05:30 Creatinine 0.95 mg/dL (0.70-1.30) 12/18/17 05:30 Est GFR (MDRD) Af Amer > 60 (>60) 12/18/17 05:30 Est GFR (MDRD) Non-Af > 60 (>60) 12/18/17 05:30 Glucose 105 mg/dL (65-99) H 12/18/17 05:30 Lactic Acid 2.1 mmol/L (0.4-2.0) H 12/17/17 08:00 Calcium 9.0 mg/dL (8.5-10.1) 12/18/17 05:30 Corrected Calcium 10.4 mg/dL (8.5-10.1) H 12/18/17 05:30 Total Bilirubin 0.40 mg/dL (0.2-1.0) 12/18/17 05:30 AST 41 Units/L (15-37) H 12/18/17 05:30 ALT 71 Units/L (12-78) 12/18/17 05:30 Alkaline Phosphatase 46 Units/L (46-116) 12/18/17 05:30 B-Natriuretic Peptide 318 pg/mL (0-79) H 12/17/17 08:00 Total Protein 6.2 g/dL (6.4-8.2) L 12/18/17 05:30 Albumin 2.3 g/dL (3.4-5.0) L 12/18/17 05:30 Globulin 3.9 g/dL (2.5-4.5) 12/18/17 05:30 Albumin/Globulin Ratio 0.6 Ratio (1.1-2.1) L 12/18/17 05:30 Specimen Type Catherized urine 12/17/17 11:26 Urine Color Yellow (YELLOW) 12/17/17 11:26 Urine Appearance Hazy (CLEAR) 12/17/17 11:26 Urine pH 8.0 (5.0 - 8.0) 12/17/17 11:26 Ur Specific [place] 1.010 (1.000-1.030) 12/17/17 11:26 Urine Protein 1+ (NEGATIVE) 12/17/17 11:26 Urine Glucose (UA) Negative (NEGATIVE) 12/17/17 11:26 Urine Ketones Negative (NEGATIVE) 12/17/17 11:26 Urine Occult Blood 4+ (NEGATIVE) 12/17/17 11:26 Urine Nitrite Negative (NEGATIVE) 12/17/17 11:26 Urine Bilirubin Negative (NEGATIVE) 12/17/17 11:26 Urine Urobilinogen Normal (NORMAL) 12/17/17 11:26 Ur Leukocyte Esterase 1+ (NEGATIVE) 12/17/17 11:26 Urine RBC 10-20 /HPF (NONE SEEN) 12/17/17 11:26 Urine WBC 0-2 /HPF (NONE SEEN) 12/17/17 11:26 Ur Squamous Epith Cells Rare /HPF (NEGATIVE) 12/17/17 11:26 Urine Bacteria Trace /HPF (NEGATIVE) 12/17/17 11:26 Hyaline Casts Few /LPF (NEGATIVE) 12/17/17 11:26 Ur Culture Indicated? No/not indicated 12/17/17 11:26 - Plan (1) Respiratory distress Status: Acute Plan: PALLIATIVE CARE, CONTINUE TO MONITOR (2) Hypotension Status: Acute Qualifiers: Hypotension type: unspecified hypotension type Qualified Code(s): I95.9 - Hypotension, unspecified Plan: PALLIATIVE CARE, CONTINUE TO MONITOR (3) Sepsis Status: Acute Qualifiers: Sepsis type: sepsis due to unspecified organism Qualified Code(s): A41.9 - Sepsis, unspecified organism Plan: PALLIATIVE CARE, CONTINUE TO MONTIOR (4) Palliative care status Status: Acute Plan: MORPHINE DRIP 1MG/HR, VERSED DRIP 1MG/HR, CONTINUE TO MONITOR
[2017-12-19 05:39] LABS: BASOPHILS % (AUTO) 0.6 % (0.2-1.0); EOSINOPHILS % (AUTO) 0.4 % (0.9-2.9); HEMATOCRIT 23.3 % (42.0-54.0); HEMOGLOBIN 7.8 g/dL (13.5-18.0); LYMPHOCYTES # (AUTO) 1.1 X10^3/uL (1.3-2.9); LYMPHOCYTES % (AUTO) 16.4 % (21.0-51.0); MEAN CORPUSCULAR HEMOGLOBIN 32.5 pg (27.0-34.0); MEAN CORPUSCULAR HGB CONC 33.6 g/dL (33.0-35.0); MEAN CORPUSCULAR VOLUME 96.8 fL (80.0-100.0); MEAN PLATELET VOLUME 6.7 fL (7.4-11.0); MONOCYTES # (AUTO) 0.3 x10^3/uL (0.3-0.8); MONOCYTES % (AUTO) 4.7 % (0.0-13.0); NEUTROPHILS # (AUTO) 5.1 x10^3/uL (2.2-4.8); NEUTROPHILS % (AUTO) 77.9 % (42.0-75.0); PLATELET COUNT 227 X10^3/uL (150.0-450.0); RED CELL DISTRIBUTION WIDTH 21.8 % (11.6-16.5); WHITE BLOOD COUNT 6.5 X10^3/uL (3.6-10.0)
[2017-12-19 05:54] LABS: ALANINE AMINOTRANSFERASE 67 Units/L (12-78); ALBUMIN 1.8 g/dL (3.4-5.0); ALKALINE PHOSPHATASE 41 Units/L (46-116); ASPARTATE AMINO TRANSFERASE 41 Units/L (15-37); BLOOD UREA NITROGEN 15 mg/dL (7-18); CALCIUM 8.6 mg/dL (8.5-10.1); CARBON DIOXIDE 30.4 mmol/L (21-32); CHLORIDE 104 mmol/L (98-107); COR CA(FOR HYPOALB) 10.4 mg/dL (8.5-10.1); CREATININE 0.97 mg/dL (0.70-1.30); SODIUM 140 mmol/L (136-145); TOTAL PROTEIN 5.4 g/dL (6.4-8.2); eGFR NON BLACK RACES > 60 (>60)
[2017-12-19 06:50] LABS: ANISOCYTOSIS 1+; PLATELET MORPHOLOGY COMMENT NORMAL (NORMAL)
[2017-12-19] MEDS ORDERED: ISOPTO ATROPINE SL PRN (07:42)
[2017-12-19] MEDS ORDERED: MORPHINE SULFATE INJ 2 MG INJ IVP PRN (09:27)
[2017-12-19] MEDS: MORPHINE SULFATE PCA 30 MG IVP PRN ×2 (09:30→13:30)
--- NOTE | 2017-12-19 10:15 | RAD ---
Examination: Portable AP chest History: SOB Comparison reference 12/18/2017 Findings: Continued normal heart size. Essentially clear left chest. Persistent pleural-parenchymal o pacity right lower chest and costophrenic angle. No new abnormality. Impression: No change. Findings previously described in the right lower chest may be at least in part chronic and stable. Reported By:
[2017-12-19] MEDS: LEVAQUIN PREMIX IV 750 MG 750 MG/150 ML BAG IV SCH (10:22)
[2017-12-19] MEDS: NS 1000 ML 1,000 ML IV SCH (10:22)
[2017-12-19] MEDS: FORTAZ or TAZICEF VIAL INJ 1 G in NS 100 ML IV + SPIKE MINIBAG* 100 ML IV SCH ×3 (10:22→21:53)
[2017-12-19] MEDS: DUONEB 0.5 MG/3 MG NEB SCH ×3 (12:15→18:42)
[2017-12-19] MEDS: VERSED 100 MG in NS 100 ML IV 80 ML IV PRN (14:54)
[2017-12-20] MEDS: VERSED 100 MG in NS 100 ML IV 80 ML IV PRN (04:04)
[2017-12-20] MEDS: FORTAZ or TAZICEF VIAL INJ 1 G in NS 100 ML IV + SPIKE MINIBAG* 100 ML IV SCH ×2 (05:12→13:51)
[2017-12-20 06:05] LABS: BASOPHILS % (AUTO) 0.5 % (0.2-1.0); EOSINOPHILS % (AUTO) 0.2 % (0.9-2.9); HEMATOCRIT 21.3 % (42.0-54.0); HEMOGLOBIN 7.2 g/dL (13.5-18.0); LYMPHOCYTES # (AUTO) 0.7 X10^3/uL (1.3-2.9); LYMPHOCYTES % (AUTO) 9.5 % (21.0-51.0); MEAN CORPUSCULAR HEMOGLOBIN 32.6 pg (27.0-34.0); MEAN CORPUSCULAR HGB CONC 33.8 g/dL (33.0-35.0); MEAN CORPUSCULAR VOLUME 96.3 fL (80.0-100.0); MEAN PLATELET VOLUME 6.4 fL (7.4-11.0); MONOCYTES # (AUTO) 0.3 x10^3/uL (0.3-0.8); MONOCYTES % (AUTO) 4.6 % (0.0-13.0); NEUTROPHILS # (AUTO) 5.9 x10^3/uL (2.2-4.8); NEUTROPHILS % (AUTO) 85.2 % (42.0-75.0); PLATELET COUNT 223 X10^3/uL (150.0-450.0); RED BLOOD COUNT 2.21 X10^6/uL (4.7-6.0); RED CELL DISTRIBUTION WIDTH 22.5 % (11.6-16.5)
[2017-12-20 06:31] LABS: ALANINE AMINOTRANSFERASE 55 Units/L (12-78); ALBUMIN 1.7 g/dL (3.4-5.0); ALKALINE PHOSPHATASE 42 Units/L (46-116); ASPARTATE AMINO TRANSFERASE 35 Units/L (15-37); BLOOD UREA NITROGEN 17 mg/dL (7-18); CALCIUM 8.5 mg/dL (8.5-10.1); CARBON DIOXIDE 29.3 mmol/L (21-32); CHLORIDE 106 mmol/L (98-107); COR CA(FOR HYPOALB) 10.3 mg/dL (8.5-10.1); COR NA(FOR HYPERGLY) 141 mmol/L (136-145); CREATININE 1.07 mg/dL (0.70-1.30); SODIUM 141 mmol/L (136-145); TOTAL PROTEIN 5.4 g/dL (6.4-8.2); eGFR NON BLACK RACES > 60 (>60)
--- NOTE | 2017-12-20 06:38 | RAD ---
Findings: Examination: Portable AP chest History: SOB, lung cancer, leukemia Comparison reference 12/19/2017 Findings: Similar heart size. No change in the pleural-parenchymal opacification right lower chest. T he left lung remains essentially clear. No developing pleural effusion or pneumothorax. Impression: No change since 12/19/2017. Reported By:
[2017-12-20 07:01] LABS: ANISOCYTOSIS 2+; PLATELET MORPHOLOGY COMMENT NORMAL (NORMAL)
[2017-12-20] MEDS: LEVAQUIN PREMIX IV 750 MG 750 MG/150 ML BAG IV SCH (08:14)
[2017-12-20] MEDS: DUONEB 0.5 MG/3 MG NEB SCH ×4 (09:09→21:47)
[2017-12-20] MEDS ORDERED: VERSED 100 MG in NS 100 ML IV 80 ML IV PRN (09:54)
[2017-12-20] MEDS ORDERED: MORPHINE SULFATE PCA 30 MG IVP PRN (09:54)
[2017-12-20] MEDS: NS 1000 ML 1,000 ML IV SCH (16:58)
[2017-12-20 20:17] VITALS: BP 72/40
--- NOTE | 2017-12-21 10:29 | PCM.PROG ---
Progress Note - Progress Note for Day of Date of Exam: 12/19/17 - Subjective Subjective: WAS ADMITTED FOR RESPIRATORY DISTRESS, HYPOTENSION, AND SEPSIS. WE INITIATED PALLATIVE CARE TREATMENT YESTERDAY. TODAY, HE IS LYING IN BED WITH EYES OPEN ON MORNING ROUNDS. HE RESPONDS VERBALLY. ON EXAMINATION, HEART IS REGULAR IN RATE AND RHYTHM. BILATERAL LUNGS ARE NOTED WITH SCATTERED RHONCHI THROUGHOUT, DIMINISHED. ABDOMEN IS ROUND, SOFT, AND NON-TENDER. BILATERAL LOWER EXTREMITIES ARE NOTED WITH 1+ PITTING EDEMA. HIS VITALS THIS MORNING ARE 97.3-101-12-98%-99/53. LABS WERE OBTAINED. ABNORMAL LAB VALUES INCLUDE THE FOLLOWING: RBC 2.40, HGB 7.8, HCT 23.3, AST 41, ALK BRYCE 41, TOTAL PROTEIN 5.4, ALBUMIN 1.8. SPUTUM AND BLOOD CULTURES ARE PENDING. TODAY, WE WILL CONTINUE WITH IV VERSED AND MORHINE. OTHERWISE, WE WILL FOLLOW UP AND CONTINUE TO MONITOR PATIENT. - Past Medical Family Social History Past Med/Fam/Surg Hx: No changes since H&P Allergies: Allergies promethazine [From Phenergan] Adverse Reaction (Verified 11/02/17 20:57) - Review of Systems ROS: No change since H&P - Vital Signs and I&O's Vital Signs: Temperature 100.1 F Pulse Rate [Left Brachial] 116 Pulse Rate [Apical] 100 Pulse Rate 109 Respiratory Rate 17 Blood Pressure [Right Arm] 149/64 Blood Pressure [Left Arm] 72/40 Blood Pressure 102/58 O2 Sat by Pulse Oximetry 70 Intake and Output: Intake & Output 12/18/17 12/19/17 12/20/17 12/21/17 11:59 11:59 11:59 11:59 Intake Total 2776 / 2776 2500 / 2500 1104 / 1104 964 / 964 Output Total 3000 / 3000 1050 / 1050 525 / 525 500 / 500 Balance -224 / -224 1450 / 1450 579 / 579 464 / 464 - Physical Exam Oriented: Not Oriented Eyes: Normal Ear: Normal Nose: Normal Throat: Normal Respiratory: Generalized, Diminished, Rhonchi Cardiovascular: Edema. negative: S3, S4, Murmur : Normal Auscultation: Bowel Sounds: Normal Tenderness: Normal Skin: Normal Musculoskeletal: Normal Psychiatric: Normal Mood Description: Calm Affect: Normal Speech Pattern: Unclear, Delayed - Laboratory and Diagnostics Result Diagrams: 12/20/17 05:40 12/20/17 05:40 Labs: 12/17/17 08:20 Blood Blood Culture - Preliminary 12/17/17 08:46 Sputum - Expectorated Sputum Sputum Culture - Final Methicillin Resis Staph Aureus 12/17/17 08:46 Sputum - Expectorated Sputum - Final 12/17/17 08:38 Blood Blood Culture - Preliminary Laboratory WBC 7.0 X10^3/uL (3.6-10.0) 12/20/17 05:40 RBC 2.21 X10^6/uL (4.7-6.0) L 12/20/17 05:40 Hgb 7.2 g/dL (13.5-18.0) L 12/20/17 05:40 Hct 21.3 % (42.0-54.0) L 12/20/17 05:40 MCV 96.3 fL (80.0-100.0) 12/20/17 05:40 MCH 32.6 pg (27.0-34.0) 12/20/17 05:40 MCHC 33.8 g/dL (33.0-35.0) 12/20/17 05:40 RDW 22.5 % (11.6-16.5) H 12/20/17 05:40 Plt Count 223 X10^3/uL (150.0-450.0) 12/20/17 05:40 Plt Count Comment Adequate (ADEQUATE) 12/20/17 05:40 MPV 6.4 fL (7.4-11.0) L 12/20/17 05:40 Neut % (Auto) 85.2 % (42.0-75.0) H 12/20/17 05:40 Lymph % (Auto) 9.5 % (21.0-51.0) L 12/20/17 05:40 [place] % (Auto) 4.6 % (0.0-13.0) 12/20/17 05:40 Eos % (Auto) 0.2 % (0.9-2.9) L 12/20/17 05:40 Baso % (Auto) 0.5 % (0.2-1.0) 12/20/17 05:40 Neut # (Auto) 5.9 x10^3/uL (2.2-4.8) H 12/20/17 05:40 Lymph # (Auto) 0.7 X10^3/uL (1.3-2.9) L 12/20/17 05:40 [place] # (Auto) 0.3 x10^3/uL (0.3-0.8) 12/20/17 05:40 Eos # (Auto) 0.0 x10^3/uL (0.0-0.2) 12/20/17 05:40 Baso # (Auto) 0.0 X10^3/uL (0.0-0.1) 12/20/17 05:40 Absolute Nucleated RBC 0.6 /100WBC 12/20/17 05:40 Total Counted 10 12/18/17 05:30 Neutrophils % (Manual) 82 % (39-76) H 12/18/17 05:30 Band Neutrophils % 6 % (0-10) 12/18/17 05:30 Lymphocytes % (Manual) 12 % (13-43) L 12/18/17 05:30 Monocytes % (Manual) 4 % (4-9) 12/17/17 08:00 Eosinophils % (Manual) 1 % (0-6) 12/17/17 08:00 Nucleated RBCs 3 12/18/17 05:30 Plt Morphology Comment Normal (NORMAL) 12/20/17 05:40 RBC Morphology Abnormal (NORMAL) 12/20/17 05:40 Hypochromasia Slight A 12/18/17 05:30 Anisocytosis 2+ A 12/20/17 05:40 Sample Site Rrad 12/18/17 05:19 ABG pH 7.510 (7.35-7.45) H 12/18/17 05:19 ABG pCO2 46.0 mmHg (35.0-45.0) H 12/18/17 05:19 ABG pO2 90.0 mmHg (80.0-100.0) 12/18/17 05:19 ABG HCO3 36.7 mmol/L (22-26) H* 12/18/17 05:19 ABG O2 Saturation 98.0 % (90-100) 12/18/17 05:19 ABG Base Excess 12.1 mmol/L (-2.0-2.0) H 12/18/17 05:19 Edgardo Test Pos 12/18/17 05:19 A-a Gradient 138.0 mmHg 12/18/17 05:19 FiO2 40.000 12/18/17 05:19 Blood Gas Comments Norberto abg well-mtf 12/18/17 05:19 Sodium 141 mmol/L (136-145) 12/20/17 05:40 Corrected Sodium 141 mmol/L (136-145) 12/20/17 05:40 Potassium 4.0 mmol/L (3.5-5.1) 12/20/17 05:40 Chloride 106 mmol/L (98-107) 12/20/17 05:40 Carbon Dioxide 29.3 mmol/L (21-32) 12/20/17 05:40 BUN 17 mg/dL (7-18) 12/20/17 05:40 Creatinine 1.07 mg/dL (0.70-1.30) 12/20/17 05:40 Est GFR (MDRD) Af Amer > 60 (>60) 12/20/17 05:40 Est GFR (MDRD) Non-Af > 60 (>60) 12/20/17 05:40 Glucose 112 mg/dL (65-99) H 12/20/17 05:40 Lactic Acid 2.1 mmol/L (0.4-2.0) H 12/17/17 08:00 Calcium 8.5 mg/dL (8.5-10.1) 12/20/17 05:40 Corrected Calcium 10.3 mg/dL (8.5-10.1) H 12/20/17 05:40 Total Bilirubin 0.40 mg/dL (0.2-1.0) 12/20/17 05:40 AST 35 Units/L (15-37) 12/20/17 05:40 ALT 55 Units/L (12-78) 12/20/17 05:40 Alkaline Phosphatase 42 Units/L (46-116) L 12/20/17 05:40 B-Natriuretic Peptide 318 pg/mL (0-79) H 12/17/17 08:00 Total Protein 5.4 g/dL (6.4-8.2) L 12/20/17 05:40 Albumin 1.7 g/dL (3.4-5.0) L 12/20/17 05:40 Globulin 3.7 g/dL (2.5-4.5) 12/20/17 05:40 Albumin/Globulin Ratio 0.5 Ratio (1.1-2.1) L 12/20/17 05:40 Specimen Type Catherized urine 12/17/17 11:26 Urine Color Yellow (YELLOW) 12/17/17 11:26 Urine Appearance Hazy (CLEAR) 12/17/17 11:26 Urine pH 8.0 (5.0 - 8.0) 12/17/17 11:26 Ur Specific [place] 1.010 (1.000-1.030) 12/17/17 11:26 Urine Protein 1+ (NEGATIVE) 12/17/17 11:26 Urine Glucose (UA) Negative (NEGATIVE) 12/17/17 11:26 Urine Ketones Negative (NEGATIVE) 12/17/17 11:26 Urine Occult Blood 4+ (NEGATIVE) 12/17/17 11:26 Urine Nitrite Negative (NEGATIVE) 12/17/17 11:26 Urine Bilirubin Negative (NEGATIVE) 12/17/17 11:26 Urine Urobilinogen Normal (NORMAL) 12/17/17 11:26 Ur Leukocyte Esterase 1+ (NEGATIVE) 12/17/17 11:26 Urine RBC 10-20 /HPF (NONE SEEN) 12/17/17 11:26 Urine WBC 0-2 /HPF (NONE SEEN) 12/17/17 11:26 Ur Squamous Epith Cells Rare /HPF (NEGATIVE) 12/17/17 11:26 Urine Bacteria Trace /HPF (NEGATIVE) 12/17/17 11:26 Hyaline Casts Few /LPF (NEGATIVE) 12/17/17 11:26 Ur Culture Indicated? No/not indicated 12/17/17 11:26 - Plan (1) Respiratory distress Status: Acute Plan: PALLIATIVE CARE, CONTINUE TO MONITOR (2) Hypotension Status: Acute Qualifiers: Hypotension type: unspecified hypotension type Qualified Code(s): I95.9 - Hypotension, unspecified Plan: PALLIATIVE CARE, CONTINUE TO MONITOR (3) Sepsis Status: Acute Qualifiers: Sepsis type: sepsis due to unspecified organism Qualified Code(s): A41.9 - Sepsis, unspecified organism Plan: PALLIATIVE CARE, CONTINUE TO MONTIOR (4) Palliative care status Status: Acute Plan: MORPHINE DRIP 1MG/HR, VERSED DRIP 1MG/HR, CONTINUE TO MONITOR
--- NOTE | 2018-02-18 22:09 | DR.DECEASE ---
Form - Labs Result Diagrams: 12/20/17 05:40 12/20/17 05:40 - Hospital Course Hospital Course: WAS AN 82 YEAR OLD PATIENT OF OURS. HE [facility]. [facility] STAFF REPORTED THAT PATIENT COMPLAINED OF SHORTNESS OF BREATH AND HURTING ALL OVER. SHE REPORTED THAT HE HAD DECREASED OXYGEN SATURATIONS OF 89-90% ON 3L/MIN NASAL CANNULA. THEY REPORTED THAT PATIENT HAD BEEN VERY ANXIOUS ALL EVENING. PATIENT HAD A HISTORY OF LUNG CANCER, COPD, AND CONGESTIVE HEART FAILURE. ON ARRIVAL, VITALS WERE 97.6-80-22-94%NC-102/58. LABS WERE OBTAINED. ABNORMAL LAB VALUES INCLUDED THE FOLLOWING: RBC 2.56, HGB 8.4, HCT 24.5, CARBON DIOXIDE 36.8, BUN 25, GLUCOSE 110, LACTIC ACID 2.1, BNP 318, TOTAL PROTEIN 5.7, ALBUMIN 2.2. AN ABG REVEALED PH 7.490, PC02 51.0, P02 50.0, HC03 38.9, 02 SATURATION 88.0, BASE EXCESS 13.5. A URINALYSIS WAS OBTAINED AND REVEALED WBC 0-2, RBC 10-20, BACTERIA TRACE, LEUKOCYTES 1+. SPUTUM AND BLOOD CULTURES OBTAINED. A CHEST XRAY WAS OBTAINED AND REVEALED: Right perihilar fullness that may be secondary to projection and patient positioning. Unchanged pleural thickening and scarring. HE WAS PLACED ON THE BIPAP. HIS BLOOD PRESSURE WAS NOTED TO DECREASE TO 82/44. HE WAS STARTED ON A DOPAMINE DRIP AND GIVEN LEVAQUIN 500MG IV X 1 DOSE AND FORTAZ 1GM IV X 1 DOSE IN THE ER. HE WAS ADMITTED TO THE INTENSIVE CARE UNIT FOR FURTHER EVALUATION AND TREATMENT OF RESPIRATORY DISTRESS, HYPOTENSION, AND SEPSIS. WE STARTED NORMAL SALINE AT 20ML/HR, VANCOMYCIN 1GM IV BID, MORPHINE 2MG IV Q4H, AND RESUMED HOME MEDS. WE CONTINUED TO MONITOR. DAY TWO, HE WAS LYING IN BED WITH EYES CLOSED ON MORNING ROUNDS. HE CONTINUED ON THE BIPAP UPON ROUNDS. HE OPENED EYES TO VERBAL STIMULI, BUT WAS NOTED WITH LABORED RESPIRATIONS IN THE 40S. ON EXAMINATION, HEART WAS REGULAR IN RATE AND RHYTHM. BILATERAL LUNGS WERE NOTED WITH SCATTERED RHONCHI THROUGHOUT, DIMINISHED. ABDOMEN WAS ROUND, SOFT, AND NON-TENDER. BILATERAL LOWER EXTREMITIES WERE NOTED WITH 1+ PITTING EDEMA. HIS VITALS WERE 97.2-95-24-100%-112/56. HE CONTINUED ON A DOPAMINE DRIP. BLOOD PRESSURE REMAINED LOW DESPITE DOPAMINE DRIP. LABS WERE OBTAINED. ABNORMAL LAB VALUES INCLUDED THE FOLLOWING: RBC 2.78, HGB 9.0, HCT 26.5, CARBON DIOXIDE 36.2, BUN 19, GLUCOSE 105, AST 41, TOTAL PROTEIN 6.2, ALBUMIN 2.3. ABG OBTAINED AND REVEALED: PH 7.510, PC02 46.0, HC03 36.7, BASE EXCESS 12.1. A CHEST XRAY WAS OBTAINED AND REVEALED NO CHANGE SINCE THE DAY BEFORE. WE DISCUSSED WITH FAMILY PATIENTS CONDITION. FAMILY REQUESTED THAT PATIENT BE KEPT COMFORTABLE AND NOT IN DIST RESS. WE WERE IN AGREEMENT. WE INITIATED PALLATIVE CARE TREATMENT. WE CONTINUED TO MONITOR. PATIENT PASSED PEACEFULLY WITH FAMILY AT BEDSIDE ON 12/20/17 AT 2300. 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 Thrombocytosis (Acute) D47.3 Microcytic anemia (Acute) D50.9 History of lung cancer (Acute) Z85.118 Nausea (Acute) R11.0 Abdominal pain (Acute) R10.9 Dehydration (Acute) E86.0 UTI (urinary tract infection) (Acute) N39.0 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 Bilateral lower extremity edema (Acute) R60.0 Urinary and fecal incontinence (Acute) R32, R15.9 Hyponatremia (Acute) E87.1 Generalized weakness (Acute) R53.1 Hypotension (Acute) I95.9 Sepsis (Acute) A41.9 Palliative care status (Acute) Z51.5 Cellulitis of both lower extremities (Acute) L03.115, L03.116 CHF (congestive heart failure) (Chronic) I50.9 Aortic aneurysm (Chronic) I71.9 Chronic kidney disease (CKD) (Chronic) N18.9 History of WI (myocardial infarction) (Chronic) I25.2 Hyperlipidemia (Chronic) E78.5 COPD (chronic obstructive pulmonary disease) (Chronic) J44.9 Renal disease (Chronic) N28.9 Skin cancer (Chronic) C44.90 Hx of heart artery stent (Chronic) Z95.5 BPH (benign prostatic hypertrophy) (Chronic) N40.0 Hypothyroidism (Chronic) E03.9 GERD (gastroesophageal reflux disease) (Chronic) K21.9 Hypertension (Chronic) I10 Back pain (Chronic) M54.9 - Home Medications Home Medications: Home Medications Medication Instructions Recorded Type docusate sodium [Colace] 1 tab PO BID 12/17/17 History iron-folic acid-mv, min cmb#15 1 tab PO DAILY 12/17/17 History [Hemocyte-Plus] lisinopril 1 tab PO DAILY 12/17/17 History metoprolol tartrate 1 tab PO DAILY 12/17/17 History potassium chloride 7.5 ml PO DAILY 12/17/17 History prednisone 1 tab PO DAILY 12/17/17 History rivaroxaban [Xarelto] 1 tab PO HS 12/17/17 History
== END 2017-12-20 22:08 | disposition expired | DRG 204 ==
LOC: ER 07:36 → ICU 10:39 → MED/SURG 12-18 12:58
PROVIDERS: ADMIT Internal Medicine; ATTEND Internal Medicine
DX: Z66 Do not resuscitate; R94.31 Abnormal electrocardiogram [ECG] [EKG]; K21.9 Gastro-esophageal reflux disease without esophagitis; I25.10 Atherosclerotic heart disease of native coronary artery without angina pectoris; Z85.118 Personal history of other malignant neoplasm of bronchus and lung; I50.9 Heart failure, unspecified; B95.62 Methicillin resistant Staphylococcus aureus infection as the cause of diseases classified elsewhere; A41.89 Other specified sepsis; Z51.5 Encounter for palliative care; R06.03 Acute respiratory distress; E03.8 Other specified hypothyroidism; R06.02 Shortness of breath; I46.9 Cardiac arrest, cause unspecified; I95.89 Other hypotension; J44.9 Chronic obstructive pulmonary disease, unspecified
CPT/HCPCS: 36415; 36556; 36600; 71010; 71045; 80053; 81001; 82803; 83605; 83880; 85025; 87040; 87070; 87077; 87186; 87205; 93005; 94640; 94660; 96365; 96367; 96374; 96375; 99284; 99285; A4216; A4222; A4618; A7030; J0696; J0713; J1265; J1956; J2250; J2270; J2271; J3370; J7030; J7050; J7060; J7620